=== PATIENT | male | born 1950 | race Caucasian/White ===

== ENCOUNTER 2019-06-05 06:00 | Outpatient (RCR) | payer OTHER, SELFPAY ==
[2019-06-02 10:48] LABS: Basophils % 0.3 %; Eosinophils # 0.1 10^3/uL (0.0-0.8); Hematocrit 37.4 % (42.0-52.0); Lymphocytes % 16.1 %; Mean Corpuscular HGB Conc 29.4 g/dL (30.0-36.0); Mean Corpuscular Hemoglobin 27.1 pg (28.0-34.0); Mean Corpuscular Volume 92.1 fL (80-94); Mean Platelet Volume 12.2 fL (7.4-10.4); Monocytes # 0.8 10^3/uL (0.2-0.9); Monocytes % 12.8 %; Neutrophils # 4.4 10^3/uL (1.8-7.7); Neutrophils % 68.2 %; Nucleated Red Blood Cells % 0 %; Platelet Count 207 10^3/cmm (130-400); Red Blood Count 4.06 10^6/uL (4.1-5.3); Red Cell Distribution Width 19.9 % (12.1-15.1); White Blood Count 6.4 10^3/uL (4.0-10.0)
[2019-06-02 11:00] LABS: Alanine Aminotransferase 26 U/L (0-41); Albumin Level 4.9 g/dL (3.5-5.2); Alkaline Phosphatase 73 IU/L (40-130); Anion Gap 15.2 (5-19); Aspartate Amino Transferase 30 U/L (0-40); Blood Urea Nitrogen 10 mg/dL (8-23); Calcium 9.4 mg/Dl (8.8-10.2); Carbon Dioxide 26 mmol/L (22-29); Chloride 97 mmol/L (98-107); Ferritin 39 ng/mL (30-400); Globulin 1.6 g/dL (1.3-4.6); Glomerular Filtration Rate 54.9 mL/min (90-130); Glucose 128 mg/dL (74-106); Iron 24 ug/dL (59-158); Percent Saturation 7.3 % (20-50); Potassium 4.2 mmol/L (3.5-5.1); Sodium 134 mmol/L (136-145); Total Bilirubin 0.4 mg/dL (0.15-1.2); Total Iron Binding Capacity 328 mg/dL; Total Protein 6.5 g/dL (6.6-8.7); Unsaturated Iron Binding 304 ug/dL (112-347)
--- NOTE | 2019-06-06 08:26 | ONC FU_ITS ---
Dr. Larkin Patient Follow-Up Note Patient: Bebo Goetz Unit #: [id number]: 1950 Dicatated By: Grabiel Larkin M.D.Date of Visit:Jun 05, 2019 Onc Med Follow-up/Prog Note Chief Complaint: Anemia. History of Present Illness: This is 69 year-old man with iron deficiency anemia. He was found to have a microcytic anemia on 09/29/2011, but no additional clinical data were available. He had normal hemoglobin with normal MCV on 10/15/2014 laboratory analysis. In December 2014 he was admitted with an acute febrile illness. He had a worsening renal insufficiency and hepatic enzyme elevation. During that hospitalization his hemoglobin measured 7.7 g/dL, MCV 67.8. Iron saturation was 4%, consistent with iron deficiency. The patient received 2 units of packed red blood cell transfusion and began oral iron replacement. He underwent endoscopy and colonoscopy on 02/19/2015. Pathology showed gastric hyperplastic polyp and gastritis thought to be from the iron supplement. Several colonic and rectal hyperplastic polyps were discovered without dysplasia. Review of prior laboratory analysis showed negative acute hepatitis B and C serology in April 2014. PSA was 3.54 in August 2014. He was first seen by Dr. Torres on 04/29/2015. Hemoglobin had recovered to 11.4 g with MCV 79. He continued to have iron deficiency with ferritin 8.9 ng/mL. Hemoccult stool negative x 1. Total testosterone was low at 119. By July 2015 the hemoglobin was stable at 11.2 g, but transferrin saturation was low at 7.2%. He was given parenteral iron replacement with Injectafer in July 2015. Despite the IV iron replacement, his iron studies in August were consistent with recurrent iron deficiency, suggestive of ongoing blood loss. His CT of the chest, abdomen, and pelvis on 09/20/15 showed mild borderline hepatomegaly but also mucosal thickening of the colon. He received additional IV Injectafer in August and again in October 2015. His other medical illnesses include oxygen dependent COPD, coronary artery disease, type II diabetes, and chronic renal insufficiency. He underwent aortic aneurysm repair and aortic valve repair in 2011. He has a history of smoking 2 packs of cigarettes daily for 45 years. He quit smoking in 2011. INTERIM HISTORY: His described his having an episode in May 2016 in which he passed out in the bathroom. She said that when she turned him over, he had shaking in his upper extremities and his eyes rolled back in his head. When he regained consciousness, he was confused. Shortly after regaining consciousness, he had another apparent seizure. He was evaluated the emergency room, and he is now being followed by Dr Elliott. On a follow-up visit here in July 2016 he was again significantly anemic with his hemoglobin down to 7.4 g. The red cell indices were hypochromic/microcytic. The transferrin saturation was 3.3%, and the ferritin level was low at 5.9 ng/mL. He did receive additional infusions of Injectafer in July, July, and September 2016. MRI of the brain performed on 08/27/2016 showed no evidence of restricted diffusion to suggest acute ischemia. 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 There were multiple chronic lacunar infarcts in the right superior cerebellum. There were mild small vessel changes with moderate parenchymal volume loss. There was no evidence of enhancing intracranial metastatic disease. On his follow-up visit on 02/02/2017 he was again significantly anemic with his hemoglobin back down to 8.1 g. His serum iron studies show transferrin saturation 4% and his ferritin was low at 5.2 ng/mL, consistent with iron deficiency. He was given infusions of Injectafer on 02/02/2017 and on 02/09/2017 and again on 03/17/2017 and on 03/24/2017. On his followup visit in July 2017 he was just mildly anemic, but his transferrin saturation was back down to 4.8% and his ferritin was relatively low at 42 ng/mL. He was given further parenteral iron replacement with infusions of Injectafer on 07/05 and 07/12/2017. He was seen for followup on 08/11/2017. His hemoglobin had increased to 12 g, but his serum iron and ferritin were still consistent with iron deficiency. He was given additional infusions of Injectafer on 08/11/2017 and on 08/18/2017. His repeat CBC on 09/08/2017 showed increase in the hemoglobin to 14.8 g. On 10/21/2017 he was admitted to the hospital with pneumonia. He was discharged home on oral Levaquin and prednisone. His hemoglobin at that point had declined to 10.0 g. As of his follow-up on 11/10/2017 his hemoglobin was still low at 10.2 g. His transferrin saturation was 4.3% with ferritin level 13.7 ng/mL, consistent with iron deficiency. He was given further parenteral iron replacement with 2 infusions of Injectafer. His repeat CT scan on 12/21/2017 showed hemoglobin up to 12.4 g. At his follow-up visit on 03/29/2018 his hemoglobin had dropped to 8.4 g with transferrin saturation 4.1% and ferritin level 8.3 ng/mL. He was given 2 more infusions of Injectafer. During subsequent follow-up he received single infusions of Injectafer again in April 2018 and in May 2018, and his serum iron and ferritin levels remained in iron deficiency range, though he was just borderline anemic on both occasions. His repeat CBC on 12/05/2018 showed a decrease in his hemoglobin to 9.2 g. The transferrin saturation was low at 5.4% with ferritin 17 ng/mL, consistent with iron deficiency. He was given 2 additional infusions of Injectafer. During subsequent follow-up he continued to have evidence of iron deficiency, though with just borderline low hemoglobin/hematocrit levels. He was given further infusions of Injectafer in February, March, and April 2019. During that time he had stool Hemoccult testing done through the [place], which he says was negative. He is seen for a follow-up visit. He has not been feeling good generally. He has been feeling extra tired, and his activity has been very limited. He has been having to force himself to get up and walk around. His ECOG score is 3. His appetite is been okay. He has been having chills, and he has had slight fever up to 99.4 degrees. He has had episodes of sweating both during the daytime and at night. He is short of breath and he is on continuous oxygen. He has cough productive of white or yellow sputum. He has not recently been having chest pain. He has had one recent episode of nausea. He is on Protonix for acid reflux. His bowels lately have been better, and he has not been aware of any blood in the stool. He is having some difficulty voiding, and on his recent urology follow-up it was noted that his bladder was not emptying completely. He is back on medication for that now. He has pain in his hands and in his legs. He has headaches at least a couple times a week. He also reports having dizziness/lightheadedness, and he has numbness/tingling in his feet. Medications: Aggrenox 1 (25-200 mg) Capsule SR 12 HR Oral b.i.d., Albuterol Sulfate 1 puff(s) (of 108 (90 base) mcg/act) Aerosol Powder, Breath Activated Inhalation four times a day, Calcitriol 1 (0.25 mcg) Capsule Oral daily, Cephalexin 1 Capsule (of 500 mg) Oral q 8 hours, Colace 1 Capsule (of 100 mg) Oral daily, Depakote ER 2 Tablet (of 500 mg) Tablet SR 24 HR Oral daily, Gabapentin 1 (100 mg) Tablet Oral t.i.d., Lasix 1 Tablet (of 40 mg) Oral daily, Levothroid 1 Tablet (of 25 mcg) Oral daily, Meclizine HCl 1 Tablet Oral t.i.d., Memantine HCl 1 Tablet (of 10 mg) Oral b.i.d., Metoprolol Tartrate 1 (25 mg) Tablet Oral b.i.d., Nitroglycerin Solution Translingual PRN, Protonix 1 Tablet (of 40 mg) Tablet, enteric coated Oral b.i.d., Spiriva Respimat 1 puff(s) (of 2.5 mcg/act) Aerosol, solution Inhalation daily, Symbicort 2 (160-4.5 mcg/act) Aerosol Inhalation b.i.d., Vitamin D3 1 spray(s) (of 5000 Units) Tablet daily Allergies: Clopidogrel Bisulfate, Ezetimibe, fish oil, Gemfibrozil, Hydroxychloroquine Sulfate, mushrooms , Niacin, Simvastatin, Sulfamethoxazole-TMP DS, and Zetia. Review of Systems: Constitutional - He has had very limited activity, and is having to force himself to get up and walk around. Appetite is still okay. He recently has had chills and he has had slight fever up to 99.4 degrees. He has been having episodes of sweating both during the daytime and at night. ECOG score is 3, ENMT - He has sinus congestion/drainage. No mouth sores. No sore throat or difficulty swallowing, Hematologic/Lymphatic - He has some bruising, but no other obvious bleeding, Respiratory - He has shortness of breath and he wears continuous oxygen. He has a cough that produces white or yellow phlegm. No pleuritic pain or hemoptysis, Cardiovascular - No angina pain. No palpitations, Gastrointestinal - No nausea or vomiting. He has heartburn. No diarrhea or constipation. No blood in the stool or black stools, Genitourinary (M) - No dysuria or hematuria. No urinary frequency. No urgency or incontinence, Musculoskeletal - He has pain in his hands and legs, Integumentary - No skin complications, Neurologic - He has frequent headaches. He has occasional dizziness. He has numbness and tingling in his feet, Psychiatric - No anxiety or depression. He does not sleep well at night. Vital Signs: Performed on Jun 05, 2019 12:37 Height - 70.00 in Weight - 264.0 lbs (HIGH) BSA - 2.35 sq.m BMI - 37.88 (HIGH) Temperature - 97.2 F (LOW) Pulse - 69 /min Respiration - 24 /min BP - 141/73 mm(hg) (HIGH) O2 Sat - 96 % Pain - 0 Physical Examination: Constitutional - He appears generally weak and chronically ill, Eyes - Sclerae nonicteric. Conjunctivae clear, ENMT - No lesions noted in the oral cavity, Hematologic/Lymphatic - No cervical, clavicular, or axillary adenopathy, Respiratory - Lungs are clear with diminished air movement bilaterally, Cardiovascular - Heart rhythm is regular. There is a II/ systolic murmur. There is no gallop or rub noted, Abdomen - Mildly distended. Liver and spleen are not enlarged. There is no abdominal mass or ascites noted and there is no inguinal adenopathy, Extremities - Slight lower extremity edema, worse on the right, Neurologic - No focal neurologic deficits noted. Lab/Imaging: His CBC shows hemoglobin 11.0 g, white blood cell count 6400, and platelet count 207,000. Comprehensive metabolic profile is unremarkable except for borderline renal function with BUN 10 and creatinine 1.3 mg/dL. The serum iron studies show low transferrin saturation at 7.3% with ferritin 39 ng/mL, consistent with iron deficiency. Impression: 1. Patient with recurrent microcytic anemia consistent with iron deficiency. Recurrent GI blood loss has been suspected, but a source of GI blood loss has not been determined. 2. He received parenteral iron replacement with Injectafer in July 2015, August 2015, and in October 2015. His other medical illnesses include: 3. Oxygen dependent COPD. 4. Coronary artery disease and valvular heart disease. 5. Type II diabetes. 6. Dyslipidemia. 7. Chronic kidney disease. 8. He has a suspected seizure disorder. His brain MRI showed multiple prior infarcts. He has recurrent iron deficiency anemia despite multiple courses of parenteral iron replacement. As such, GI blood loss has been suspected, but not documented. His laboratory studies had improved following his Injectafer infusions in July, but he remained mildly anemic despite having been given 2 additional infusions of Injectafer in July. He was then given 2 additional infusions of Injectafer in September 2016. As of his visit on 02/02/2017 his hemoglobin was back down to 8 g and his chemistry studies were clearly consistent with iron deficiency. He was given infusions of Injectafer on 02/02/2017 and on 02/09/2017. His follow-up laboratory studies and October did show some improvement, but he was still moderately anemic with evidence of iron deficiency. He was given further infusions of Injectafer on 03/17/2017 and on 03/24/2017. On his followup visit in July 2017 he was just borderline anemic, but his laboratory studies were definitely still consistent with iron deficiency. He received additional infusions of Infectafer on 07/05 and on 07/12/2017, and he was givenInjectifer again in July as his transferrin saturation was still low at 7.5% with ferritin also low at 36 ng/mL. He did have a very good response. However, as before, response was very temporary. On his follow-up visit in October 2017 his hemoglobin was back down to 10 g and he was again iron deficient. He was given further parenteral iron replacement with 2 more infusions of Injectafer, which he tolerated well. He had a good objective response with his hemoglobin increasing to 12.4 g. At his follow-up visit in February 2018 he was significantly anemic again, hemoglobin 8.4 g, with low transferrin saturation and ferritin. He was given 2 more infusions of Injectafer. He did have a good response, but during subsequent follow-up he was given further parenteral iron replacement with single infusions of Injectafer in April 2018 and in May 2018. On both occasions his serum iron studies and ferritin were in iron deficiency range, but with just borderline anemia. He was then given 2 additional infusions of Injectafer in September 2018 and in November 2018. During subsequent follow-up, he continued to have evidence of iron deficiency, though with just borderline low hemoglobin/hematocrit levels. He received additional infusions of Injectafer in February, March, and April 2019. At this point his laboratory studies are again consistent with iron deficiency, though he is just slightly anemic. There has been some further decline in his performance status, but some of that may be related to his underlying lung disease and respiratory symptoms. The frequency with which he has required parenteral iron replacement is consistent with ongoing GI blood loss, though his stool Hemoccult test was reportedly negative. Plan: He will be given Injectafer 750 mg by IV infusion. He will have repeat laboratory studies in 6 weeks and a follow-up visit in 3 months. Signed By: Grabiel Larkin M.D. <<Signature on File>>
== END 2019-06-30 23:59 | disposition home or self-care (01) ==
LOC: ONCMED 06:00
PROVIDERS: Nurse Practitioner; Family Provider Internal Medicine; PCP Internal Medicine; Visit Provider Internal Medicine Medical Oncology
DX: D50.9 Iron deficiency anemia, unspecified (principal); J44.9 Chronic obstructive pulmonary disease, unspecified; I25.10 Atherosclerotic heart disease of native coronary artery without angina pectoris; E11.9 Type 2 diabetes mellitus without complications; N18.9 Chronic kidney disease, unspecified; E78.5 Hyperlipidemia, unspecified; Z99.81 Dependence on supplemental oxygen; Z87.891 Personal history of nicotine dependence; Z87.01 Personal history of pneumonia (recurrent); Z86.73 Personal history of transient ischemic attack (TIA), and cerebral infarction without residual deficits; Z79.899 Other long term (current) drug therapy
CPT/HCPCS: 36415; 80053; 82728; 83540; 83550; 85025; 96365; 99214; J1439

== ENCOUNTER 2019-07-26 05:44 | Outpatient (RCR) | payer OTHER, SELFPAY ==
[2019-07-14 11:12] LABS: Basophils % 0.3 %; Eosinophils # 0.2 10^3/uL (0.0-0.8); Eosinophils % 2.6 %; Hemoglobin 8.9 g/dL (11.7-16.6); Lymphocytes # 1.3 10^3/uL (0.8-4.8); Lymphocytes % 17.9 %; Mean Corpuscular HGB Conc 27.8 g/dL (30.0-36.0); Mean Corpuscular Hemoglobin 24.3 pg (28.0-34.0); Mean Corpuscular Volume 87.2 fL (80-94); Mean Platelet Volume 11.7 fL (7.4-10.4); Monocytes # 0.8 10^3/uL (0.2-0.9); Monocytes % 10.7 %; Neutrophils # 4.8 10^3/uL (1.8-7.7); Neutrophils % 67.1 %; Nucleated Red Blood Cells % 0 %; Platelet Count 255 10^3/cmm (130-400); Red Blood Count 3.67 10^6/uL (4.1-5.3); Red Cell Distribution Width 21.6 % (12.1-15.1); White Blood Count 7.2 10^3/uL (4.0-10.0)
[2019-07-14 11:50] LABS: Ferritin 18 ng/mL (30-400); Iron 19 ug/dL (59-158); Percent Saturation 5.4 % (20-50); Total Iron Binding Capacity 346 mcg/dl; Unsaturated Iron Binding 327 ug/dL (112-347)
== END 2019-07-29 23:59 | disposition home or self-care (01) ==
LOC: ONCMED 05:44
PROVIDERS: Internal Medicine Medical Oncology; Family Provider Internal Medicine; PCP Internal Medicine; Visit Provider Nurse Practitioner
DX: D50.9 Iron deficiency anemia, unspecified (principal)
CPT/HCPCS: 36415; 82728; 83540; 83550; 85025; 96365; J1439

== ENCOUNTER 2019-09-18 06:46 | Outpatient (RCR) | payer OTHER, SELFPAY ==
[2019-09-08 09:40] LABS: Basophils % 0.4 %; Eosinophils # 0.2 10^3/uL (0.0-0.8); Eosinophils % 2.6 %; Hematocrit 31.3 % (42.0-52.0); Hemoglobin 8.6 g/dL (11.7-16.6); Lymphocytes # 1.2 10^3/uL (0.8-4.8); Lymphocytes % 15.6 %; Mean Corpuscular HGB Conc 27.5 g/dL (30.0-36.0); Mean Corpuscular Hemoglobin 23.8 pg (28.0-34.0); Mean Corpuscular Volume 86.7 fL (80-94); Mean Platelet Volume 11.7 fL (7.4-10.4); Monocytes # 0.7 10^3/uL (0.2-0.9); Monocytes % 9.4 %; Neutrophils # 5.5 10^3/uL (1.8-7.7); Nucleated Red Blood Cells % 0 %; Platelet Count 235 10^3/cmm (130-400); Red Blood Count 3.61 10^6/uL (4.1-5.3); Red Cell Distribution Width 21.1 % (12.1-15.1); White Blood Count 7.8 10^3/uL (4.0-10.0)
[2019-09-08 09:52] LABS: Alanine Aminotransferase 11 U/L (0-41); Albumin Level 4.1 g/dL (3.5-5.2); Alkaline Phosphatase 74 IU/L (40-130); Anion Gap 15.4 (5-19); Aspartate Amino Transferase 17 U/L (0-40); Blood Urea Nitrogen 14 mg/dL (8-23); Calcium 9.4 mg/dL (8.5-10.5); Carbon Dioxide 26 mmol/L (22-29); Chloride 95 mmol/L (98-107); Ferritin 17 ng/mL (30-400); Globulin 2.9 g/dL (1.3-4.6); Glomerular Filtration Rate 54.9 mL/min (90-130); Glucose 150 mg/dL (65-115); Iron 19 ug/dL (59-158); Osmolality Calculated 273 mOsm/kg (285-295); Percent Saturation 4.9 % (20-50); Potassium 4.4 mmol/L (3.5-5.1); Sodium 132 mmol/L (136-145); Total Bilirubin 0.4 mg/dL (0.15-1.2); Total Iron Binding Capacity 387 mcg/dl; Unsaturated Iron Binding 368 ug/dL (112-347)
[2019-09-11] MEDS: sodium chloride 0.9% 100 ML 50 ML (09:35)
== END 2019-09-28 23:59 | disposition home or self-care (01) ==
LOC: ONCMED 06:46
PROVIDERS: Family Provider Internal Medicine; PCP Internal Medicine; Visit Provider Internal Medicine Medical Oncology
DX: D50.9 Iron deficiency anemia, unspecified (principal)
CPT/HCPCS: 36415; 80053; 82728; 83540; 83550; 85025; 96365; J1439

== ENCOUNTER 2019-10-26 06:47 | Outpatient (RCR) | payer OTHER, SELFPAY ==
[2019-10-18 09:40] LABS: Basophils % 0.5 %; Eosinophils # 0.1 10^3/uL (0.0-0.8); Eosinophils % 2.1 %; Hematocrit 34.1 % (42.0-52.0); Hemoglobin 9.5 g/dL (11.7-16.6); Lymphocytes % 16.1 %; Mean Corpuscular HGB Conc 27.9 g/dL (30.0-36.0); Mean Corpuscular Volume 89.7 fL (80-94); Mean Platelet Volume 11.6 fL (7.4-10.4); Monocytes # 0.6 10^3/uL (0.2-0.9); Monocytes % 10.1 %; Neutrophils # 4.5 10^3/uL (1.8-7.7); Neutrophils % 70.4 %; Nucleated Red Blood Cells % 0 %; Platelet Count 186 10^3/cmm (130-400); Red Cell Distribution Width 21.4 % (12.1-15.1); White Blood Count 6.3 10^3/uL (4.0-10.0)
[2019-10-18 09:45] LABS: Ferritin 29 ng/mL (30-400); Iron 29 ug/dL (59-158); Percent Saturation 8.1 % (20-50); Total Iron Binding Capacity 355 mcg/dl; Unsaturated Iron Binding 326 ug/dL (112-347)
--- NOTE | 2019-10-24 00:11 | ONC FU_ITS ---
[facility] Patient Note Patient: Bebo Goetz Unit #: [id number]: 1950 Dictated By: Mustapha RodriguezDate of Visit: October 19, 2019 Onc MED Follow-Up/Prog Note Chief Complaint: Anemia. History of Present Illness: Mr Goetz is a 69 year-old man with iron deficiency anemia. He was found to have a microcytic anemia on 09/29/2011, but no additional clinical data were available. He had normal hemoglobin with normal MCV on 10/15/2014 laboratory analysis. In December 2014 he was admitted with an acute febrile illness. He had a worsening renal insufficiency and hepatic enzyme elevation. During that hospitalization his hemoglobin measured 7.7 g/dL, MCV 67.8. Iron saturation was 4%, consistent with iron deficiency. The patient received 2 units of packed red blood cell transfusion and began oral iron replacement. He underwent endoscopy and colonoscopy on 02/19/2015. Pathology showed gastric hyperplastic polyp and gastritis thought to be from the iron supplement. Several colonic and rectal hyperplastic polyps were discovered without dysplasia. Review of prior laboratory analysis showed negative acute hepatitis B and C serology in April 2014. PSA was 3.54 in August 2014. He was first seen by Dr. Torres on 04/29/2015. Hemoglobin had recovered to 11.4 g with MCV 79. He continued to have iron deficiency with ferritin 8.9 ng/mL. Hemoccult stool negative x 1. Total testosterone was low at 119. By July 2015 the hemoglobin was stable at 11.2 g, but transferrin saturation was low at 7.2%. He was given parenteral iron replacement with Injectafer in July 2015. Despite the IV iron replacement, his iron studies in August were consistent with recurrent iron deficiency, suggestive of ongoing blood loss. His CT of the chest, abdomen, and pelvis on 09/20/15 showed mild borderline hepatomegaly but also mucosal thickening of the colon. He received additional IV Injectafer in August and again in October 2015. His other medical illnesses include oxygen dependent COPD, coronary artery disease, type II diabetes, and chronic renal insufficiency. He underwent aortic aneurysm repair and aortic valve repair in 2011. He has a history of smoking 2 packs of cigarettes daily for 45 years. He quit smoking in 2011. INTERIM HISTORY: His described his having an episode in May 2016 in which he passed out in the bathroom. She said that when she turned him over, he had shaking in his upper extremities and his eyes rolled back in his head. When he regained consciousness, he was confused. Shortly after regaining consciousness, he had another apparent seizure. He was evaluated the emergency room, and he is now being followed by Dr Elliott. On a follow-up visit here in July 2016 he was again significantly anemic with his hemoglobin down to 7.4 g. The red cell indices were hypochromic/microcytic. The transferrin saturation was 3.3%, and the ferritin level was low at 5.9 ng/mL. He did receive additional infusions of Injectafer in July, July, and September 2016. MRI of the brain performed on 08/27/2016 showed no evidence of restricted diffusion to suggest acute ischemia. 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 There were multiple chronic lacunar infarcts in the right superior cerebellum. There were mild small vessel changes with moderate parenchymal volume loss. There was no evidence of enhancing intracranial metastatic disease. On his follow-up visit on 02/02/2017 he was again significantly anemic with his hemoglobin back down to 8.1 g. His serum iron studies show transferrin saturation 4% and his ferritin was low at 5.2 ng/mL, consistent with iron deficiency. He was given infusions of Injectafer on 02/02/2017 and on 02/09/2017 and again on 03/17/2017 and on 03/24/2017. On his followup visit in July 2017 he was just mildly anemic, but his transferrin saturation was back down to 4.8% and his ferritin was relatively low at 42 ng/mL. He was given further parenteral iron replacement with infusions of Injectafer on 07/05 and 07/12/2017. He was seen for followup on 08/11/2017. His hemoglobin had increased to 12 g, but his serum iron and ferritin were still consistent with iron deficiency. He was given additional infusions of Injectafer on 08/11/2017 and on 08/18/2017. His repeat CBC on 09/08/2017 showed increase in the hemoglobin to 14.8 g. On 10/21/2017 he was admitted to the hospital with pneumonia. He was discharged home on oral Levaquin and prednisone. His hemoglobin at that point had declined to 10.0 g. As of his follow-up on 11/10/2017 his hemoglobin was still low at 10.2 g. His transferrin saturation was 4.3% with ferritin level 13.7 ng/mL, consistent with iron deficiency. He was given further parenteral iron replacement with 2 infusions of Injectafer. His repeat CT scan on 12/21/2017 showed hemoglobin up to 12.4 g. At his follow-up visit on 03/29/2018 his hemoglobin had dropped to 8.4 g with transferrin saturation 4.1% and ferritin level 8.3 ng/mL. He was given 2 more infusions of Injectafer. During subsequent follow-up he received single infusions of Injectafer again in April 2018 and in May 2018, and his serum iron and ferritin levels remained in iron deficiency range, though he was just borderline anemic on both occasions. His repeat CBC on 12/05/2018 showed a decrease in his hemoglobin to 9.2 g. The transferrin saturation was low at 5.4% with ferritin 17 ng/mL, consistent with iron deficiency. He was given 2 additional infusions of Injectafer. During subsequent follow-up he continued to have evidence of iron deficiency, though with just borderline low hemoglobin/hematocrit levels. He was given further infusions of Injectafer in February, March, and April 2019. During that time he had stool Hemoccult testing done through the [facility], which he says was negative. Mr. Goetz is here today for follow-up. It is 1 month post his last Injectafer treatments. His Injectafer was given on September 11, 2019 and again on September 18, 2019. He is here today for reassessment and lab draws. He states overall he does feel better. He is still tired and has shortness of breath which is chronic. He denies any fever or chills. He has had no cough or hemoptysis. He denies any trouble swallowing. He has had no palpitations or chest pain. He denies any diarrhea or constipation. He denies any hematochezia. He states overall he is just really tired but does feel better after getting the iron in August. His ECOG remains at 3. Past Medical History: Anemia Chronic obstructive pulmonary disease (home oxygen use) Chronic renal insufficiency Colon polyps Coronary artery disease Diabetes type II Hyperlipidemia Past Surgical History: Aortic aneurysm repair in 2011 Arotic valve repair in 2011 Left rotator cuff repair in 2006 Allergies: Clopidogrel Bisulfate, Ezetimibe, fish oil, Gemfibrozil, Hydroxychloroquine Sulfate, mushrooms , Niacin, Simvastatin, Sulfamethoxazole-TMP DS, and Zetia. Medications: Aggrenox 1 (25-200 mg) Capsule SR 12 HR Oral b.i.d. Albuterol Sulfate 1 puff(s) (of 108 (90 base) mcg/act) Aerosol Powder, Breath Activated Inhalation four times a day Calcitriol 1 (0.25 mcg) Capsule Oral daily Cephalexin 1 Capsule (of 500 mg) Oral q 8 hours Colace 1 Capsule (of 100 mg) Oral daily Depakote ER 2 Tablet (of 500 mg) Tablet SR 24 HR Oral daily Gabapentin 1 (100 mg) Tablet Oral t.i.d. Lasix 1 Tablet (of 40 mg) Oral daily Levothroid 1 Tablet (of 25 mcg) Oral daily Meclizine HCl 1 Tablet Oral t.i.d. Memantine HCl 1 Tablet (of 10 mg) Oral b.i.d. Metoprolol Tartrate 1 (25 mg) Tablet Oral b.i.d. Nitroglycerin Solution Translingual PRN Protonix 1 Tablet (of 40 mg) Tablet, enteric coated Oral b.i.d. Spiriva Respimat 1 puff(s) (of 2.5 mcg/act) Aerosol, solution Inhalation daily Symbicort 2 (160-4.5 mcg/act) Aerosol Inhalation b.i.d. Vitamin D3 1 spray(s) (of 5000 Units) Tablet daily Family History: Mr. Goetz's mother at age 65: [place]. Mr. Goetz's father at age 72: heart attack, and lung and brain cancer. Social History: Mr. Goetz is and he is a disabled. Mr. Goetz quit smoking 3 years ago but had smoked 2.0 packs/day for 45 years. Mr. Goetz reports the following support systems: lives with spouse, significant other, family, or friends, lives in own house, supportive family/friends willing to assist with needs, and adequate transportation available for expected visits. His diet consists of regular meals. He indicates his activity level as: daily activities. Review Of Symptoms: Constitutional Denies fevers, chills. Chronic Hot flashes-stable. Mild to moderate fatigue. Eyes Denies significant visual changes. ENMT Denies sore throat, mouth sores, difficulty or changes in swallowing ability, and/or sinus drainage. Endocrine Denies hot flashes or night sweats. Hematologic/Lymphatic Easy bruising and but no bleeding. The patient denies any tender or palpable lymph nodes. Respiratory Denies chest pain. Dyspnea upon exertion-stable. Wearing oxygen supplementation continuously. Cardiovascular Denies anginal chest pain. Gastrointestinal Denies nausea, vomiting, diarrhea,heartburn, or constipation. Genitourinary (M) Denies hematuria, dysuria, increased frequency, urgency, incontinence. Musculoskeletal Bilateral leg pain-chronic and controlled with meds. No change. Integumentary Denies chronic rashes. Neurologic Denies headache, blurred vision, and no areas of focal weakness or numbness. Normal slow gait. No sensory problems. Psychiatric Denies depression and anxiety. Vital Signs: Performed on October 19, 2019 13:58 Height - 70.00 in Temperature - 98.1 F (LOW) Pulse - 64 /min Respiration - 18 /min BP - 121/65 mm(hg) O2 Sat - 96 % Pain - 0 Fatigue - 6 Performed on October 19, 2019 13:14 Height - 70.00 in Weight - 263.6 lbs (LOW) BSA - 2.35 sq.m BMI - 37.82 (HIGH) Temperature - 98.1 F (LOW) Pulse - 59 /min (LOW) Respiration - 24 /min BP - 133/71 mm(hg) O2 Sat - 97 % Pain - 0,3 - Capable of only limited self-care, confined to bed or chair more than 50% of waking hours. (ECOG) Physical Examination: Constitutional Alert, oriented, no acute distress. Skin pale/pink, warm and dry. Head Normocephalic; atraumatic. Eyes Conjunctivae and sclerae are clear and without icterus. Pupils are reactive and equal. ENMT Sinuses are nontender. No oral exudates, ulcers, masses, thrush or mucositis. Oropharynx clear. Tongue normal. Neck Supple without masses or thyromegaly. No jugular venous distension. Hematologic/Lymphatic No petechiae or purpura. No tender or palpable lymph nodes in the cervical or supraclavicular areas. Respiratory Lungs are diminished to auscultation without rhonchi or wheezing. Cardiovascular Regular rate and rhythm of heart without murmurs,clicks, gallops or rubs. Abdomen Non-tender, non-distended, no masses, ascites. Good bowel sounds noted in all quads. No guarding or rebound tenderness. No pulsatile masses. Back/Spine Non-tender to palpation. Extremities No visible deformities, no cyanosis, clubbing or edema. Musculoskeletal No tenderness or swelling, normal range of motion without obvious weakness. Integumentary No rashes or lesions. Neurologic No sensory or motor deficits, normal cerebellar function, slow gait. Psychiatric Alert and oriented times three. Coherent speech. Verbalizes understanding of our discussions today. Laboratory:see flow sheet or note below Impression: 1. Patient with recurrent microcytic anemia consistent with iron deficiency. Recurrent GI blood loss has been suspected, but a source of GI blood loss has not been determined. 2. He received parenteral iron replacement with Injectafer in July 2015, August 2015, and in October 2015. His other medical illnesses include: 3. Oxygen dependent COPD. 4. Coronary artery disease and valvular heart disease. 5. Type II diabetes. 6. Dyslipidemia. 7. Chronic kidney disease. 8. He has a suspected seizure disorder. His brain MRI showed multiple prior infarcts. He has recurrent iron deficiency anemia despite multiple courses of parenteral iron replacement. As such, GI blood loss has been suspected, but not documented. His laboratory studies had improved following his Injectafer infusions in July, but he remained mildly anemic despite having been given 2 additional infusions of Injectafer in July. He was then given 2 additional infusions of Injectafer in September 2016. As of his visit on 02/02/2017 his hemoglobin was back down to 8 g and his chemistry studies were clearly consistent with iron deficiency. He was given infusions of Injectafer on 02/02/2017 and on 02/09/2017. His follow-up laboratory studies and February did show some improvement, but he was still moderately anemic with evidence of iron deficiency. He was given further infusions of Injectafer on 03/17/2017 and on 03/24/2017. On his followup visit in July 2017 he was just borderline anemic, but his laboratory studies were definitely still consistent with iron deficiency. He received additional infusions of Infectafer on 07/05 and on 07/12/2017, and he was givenInjectifer again in July as his transferrin saturation was still low at 7.5% with ferritin also low at 36 ng/mL. He did have a very good response. However, as before, response was very temporary. On his follow-up visit in October 2017 his hemoglobin was back down to 10 g and he was again iron deficient. He was given further parenteral iron replacement with 2 more infusions of Injectafer, which he tolerated well. He had a good objective response with his hemoglobin increasing to 12.4 g. At his follow-up visit in February 2018 he was significantly anemic again, hemoglobin 8.4 g, with low transferrin saturation and ferritin. He was given 2 more infusions of Injectafer. He did have a good response, but during subsequent follow-up he was given further parenteral iron replacement with single infusions of Injectafer in April 2018 and in May 2018. On both occasions his serum iron studies and ferritin were in iron deficiency range, but with just borderline anemia. He was then given 2 additional infusions of Injectafer in September 2018 and in November 2018. During subsequent follow-up, he continued to have evidence of iron deficiency, though with just borderline low hemoglobin/hematocrit levels. He received additional infusions of Injectafer in February, March, and April 2019. At this point his laboratory studies are again consistent with iron deficiency, though he is just slightly anemic. There has been some further decline in his performance status, but some of that may be related to his underlying lung disease and respiratory symptoms. The frequency with which he has required parenteral iron replacement is consistent with ongoing GI blood loss, though his stool Hemoccult test was reportedly negative. Plan: 1. Labs from October 18, 2019 were reviewed with . Mrs. Goetz and a copy was given to them. WBC 6.3, hemoglobin 9.5 (8.6 on September 08, 2019) platelet count 86,000 ANC is 4500 iron saturation is 8.1 ferritin 29 TIBC 355. 2. Mr. Goetz has been advised that he continues to be iron deficient anemic. His hemoglobin has only gradually improved since his Injectafer in August. His iron sats have gone from 4.9 in August to 8.1 today however they remain in adequate with 20-50 be in the normal range. 3. We will proceed with Injectafer 750 mg x 2 doses???1 week apart. He will have his first dose today. 4. We will plan to see him back in 5 weeks with CBC, CMP and iron studies. 5. Mr. Goetz was advised to contact us in the interim should questions or problems arise. 6. We did discuss potential side effects of Injectafer but he states he is had a so much he knows what they are although he has not had any problems. Signed By: Mustapha Rodriguez-, CNP Grabiel Larkin MD <<Signature on File>>
== END 2019-10-29 23:59 | disposition home or self-care (01) ==
LOC: ONCMED 06:47
PROVIDERS: Internal Medicine Medical Oncology; PCP Internal Medicine; Visit Provider Nurse Practitioner
DX: D50.9 Iron deficiency anemia, unspecified (principal); J44.9 Chronic obstructive pulmonary disease, unspecified; I25.10 Atherosclerotic heart disease of native coronary artery without angina pectoris; I38 Endocarditis, valve unspecified; Z99.81 Dependence on supplemental oxygen; E11.22 Type 2 diabetes mellitus with diabetic chronic kidney disease; N18.9 Chronic kidney disease, unspecified; Z86.73 Personal history of transient ischemic attack (TIA), and cerebral infarction without residual deficits
CPT/HCPCS: 82728; 83540; 83550; 85025; 96365; 99214; J1439; J7050

== ENCOUNTER 2019-10-30 10:05 | Emergency (ER) | payer OTHER, MEDICARE, SELFPAY ==
[2019-10-30 10:17] VITALS: BP 123/77; PULSE 65; RESP 18; TEMP 37.1; O2SAT 98; BMI 36.2
--- NOTE | 2019-10-30 10:39 | USCV_ITS ---
Bishnu Bebo Age: 69 Gender: M : 1950 Exam Date: 10/30/2019 10:54 Ordering Phys: Robert Feliz Technologist: Ashley Walker [place]am [place] [facility] [place] Indication: SWELLING HISTORY: Lower extremity swelling. PROCEDURES: Venous duplex imaging was performed in only the right lower extremity. The following venous structures were evaluated: common femoral vein, profunda vein, proximal portion of the greater saphenous vein, superficial femoral vein, and the popliteal vein. In addition, the posterior tibial and peroneal trunk were evaluated. Serial compression, augmentation maneuvers, and spectral Doppler flow evaluation were performed. FINDINGS: Normal 2-D Doppler and augmentation and compressibility throughout the lower extremity venous structures. Additional imaging through the proximal calf veins also reveals no thrombus. Limited evaluation of the greater saphenous vein is patent with no thrombus.. Hypoechoic heterogeneous area in the anterior aspect of the knee measuring 2.78 x 1.02 cm CONCLUSIONS No evidence of DVT in the above-mentioned identifiable veins. Heterogeneous hypoechoic area on the anterior aspect of the knee, may suggest resolving hematoma Dr Erika Horne MD FAC (Electronically Signed) Final Date: 30 October 2019 18:33 S
--- NOTE | 2019-10-30 10:39 | W.ED.EXTPRO ---
HPI - Extremity Problem General: Chief complaint: Extremity Problem,Nontraumatic Stated complaint: POSS CLOT IN RIGHT LEG Time Seen by Provider: 10/30/19 10:33 History of Present Illness: HPI Narrative: Patient is a 69-year-old male who comes to the ED with right leg pain and swelling. Patient says that 2 days ago he noticed some localized swelling on the right knee. Patient says the right knee swelling was not painful until yesterday. Today patient noticed the swollen nodule below right knee is a little red and warm. He says it is painful whenever he bends his knee or walks on right leg. He denies any injury or accident to cause acute right knee pain. Associated symptoms: Deny chest pain, fever(s) or rash Review of Systems Const: Denies: fever(s), chills or fatigue Eyes: Denies: change in vision or eye discomfort ENMT: Denies: throat pain, odynophagia, nasal discharge or nasal congestion Card: Denies: chest pain, palpitations, edema, swelling of feet/ankles, dyspnea on exertion or orthopnea Resp: Denies: dyspnea, productive cough or non-productive cough GI: Denies: abdominal pain, nausea, vomiting, diarrhea, constipation or hematochezia : Denies: flank pain, difficulty urinating, dysuria or hematuria Musc: Reports: extremity pain (right knee), extremity swelling (right knee) and joint pain (right knee); Denies: neck pain or back pain Skin/Breast: Denies: rash or new lesions Neuro: Denies: headache(s), numbness in extremities or weakness in extremities PFS ED PFSH: Social History Smoking and tobacco status: former smoker Physical Exam Const: COMMON NORMALS: patient oriented x3 HENMT: COMMON NORMALS: normocephalic HEAD & SCALP: normocephalic MOUTH: Normal oral and palatal mucosa present THROAT: posterior oropharynx normal and uvula midline Neck/C-Spine: COMMON NORMALS: supple GENERAL: Yes normal visual inspection Resp: COMMON NORMALS: normal respiratory effort, No retractions, No use of accessory muscles and clear to auscultation bilaterally AUSCULTATION: clear to auscultation bilaterally Cardio: COMMON NORMALS: regular rate, regular rhythm, S1 normal heart sound present, S2 normal heart sound present, No gallops present (Cardio), No clicks present (Cardio), No murmurs present (Cardio) and Peripheral pulses 2+ throughout RATE: regular rate RHYTHM: regular rhythm HEART SOUNDS: S1 normal heart sound present and S2 normal heart sound present PERIPHERAL PULSES: Peripheral pulses 2+ throughout GI: COMMON NORMALS: Normal to inspection, nondistended, normoactive bowel sounds present, Soft to palpation, non-tender and no masses PALPATION: Yes Soft to palpation : COMMON NORMALS: Yes no CVA tenderness BLADDER/KIDNEY EXAM: Yes no CVA tenderness Back/Pelvis: COMMON NORMALS: no CVA tenderness Extremity: RIGHT LOWER EXTREMITY: Yes knee joint Right knee: Yes inspection (Patient is a red, warm nodule on the knee.), Yes palpation (Tender to the touch.), Yes ROM (full but hurts when he moves leg) and Yes neurovascular exam (Intact) Neuro: COMMON NORMALS: patient oriented x3 and moves all extremities Skin: COMMON NORMALS: no rashes or lesions noted GENERAL SKIN EXAM: no rashes or lesions noted and dry skin Course Vital Signs: Vital signs: Vital Signs Temperature 98.7 F 10/30/19 10:17 Pulse Rate 64 10/30/19 12:39 Respiratory Rate 18 10/30/19 12:39 Blood Pressure 121/76 10/30/19 12:39 Pulse Oximetry 98 10/30/19 12:39 MDM - Extremity (Nontraumatic) Imaging Data^: Xray Ortho: Attestation: I personally reviewed and interpreted this imaging study as follows: Radiologist's impression: [address] [address] XRay Report Signed Patient: Bebo Goetz Unit #: [id number] : 1950 Age/Sex: 69 / M ADM Date: 10/30/19 Loc: ER Room/Bed: Attending Dr: Ordering Provider/Ordering MD: Robert Feliz Date of Service: 10/30/19 Procedure(s): XR knee RT 3V* 19592 Accession Number(s): [id number] Report Number: [id number] WS: [id number] XR knee RT 3V* [id number] REASON FOR EXAM: pain and swelling FINDINGS: Degenerate changes along the lateral meniscal space are seen. The medial meniscal spaces were normal. The patella femoral articulations were normal. In the patella tibial space is a large calcified density consistent with remote [place] slaughters disease. XR/XR knee RT 3V* [id number] IMPRESSION: Calcified density in the patella tibial space consistent with remote [place] slaughters disease. Degenerate changes involving the lateral meniscal space. Dictated By: Broderick Hammond DO Signed By: Broderick Hammond DO Signed Date/Time: 10/30/19 1129 DD/ 1128 US Vascular: Attestation: I personally reviewed and interpreted this imaging study as follows: Radiologist's impression: Ultrasound venous duplex of the right lower extremity?prelim report no blood clots or DVTs seen. Discharge Plan Discharge Patient Disposition: Home, Self-Care Clinical Impression: Jackie-Schlatter's disease of right lower extremity, Enthesitis Condition: Stable Discharge Orders: Discharge Order (Routine); Ordered 10/30/19 Ordered By: Robert Feliz Referrals: Bertin Machado [Primary Care Provider] - Discharge Diet: Regular Discharge Activity: Increase activity as tolerated Patient Instructions: Jackie-Schlatter Disease (ED) Activity Restrictions/Additional Instructions: Schedule an appointment with your PCP in the next 5 to 7 days to get reevaluated. You can rest, ice, elevate right leg and take Tylenol for pain. 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
--- NOTE | 2019-10-30 11:07 | XR_ITS ---
WS: [id number] XR knee RT 3V* [id number] REASON FOR EXAM: pain and swelling FINDINGS: Degenerate changes along the lateral meniscal space are seen. The medial meniscal spaces were normal. The patella femoral articulations were normal. In the patella tibial space is a large calcified density consistent with remote Jackie slaughters dis ease. XR/XR knee RT 3V* [id number] IMPRESSION: Calcified density in the patella tibial space consistent with remote [place] sla ughters disease. Degenerate changes involving the lateral meniscal space.
[2019-10-30] MEDS: acetaminophen 500 mg Tablet PO (11:23)
[2019-10-30 12:39] VITALS: BP 121/76; PULSE 64; RESP 18; O2SAT 98
== END 2019-10-30 12:43 | disposition home or self-care (01) ==
PROVIDERS: Emergency Provider Physician Assistant; PCP Internal Medicine
DX: M92.51 Juvenile osteochondrosis of proximal tibia (principal); M77.9 Enthesopathy, unspecified; Z87.891 Personal history of nicotine dependence
CPT/HCPCS: 12345; 73562; 93971; 99281; 99283

== ENCOUNTER 2019-11-27 06:49 | Outpatient (RCR) | payer OTHER, SELFPAY ==
[2019-11-24 10:18] LABS: Basophils % 0.3 %; Eosinophils # 0.2 10^3/uL (0.0-0.8); Hematocrit 34.2 % (42.0-52.0); Hemoglobin 9.7 g/dL (11.7-16.6); Lymphocytes # 1.1 10^3/uL (0.8-4.8); Lymphocytes % 14.4 %; Mean Corpuscular HGB Conc 28.4 g/dL (30.0-36.0); Mean Corpuscular Hemoglobin 25.9 pg (28.0-34.0); Mean Corpuscular Volume 91.4 fL (80-94); Mean Platelet Volume 10.9 fL (7.4-10.4); Monocytes # 0.8 10^3/uL (0.2-0.9); Monocytes % 11.1 %; Neutrophils # 5.3 10^3/uL (1.8-7.7); Neutrophils % 71.5 %; Nucleated Red Blood Cells % 0 %; Platelet Count 226 10^3/cmm (130-400); Red Blood Count 3.74 10^6/uL (4.1-5.3); Red Cell Distribution Width 21.2 % (12.1-15.1); White Blood Count 7.4 10^3/uL (4.0-10.0)
[2019-11-24 10:27] LABS: Estmated Average Glucose 91; Hemoglobin A1C 4.8 % (4.0-6.0)
[2019-11-24 10:38] LABS: Alanine Aminotransferase 15 U/L (0-41); Albumin Level 4.2 g/dL (3.5-5.2); Alkaline Phosphatase 69 IU/L (40-130); Aspartate Amino Transferase 20 U/L (0-40); Blood Urea Nitrogen 14 mg/dL (8-23); Calcium 9.1 mg/dL (8.5-10.5); Carbon Dioxide 28 mmol/L (22-29); Chloride 95 mmol/L (98-107); Ferritin 25 ng/mL (30-400); Globulin 2.6 g/dL (1.3-4.6); Glomerular Filtration Rate 54.9 mL/min (90-130); Glucose 150 mg/dL (65-115); Iron 29 ug/dL (59-158); Osmolality Calculated 277 mOsm/kg (285-295); Percent Saturation 7.9 % (20-50); Sodium 134 mmol/L (136-145); Total Bilirubin 0.4 mg/dL (0.15-1.2); Total Iron Binding Capacity 363 mcg/dl; Total Protein 6.8 g/dL (6.6-8.7); Unsaturated Iron Binding 334 ug/dL (112-347)
[2019-11-27] MEDS: ferric carboxy (IVPB) 750 MG in sodium chloride 0.9% (100 ml) 100 ML 345 MG IV (14:30)
--- NOTE | 2019-11-30 09:55 | ONC FU_ITS ---
[facility] Patient Note Patient: Bebo Goetz Unit #: [id number]: 1950 Dictated By: Mustapha RodriguezDate of Visit: Nov 27, 2019 Onc MED Follow-Up/Prog Note Chief Complaint: Anemia. History of Present Illness: Mr Goetz is a 69 year-old man with iron deficiency anemia. He was found to have a microcytic anemia on 09/29/2011, but no additional clinical data were available. He had normal hemoglobin with normal MCV on 10/15/2014 laboratory analysis. In December 2014 he was admitted with an acute febrile illness. He had a worsening renal insufficiency and hepatic enzyme elevation. During that hospitalization his hemoglobin measured 7.7 g/dL, MCV 67.8. Iron saturation was 4%, consistent with iron deficiency. The patient received 2 units of packed red blood cell transfusion and began oral iron replacement. He underwent endoscopy and colonoscopy on 02/19/2015. Pathology showed gastric hyperplastic polyp and gastritis thought to be from the iron supplement. Several colonic and rectal hyperplastic polyps were discovered without dysplasia. Review of prior laboratory analysis showed negative acute hepatitis B and C serology in April 2014. PSA was 3.54 in August 2014. He was first seen by Dr. Torres on 04/29/2015. Hemoglobin had recovered to 11.4 g with MCV 79. He continued to have iron deficiency with ferritin 8.9 ng/mL. Hemoccult stool negative x 1. Total testosterone was low at 119. By July 2015 the hemoglobin was stable at 11.2 g, but transferrin saturation was low at 7.2%. He was given parenteral iron replacement with Injectafer in July 2015. Despite the IV iron replacement, his iron studies in August were consistent with recurrent iron deficiency, suggestive of ongoing blood loss. His CT of the chest, abdomen, and pelvis on 09/20/15 showed mild borderline hepatomegaly but also mucosal thickening of the colon. He received additional IV Injectafer in August and again in October 2015. His other medical illnesses include oxygen dependent COPD, coronary artery disease, type II diabetes, and chronic renal insufficiency. He underwent aortic aneurysm repair and aortic valve repair in 2011. He has a history of smoking 2 packs of cigarettes daily for 45 years. He quit smoking in 2011. INTERIM HISTORY: His described his having an episode in May 2016 in which he passed out in the bathroom. She said that when she turned him over, he had shaking in his upper extremities and his eyes rolled back in his head. When he regained consciousness, he was confused. Shortly after regaining consciousness, he had another apparent seizure. He was evaluated the emergency room, and he is now being followed by Dr Elliott. On a follow-up visit here in July 2016 he was again significantly anemic with his hemoglobin down to 7.4 g. The red cell indices were hypochromic/microcytic. The transferrin saturation was 3.3%, and the ferritin level was low at 5.9 ng/mL. He did receive additional infusions of Injectafer in July, July, and September 2016. MRI of the brain performed on 08/27/2016 showed no evidence of restricted diffusion to suggest acute ischemia. 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 There were multiple chronic lacunar infarcts in the right superior cerebellum. There were mild small vessel changes with moderate parenchymal volume loss. There was no evidence of enhancing intracranial metastatic disease. On his follow-up visit on 02/02/2017 he was again significantly anemic with his hemoglobin back down to 8.1 g. His serum iron studies show transferrin saturation 4% and his ferritin was low at 5.2 ng/mL, consistent with iron deficiency. He was given infusions of Injectafer on 02/02/2017 and on 02/09/2017 and again on 03/17/2017 and on 03/24/2017. On his followup visit in July 2017 he was just mildly anemic, but his transferrin saturation was back down to 4.8% and his ferritin was relatively low at 42 ng/mL. He was given further parenteral iron replacement with infusions of Injectafer on 07/05 and 07/12/2017. He was seen for followup on 08/11/2017. His hemoglobin had increased to 12 g, but his serum iron and ferritin were still consistent with iron deficiency. He was given additional infusions of Injectafer on 08/11/2017 and on 08/18/2017. His repeat CBC on 09/08/2017 showed increase in the hemoglobin to 14.8 g. On 10/21/2017 he was admitted to the hospital with pneumonia. He was discharged home on oral Levaquin and prednisone. His hemoglobin at that point had declined to 10.0 g. As of his follow-up on 11/10/2017 his hemoglobin was still low at 10.2 g. His transferrin saturation was 4.3% with ferritin level 13.7 ng/mL, consistent with iron deficiency. He was given further parenteral iron replacement with 2 infusions of Injectafer. His repeat CT scan on 12/21/2017 showed hemoglobin up to 12.4 g. At his follow-up visit on 03/29/2018 his hemoglobin had dropped to 8.4 g with transferrin saturation 4.1% and ferritin level 8.3 ng/mL. He was given 2 more infusions of Injectafer. During subsequent follow-up he received single infusions of Injectafer again in April 2018 and in May 2018, and his serum iron and ferritin levels remained in iron deficiency range, though he was just borderline anemic on both occasions. His repeat CBC on 12/05/2018 showed a decrease in his hemoglobin to 9.2 g. The transferrin saturation was low at 5.4% with ferritin 17 ng/mL, consistent with iron deficiency. He was given 2 additional infusions of Injectafer. During subsequent follow-up he continued to have evidence of iron deficiency, though with just borderline low hemoglobin/hematocrit levels. He was given further infusions of Injectafer in February, March, and April 2019. During that time he had stool Hemoccult testing done through the [facility], which he says was negative. Mr. Goetz is here today for follow-up. It is 1 month post his last Injectafer treatments. His Injectafer was last given on October 19, 2019 and October 26, 2019. He is here today for reassessment and lab draws. He states overall he does not feel much better. He is still tired and has shortness of breath which is chronic. He denies any fever or chills. He has had no cough or hemoptysis. He denies any trouble swallowing. He has had no palpitations or chest pain. He denies any diarrhea or constipation. His reports 1 episode hematochezia. She states his stool was just black- it didn't look like coffee grounds but it was black black . She report his last colonoscopy was around 5 years ago. His ECOG remains at 3. Past Medical History: Anemia Chronic obstructive pulmonary disease (home oxygen use) Chronic renal insufficiency Colon polyps Coronary artery disease Diabetes type II Hyperlipidemia Past Surgical History: Aortic aneurysm repair in 2011 Arotic valve repair in 2011 Left rotator cuff repair in 2006 Allergies: Clopidogrel Bisulfate, Ezetimibe, fish oil, Gemfibrozil, Hydroxychloroquine Sulfate, mushrooms , Niacin, Simvastatin, Sulfamethoxazole-TMP DS, and Zetia. Medications: Aggrenox 1 (25-200 mg) Capsule SR 12 HR Oral b.i.d. Albuterol Sulfate 1 puff(s) (of 108 (90 base) mcg/act) Aerosol Powder, Breath Activated Inhalation four times a day Calcitriol 1 (0.25 mcg) Capsule Oral daily Cephalexin 1 Capsule (of 500 mg) Oral q 8 hours Colace 1 Capsule (of 100 mg) Oral daily Depakote ER 2 Tablet (of 500 mg) Tablet SR 24 HR Oral daily Gabapentin 1 (100 mg) Tablet Oral t.i.d. Lasix 1 Tablet (of 40 mg) Oral daily Levothroid 1 Tablet (of 75 mcg) Oral daily Meclizine HCl 1 Tablet Oral t.i.d. Memantine HCl 1 Tablet (of 10 mg) Oral b.i.d. Metoprolol Tartrate 1 (25 mg) Tablet Oral b.i.d. Nitroglycerin Solution Translingual PRN Protonix 1 Tablet (of 40 mg) Tablet, enteric coated Oral b.i.d. Spiriva Respimat 1 puff(s) (of 2.5 mcg/act) Aerosol, solution Inhalation daily Symbicort 2 (160-4.5 mcg/act) Aerosol Inhalation b.i.d. Vitamin D3 1 spray(s) (of 5000 Units) Tablet daily Family History: Mr. Goetz's mother at age 65: PA. Mr. Goetz's father at age 72: heart attack, and lung and brain cancer. Social History: Mr. Goetz is and he is a disabled. Mr. Goetz quit smoking 3 years ago but had smoked 2.0 packs/day for 45 years. Mr. Goetz reports the following support systems: lives with spouse, significant other, family, or friends, lives in own house, supportive family/friends willing to assist with needs, and adequate transportation available for expected visits. His diet consists of regular meals. He indicates his activity level as: daily activities. Review Of Symptoms: Constitutional Denies fevers, chills. Chronic Hot flashes-stable. Mild to moderate fatigue. Eyes Denies significant visual changes. ENMT Denies sore throat, mouth sores, difficulty or changes in swallowing ability, and/or sinus drainage. Endocrine Denies hot flashes or night sweats. Hematologic/Lymphatic Easy bruising and but no bleeding. The patient denies any tender or palpable lymph nodes. Respiratory Denies chest pain. Dyspnea upon exertion-stable. Wearing oxygen supplementation continuously. Cardiovascular Denies anginal chest pain. Gastrointestinal Denies nausea, vomiting, diarrhea,heartburn, or constipation. Genitourinary (M) Denies hematuria, dysuria, increased frequency, urgency, incontinence. Musculoskeletal Bilateral leg pain-chronic and controlled with meds. No change. Integumentary Denies chronic rashes. Neurologic Denies headache, blurred vision, and no areas of focal weakness or numbness. Normal slow gait. No sensory problems. Psychiatric Denies depression and anxiety. Vital Signs: Performed on Nov 27, 2019 13:41 Height - 70.00 in Weight - 261.8 lbs (LOW) BSA - 2.34 sq.m BMI - 37.56 (HIGH) Temperature - 97.4 F (LOW) Pulse - 66 /min Respiration - 20 /min BP - 118/62 mm(hg) O2 Sat - 97 % Pain - 0,3 - Capable of only limited self-care, confined to bed or chair more than 50% of waking hours. (ECOG) Physical Examination: Constitutional Alert, oriented, no acute distress. Skin pale/pink, warm and dry. Head Normocephalic; atraumatic. Eyes Conjunctivae and sclerae are clear and without icterus. Pupils are reactive and equal. Neck Supple without masses or thyromegaly. No jugular venous distension. Hematologic/Lymphatic No petechiae or purpura. No tender or palpable lymph nodes in the cervical or supraclavicular areas. Respiratory Lungs are diminished to auscultation without rhonchi or wheezing. Cardiovascular Regular rate and rhythm of heart without murmurs,clicks, gallops or rubs. Abdomen Non-tender, non-distended, no masses, ascites. Good bowel sounds noted in all quads. No guarding or rebound tenderness. No pulsatile masses. Back/Spine Non-tender to palpation. Extremities No visible deformities, no cyanosis, clubbing or edema. Musculoskeletal No tenderness or swelling, normal range of motion without obvious weakness. Integumentary No rashes or lesions. Neurologic No sensory or motor deficits, normal cerebellar function, slow gait. Psychiatric Alert and oriented times three. Coherent speech. Verbalizes understanding of our discussions today. Laboratory:Test performed on Nov 24, 2019 10:05 Ferritin 25 ng/mL Iron 29 mcg/dL Sodium 134 mmol/L Iron Binding Capacity (TIBC) 363 mcg/dl Potassium 5.0 mmol/L % Iron Saturation 7.9 % Chloride 95 mmol/L CO2 28 mmol/L UIBC 334 mcg/dL Anion Gap 16.0 BUN 14 mg/dL Creatinine 1.3 mg/dL Cr Clearance (Est) 91.9800 mL/min eGFR 54.9 mL/min Glucose 150 mg/dL Calcium 9.1 mg/dL Protein, Total 6.8 g/dL Albumin 4.2 g/dL Globulin 2.6 g/dL Bilirubin, Total 0.4 mg/dL ALT (SGPT) 15 U/L AST (SGOT) 20 U/L Alkaline Phosphatase 69 IU/L Hemoglobin A1C % 4.8 % WBC 7.4 10 3/uL RBC 3.74 10 6/uL HGB 9.7 g/dL HCT 34.2 % MCV 91.4 fL MCH 25.9 pg MCHC 28.4 g/dL RDW 21.2 % Platelet Count 226 10 3/cmm MPV 10.9 fL Neutrophils 5.3 10 3/uL Lymphocytes 1.1 10 3/uL Monocytes 0.8 10 3/uL Eosinophils 0.2 10 3/uL Basophils 0.0 10 3/uL Neutrophil % 71.5 % Lymphocyte % 14.4 % Monocyte % 11.1 % Eosinophil % 2.0 % Basophils % 0.3 % NRBC % 0 % Test performed on Jun 28, 2019 10:59 Ua Color yellow Ua Appearance slightly cloudy Ua Specific [place] 1.015 Ua pH 6.0 Ua Protein negative Ua Glucose negative Ua Ketones negative Ua Blood negative Ua Leuk Esterase negative Ua Nitrites negative Ua Bilirubin negative Ua Urobilinogen normal Test performed on Jun 28, 2019 10:55 TSH 3.252 uU/mL Cholesterol, Total 156 mg/dL Vitamin D (25-Hydroxy) 61.1 ng/mL HDL Cholesterol 26.9 mg/dL LDL Cholesterol 116 mg/dL Triglycerides 165 mg/dL Impression: 1. Patient with recurrent microcytic anemia consistent with iron deficiency. Recurrent GI blood loss has been suspected, but a source of GI blood loss has not been determined. 2. He received parenteral iron replacement with Injectafer in July 2015, August 2015, and in October 2015. His other medical illnesses include: 3. Oxygen dependent COPD. 4. Coronary artery disease and valvular heart disease. 5. Type II diabetes. 6. Dyslipidemia. 7. Chronic kidney disease. 8. He has a suspected seizure disorder. His brain MRI showed multiple prior infarcts. He has recurrent iron deficiency anemia despite multiple courses of parenteral iron replacement. As such, GI blood loss has been suspected, but not documented. His laboratory studies had improved following his Injectafer infusions in July, but he remained mildly anemic despite having been given 2 additional infusions of Injectafer in July. He was then given 2 additional infusions of Injectafer in September 2016. As of his visit on 02/02/2017 his hemoglobin was back down to 8 g and his chemistry studies were clearly consistent with iron deficiency. He was given infusions of Injectafer on 02/02/2017 and on 02/09/2017. His follow-up laboratory studies and February did show some improvement, but he was still moderately anemic with evidence of iron deficiency. He was given further infusions of Injectafer on 03/17/2017 and on 03/24/2017. On his followup visit in July 2017 he was just borderline anemic, but his laboratory studies were definitely still consistent with iron deficiency. He received additional infusions of Infectafer on 07/05 and on 07/12/2017, and he was givenInjectifer again in July as his transferrin saturation was still low at 7.5% with ferritin also low at 36 ng/mL. He did have a very good response. However, as before, response was very temporary. On his follow-up visit in October 2017 his hemoglobin was back down to 10 g and he was again iron deficient. He was given further parenteral iron replacement with 2 more infusions of Injectafer, which he tolerated well. He had a good objective response with his hemoglobin increasing to 12.4 g. At his follow-up visit in February 2018 he was significantly anemic again, hemoglobin 8.4 g, with low transferrin saturation and ferritin. He was given 2 more infusions of Injectafer. He did have a good response, but during subsequent follow-up he was given further parenteral iron replacement with single infusions of Injectafer in April 2018 and in May 2018. On both occasions his serum iron studies and ferritin were in iron deficiency range, but with just borderline anemia. He was then given 2 additional infusions of Injectafer in September 2018 and in November 2018. During subsequent follow-up, he continued to have evidence of iron deficiency, though with just borderline low hemoglobin/hematocrit levels. He received additional infusions of Injectafer in February, March, and April 2019. At this point his laboratory studies are again consistent with iron deficiency, though he is just slightly anemic. There has been some further decline in his performance status, but some of that may be related to his underlying lung disease and respiratory symptoms. The frequency with which he has required parenteral iron replacement is consistent with ongoing GI blood loss, though his stool Hemoccult test was reportedly negative in the past. Mr Goetz continues to require frequent parental iron replacement. He will need work up again for blood loss. Plan: 1. Labs from November 24, 2019 were reviewed with . Mrs. Goetz and a copy was given to them. WBC 7.4, hemoglobin 9.7 (8.6 on September 08, 2019) platelet count 226,000 ANC is 5300 iron saturation is 7.9 ferritin 25 TIBC 363. 2. Mr. Goetz has been advised that he continues to be iron deficient anemic. 3. We will proceed with Injectafer 750 mg x 2 doses???1 week apart. He will have his first dose today. 4. We will plan to see him back in 5 weeks with CBC, CMP and iron studies. I have asked for iFOB in the interim. He will need referral back to the physician that did his last colonoscopy. 5. Mr. Goetz was advised to contact us in the interim should questions or problems arise. 6. We did discuss potential side effects of Injectafer but he states he has had so much of it, he knows what they are although he is not had any problems. 7. He reports he has recent CTs at [facility] but does not know any results, we have requested those records. Signed By: Mustapha Rodriguez-, [facility] Grabiel Larkin MD <<Signature on File>>
== END 2019-11-28 23:59 | disposition home or self-care (01) ==
LOC: ONCMED 06:49
PROVIDERS: PCP Internal Medicine; Visit Provider Nurse Practitioner
DX: D50.9 Iron deficiency anemia, unspecified (principal); J44.9 Chronic obstructive pulmonary disease, unspecified; I25.10 Atherosclerotic heart disease of native coronary artery without angina pectoris; I38 Endocarditis, valve unspecified; E11.22 Type 2 diabetes mellitus with diabetic chronic kidney disease; I12.9 Hypertensive chronic kidney disease with stage 1 through stage 4 chronic kidney disease, or unspecified chronic kidney disease; N18.9 Chronic kidney disease, unspecified
CPT/HCPCS: 36415; 80053; 82728; 83036; 83540; 83550; 85025; 96116; 96365; 99213; 99214; J1439

== ENCOUNTER 2019-12-04 09:27 | Outpatient (RCR) | payer OTHER, SELFPAY ==
[2019-12-04] MEDS: ferric carboxy (IVPB) 750 MG in sodium chloride 0.9% (100 ml) 100 ML 460 MG IV (13:45)
== END 2019-12-29 23:59 | disposition home or self-care (01) ==
LOC: ONCMED 09:27
PROVIDERS: PCP Internal Medicine; Visit Provider Nurse Practitioner
DX: D50.9 Iron deficiency anemia, unspecified (principal)
CPT/HCPCS: 96365; J1439

== ENCOUNTER 2020-01-08 13:38 | Outpatient (RCR) | payer OTHER, SELFPAY ==
[2020-01-02 13:37] LABS: Basophils % 0.4 %; Eosinophils # 0.2 10^3/uL (0.0-0.8); Eosinophils % 2.4 %; Hematocrit 35.5 % (42.0-52.0); Lymphocytes # 1.2 10^3/uL (0.8-4.8); Lymphocytes % 16.7 %; Mean Corpuscular HGB Conc 28.2 g/dL (30.0-36.0); Mean Corpuscular Hemoglobin 26.1 pg (28.0-34.0); Mean Corpuscular Volume 92.7 fL (80-94); Mean Platelet Volume 11.2 fL (7.4-10.4); Monocytes # 0.6 10^3/uL (0.2-0.9); Monocytes % 8.8 %; Neutrophils # 4.99 10^3/uL (1.8-7.7); Neutrophils % 70.7 %; Nucleated Red Blood Cells % 0 %; Platelet Count 221 10^3/cmm (130-400); Red Blood Count 3.83 10^6/uL (4.1-5.3); Red Cell Distribution Width 21.4 % (12.1-15.1); White Blood Count 7.1 10^3/uL (4.0-10.0)
[2020-01-02 14:00] LABS: Alanine Aminotransferase 14 U/L (0-41); Albumin Level 4.4 g/dL (3.5-5.2); Alkaline Phosphatase 71 IU/L (40-130); Anion Gap 10.2 (5-19); Aspartate Amino Transferase 17 U/L (0-40); Blood Urea Nitrogen 12 mg/dL (8-23); Calcium 9.1 mg/dL (8.5-10.5); Carbon Dioxide 30 mmol/L (22-29); Chloride 96 mmol/L (98-107); Ferritin 39 ng/mL (30-400); Globulin 2.6 g/dL (1.3-4.6); Glomerular Filtration Rate 54.9 mL/min (90-130); Glucose 149 mg/dL (65-115); Iron 30 ug/dL (59-158); Osmolality Calculated 273 mOsm/kg (285-295); Percent Saturation 7.8 % (20-50); Potassium 4.2 mmol/L (3.5-5.1); Sodium 132 mmol/L (136-145); Total Bilirubin 0.4 mg/dL (0.15-1.2); Total Iron Binding Capacity 380 mcg/dl; Unsaturated Iron Binding 350 ug/dL (112-347)
[2020-01-04] MEDS: ferric carboxy (IVPB) 750 MG in sodium chloride 0.9% (100 ml) 100 ML 460 MG IV (13:10)
--- NOTE | 2020-01-04 17:13 | ONC FU_ITS ---
Dr. Larkin Patient Follow-Up Note Patient: Bebo Goetz Unit #: [id number]: 1950 Dicatated By: Grabiel Larkin M.D.Date of Visit:Jan 04, 2020 Onc Med Follow-up/Prog Note Chief Complaint: Anemia. History of Present Illness: This is 69 year-old man with iron deficiency anemia. He was found to have a microcytic anemia on 09/29/2011, but no additional clinical data were available. He had normal hemoglobin with normal MCV on 10/15/2014 laboratory analysis. In December 2014 he was admitted with an acute febrile illness. He had a worsening renal insufficiency and hepatic enzyme elevation. During that hospitalization his hemoglobin measured 7.7 g/dL, MCV 67.8. Iron saturation was 4%, consistent with iron deficiency. The patient received 2 units of packed red blood cell transfusion and began oral iron replacement. He underwent endoscopy and colonoscopy on 02/19/2015. Pathology showed gastric hyperplastic polyp and gastritis thought to be from the iron supplement. Several colonic and rectal hyperplastic polyps were discovered without dysplasia. Review of prior laboratory analysis showed negative acute hepatitis B and C serology in April 2014. PSA was 3.54 in August 2014. He was first seen by Dr. Torres on 04/29/2015. Hemoglobin had recovered to 11.4 g with MCV 79. He continued to have iron deficiency with ferritin 8.9 ng/mL. Hemoccult stool negative x 1. Total testosterone was low at 119. By July 2015 the hemoglobin was stable at 11.2 g, but transferrin saturation was low at 7.2%. He was given parenteral iron replacement with Injectafer in July 2015. Despite the IV iron replacement, his iron studies in August were consistent with recurrent iron deficiency, suggestive of ongoing blood loss. His CT of the chest, abdomen, and pelvis on 09/20/15 showed mild borderline hepatomegaly but also mucosal thickening of the colon. He received additional IV Injectafer in August and again in October 2015. His other medical illnesses include oxygen dependent COPD, coronary artery disease, type II diabetes, and chronic renal insufficiency. He underwent aortic aneurysm repair and aortic valve repair in 2011. He has a history of smoking 2 packs of cigarettes daily for 45 years. He quit smoking in 2011. INTERIM HISTORY: His described his having an episode in May 2016 in which he passed out in the bathroom. She said that when she turned him over, he had shaking in his upper extremities and his eyes rolled back in his head. When he regained consciousness, he was confused. Shortly after regaining consciousness, he had another apparent seizure. He was evaluated the emergency room, and he is now being followed by Dr Elliott. On a follow-up visit here in July 2016 he was again significantly anemic with his hemoglobin down to 7.4 g. The red cell indices were hypochromic/microcytic. The transferrin saturation was 3.3%, and the ferritin level was low at 5.9 ng/mL. He did receive additional infusions of Injectafer in July, July, and September 2016. MRI of the brain performed on 08/27/2016 showed no evidence of restricted diffusion to suggest acute ischemia. 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 There were multiple chronic lacunar infarcts in the right superior cerebellum. There were mild small vessel changes with moderate parenchymal volume loss. There was no evidence of enhancing intracranial metastatic disease. On his follow-up visit on 02/02/2017 he was again significantly anemic with his hemoglobin back down to 8.1 g. His serum iron studies show transferrin saturation 4% and his ferritin was low at 5.2 ng/mL, consistent with iron deficiency. He was given infusions of Injectafer on 02/02/2017 and on 02/09/2017 and again on 03/17/2017 and on 03/24/2017. On his followup visit in July 2017 he was just mildly anemic, but his transferrin saturation was back down to 4.8% and his ferritin was relatively low at 42 ng/mL. He was given further parenteral iron replacement with infusions of Injectafer on 07/05 and 07/12/2017. He was seen for followup on 08/11/2017. His hemoglobin had increased to 12 g, but his serum iron and ferritin were still consistent with iron deficiency. He was given additional infusions of Injectafer on 08/11/2017 and on 08/18/2017. His repeat CBC on 09/08/2017 showed increase in the hemoglobin to 14.8 g. On 10/21/2017 he was admitted to the hospital with pneumonia. He was discharged home on oral Levaquin and prednisone. His hemoglobin at that point had declined to 10.0 g. As of his follow-up on 11/10/2017 his hemoglobin was still low at 10.2 g. His transferrin saturation was 4.3% with ferritin level 13.7 ng/mL, consistent with iron deficiency. He was given further parenteral iron replacement with 2 infusions of Injectafer. His repeat CT scan on 12/21/2017 showed hemoglobin up to 12.4 g. At his follow-up visit on 03/29/2018 his hemoglobin had dropped to 8.4 g with transferrin saturation 4.1% and ferritin level 8.3 ng/mL. He was given 2 more infusions of Injectafer. During subsequent follow-up he received single infusions of Injectafer again in April 2018 and in May 2018, and his serum iron and ferritin levels remained in iron deficiency range, though he was just borderline anemic on both occasions. His repeat CBC on 12/05/2018 showed a decrease in his hemoglobin to 9.2 g. The transferrin saturation was low at 5.4% with ferritin 17 ng/mL, consistent with iron deficiency. He was given 2 additional infusions of Injectafer. During subsequent follow-up he continued to have evidence of iron deficiency, though with just borderline low hemoglobin/hematocrit levels. He was given further parenteral iron replacement with single infusions of Injectafer in February, March, and April 2019. During that time he had stool Hemoccult testing done through the [place], which he says was negative. As of May 2019 he was still mildly anemic with hemoglobin 10.4 g, and has 07/14/2019 his hemoglobin had further declined to 8.9 g. He was then given 2 infusions of Injectafer. Despite that, he had remained moderately anemic requiring Injectafer infusions again in August, September, and October. He is seen for a follow-up visit. He has not been feeling good generally. His energy is variable, but overall he is weaker. He has had episodes of blacking out and falling, at least 5 times in the past 3 months. He has good appetite. His weight is down a few pounds. He has not had fever. He has been having night sweating, but that seems to have resolved. He has shortness of breath and he has a cough. He is on continuous oxygen. He has not been having chest pain. He does not complain of nausea. He has had some acid reflux. He says his bowels have been pretty good. His reports that he sometimes has black stools. He has urinary frequency with urgency. He has some stiffness in his joints, particularly his hands. He also has pain in his knees and legs. He has occasional headaches. Reports having numbness/tingling in his feet. Medications: Aggrenox 1 (25-200 mg) Capsule SR 12 HR Oral b.i.d., Albuterol Sulfate 1 puff(s) (of 108 (90 base) mcg/act) Aerosol Powder, Breath Activated Inhalation four times a day, Alogliptin Benzoate 1 Tablet (of 12.5 mg) Oral daily, Calcitriol 1 (0.25 mcg) Capsule Oral daily, Colace 1 Capsule (of 100 mg) Oral daily, Depakote ER 2 Tablet (of 500 mg) Tablet SR 24 HR Oral daily, Gabapentin 1 (100 mg) Tablet Oral t.i.d., Lasix 1 Tablet (of 40 mg) Oral daily, Levothroid 1 Tablet (of 75 mcg) Oral daily, Meclizine HCl 1 Tablet Oral t.i.d., Memantine HCl 1 Tablet (of 10 mg) Oral b.i.d., Metoprolol Tartrate 1 (25 mg) Tablet Oral b.i.d., Nitroglycerin Solution Translingual PRN, Protonix 1 Tablet (of 40 mg) Tablet, enteric coated Oral b.i.d., Spiriva Respimat 1 puff(s) (of 2.5 mcg/act) Aerosol, solution Inhalation daily, Symbicort 2 (160-4.5 mcg/act) Aerosol Inhalation b.i.d., Vitamin D3 1 spray(s) (of 5000 Units) Tablet daily Allergies: Clopidogrel Bisulfate, Ezetimibe, fish oil, Gemfibrozil, Hydroxychloroquine Sulfate, mushrooms , Niacin, Simvastatin, Sulfamethoxazole-TMP DS, and Zetia. Review of Systems: Constitutional - He feels weaker. His activity is very limited. His appetite is good and his weight is down a few pounds from last visit. No fever, night sweats, or hot flashes. ECOG score is 3, ENMT - He has sinus congestion/drainage. No mouth sores. No sore throat or difficulty swallowing, Hematologic/Lymphatic - He bruises easily, Respiratory - He gets short of breath very easily. He wears continous oxygen. He has a chronic cough. No pleuritic pain or hemoptysis, Cardiovascular - No angina pain. No palpitations. He has had episodes of passing out and falling down, at least 5 times in the past 3 months, Gastrointestinal - No nausea or vomiting. His heartburn is adequately managed with pantoprazole. No diarrhea or constipation. His reports he has been having some black stools, Genitourinary (M) - No dysuria or hematuria. He has urinary frequency with urgency. He has incontinence, Musculoskeletal - He is having joint stiffiness, mostly in his hands and knees, Integumentary - No skin complications, Neurologic - He has occasional headaches. No dizziness. He has numbness/tingling in his feet, Psychiatric - No anxiety or depression. No insomnia. Vital Signs: Performed on Jan 04, 2020 12:32 Height - 70.00 in Weight - 258.6 lbs (LOW) BSA - 2.33 sq.m BMI - 37.11 (HIGH) Temperature - 97.8 F (LOW) Pulse - 62 /min Respiration - 20 /min BP - 118/72 mm(hg) O2 Sat - 99 % Pain - 0 Physical Examination: Constitutional - He appears generally weak, Eyes - Sclerae nonicteric. Conjunctivae clear, ENMT - No lesions noted in the oral cavity, Hematologic/Lymphatic - No cervical, clavicular, or axillary adenopathy, Respiratory - Lungs are clear with diminished air movement bilaterally, Cardiovascular - Heart rhythm is regular. There is a II/ systolic murmur. There is no gallop or rub noted, Abdomen - Moderately distended. Liver and spleen are not enlarged. There is no abdominal mass or ascites noted and there is no inguinal adenopathy, Extremities - No edema. Posterior tibial pulses are palpable bilaterally, Neurologic - No focal neurologic deficits noted. Lab/Imaging: CBC shows hemoglobin 10.0 g, white blood cell count 7100, and platelet count 221,000. Comprehensive metabolic profile shows stable renal function with BUN 12 and creatinine 1.3 mg/dL. Liver enzymes are normal. The serum iron studies show low transferrin saturation at 7.8% and the ferritin is relatively low at 39 ng/mL. Impression: 1. Patient with recurrent microcytic anemia consistent with iron deficiency. Recurrent GI blood loss has been suspected, but a source of GI blood loss has not been determined. 2. He received parenteral iron replacement with Injectafer in July 2015, August 2015, and in October 2015. His other medical illnesses include: 3. Oxygen dependent COPD. 4. Coronary artery disease and valvular heart disease. 5. Type II diabetes. 6. Dyslipidemia. 7. Chronic kidney disease. 8. He has a suspected seizure disorder. His brain MRI showed multiple prior infarcts. He has recurrent iron deficiency anemia despite multiple courses of parenteral iron replacement. As such, GI blood loss has been suspected, but not documented. His laboratory studies had improved following his Injectafer infusions in July, but he remained mildly anemic despite having been given 2 additional infusions of Injectafer in July. He was then given 2 additional infusions of Injectafer in September 2016. As of his visit on 02/02/2017 his hemoglobin was back down to 8 g and his chemistry studies were clearly consistent with iron deficiency. He was given infusions of Injectafer on 02/02/2017 and on 02/09/2017. His follow-up laboratory studies and October did show some improvement, but he was still moderately anemic with evidence of iron deficiency. He was given further infusions of Injectafer on 03/17/2017 and on 03/24/2017. On his followup visit in July 2017 he was just borderline anemic, but his laboratory studies were definitely still consistent with iron deficiency. He received additional infusions of Infectafer on 07/05 and on 07/12/2017, and he was givenInjectifer again in July as his transferrin saturation was still low at 7.5% with ferritin also low at 36 ng/mL. He did have a very good response. However, as before, response was very temporary. On his follow-up visit in October 2017 his hemoglobin was back down to 10 g and he was again iron deficient. He was given further parenteral iron replacement with 2 more infusions of Injectafer, which he tolerated well. He had a good objective response with his hemoglobin increasing to 12.4 g. At his follow-up visit in February 2018 he was significantly anemic again, hemoglobin 8.4 g, with low transferrin saturation and ferritin. He was given 2 more infusions of Injectafer. He did have a good response, but during subsequent follow-up he was given further parenteral iron replacement with single infusions of Injectafer in April 2018 and in May 2018. On both occasions his serum iron studies and ferritin were in iron deficiency range, but with just borderline anemia. He was then given 2 additional infusions of Injectafer in September 2018 and in November 2018. During subsequent follow-up, he continued to have evidence of iron deficiency, though with just borderline low hemoglobin/hematocrit levels. He received additional infusions of Injectafer in February, March, and April 2019. During subsequent follow-up he has continued to have mild to moderately severe anemia despite having infusions of Injectafer on multiple occasions. Over the past 3 months there has been a gradual increase in his hemoglobin, but he is still mildly anemic, and his laboratory studies are consistent with iron deficiency with transferrin saturation 7.8% and ferritin 39 ng/mL. Plan: He will be given Injectafer 750 mg by IV infusion today and again in one week. He will be scheduled for a 1-month interval follow-up visit. In the meantime, will recheck his stool FIT. In addition, I will look into the possibility of getting him set up for a 30-day child monitor. Signed By: Grabiel Larkin M.D. <<Signature on File>>
== END 2020-01-29 23:59 | disposition home or self-care (01) ==
LOC: ONCMED 13:38
PROVIDERS: Nurse Practitioner; PCP Internal Medicine; Visit Provider Internal Medicine Medical Oncology
DX: D50.0 Iron deficiency anemia secondary to blood loss (chronic) (principal); J44.9 Chronic obstructive pulmonary disease, unspecified; Z99.81 Dependence on supplemental oxygen; I25.10 Atherosclerotic heart disease of native coronary artery without angina pectoris; E11.9 Type 2 diabetes mellitus without complications; E78.5 Hyperlipidemia, unspecified; N18.9 Chronic kidney disease, unspecified; G40.909 Epilepsy, unspecified, not intractable, without status epilepticus; I25.2 Old myocardial infarction
CPT/HCPCS: 36415; 80053; 82274; 82728; 83540; 83550; 85025; 96365; 99214; J1439

== ENCOUNTER 2020-02-21 06:20 | Outpatient (RCR) | payer OTHER, SELFPAY ==
[2020-02-09 13:49] LABS: Basophils % 0.3 %; Eosinophils # 0.2 10^3/uL (0.0-0.8); Hematocrit 31.7 % (42.0-52.0); Hemoglobin 8.6 g/dL (11.7-16.6); Lymphocytes % 13.5 %; Mean Corpuscular HGB Conc 27.1 g/dL (30.0-36.0); Mean Corpuscular Hemoglobin 23.9 pg (28.0-34.0); Mean Corpuscular Volume 88.1 fL (80-94); Mean Platelet Volume 10.9 fL (7.4-10.4); Monocytes # 0.7 10^3/uL (0.2-0.9); Monocytes % 9.9 %; Neutrophils # 5.47 10^3/uL (1.8-7.7); Neutrophils % 73.1 %; Nucleated Red Blood Cells % 0.3 %; Platelet Count 243 10^3/cmm (130-400); Red Cell Distribution Width 22.5 % (12.1-15.1); White Blood Count 7.5 10^3/uL (4.0-10.0)
[2020-02-09 14:04] LABS: Ferritin 19 ng/mL (30-400); Iron 21 ug/dL (59-158); Percent Saturation 5.6 % (20-50); Total Iron Binding Capacity 369 mcg/dl; Unsaturated Iron Binding 348 ug/dL (112-347)
[2020-02-14] MEDS: ferric carboxy (IVPB) 750 MG in sodium chloride 0.9% (100 ml) 100 ML 460 MG IV (14:50)
[2020-02-14 15:12] LABS: Basophils % 0.3 %; Eosinophils # 0.1 10^3/uL (0.0-0.8); Eosinophils % 2.4 %; Hemoglobin 7.8 g/dL (11.7-16.6); Lymphocytes # 1.1 10^3/uL (0.8-4.8); Mean Corpuscular HGB Conc 26.9 g/dL (30.0-36.0); Mean Corpuscular Hemoglobin 23.1 pg (28.0-34.0); Mean Corpuscular Volume 85.8 fL (80-94); Mean Platelet Volume 11.9 fL (7.4-10.4); Monocytes # 0.6 10^3/uL (0.2-0.9); Monocytes % 9.9 %; Neutrophils # 4.02 10^3/uL (1.8-7.7); Neutrophils % 67.7 %; Nucleated Red Blood Cells % 0.5 %; Platelet Count 256 10^3/cmm (130-400); Red Blood Count 3.38 10^6/uL (4.1-5.3); Red Cell Distribution Width 23.1 % (12.1-15.1); White Blood Count 5.9 10^3/uL (4.0-10.0)
[2020-02-15] VITALS (7 sets, daily range): BP systolic 99–118; BP diastolic 60–75; PULSE 54–59; RESP 18; TEMP 36.4–36.6; O2SAT 94–96
[2020-02-15] MEDS: sodium chloride 0.9% 250 ML 999 ML IV (08:30)
[2020-02-15] MEDS: diphenhydrAMINE 25 mg Capsule PO (08:30)
[2020-02-15] MEDS: acetaminophen 325 mg Tablet 650 MG PO (08:30)
[2020-02-15] MEDS: FUROsemide 10 mg/mL SDV 2mL 20 MG IV (10:55)
--- NOTE | 2020-02-16 10:33 | MR_ITS ---
WS: [id number] MRI BRAIN WITH AND WITHOUT CONTRAST HISTORY: Headache and dizziness. COMPARISON: 08/27/2016 TECHNIQUE: Multiplanar imaging performed through the brain with Prohance 17 ml's IV. No acute infarcts are seen. Jerez-white matter differentiation is well preserved. No significant chron ic microvascular ischemic disease in the supratentorial white matter. Prior RIGHT cerebellar infarct is stable. Moderate cerebral and cerebellar atrophy with mild progression since 2017. No susceptibility artifacts or prior lacunar infarcts. Extra-axial spaces are prominent on the basis of atrophy. Clivus and pituitary gland are normal. No signal abnormality within the brainstem. Postcontrast images are negative for masses or vascular malformations. RIGHT vertebral artery is joaquim nant. No occlusions. No aneurysm. Dural venous sinuses are normal. Paranasal sinuses: Mild mucoperiosteal thickening in the frontal and ethmoid sinuses. No air-fluid le vels. Mastoid air cells: Normal. Calvarium and scalp: Normal. MR/MR head wo/w con [id number] IMPRESSION: 1. No acute infarct or metastatic disease. 2. Moderate cerebral and cerebellar atrophy with progression since 2017.
--- NOTE | 2020-02-19 10:01 | ONC FU_ITS ---
[facility] Patient Note Patient: Bebo Goetz Unit #: [id number]: [id number] Dictated By: Mustapha RodriguezDate of Visit: Feb 14, 2020 Onc MED Follow-Up/Prog Note Chief Complaint: Anemia. History of Present Illness: Mr Goetz is 69 year-old man with iron deficiency anemia. He was found to have a microcytic anemia on 09/29/2011, but no additional clinical data were available. He had normal hemoglobin with normal MCV on 10/15/2014 laboratory analysis. In December 2014 he was admitted with an acute febrile illness. He had a worsening renal insufficiency and hepatic enzyme elevation. During that hospitalization his hemoglobin measured 7.7 g/dL, MCV 67.8. Iron saturation was 4%, consistent with iron deficiency. The patient received 2 units of packed red blood cell transfusion and began oral iron replacement. He underwent endoscopy and colonoscopy on 02/19/2015. Pathology showed gastric hyperplastic polyp and gastritis thought to be from the iron supplement. Several colonic and rectal hyperplastic polyps were discovered without dysplasia. Review of prior laboratory analysis showed negative acute hepatitis B and C serology in April 2014. PSA was 3.54 in August 2014. He was first seen by Dr. Torres on 04/29/2015. Hemoglobin had recovered to 11.4 g with MCV 79. He continued to have iron deficiency with ferritin 8.9 ng/mL. Hemoccult stool negative x 1. Total testosterone was low at 119. By July 2015 the hemoglobin was stable at 11.2 g, but transferrin saturation was low at 7.2%. He was given parenteral iron replacement with Injectafer in July 2015. Despite the IV iron replacement, his iron studies in August were consistent with recurrent iron deficiency, suggestive of ongoing blood loss. His CT of the chest, abdomen, and pelvis on 09/20/15 showed mild borderline hepatomegaly but also mucosal thickening of the colon. He received additional IV Injectafer in August and again in October 2015. His other medical illnesses include oxygen dependent COPD, coronary artery disease, type II diabetes, and chronic renal insufficiency. He underwent aortic aneurysm repair and aortic valve repair in 2011. He has a history of smoking 2 packs of cigarettes daily for 45 years. He quit smoking in 2011. INTERIM HISTORY: His described his having an episode in May 2016 in which he passed out in the bathroom. She said that when she turned him over, he had shaking in his upper extremities and his eyes rolled back in his head. When he regained consciousness, he was confused. Shortly after regaining consciousness, he had another apparent seizure. He was evaluated the emergency room, and he is now being followed by Dr Elliott. On a follow-up visit here in July 2016 he was again significantly anemic with his hemoglobin down to 7.4 g. The red cell indices were hypochromic/microcytic. The transferrin saturation was 3.3%, and the ferritin level was low at 5.9 ng/mL. He did receive additional infusions of Injectafer in July, July, and September 2016. MRI of the brain performed on 08/27/2016 showed no evidence of restricted diffusion to suggest acute ischemia. 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 There were multiple chronic lacunar infarcts in the right superior cerebellum. There were mild small vessel changes with moderate parenchymal volume loss. There was no evidence of enhancing intracranial metastatic disease. On his follow-up visit on 02/02/2017 he was again significantly anemic with his hemoglobin back down to 8.1 g. His serum iron studies show transferrin saturation 4% and his ferritin was low at 5.2 ng/mL, consistent with iron deficiency. He was given infusions of Injectafer on 02/02/2017 and on 02/09/2017 and again on 03/17/2017 and on 03/24/2017. On his followup visit in July 2017 he was just mildly anemic, but his transferrin saturation was back down to 4.8% and his ferritin was relatively low at 42 ng/mL. He was given further parenteral iron replacement with infusions of Injectafer on 07/05 and 07/12/2017. He was seen for followup on 08/11/2017. His hemoglobin had increased to 12 g, but his serum iron and ferritin were still consistent with iron deficiency. He was given additional infusions of Injectafer on 08/11/2017 and on 08/18/2017. His repeat CBC on 09/08/2017 showed increase in the hemoglobin to 14.8 g. On 10/21/2017 he was admitted to the hospital with pneumonia. He was discharged home on oral Levaquin and prednisone. His hemoglobin at that point had declined to 10.0 g. As of his follow-up on 11/10/2017 his hemoglobin was still low at 10.2 g. His transferrin saturation was 4.3% with ferritin level 13.7 ng/mL, consistent with iron deficiency. He was given further parenteral iron replacement with 2 infusions of Injectafer. His repeat CT scan on 12/21/2017 showed hemoglobin up to 12.4 g. At his follow-up visit on 03/29/2018 his hemoglobin had dropped to 8.4 g with transferrin saturation 4.1% and ferritin level 8.3 ng/mL. He was given 2 more infusions of Injectafer. During subsequent follow-up he received single infusions of Injectafer again in April 2018 and in May 2018, and his serum iron and ferritin levels remained in iron deficiency range, though he was just borderline anemic on both occasions. His repeat CBC on 12/05/2018 showed a decrease in his hemoglobin to 9.2 g. The transferrin saturation was low at 5.4% with ferritin 17 ng/mL, consistent with iron deficiency. He was given 2 additional infusions of Injectafer. During subsequent follow-up he continued to have evidence of iron deficiency, though with just borderline low hemoglobin/hematocrit levels. He was given further parenteral iron replacement with single infusions of Injectafer in February, March, and April 2019. During that time he had stool Hemoccult testing done through the [facility], which he says was negative. As of May 2019 he was still mildly anemic with hemoglobin 10.4 g, and has 07/14/2019 his hemoglobin had further declined to 8.9 g. He was then given 2 infusions of Injectafer. Despite that, he had remained moderately anemic requiring Injectafer infusions again in August, September, and October. He has received Injectafer in November and December 2019. Mr. Goetz is here today for follow-up 1 month post his last Injectafer treatment which was January 04, 2020. He presents today feeling very weak and washed out. His states that he has been confused. He has not had any strokelike symptoms but states he is just confused and sees things that are not there sometimes. She denies any fever or chills for him. He has had no known infections. He has not had any exposure to COVID that they are aware of. He has had no COVID testing. She states she does notice that is progressively gotten weaker, more short of breath and somewhat more confused over the last week or so. She states he is eating good. He does require ambulation assistance due to the weakness. He denies any abdominal pain. She states that she is not sure he has had any blood in his stools as she does not see them regularly. He is unsure if he has had any blood in his stools either. Looking back he did have a positive fecal occult blood test in December. She states he is being scheduled for a carotid ultrasound by the [facility] and that should be coming up soon. She also states that she thinks that they are scheduling him for an MRI of the head. He has not had a colonoscopy in at least 5 years. He denies any chest pain or palpitations. She states he has not complained anything to her in those regards. He denies any new pain. His ECOG is 2. Past Medical History: Anemia Chronic obstructive pulmonary disease (home oxygen use) Chronic renal insufficiency Colon polyps Coronary artery disease Diabetes type II Hyperlipidemia Past Surgical History: Aortic aneurysm repair in 2011 Arotic valve repair in 2011 Left rotator cuff repair in 2006 Allergies: Clopidogrel Bisulfate, Ezetimibe, fish oil, Gemfibrozil, Hydroxychloroquine Sulfate, mushrooms , Niacin, Simvastatin, Sulfamethoxazole-TMP DS, and Zetia. Medications: Aggrenox 1 (25-200 mg) Capsule SR 12 HR Oral b.i.d. Albuterol Sulfate 1 puff(s) (of 108 (90 base) mcg/act) Aerosol Powder, Breath Activated Inhalation four times a day Alogliptin Benzoate 1 Tablet (of 12.5 mg) Oral daily Calcitriol 1 (0.25 mcg) Capsule Oral daily Colace 1 Capsule (of 100 mg) Oral daily Depakote ER 2 Tablet (of 500 mg) Tablet SR 24 HR Oral daily Gabapentin 1 (100 mg) Tablet Oral t.i.d. Lasix 1 Tablet (of 40 mg) Oral daily Levothroid 1 Tablet (of 75 mcg) Oral daily Meclizine HCl 1 Tablet Oral t.i.d. Memantine HCl 1 Tablet (of 10 mg) Oral b.i.d. Metoprolol Tartrate 1 (25 mg) Tablet Oral b.i.d. Nitroglycerin Solution Translingual PRN Protonix 1 Tablet (of 40 mg) Tablet, enteric coated Oral b.i.d. Spiriva Respimat 1 puff(s) (of 2.5 mcg/act) Aerosol, solution Inhalation daily Symbicort 2 (160-4.5 mcg/act) Aerosol Inhalation b.i.d. Vitamin D3 1 spray(s) (of 5000 Units) Tablet daily Family History: Mr. Goetz's mother at age 65: IA. Mr. Goetz's father at age 72: heart attack, and lung and brain cancer. Social History: Mr. Goetz is and he is a disabled. Mr. Goetz quit smoking 4 years ago but had smoked 2.0 packs/day for 45 years. He has no history of drinking. Mr. Goetz reports the following support systems: lives with spouse, significant other, family, or friends, lives in own house, supportive family/friends willing to assist with needs, and adequate transportation available for expected visits. His diet consists of regular meals. He indicates his activity level as: daily activities. Review Of Symptoms: Constitutional Denies fevers, chills. moderate fatigue. Generalized confusion at times-worse today. Eyes Denies significant visual changes. ENMT Denies sore throat, mouth sores, difficulty or changes in swallowing ability, and/or sinus drainage. Endocrine Denies hot flashes or night sweats. Hematologic/Lymphatic Easy bruising and but no bleeding. The patient denies any tender or palpable lymph nodes. Respiratory Denies chest pain. Dyspnea upon exertion-stable. Wearing oxygen supplementation continuously. Cardiovascular Denies anginal chest pain. Gastrointestinal Denies nausea, vomiting, diarrhea,heartburn, or constipation. Genitourinary (M) Denies hematuria, dysuria, increased frequency, urgency, incontinence. Musculoskeletal Bilateral leg pain-chronic and controlled with meds. No change. Integumentary Denies chronic rashes. Neurologic Denies headache, blurred vision, and no areas of focal weakness or numbness. Normal slow gait. No sensory problems. Psychiatric Denies depression and anxiety. Vital Signs: Performed on Feb 14, 2020 13:49 Height - 70.00 in Weight - 262.6 lbs (HIGH) BSA - 2.34 sq.m BMI - 37.68 (HIGH) Temperature - 97.8 F (LOW) Pulse - 67 /min Respiration - 22 /min BP - 113/61 mm(hg) O2 Sat - 90 % (LOW) Pain - 0,2 - Ambulatory/capable of all self-care, unable to perform any work activities. Up and about more than 50% of waking hours. (ECOG) Physical Examination: Constitutional Alert, oriented, no acute distress. Skin pale/pink, warm and dry. Pleasantly confused at times but also answers appropriately at times-accompanied by today. Head Normocephalic; atraumatic. Eyes Conjunctivae and sclerae are clear and without icterus. Pupils are reactive and equal. Neck Supple without masses or thyromegaly. No jugular venous distension. Hematologic/Lymphatic No petechiae or purpura. No tender or palpable lymph nodes in the cervical or supraclavicular areas. Respiratory Lungs are diminished to auscultation without rhonchi or wheezing. Cardiovascular Regular rate and rhythm of heart without murmurs,clicks, gallops or rubs. Chest Chest is symmetric without chest wall deformities. Abdomen Non-tender, non-distended, no masses, ascites. Good bowel sounds noted in all quads. No guarding or rebound tenderness. No pulsatile masses. Back/Spine Non-tender to palpation. Extremities No visible deformities, no cyanosis, clubbing or edema. Musculoskeletal No tenderness or swelling, normal range of motion without obvious weakness. Integumentary No rashes or lesions. Neurologic No sensory or motor deficits, slow gait. Psychiatric Alert and oriented times three. Coherent speech. Verbalizes understanding of our discussions today. Laboratory:Test performed on Feb 14, 2020 14:45 WBC 5.9 10 3/uL RBC 3.38 10 6/uL HGB 7.8 g/dL HCT 29.0 % MCV 85.8 fL MCH 23.1 pg MCHC 26.9 g/dL RDW 23.1 % Platelet Count 256 10 3/cmm MPV 11.9 fL Neutrophils 4.02 10 3/uL Lymphocytes 1.1 10 3/uL Monocytes 0.6 10 3/uL Eosinophils 0.1 10 3/uL Basophils 0.0 10 3/uL Neutrophil % 67.7 % Lymphocyte % 18.0 % Monocyte % 9.9 % Eosinophil % 2.4 % Basophils % 0.3 % NRBC % 0.5 % Test performed on Feb 14, 2020 14:35 Anti-D Positive Blood Type OP Antibody Screen (Gel) NEGATIVE Test performed on Feb 09, 2020 13:32 Ferritin 19 ng/mL Iron 21 mcg/dL Iron Binding Capacity (TIBC) 369 mcg/dl % Iron Saturation 5.6 % UIBC 348 mcg/dL Test performed on Jan 04, 2020 12:00 Occult Blood -Fecal, IA IFOB P Impression: 1. Patient with recurrent microcytic anemia consistent with iron deficiency. Recurrent GI blood loss has been suspected, but a source of GI blood loss has not been determined. 2. He received parenteral iron replacement with Injectafer in July 2015, August 2015, and in October 2015. His other medical illnesses include: 3. Oxygen dependent COPD. 4. Coronary artery disease and valvular heart disease. 5. Type II diabetes. 6. Dyslipidemia. 7. Chronic kidney disease. 8. He has a suspected seizure disorder. His brain MRI showed multiple prior infarcts. He has recurrent iron deficiency anemia despite multiple courses of parenteral iron replacement. As such, GI blood loss has been suspected, but not documented. His laboratory studies had improved following his Injectafer infusions in July, but he remained mildly anemic despite having been given 2 additional infusions of Injectafer in July. He was then given 2 additional infusions of Injectafer in September 2016. As of his visit on 02/02/2017 his hemoglobin was back down to 8 g and his chemistry studies were clearly consistent with iron deficiency. He was given infusions of Injectafer on 02/02/2017 and on 02/09/2017. His follow-up laboratory studies and February did show some improvement, but he was still moderately anemic with evidence of iron deficiency. He was given further infusions of Injectafer on 03/17/2017 and on 03/24/2017. On his followup visit in July 2017 he was just borderline anemic, but his laboratory studies were definitely still consistent with iron deficiency. He received additional infusions of Infectafer on 07/05 and on 07/12/2017, and he was givenInjectifer again in July as his transferrin saturation was still low at 7.5% with ferritin also low at 36 ng/mL. He did have a very good response. However, as before, response was very temporary. On his follow-up visit in October 2017 his hemoglobin was back down to 10 g and he was again iron deficient. He was given further parenteral iron replacement with 2 more infusions of Injectafer, which he tolerated well. He had a good objective response with his hemoglobin increasing to 12.4 g. At his follow-up visit in February 2018 he was significantly anemic again, hemoglobin 8.4 g, with low transferrin saturation and ferritin. He was given 2 more infusions of Injectafer. He did have a good response, but during subsequent follow-up he was given further parenteral iron replacement with single infusions of Injectafer in April 2018 and in May 2018. On both occasions his serum iron studies and ferritin were in iron deficiency range, but with just borderline anemia. He was then given 2 additional infusions of Injectafer in September 2018 and in November 2018. During subsequent follow-up, he continued to have evidence of iron deficiency, though with just borderline low hemoglobin/hematocrit levels. He received additional infusions of Injectafer in February, March, and April 2019. During subsequent follow-up he has continued to have mild to moderately severe anemia despite having infusions of Injectafer on multiple occasions. Over the past 3 months there has been a gradual increase in his hemoglobin, but he is still mildly anemic, and his laboratory studies are consistent with iron deficiency with transferrin saturation 7.8% and ferritin 39 ng/mL. Mr. Goetz presents again with iron deficiency anemia. He requires transfusion services and IV iron replacement DEDE. He is also been referred for colonoscopy services as he has had positive FIT testing has not had a colonoscopy in greater than 5 years according to his . [facility] but we have requested this to be urgent. Plan: 1. We will plan to start 1 of 2 doses of Injectafer today. He is once again iron deficient. His hemoglobin on February 09, 2020 was 8.6. His iron saturation at that time was 5.6 his ferritin was 19 and his iron level was 21. 2. We will repeat his CBC type and ask today. He may need blood transfusion. His hemoglobin repeated was found to be 7.8 and he was set up for 2 units of packed red blood cells to be administered tomorrow. 3. Labs from February 09, 2020 and today were reviewed with and Mrs. Goetz and a copy was given to them. 4. He has been referred to surgical services for colonoscopy given that he has persistent iron deficiency anemia and now has positive stool- fit testing from December 2019. 5. I have asked for follow-up MRI of the head given his worsening confusion. This may be related to the anemia but he has had multiple prior infarcts and a suspected to see seizure disorder although he is had no evidence of seizures recently. 6. We will plan to see him back in 1 week. She is been advised to present to the ER with him with his confusion or symptoms worsen. Signed By: Mustapha Rodriguez-, AOCNP Grabiel Larkin MD <<Signature on File>>
[2020-02-21 12:30] LABS: Basophils % 0.2 %; Eosinophils # 0.1 10^3/uL (0.0-0.8); Eosinophils % 1.2 %; Hematocrit 36.3 % (42.0-52.0); Hemoglobin 10.3 g/dL (11.7-16.6); Lymphocytes # 1.4 10^3/uL (0.8-4.8); Lymphocytes % 14.3 %; Mean Corpuscular HGB Conc 28.4 g/dL (30.0-36.0); Mean Corpuscular Hemoglobin 25.9 pg (28.0-34.0); Mean Corpuscular Volume 91.4 fL (80-94); Mean Platelet Volume 11.3 fL (7.4-10.4); Monocytes # 1.1 10^3/uL (0.2-0.9); Monocytes % 11.4 %; Neutrophils # 6.76 10^3/uL (1.8-7.7); Neutrophils % 71.5 %; Nucleated Red Blood Cells % 0 %; Platelet Count 195 10^3/cmm (130-400); Red Blood Count 3.97 10^6/uL (4.1-5.3); Red Cell Distribution Width 26.9 % (12.1-15.1); White Blood Count 9.5 10^3/uL (4.0-10.0)
[2020-02-21 12:47] LABS: Alanine Aminotransferase 10 U/L (0-41); Alkaline Phosphatase 54 IU/L (40-130); Anion Gap 12.3 (5-19); Aspartate Amino Transferase 16 U/L (0-40); Blood Urea Nitrogen 12 mg/dL (8-23); Calcium 9.5 mg/dL (8.5-10.5); Carbon Dioxide 27 mmol/L (22-29); Chloride 96 mmol/L (98-107); Globulin 2.6 g/dL (1.3-4.6); Glomerular Filtration Rate 50.4 mL/min (90-130); Glucose 102 mg/dL (65-115); Osmolality Calculated 272 mOsm/kg (285-295); Potassium 4.3 mmol/L (3.5-5.1); Sodium 131 mmol/L (136-145); Total Bilirubin 0.7 mg/dL (0.15-1.2); Total Protein 6.6 g/dL (6.6-8.7)
== END 2020-02-28 23:59 | disposition home or self-care (01) ==
LOC: ONCMED 06:20
PROVIDERS: Internal Medicine Medical Oncology; PCP Internal Medicine; Visit Provider Nurse Practitioner
DX: D50.9 Iron deficiency anemia, unspecified (principal); R51 Headache; J44.9 Chronic obstructive pulmonary disease, unspecified; Z99.81 Dependence on supplemental oxygen; I25.10 Atherosclerotic heart disease of native coronary artery without angina pectoris; E11.9 Type 2 diabetes mellitus without complications; E78.5 Hyperlipidemia, unspecified; N18.9 Chronic kidney disease, unspecified; G40.909 Epilepsy, unspecified, not intractable, without status epilepticus
CPT/HCPCS: 70553; 80053; 82728; 83540; 83550; 85025; 86850; 86900; 86920; 96365; 99214; A9579; J1439; J1940; J7050; P9016

== ENCOUNTER 2020-03-27 05:30 | Outpatient (RCR) | payer OTHER, SELFPAY ==
[2020-03-26 11:14] LABS: Basophils % 0.5 %; Eosinophils # 0.2 10^3/uL (0.0-0.8); Hematocrit 40.8 % (42.0-52.0); Hemoglobin 11.5 g/dL (11.7-16.6); Lymphocytes # 1.1 10^3/uL (0.8-4.8); Lymphocytes % 12.2 %; Mean Corpuscular HGB Conc 28.2 g/dL (30.0-36.0); Mean Corpuscular Hemoglobin 25.8 pg (28.0-34.0); Mean Corpuscular Volume 91.5 fL (80-94); Mean Platelet Volume 11.5 fL (7.4-10.4); Monocytes # 0.8 10^3/uL (0.2-0.9); Monocytes % 9.2 %; Neutrophils # 6.63 10^3/uL (1.8-7.7); Neutrophils % 75.3 %; Nucleated Red Blood Cells % 0 %; Platelet Count 254 10^3/cmm (130-400); Red Blood Count 4.46 10^6/uL (4.1-5.3); Red Cell Distribution Width 19.1 % (12.1-15.1); White Blood Count 8.8 10^3/uL (4.0-10.0)
[2020-03-26 12:51] LABS: Alanine Aminotransferase 11 U/L (0-41); Albumin Level 4.4 g/dL (3.5-5.2); Alkaline Phosphatase 71 IU/L (40-130); Anion Gap 12.4 (5-19); Aspartate Amino Transferase 15 U/L (0-40); Blood Urea Nitrogen 13 mg/dL (8-23); Calcium 9.5 mg/dL (8.5-10.5); Carbon Dioxide 31 mmol/L (22-29); Chloride 95 mmol/L (98-107); Ferritin 40 ng/mL (30-400); Globulin 2.6 g/dL (1.3-4.6); Glomerular Filtration Rate 50.4 mL/min (90-130); Glucose 123 mg/dL (65-115); Iron 32 ug/dL (59-158); Osmolality Calculated 279 mOsm/kg (285-295); Percent Saturation 9.2 % (20-50); Potassium 4.4 mmol/L (3.5-5.1); Sodium 134 mmol/L (136-145); Total Bilirubin 0.5 mg/dL (0.15-1.2); Total Iron Binding Capacity 347 mcg/dl; Unsaturated Iron Binding 315 ug/dL (112-347)
[2020-03-26 13:12] LABS: Folate Level 5.5 ng/mL (4.5-32.2)
[2020-03-27] MEDS: ferric carboxy (IVPB) 750 MG in sodium chloride 0.9% (100 ml) 100 ML 345 MG IV (10:50)
--- NOTE | 2020-03-30 14:26 | ONC FU_ITS ---
Dr. Larkin Patient Follow-Up Note Patient: Bebo Goetz Unit #: [id number]: [id number] Dicatated By: Grabiel Larkin M.D.Date of Visit:Mar 27, 2020 Onc Med Follow-up/Prog Note Chief Complaint: Anemia. History of Present Illness: This is 69 year-old man with iron deficiency anemia. He was found to have a microcytic anemia on 09/29/2011, but no additional clinical data were available. He had normal hemoglobin with normal MCV on 10/15/2014 laboratory analysis. In December 2014 he was admitted with an acute febrile illness. He had a worsening renal insufficiency and hepatic enzyme elevation. During that hospitalization his hemoglobin measured 7.7 g/dL, MCV 67.8. Iron saturation was 4%, consistent with iron deficiency. The patient received 2 units of packed red blood cell transfusion and began oral iron replacement. He underwent endoscopy and colonoscopy on 02/19/2015. Pathology showed gastric hyperplastic polyp and gastritis thought to be from the iron supplement. Several colonic and rectal hyperplastic polyps were discovered without dysplasia. Review of prior laboratory analysis showed negative acute hepatitis B and C serology in April 2014. PSA was 3.54 in August 2014. He was first seen by Dr. Torres on 04/29/2015. Hemoglobin had recovered to 11.4 g with MCV 79. He continued to have iron deficiency with ferritin 8.9 ng/mL. Hemoccult stool negative x 1. Total testosterone was low at 119. By July 2015 the hemoglobin was stable at 11.2 g, but transferrin saturation was low at 7.2%. He was given parenteral iron replacement with Injectafer in July 2015. Despite the IV iron replacement, his iron studies in August were consistent with recurrent iron deficiency, suggestive of ongoing blood loss. His CT of the chest, abdomen, and pelvis on 09/20/15 showed mild borderline hepatomegaly but also mucosal thickening of the colon. He received additional IV Injectafer in August and again in October 2015. His other medical illnesses include oxygen dependent COPD, coronary artery disease, type II diabetes, and chronic renal insufficiency. He underwent aortic aneurysm repair and aortic valve repair in 2011. He has a history of smoking 2 packs of cigarettes daily for 45 years. He quit smoking in 2011. INTERIM HISTORY: His described his having an episode in May 2016 in which he passed out in the bathroom. She said that when she turned him over, he had shaking in his upper extremities and his eyes rolled back in his head. When he regained consciousness, he was confused. Shortly after regaining consciousness, he had another apparent seizure. He was evaluated the emergency room, and he is now being followed by Dr Elliott. On a follow-up visit here in July 2016 he was again significantly anemic with his hemoglobin down to 7.4 g. The red cell indices were hypochromic/microcytic. The transferrin saturation was 3.3%, and the ferritin level was low at 5.9 ng/mL. He did receive additional infusions of Injectafer in July, July, and September 2016. MRI of the brain performed on 08/27/2016 showed no evidence of restricted diffusion to suggest acute ischemia. 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 There were multiple chronic lacunar infarcts in the right superior cerebellum. There were mild small vessel changes with moderate parenchymal volume loss. There was no evidence of enhancing intracranial metastatic disease. On his follow-up visit on 02/02/2017 he was again significantly anemic with his hemoglobin back down to 8.1 g. His serum iron studies show transferrin saturation 4% and his ferritin was low at 5.2 ng/mL, consistent with iron deficiency. He was given infusions of Injectafer on 02/02/2017 and on 02/09/2017 and again on 03/17/2017 and on 03/24/2017. On his followup visit in July 2017 he was just mildly anemic, but his transferrin saturation was back down to 4.8% and his ferritin was relatively low at 42 ng/mL. He was given further parenteral iron replacement with infusions of Injectafer on 07/05 and 07/12/2017. He was seen for followup on 08/11/2017. His hemoglobin had increased to 12 g, but his serum iron and ferritin were still consistent with iron deficiency. He was given additional infusions of Injectafer on 08/11/2017 and on 08/18/2017. His repeat CBC on 09/08/2017 showed increase in the hemoglobin to 14.8 g. On 10/21/2017 he was admitted to the hospital with pneumonia. He was discharged home on oral Levaquin and prednisone. His hemoglobin at that point had declined to 10.0 g. As of his follow-up on 11/10/2017 his hemoglobin was still low at 10.2 g. His transferrin saturation was 4.3% with ferritin level 13.7 ng/mL, consistent with iron deficiency. He was given further parenteral iron replacement with 2 infusions of Injectafer. His repeat CT scan on 12/21/2017 showed hemoglobin up to 12.4 g. At his follow-up visit on 03/29/2018 his hemoglobin had dropped to 8.4 g with transferrin saturation 4.1% and ferritin level 8.3 ng/mL. He was given 2 more infusions of Injectafer. During subsequent follow-up he received single infusions of Injectafer again in April 2018 and in May 2018, and his serum iron and ferritin levels remained in iron deficiency range, though he was just borderline anemic on both occasions. His repeat CBC on 12/05/2018 showed a decrease in his hemoglobin to 9.2 g. The transferrin saturation was low at 5.4% with ferritin 17 ng/mL, consistent with iron deficiency. He was given 2 additional infusions of Injectafer. During subsequent follow-up he continued to have evidence of iron deficiency, though with just borderline low hemoglobin/hematocrit levels. He was given further parenteral iron replacement with single infusions of Injectafer in February, March, and April 2019. During that time he had stool Hemoccult testing done through the [place], which he says was negative. As of May 2019 he was still mildly anemic with hemoglobin 10.4 g, and has 07/14/2019 his hemoglobin had further declined to 8.9 g. He was then given 2 infusions of Injectafer. Despite that, he had remained moderately anemic requiring Injectafer infusions again in August, September, in October/November, and again in December. As of 02/09/2020 his hemoglobin was back down to 8.6 g. His serum iron studies showed transferrin saturation low at 5.6% with ferritin also low at 19 ng/mL, consistent with iron deficiency. He was given 2 additional infusions of Injectafer. He is seen for a follow-up visit. He says he has been feeling okay the last couple of days, but before that he was having lower back pain, enough that it was about to kill him. His activity has been very limited. ECOG score is 3. His appetite is okay, but he has lost weight. He is not having fever or night sweats. He does complain that he has been dizzy and wobbly. His breathing seems to be getting worse. He is on continuous oxygen. He has cough productive of white or yellow sputum. He has had some chest pain. He has nausea at times, and he has loose stools. He was confirmed to have heme positive stool, and he is scheduled to have another colonoscopy. Bladder function has been okay. He has had some headaches. He has numbness/tingling in his feet. Medications: Aggrenox 1 (25-200 mg) Capsule SR 12 HR Oral b.i.d., Albuterol Sulfate 1 puff(s) (of 108 (90 base) mcg/act) Aerosol Powder, Breath Activated Inhalation four times a day, Alogliptin Benzoate 1 Tablet (of 12.5 mg) Oral daily, Calcitriol 1 (0.25 mcg) Capsule Oral daily, Citalopram Hydrobromide 1 Tablet (of 20 mg) Oral daily, Colace 1 Capsule (of 100 mg) Oral daily, Depakote ER 2 Tablet (of 500 mg) Tablet SR 24 HR Oral daily, Furosemide 1 Tablet (of 40 mg) Oral daily, Gabapentin 1 (100 mg) Tablet Oral t.i.d., Lasix 1 Tablet (of 40 mg) Oral daily, Levothroid 1 Tablet (of 75 mcg) Oral daily, Meclizine HCl (25 mg) Tablet Oral Take as Directed, Memantine HCl 1 Tablet (of 10 mg) Oral b.i.d., Metoprolol Tartrate 1 (25 mg) Tablet Oral b.i.d., Nitroglycerin Solution Translingual PRN, Protonix 1 Tablet (of 40 mg) Tablet, enteric coated Oral b.i.d., Spiriva Respimat 1 puff(s) (of 2.5 mcg/act) Aerosol, solution Inhalation daily, Symbicort 2 (160-4.5 mcg/act) Aerosol Inhalation b.i.d., Tamsulosin HCl 1 Tablet (of 0.4 mg) Capsule Oral daily, Vitamin D3 (50 mcg) Tablet Take as Directed Allergies: Clopidogrel Bisulfate, Ezetimibe, fish oil, Gemfibrozil, Hydroxychloroquine Sulfate, mushrooms , Niacin, Simvastatin, Sulfamethoxazole-TMP DS, and Zetia. Review of Systems: Constitutional - He feels okay today but before that he was not feeling well mostly related to back pain. He is not doing much at home. He does some light walking, but he is otherwise sedentary. His appetite is good but his weight is down 7 pounds from last visit. No fever, night sweats, or hot flashes. ECOG score is 3, ENMT - No sinus congestion/drainage. No mouth sores. No sore throat or difficulty swallowing, Hematologic/Lymphatic - He has easy bruising, Respiratory - His feels like his shortness of breath has worsened. He is requiring more oxygen. He has a cough that produces white-yellowish phlegm. No pleuritic pain or hemoptysis, Cardiovascular - He had a episode of chest pain recently that was relieved with Nitroglycerin. No palpitations, Gastrointestinal - No nausea or vomiting. No heartburn or acid reflux. He has been having loose stools. No constipation. He had blood in the stool. He is going for a colonoscopy, Genitourinary (M) - No dysuria or hematuria. No urinary frequency. No urgency or incontinence, Musculoskeletal - He is having persistent lower back pain, Integumentary - No skin complications, Neurologic - He has occasional headaches. He has frequent dizziness and off balance sensation. He has numbness and tingling in his feet, Psychiatric - No anxiety or depression, but he sometimes gets upset very easily. He has difficulty sleeping. Vital Signs: Performed on Mar 27, 2020 09:36 Height - 70.00 in Weight - 255.2 lbs (LOW) BSA - 2.32 sq.m BMI - 36.62 (HIGH) Pulse - 65 /min Respiration - 23 /min BP - 117/66 mm(hg) O2 Sat - 95 % (LOW) Pain - 0 Physical Examination: Constitutional - He appears chronically ill, Eyes - Sclerae nonicteric. Conjunctivae clear, ENMT - No lesions noted in the oral cavity, Hematologic/Lymphatic - No cervical, clavicular, or axillary adenopathy, Respiratory - Lungs are clear with diminished air movement bilaterally, Cardiovascular - Heart rhythm is regular. There is a II/ systolic murmur. There is no gallop or rub noted, Abdomen - Moderately distended. Liver and spleen are not enlarged. There is no abdominal mass or ascites noted and there is no inguinal adenopathy, Extremities - No edema, Neurologic - No focal neurologic deficits noted. Lab/Imaging: CBC shows hemoglobin 11.5 g, white blood cell count 8800, and platelet count 254,000. Comprehensive metabolic profile shows stable renal function with BUN 13 and creatinine 1.4 mg/dL. Liver enzymes are normal. The serum iron studies show low transferrin saturation at 9.2% and the ferritin is still relatively low at 40 ng/mL. Impression: 1. Patient with recurrent microcytic anemia consistent with iron deficiency. Recurrent GI blood loss has been suspected, but a source of GI blood loss has not been determined. 2. He received parenteral iron replacement with Injectafer in July 2015, August 2015, and in October 2015. His other medical illnesses include: 3. Oxygen dependent COPD. 4. Coronary artery disease and valvular heart disease. 5. Type II diabetes. 6. Dyslipidemia. 7. Chronic kidney disease. 8. He has a suspected seizure disorder. His brain MRI showed multiple prior infarcts. He has recurrent iron deficiency anemia despite multiple courses of parenteral iron replacement. As such, GI blood loss has been suspected, but not documented. His laboratory studies had improved following his Injectafer infusions in July, but he remained mildly anemic despite having been given 2 additional infusions of Injectafer in July. He was then given 2 additional infusions of Injectafer in September 2016. As of his visit on 02/02/2017 his hemoglobin was back down to 8 g and his chemistry studies were clearly consistent with iron deficiency. He was given infusions of Injectafer on 02/02/2017 and on 02/09/2017. His follow-up laboratory studies and October did show some improvement, but he was still moderately anemic with evidence of iron deficiency. He was given further infusions of Injectafer on 03/17/2017 and on 03/24/2017. On his followup visit in July 2017 he was just borderline anemic, but his laboratory studies were definitely still consistent with iron deficiency. He received additional infusions of Infectafer on 07/05 and on 07/12/2017, and he was givenInjectifer again in July as his transferrin saturation was still low at 7.5% with ferritin also low at 36 ng/mL. He did have a very good response. However, as before, response was very temporary. On his follow-up visit in October 2017 his hemoglobin was back down to 10 g and he was again iron deficient. He was given further parenteral iron replacement with 2 more infusions of Injectafer, which he tolerated well. He had a good objective response with his hemoglobin increasing to 12.4 g. At his follow-up visit in February 2018 he was significantly anemic again, hemoglobin 8.4 g, with low transferrin saturation and ferritin. He was given 2 more infusions of Injectafer. He did have a good response, but during subsequent follow-up he was given further parenteral iron replacement with single infusions of Injectafer in April 2018 and in May 2018. On both occasions his serum iron studies and ferritin were in iron deficiency range, but with just borderline anemia. He was then given 2 additional infusions of Injectafer in September 2018 and in November 2018. During subsequent follow-up, he continued to have evidence of iron deficiency, though with just borderline low hemoglobin/hematocrit levels. He received additional infusions of Injectafer in February, March, and April 2019. During subsequent follow-up he has continued to have mild to moderately severe anemia despite having infusions of Injectafer on multiple occasions. As of 02/09/2020 his hemoglobin was back down to 8.6 g and his transferrin saturation and serum ferritin were clearly indicative of iron deficiency. He was given further parenteral iron replacement with 2 additional infusions of Injectafer. He apparently was confirmed to have heme positive stool, and he is scheduled to have a repeat colonoscopy. His current CBC does show improvement in the hemoglobin to 11.5 g, but based on his serum iron studies, it appears that he is still iron deficient. Plan: He will be given 2 additional infusions of Injectafer. He will be scheduled for 1-month interval follow-up. In the meantime, I [facility] I also will put in a request for physical therapy. Signed By: Grabiel Larkin M.D. <<Signature on File>>
== END 2020-03-30 23:59 | disposition home or self-care (01) ==
LOC: ONCMED 05:30
PROVIDERS: Nurse Practitioner; PCP Internal Medicine; Visit Provider Internal Medicine Medical Oncology
DX: D50.9 Iron deficiency anemia, unspecified (principal); J44.9 Chronic obstructive pulmonary disease, unspecified; I25.10 Atherosclerotic heart disease of native coronary artery without angina pectoris; I38 Endocarditis, valve unspecified; E11.22 Type 2 diabetes mellitus with diabetic chronic kidney disease; N18.9 Chronic kidney disease, unspecified; K92.1 Melena; Z87.891 Personal history of nicotine dependence; Z86.73 Personal history of transient ischemic attack (TIA), and cerebral infarction without residual deficits; Z99.81 Dependence on supplemental oxygen
CPT/HCPCS: 36415; 80053; 82728; 82746; 83540; 83550; 85025; 96365; 99214; J1439

== ENCOUNTER 2020-04-03 06:28 | Outpatient (RCR) | payer OTHER, SELFPAY ==
[2020-04-03] MEDS: ferric carboxy (IVPB) 750 MG in sodium chloride 0.9% (100 ml) 100 ML 460 MG IV (09:45)
== END 2020-04-29 23:59 | disposition home or self-care (01) ==
LOC: ONCMED 06:28
PROVIDERS: PCP Internal Medicine; Visit Provider Internal Medicine Medical Oncology
DX: D50.9 Iron deficiency anemia, unspecified (principal)
CPT/HCPCS: 96365; J1439

== ENCOUNTER 2020-05-02 05:15 | Outpatient (RCR) | payer OTHER, SELFPAY ==
[2020-05-01 09:27] LABS: Basophils % 0.3 %; Eosinophils # 0.1 10^3/uL (0.0-0.8); Eosinophils % 2.1 %; Hematocrit 40.9 % (42.0-52.0); Hemoglobin 12.4 g/dL (11.7-16.6); Lymphocytes % 14.7 %; Mean Corpuscular HGB Conc 30.3 g/dL (30.0-36.0); Mean Corpuscular Hemoglobin 29.1 pg (28.0-34.0); Mean Platelet Volume 12.7 fL (7.4-10.4); Monocytes # 0.6 10^3/uL (0.2-0.9); Monocytes % 9.7 %; Neutrophils # 4.78 10^3/uL (1.8-7.7); Neutrophils % 72.6 %; Nucleated Red Blood Cells % 0 %; Platelet Count 204 10^3/cmm (130-400); Red Blood Count 4.26 10^6/uL (4.1-5.3); Red Cell Distribution Width 20.3 % (12.1-15.1); White Blood Count 6.6 10^3/uL (4.0-10.0)
[2020-05-01 09:41] LABS: Alanine Aminotransferase 14 U/L (0-41); Albumin Level 4.4 g/dL (3.5-5.2); Alkaline Phosphatase 76 IU/L (40-130); Anion Gap 13.1 (5-19); Aspartate Amino Transferase 16 U/L (0-40); Blood Urea Nitrogen 13 mg/dL (8-23); Calcium 9.7 mg/dL (8.5-10.5); Carbon Dioxide 31 mmol/L (22-29); Chloride 95 mmol/L (98-107); Globulin 2.5 g/dL (1.3-4.6); Glomerular Filtration Rate 50.2 mL/min (90-130); Glucose 157 mg/dL (65-115); Iron 32 ug/dL (59-158); Osmolality Calculated 283 mOsm/kg (285-295); Percent Saturation 8.8 % (20-50); Potassium 4.1 mmol/L (3.5-5.1); Sodium 135 mmol/L (136-145); Total Bilirubin 0.4 mg/dL (0.15-1.2); Total Iron Binding Capacity 363 mcg/dl; Total Protein 6.9 g/dL (6.6-8.7); Unsaturated Iron Binding 331 ug/dL (112-347)
[2020-05-01 11:44] LABS: Valproic Acid Level 29.9 ug/mL (50-100)
[2020-05-02] MEDS: ferric carboxy (IVPB) 750 MG in sodium chloride 0.9% (100 ml) 100 ML 345 MG IV (15:00)
--- NOTE | 2020-05-09 09:59 | ONC FU_ITS ---
[facility] Patient Note Patient: Bebo Goetz Unit #: [id number]: 1950 Dictated By: Mustapha RodriguezDate of Visit: May 01, 2020 Onc MED Follow-Up/Prog Note Chief Complaint: Anemia. History of Present Illness: Mr Goetz is 69 year-old man with iron deficiency anemia. He was found to have a microcytic anemia on 09/29/2011, but no additional clinical data were available. He had normal hemoglobin with normal MCV on 10/15/2014 laboratory analysis. In December 2014 he was admitted with an acute febrile illness. He had a worsening renal insufficiency and hepatic enzyme elevation. During that hospitalization his hemoglobin measured 7.7 g/dL, MCV 67.8. Iron saturation was 4%, consistent with iron deficiency. The patient received 2 units of packed red blood cell transfusion and began oral iron replacement. He underwent endoscopy and colonoscopy on 02/19/2015. Pathology showed gastric hyperplastic polyp and gastritis thought to be from the iron supplement. Several colonic and rectal hyperplastic polyps were discovered without dysplasia. Review of prior laboratory analysis showed negative acute hepatitis B and C serology in April 2014. PSA was 3.54 in August 2014. He was first seen by Dr. Torres on 04/29/2015. Hemoglobin had recovered to 11.4 g with MCV 79. He continued to have iron deficiency with ferritin 8.9 ng/mL. Hemoccult stool negative x 1. Total testosterone was low at 119. By July 2015 the hemoglobin was stable at 11.2 g, but transferrin saturation was low at 7.2%. He was given parenteral iron replacement with Injectafer in July 2015. Despite the IV iron replacement, his iron studies in August were consistent with recurrent iron deficiency, suggestive of ongoing blood loss. His CT of the chest, abdomen, and pelvis on 09/20/15 showed mild borderline hepatomegaly but also mucosal thickening of the colon. He received additional IV Injectafer in August and again in October 2015. His other medical illnesses include oxygen dependent COPD, coronary artery disease, type II diabetes, and chronic renal insufficiency. He underwent aortic aneurysm repair and aortic valve repair in 2011. He has a history of smoking 2 packs of cigarettes daily for 45 years. He quit smoking in 2011. INTERIM HISTORY: His described his having an episode in May 2016 in which he passed out in the bathroom. She said that when she turned him over, he had shaking in his upper extremities and his eyes rolled back in his head. When he regained consciousness, he was confused. Shortly after regaining consciousness, he had another apparent seizure. He was evaluated the emergency room, and he is now being followed by Dr Elliott. On a follow-up visit here in July 2016 he was again significantly anemic with his hemoglobin down to 7.4 g. The red cell indices were hypochromic/microcytic. The transferrin saturation was 3.3%, and the ferritin level was low at 5.9 ng/mL. He did receive additional infusions of Injectafer in July, July, and September 2016. MRI of the brain performed on 08/27/2016 showed no evidence of restricted diffusion to suggest acute ischemia. 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 There were multiple chronic lacunar infarcts in the right superior cerebellum. There were mild small vessel changes with moderate parenchymal volume loss. There was no evidence of enhancing intracranial metastatic disease. On his follow-up visit on 02/02/2017 he was again significantly anemic with his hemoglobin back down to 8.1 g. His serum iron studies show transferrin saturation 4% and his ferritin was low at 5.2 ng/mL, consistent with iron deficiency. He was given infusions of Injectafer on 02/02/2017 and on 02/09/2017 and again on 03/17/2017 and on 03/24/2017. On his followup visit in July 2017 he was just mildly anemic, but his transferrin saturation was back down to 4.8% and his ferritin was relatively low at 42 ng/mL. He was given further parenteral iron replacement with infusions of Injectafer on 07/05 and 07/12/2017. He was seen for followup on 08/11/2017. His hemoglobin had increased to 12 g, but his serum iron and ferritin were still consistent with iron deficiency. He was given additional infusions of Injectafer on 08/11/2017 and on 08/18/2017. His repeat CBC on 09/08/2017 showed increase in the hemoglobin to 14.8 g. On 10/21/2017 he was admitted to the hospital with pneumonia. He was discharged home on oral Levaquin and prednisone. His hemoglobin at that point had declined to 10.0 g. As of his follow-up on 11/10/2017 his hemoglobin was still low at 10.2 g. His transferrin saturation was 4.3% with ferritin level 13.7 ng/mL, consistent with iron deficiency. He was given further parenteral iron replacement with 2 infusions of Injectafer. His repeat CT scan on 12/21/2017 showed hemoglobin up to 12.4 g. At his follow-up visit on 03/29/2018 his hemoglobin had dropped to 8.4 g with transferrin saturation 4.1% and ferritin level 8.3 ng/mL. He was given 2 more infusions of Injectafer. During subsequent follow-up he received single infusions of Injectafer again in April 2018 and in May 2018, and his serum iron and ferritin levels remained in iron deficiency range, though he was just borderline anemic on both occasions. His repeat CBC on 12/05/2018 showed a decrease in his hemoglobin to 9.2 g. The transferrin saturation was low at 5.4% with ferritin 17 ng/mL, consistent with iron deficiency. He was given 2 additional infusions of Injectafer. During subsequent follow-up he continued to have evidence of iron deficiency, though with just borderline low hemoglobin/hematocrit levels. He was given further parenteral iron replacement with single infusions of Injectafer in February, March, and April 2019. During that time he had stool Hemoccult testing done through the [facility], which he says was negative. As of May 2019 he was still mildly anemic with hemoglobin 10.4 g, and has 07/14/2019 his hemoglobin had further declined to 8.9 g. He was then given 2 infusions of Injectafer. Despite that, he had remained moderately anemic requiring Injectafer infusions again in August, September, in October/November, and again in December. As of 02/09/2020 his hemoglobin was back down to 8.6 g. His serum iron studies showed transferrin saturation low at 5.6% with ferritin also low at 19 ng/mL, consistent with iron deficiency. He was given 2 additional infusions of Injectafer. He was seen for a follow-up visit by Dr Larkin in February 2020. He was confirmed to have heme positive stool, and he was scheduled to have another colonoscopy. He was once again found to be iron deficient with an iron saturation of 9.2%. He was given 2 additional doses of Injectafer 1 week apart. Mr. Goetz is here today for follow-up after his last Injectafer treatments. Overall he states he is doing about the same. He denies any new shortness of breath orthopnea. He states he has had no fever or chills. He has had no known Covid exposure and denies any symptoms. He has no pending test. He denies any new pain. He has not yet had his colonoscopy as they are waiting for clearance from the financial services agent. He does have follow-up with a financial services agent in May. He states he has occasional cough but no mucus. He states it is, comes and goes. It is not keeping him awake at night. He states once in a great while he will have some sputum but it has not been discolored for frequent. He denies any changes in his bowel or bladder function. He has trace lower extremity edema but states this is normal for him. He has no new pain. His ECOG is 3. Past Medical History: Anemia Chronic obstructive pulmonary disease (home oxygen use) Chronic renal insufficiency Colon polyps Coronary artery disease Diabetes type II Hyperlipidemia Past Surgical History: Aortic aneurysm repair in 2011 Arotic valve repair in 2011 Left rotator cuff repair in 2006 Allergies: Clopidogrel Bisulfate, Ezetimibe, fish oil, Gemfibrozil, Hydroxychloroquine Sulfate, mushrooms , Niacin, Simvastatin, Sulfamethoxazole-TMP DS, and Zetia. Medications: Aggrenox 1 (25-200 mg) Capsule SR 12 HR Oral b.i.d. Albuterol Sulfate 1 puff(s) (of 108 (90 base) mcg/act) Aerosol Powder, Breath Activated Inhalation four times a day Alogliptin Benzoate 1 Tablet (of 12.5 mg) Oral daily Calcitriol 1 (0.25 mcg) Capsule Oral daily Citalopram Hydrobromide 1 Tablet (of 20 mg) Oral daily Colace 1 Capsule (of 100 mg) Oral daily Depakote ER 2 Tablet (of 500 mg) Tablet SR 24 HR Oral daily Furosemide 1 Tablet (of 40 mg) Oral daily Gabapentin 1 (100 mg) Tablet Oral t.i.d. Lasix 1 Tablet (of 40 mg) Oral daily Levothroid 1 Tablet (of 75 mcg) Oral daily Meclizine HCl (25 mg) Tablet Oral Take as Directed Memantine HCl 1 Tablet (of 10 mg) Oral b.i.d. Metoprolol Tartrate 1 (25 mg) Tablet Oral b.i.d. Nitroglycerin Solution Translingual PRN Protonix 1 Tablet (of 40 mg) Tablet, enteric coated Oral b.i.d. Spiriva Respimat 1 puff(s) (of 2.5 mcg/act) Aerosol, solution Inhalation daily Symbicort 2 (160-4.5 mcg/act) Aerosol Inhalation b.i.d. Tamsulosin HCl 1 Tablet (of 0.4 mg) Capsule Oral daily Vitamin D3 (50 mcg) Tablet Take as Directed Family History: Mr. Goetz's mother at age 65: CO. Mr. Goetz's father at age 72: heart attack, and lung and brain cancer. Social History: Mr. Goetz is and he is a disabled. Mr. Goetz quit smoking 4 years ago but had smoked 2.0 packs/day for 45 years. He has no history of drinking. Mr. Goetz reports the following support systems: lives with spouse, significant other, family, or friends, lives in own house, supportive family/friends willing to assist with needs, and adequate transportation available for expected visits. His diet consists of regular meals. He indicates his activity level as: daily activities. Review Of Symptoms: Constitutional Denies fevers, chills. moderate fatigue. Generalized confusion at times-Mrs Goetz thinks it is about the same as his normal-better than it has been in the last few months. Eyes Denies significant visual changes. ENMT Denies sore throat, mouth sores, difficulty or changes in swallowing ability, and/or sinus drainage. Endocrine Denies hot flashes or night sweats. Hematologic/Lymphatic Easy bruising and but no bleeding. The patient denies any tender or palpable lymph nodes. Respiratory Denies chest pain. Dyspnea upon exertion-stable. Wearing oxygen supplementation continuously. Cardiovascular Denies anginal chest pain. Gastrointestinal Denies nausea, vomiting, diarrhea,heartburn, or constipation. Genitourinary (M) Denies hematuria, dysuria, increased frequency, urgency, incontinence. Musculoskeletal Bilateral leg pain-chronic and controlled with meds. No change. Integumentary Denies chronic rashes. Psychiatric Denies depression and anxiety. Vital Signs: Performed on May 01, 2020 09:55 Height - 70.00 in Weight - 259.4 lbs (HIGH) BSA - 2.33 sq.m BMI - 37.22 (HIGH) Temperature - 98.2 F (LOW) Pulse - 61 /min Respiration - 26 /min BP - 138/72 mm(hg) O2 Sat - 92 % (LOW) Pain - 0,3 - Capable of only limited self-care, confined to bed or chair more than 50% of waking hours. (ECOG) Physical Examination: Constitutional Alert, oriented, no acute distress. Skin pale/pink, warm and dry. Pleasant, seems confused at times but also answers appropriately at times-accompanied by today. Head Normocephalic; atraumatic. Eyes Conjunctivae and sclerae are clear and without icterus. Pupils are reactive and equal. ENMT Sinuses are nontender. No oral exudates, ulcers, masses, thrush or mucositis. Oropharynx clear. Tongue normal. Neck Supple without masses or thyromegaly. No jugular venous distension. Hematologic/Lymphatic No petechiae or purpura. No tender or palpable lymph nodes in the cervical or supraclavicular areas. Respiratory Lungs are diminished to auscultation without rhonchi or wheezing. Cardiovascular Regular rate and rhythm of heart without murmurs,clicks, gallops or rubs. Abdomen Non-tender, non-distended, no masses, ascites. Good bowel sounds noted in all quads. No guarding or rebound tenderness. No pulsatile masses. Back/Spine Non-tender to palpation. Extremities No visible deformities, no cyanosis, clubbing or edema. Musculoskeletal No tenderness or swelling, normal range of motion without obvious weakness. Integumentary No rashes or lesions. Neurologic presents in wheelchair today. Laboratory:Test performed on May 01, 2020 08:37 Iron 32 mcg/dL Sodium 135 mmol/L Iron Binding Capacity (TIBC) 363 mcg/dl Potassium 4.1 mmol/L % Iron Saturation 8.8 % Chloride 95 mmol/L CO2 31 mmol/L UIBC 331 mcg/dL Anion Gap 13.1 BUN 13 mg/dL Creatinine 1.4 mg/dL Cr Clearance (Est) 82.88 mL/min eGFR 50.2 mL/min Glucose 157 mg/dL Osmolality - Calculated 283 mOsm/kg Calcium 9.7 mg/dL Protein, Total 6.9 g/dL Albumin 4.4 g/dL Globulin 2.5 g/dL Bilirubin, Total 0.4 mg/dL ALT (SGPT) 14 U/L AST (SGOT) 16 U/L Alkaline Phosphatase 76 IU/L WBC 6.6 10 3/uL RBC 4.26 10 6/uL HGB 12.4 g/dL HCT 40.9 % MCV 96.0 fL MCH 29.1 pg MCHC 30.3 g/dL RDW 20.3 % Platelet Count 204 10 3/cmm MPV 12.7 fL Neutrophils 4.78 10 3/uL Lymphocytes 1.0 10 3/uL Monocytes 0.6 10 3/uL Eosinophils 0.1 10 3/uL Basophils 0.0 10 3/uL Neutrophil % 72.6 % Lymphocyte % 14.7 % Monocyte % 9.7 % Eosinophil % 2.1 % Basophils % 0.3 % NRBC % 0 % Test performed on Feb 14, 2020 14:35 Anti-D Positive Blood Type OP Antibody Screen (Gel) NEGATIVE Test performed on Feb 09, 2020 13:32 Ferritin 19 ng/mL Test performed on Jan 04, 2020 12:00 Occult Blood -Fecal, IA IFOB P Test performed on Nov 24, 2019 10:05 Hemoglobin A1C % 4.8 % Impression: 1. Patient with recurrent microcytic anemia consistent with iron deficiency. Recurrent GI blood loss has been suspected, but a source of GI blood loss has not been determined. 2. He received parenteral iron replacement with Injectafer in July 2015, August 2015, and in October 2015. His other medical illnesses include: 3. Oxygen dependent COPD. 4. Coronary artery disease and valvular heart disease. 5. Type II diabetes. 6. Dyslipidemia. 7. Chronic kidney disease. 8. He has a suspected seizure disorder. His brain MRI showed multiple prior infarcts. He has recurrent iron deficiency anemia despite multiple courses of parenteral iron replacement. As such, GI blood loss has been suspected, but not documented. His laboratory studies had improved following his Injectafer infusions in July, but he remained mildly anemic despite having been given 2 additional infusions of Injectafer in July. He was then given 2 additional infusions of Injectafer in September 2016. As of his visit on 02/02/2017 his hemoglobin was back down to 8 g and his chemistry studies were clearly consistent with iron deficiency. He was given infusions of Injectafer on 02/02/2017 and on 02/09/2017. His follow-up laboratory studies and February did show some improvement, but he was still moderately anemic with evidence of iron deficiency. He was given further infusions of Injectafer on 03/17/2017 and on 03/24/2017. On his followup visit in July 2017 he was just borderline anemic, but his laboratory studies were definitely still consistent with iron deficiency. He received additional infusions of Infectafer on 07/05 and on 07/12/2017, and he was givenInjectifer again in July as his transferrin saturation was still low at 7.5% with ferritin also low at 36 ng/mL. He did have a very good response. However, as before, response was very temporary. On his follow-up visit in October 2017 his hemoglobin was back down to 10 g and he was again iron deficient. He was given further parenteral iron replacement with 2 more infusions of Injectafer, which he tolerated well. He had a good objective response with his hemoglobin increasing to 12.4 g. At his follow-up visit in February 2018 he was significantly anemic again, hemoglobin 8.4 g, with low transferrin saturation and ferritin. He was given 2 more infusions of Injectafer. He did have a good response, but during subsequent follow-up he was given further parenteral iron replacement with single infusions of Injectafer in April 2018 and in May 2018. On both occasions his serum iron studies and ferritin were in iron deficiency range, but with just borderline anemia. He was then given 2 additional infusions of Injectafer in September 2018 and in November 2018. During subsequent follow-up, he continued to have evidence of iron deficiency, though with just borderline low hemoglobin/hematocrit levels. He received additional infusions of Injectafer in February, March, and April 2019. During subsequent follow-up he has continued to have mild to moderately severe anemia despite having infusions of Injectafer on multiple occasions. As of 02/09/2020 his hemoglobin was back down to 8.6 g and his transferrin saturation and serum ferritin were clearly indicative of iron deficiency. He was given further parenteral iron replacement with 2 additional infusions of Injectafer. He apparently was confirmed to have heme positive stool, and he is scheduled to have a repeat colonoscopy. His anemia has stablized but he remains iron deficient. Plan: 1. Iron deficiency anemia: A. Mr. Goetz is once again/continuing to be iron deficient. His iron saturation today is 8.8, his iron level is 32 and TIBC is 363. We will proceed with 1 dose of Injectafer today. B. Mr. Goetz is scheduled to see the financial services agent in May to obtain clearance for colonoscopy after that visit. Hopefully he will have his colonoscopy in May. C. Today's labs reviewed in detail discussed with and Mrs. Goetz and a copy was given to them. WBC 6.6, hemoglobin 12.4, platelets 204,000 ANC is 4780. Potassium 4.1 random glucose 157 creatinine 1.4 which is stable and LFTs are normal. His iron studies are as above. 2. Suspected seizure disorder: A. He remains on Depakote 1000 mg daily. He has been sleeping a lot at home. I do not see any evidence of any Depakote levels in his chart. I requested a valproic level today. He also needs a refill on his Keppra if he is to remain on it. He is also calling Dr. Elliott's office for this refill as well. 3. Follow-up plan: We will plan to see him back 4 weeks after his Injectafer with CBC, CMP TIBC and ferritin. Mr. Goetz was encouraged to contact us in interim should questions or problems arise. Signed By: Mustapha Rodriguez-, AOCNP Grabiel Larkin MD <<Signature on File>>
== END 2020-05-30 23:59 | disposition home or self-care (01) ==
LOC: ONCMED 05:15
PROVIDERS: PCP Emergency Medicine Emergency Medical Services; Visit Provider Nurse Practitioner
DX: D50.9 Iron deficiency anemia, unspecified (principal); J44.9 Chronic obstructive pulmonary disease, unspecified; Z99.81 Dependence on supplemental oxygen; E11.59 Type 2 diabetes mellitus with other circulatory complications; I25.10 Atherosclerotic heart disease of native coronary artery without angina pectoris; I51.9 Heart disease, unspecified; E78.5 Hyperlipidemia, unspecified; E11.22 Type 2 diabetes mellitus with diabetic chronic kidney disease; N18.9 Chronic kidney disease, unspecified; G40.909 Epilepsy, unspecified, not intractable, without status epilepticus; Z79.899 Other long term (current) drug therapy
CPT/HCPCS: 36415; 80053; 80164; 83540; 83550; 85025; 96365; 99214; J1439

== ENCOUNTER → 2020-06-03 13:46 | Outpatient (BNVA) | payer OTHER, SELFPAY | PROVIDERS: PCP Emergency Medicine Emergency Medical Services; Visit Provider Specialist | DX: G40.309 Generalized idiopathic epilepsy and epileptic syndromes, not intractable, without status epilepticus (principal); F02.80 Dementia in other diseases classified elsewhere, unspecified severity, without behavioral disturbance, psychotic disturbance, mood disturbance, and anxiety; J44.9 Chronic obstructive pulmonary disease, unspecified; Z87.891 Personal history of nicotine dependence | CPT/HCPCS: 96116; 99214 ==

== ENCOUNTER 2020-06-04 15:38 | Emergency (ER) | payer OTHER, SELFPAY ==
[2020-06-04 16:07] VITALS: BP 124/73; PULSE 67; RESP 24; TEMP 36.7; O2SAT 95; BMI 37.0
--- NOTE | 2020-06-04 17:19 | ECG_ITS ---
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1950 Requested By: Monse Grider Order Number: [id number] Kay MD: MIKAELA LEVIN Measurements Intervals [place] Rate: 65 P: 62 NH: 233 QRS: -38 QRSD: 162 T: 76 QT: 455 QTc: 475 Interpretive Statements SINUS RHYTHM WITH FIRST DEGREE AV BLOCK MARKED LEFT AXIS DEVIATION [QRS AXIS < -30] RIGHT BUNDLE BRANCH BLOCK [120+ ms QRS DURATION, UPRIGHT V1, 40+ ms S IN I/aVL/V4/V5/V6] Compared to ECG 10/21/2017 16:29:02 No significant changes Electronically Signed On 06-04-2020 19:56:57 MANAGER ADOBE by MIKAELA LEVIN [id number]
== END 2020-06-04 16:30 | disposition left against medical advice (07) ==
PROVIDERS: Emergency Provider Emergency Medicine; PCP Emergency Medicine Emergency Medical Services
DX: Z53.21 Procedure and treatment not carried out due to patient leaving prior to being seen by health care provider (principal)
CPT/HCPCS: 93005; 99281

== ENCOUNTER 2020-06-13 12:49 | Outpatient (RCR) | payer OTHER, SELFPAY ==
[2020-06-06 09:58] LABS: Basophils % 0.4 %; Eosinophils # 0.2 10^3/uL (0.0-0.8); Eosinophils % 2.5 %; Hemoglobin 10.5 g/dL (11.7-16.6); Lymphocytes % 13.4 %; Mean Corpuscular HGB Conc 29.2 g/dL (30.0-36.0); Mean Corpuscular Hemoglobin 26.9 pg (28.0-34.0); Mean Corpuscular Volume 92.3 fL (80-94); Mean Platelet Volume 11.8 fL (7.4-10.4); Monocytes # 0.8 10^3/uL (0.2-0.9); Monocytes % 10.4 %; Neutrophils # 5.46 10^3/uL (1.8-7.7); Nucleated Red Blood Cells % 0.3 %; Platelet Count 224 10^3/cmm (130-400); White Blood Count 7.6 10^3/uL (4.0-10.0)
[2020-06-06 11:13] LABS: Alanine Aminotransferase 13 U/L (0-41); Albumin Level 4.4 g/dL (3.5-5.2); Alkaline Phosphatase 80 IU/L (40-130); Anion Gap 13.2 (5-19); Aspartate Amino Transferase 13 U/L (0-40); Blood Urea Nitrogen 14 mg/dL (8-23); Calcium 9.2 mg/dL (8.5-10.5); Carbon Dioxide 29 mmol/L (22-29); Chloride 94 mmol/L (98-107); Ferritin 28 ng/mL (30-400); Globulin 2.4 g/dL (1.3-4.6); Glomerular Filtration Rate 54.7 mL/min (90-130); Glucose 194 mg/dL (65-115); Iron 22 ug/dL (59-158); Osmolality Calculated 280 mOsm/kg (285-295); Percent Saturation 5.8 % (20-50); Potassium 4.2 mmol/L (3.5-5.1); Sodium 132 mmol/L (136-145); Total Bilirubin 0.3 mg/dL (0.15-1.2); Total Iron Binding Capacity 376 mcg/dl; Total Protein 6.8 g/dL (6.6-8.7); Unsaturated Iron Binding 354 ug/dL (112-347)
[2020-06-06] MEDS: ferric carboxy (IVPB) 750 MG in sodium chloride 0.9% (100 ml) 100 ML 460 MG IV (12:30)
--- NOTE | 2020-06-10 21:12 | ONC FU_ITS ---
[facility] Patient Note Patient: Bebo Goetz Unit #: [id number]: 1950 Dictated By: Mustapha RodriguezDate of Visit: Jun 06, 2020 Onc MED Follow-Up/Prog Note Chief Complaint: Anemia. History of Present Illness: Mr Goetz is 70 year-old man with iron deficiency anemia. He was found to have a microcytic anemia on 09/29/2011, but no additional clinical data were available. He had normal hemoglobin with normal MCV on 10/15/2014 laboratory analysis. In December 2014 he was admitted with an acute febrile illness. He had a worsening renal insufficiency and hepatic enzyme elevation. During that hospitalization his hemoglobin measured 7.7 g/dL, MCV 67.8. Iron saturation was 4%, consistent with iron deficiency. The patient received 2 units of packed red blood cell transfusion and began oral iron replacement. He underwent endoscopy and colonoscopy on 02/19/2015. Pathology showed gastric hyperplastic polyp and gastritis thought to be from the iron supplement. Several colonic and rectal hyperplastic polyps were discovered without dysplasia. Review of prior laboratory analysis showed negative acute hepatitis B and C serology in April 2014. PSA was 3.54 in August 2014. He was first seen by Dr. Torres on 04/29/2015. Hemoglobin had recovered to 11.4 g with MCV 79. He continued to have iron deficiency with ferritin 8.9 ng/mL. Hemoccult stool negative x 1. Total testosterone was low at 119. By July 2015 the hemoglobin was stable at 11.2 g, but transferrin saturation was low at 7.2%. He was given parenteral iron replacement with Injectafer in July 2015. Despite the IV iron replacement, his iron studies in August were consistent with recurrent iron deficiency, suggestive of ongoing blood loss. His CT of the chest, abdomen, and pelvis on 09/20/15 showed mild borderline hepatomegaly but also mucosal thickening of the colon. He received additional IV Injectafer in August and again in October 2015. His other medical illnesses include oxygen dependent COPD, coronary artery disease, type II diabetes, and chronic renal insufficiency. He underwent aortic aneurysm repair and aortic valve repair in 2011. He has a history of smoking 2 packs of cigarettes daily for 45 years. He quit smoking in 2011. INTERIM HISTORY: His described his having an episode in May 2016 in which he passed out in the bathroom. She said that when she turned him over, he had shaking in his upper extremities and his eyes rolled back in his head. When he regained consciousness, he was confused. Shortly after regaining consciousness, he had another apparent seizure. He was evaluated the emergency room, and he is now being followed by Dr Elliott. On a follow-up visit here in July 2016 he was again significantly anemic with his hemoglobin down to 7.4 g. The red cell indices were hypochromic/microcytic. The transferrin saturation was 3.3%, and the ferritin level was low at 5.9 ng/mL. He did receive additional infusions of Injectafer in July, July, and September 2016. MRI of the brain performed on 08/27/2016 showed no evidence of restricted diffusion to suggest acute ischemia. 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 There were multiple chronic lacunar infarcts in the right superior cerebellum. There were mild small vessel changes with moderate parenchymal volume loss. There was no evidence of enhancing intracranial metastatic disease. On his follow-up visit on 02/02/2017 he was again significantly anemic with his hemoglobin back down to 8.1 g. His serum iron studies show transferrin saturation 4% and his ferritin was low at 5.2 ng/mL, consistent with iron deficiency. He was given infusions of Injectafer on 02/02/2017 and on 02/09/2017 and again on 03/17/2017 and on 03/24/2017. On his followup visit in July 2017 he was just mildly anemic, but his transferrin saturation was back down to 4.8% and his ferritin was relatively low at 42 ng/mL. He was given further parenteral iron replacement with infusions of Injectafer on 07/05 and 07/12/2017. He was seen for followup on 08/11/2017. His hemoglobin had increased to 12 g, but his serum iron and ferritin were still consistent with iron deficiency. He was given additional infusions of Injectafer on 08/11/2017 and on 08/18/2017. His repeat CBC on 09/08/2017 showed increase in the hemoglobin to 14.8 g. On 10/21/2017 he was admitted to the hospital with pneumonia. He was discharged home on oral Levaquin and prednisone. His hemoglobin at that point had declined to 10.0 g. As of his follow-up on 11/10/2017 his hemoglobin was still low at 10.2 g. His transferrin saturation was 4.3% with ferritin level 13.7 ng/mL, consistent with iron deficiency. He was given further parenteral iron replacement with 2 infusions of Injectafer. His repeat CT scan on 12/21/2017 showed hemoglobin up to 12.4 g. At his follow-up visit on 03/29/2018 his hemoglobin had dropped to 8.4 g with transferrin saturation 4.1% and ferritin level 8.3 ng/mL. He was given 2 more infusions of Injectafer. During subsequent follow-up he received single infusions of Injectafer again in April 2018 and in May 2018, and his serum iron and ferritin levels remained in iron deficiency range, though he was just borderline anemic on both occasions. His repeat CBC on 12/05/2018 showed a decrease in his hemoglobin to 9.2 g. The transferrin saturation was low at 5.4% with ferritin 17 ng/mL, consistent with iron deficiency. He was given 2 additional infusions of Injectafer. During subsequent follow-up he continued to have evidence of iron deficiency, though with just borderline low hemoglobin/hematocrit levels. He was given further parenteral iron replacement with single infusions of Injectafer in February, March, and April 2019. During that time he had stool Hemoccult testing done through the [facility], which he says was negative. As of May 2019 he was still mildly anemic with hemoglobin 10.4 g, and has 07/14/2019 his hemoglobin had further declined to 8.9 g. He was then given 2 infusions of Injectafer. Despite that, he had remained moderately anemic requiring Injectafer infusions again in August, September, in October/November, and again in December. As of 02/09/2020 his hemoglobin was back down to 8.6 g. His serum iron studies showed transferrin saturation low at 5.6% with ferritin also low at 19 ng/mL, consistent with iron deficiency. He was given 2 additional infusions of Injectafer. He was seen for a follow-up visit by Dr Larkin in February 2020. He was confirmed to have heme positive stool, and he was scheduled to have another colonoscopy. He was once again found to be iron deficient with an iron saturation of 9.2%. He was given 2 additional doses of Injectafer 1 week apart. He also received Injectafer 1 dose on 05/02/2020 at which time his iron saturation was 8.8%. Mr. Goetz is here today for follow-up after his last Injectafer treatment. Overall he and his states he is doing about the same. He denies any new shortness of breath orthopnea. He states he has had no fever or chills. He has had no known Covid exposure and denies any symptoms. He has no pending test. He denies any new pain. He has not yet had his colonoscopy as they are waiting for clearance from the crisis manager. He does have follow-up with a crisis manager in May. Mrs. Goetz states that he is now scheduled for a biopsy of his prostate on August 07 and for a Covid screening on July 31, 2020 due to a rising PSA. She states that his last check it was 9. She denies that he has had any urinary complaints. He continues to have difficulty with his memory but she states it is no worse than what it has been. His ECOG is 3. Past Medical History: Anemia Chronic obstructive pulmonary disease (home oxygen use) Chronic renal insufficiency Colon polyps Coronary artery disease Diabetes type II Hyperlipidemia Past Surgical History: Aortic aneurysm repair in 2011 Arotic valve repair in 2011 Left rotator cuff repair in 2006 Allergies: Clopidogrel Bisulfate, Ezetimibe, fish oil, Gemfibrozil, Hydroxychloroquine Sulfate, mushrooms , Niacin, Simvastatin, Sulfamethoxazole-TMP DS, and Zetia. Medications: Aggrenox 1 (25-200 mg) Capsule SR 12 HR Oral b.i.d. Albuterol Sulfate 1 puff(s) (of 108 (90 base) mcg/act) Aerosol Powder, Breath Activated Inhalation four times a day Alogliptin Benzoate 1 Tablet (of 12.5 mg) Oral daily Calcitriol 1 (0.25 mcg) Capsule Oral daily Citalopram Hydrobromide 1 Tablet (of 20 mg) Oral daily Colace 1 Capsule (of 100 mg) Oral daily Depakote ER 2 Tablet (of 500 mg) Tablet SR 24 HR Oral daily Furosemide 1 Tablet (of 40 mg) Oral daily Gabapentin 1 (100 mg) Tablet Oral t.i.d. Lasix 1 Tablet (of 40 mg) Oral daily Levothroid 1 Tablet (of 75 mcg) Oral daily Meclizine HCl (25 mg) Tablet Oral Take as Directed Memantine HCl 1 Tablet (of 10 mg) Oral b.i.d. Metoprolol Tartrate 1 (25 mg) Tablet Oral b.i.d. Nitroglycerin Solution Translingual PRN Protonix 1 Tablet (of 40 mg) Tablet, enteric coated Oral b.i.d. Spiriva Respimat 1 puff(s) (of 2.5 mcg/act) Aerosol, solution Inhalation daily Symbicort 2 (160-4.5 mcg/act) Aerosol Inhalation b.i.d. Tamsulosin HCl 1 Tablet (of 0.4 mg) Capsule Oral daily Vitamin D3 (50 mcg) Tablet Take as Directed Family History: Mr. Goetz's mother at age 65: [place]. Mr. Goetz's father at age 72: heart attack, and lung and brain cancer. Social History: Mr. Goetz is and he is a disabled. Mr. Goetz quit smoking 4 years ago but had smoked 2.0 packs/day for 45 years. He has no history of drinking. Mr. Goetz reports the following support systems: lives with spouse, significant other, family, or friends, lives in own house, supportive family/friends willing to assist with needs, and adequate transportation available for expected visits. His diet consists of regular meals. He indicates his activity level as: daily activities. Review Of Symptoms: Constitutional Denies fevers, chills. moderate fatigue. Generalized confusion at times-Mrs Goetz thinks it is about the same as his normal-better than it has been in the last few months. Eyes Denies significant visual changes. ENMT Denies sore throat, mouth sores, difficulty or changes in swallowing ability, and/or sinus drainage. Endocrine Denies hot flashes or night sweats. Hematologic/Lymphatic Easy bruising and but no bleeding. The patient denies any tender or palpable lymph nodes. Respiratory Denies chest pain. Dyspnea upon exertion-stable. Wearing oxygen supplementation continuously. Cardiovascular Denies anginal chest pain. Gastrointestinal Denies nausea, vomiting, diarrhea,heartburn, or constipation. Genitourinary (M) Denies hematuria, dysuria, increased frequency, urgency, incontinence. Musculoskeletal Bilateral leg pain-chronic and controlled with meds. No change. Integumentary Denies chronic rashes. Neurologic Denies headache, blurred vision, and no areas of focal weakness or numbness. Normal slow gait. No sensory problems. Psychiatric Denies depression and anxiety. Vital Signs: Performed on Jun 06, 2020 10:44 Height - 70.00 in Weight - 245 lbs (LOW) BSA - 2.28 sq.m BMI - 35.15 (HIGH) Temperature - 97.6 F (LOW) Pulse - 61 /min Respiration - 24 /min BP - 147/76 mm(hg) (HIGH) O2 Sat - 93 % (LOW) Pain - 0 Fatigue - 9,3 - Capable of only limited self-care, confined to bed or chair more than 50% of waking hours. (ECOG) Physical Examination: Constitutional Alert, oriented, no acute distress. Skin pale/pink, warm and dry. Pleasant, seems confused at times but also answers appropriately at times-accompanied by today. Head Normocephalic; atraumatic. Eyes Conjunctivae and sclerae are clear and without icterus. Pupils are reactive and equal. Hematologic/Lymphatic No petechiae or purpura. No tender or palpable lymph nodes in the cervical or supraclavicular areas. Respiratory Lungs are diminished to auscultation without rhonchi or wheezing. Cardiovascular Regular rate and rhythm of heart without murmurs,clicks, gallops or rubs. Abdomen Non-tender, non-distended, no masses, ascites. Good bowel sounds noted in all quads. No guarding or rebound tenderness. No pulsatile masses. Back/Spine Non-tender to palpation. Extremities No visible deformities, no cyanosis, clubbing or edema. Musculoskeletal No tenderness or swelling, normal range of motion without obvious weakness. Integumentary No rashes or lesions. Neurologic ambulating with wheeled walker today. Psychiatric Alert and oriented times three. Coherent speech. Verbalizes understanding of our discussions today. Laboratory:Test performed on Jun 06, 2020 08:55 Ferritin 28 ng/mL Iron 22 mcg/dL Sodium 132 mmol/L Iron Binding Capacity (TIBC) 376 mcg/dl Potassium 4.2 mmol/L % Iron Saturation 5.8 % Chloride 94 mmol/L CO2 29 mmol/L UIBC 354 mcg/dL Anion Gap 13.2 BUN 14 mg/dL Creatinine 1.3 mg/dL Cr Clearance (Est) 84.3000 mL/min eGFR 54.7 mL/min Glucose 194 mg/dL Osmolality - Calculated 280 mOsm/kg Calcium 9.2 mg/dL Protein, Total 6.8 g/dL Albumin 4.4 g/dL Globulin 2.4 g/dL Bilirubin, Total 0.3 mg/dL ALT (SGPT) 13 U/L AST (SGOT) 13 U/L Alkaline Phosphatase 80 IU/L WBC 7.6 10 3/uL RBC 3.90 10 6/uL HGB 10.5 g/dL HCT 36.0 % MCV 92.3 fL MCH 26.9 pg MCHC 29.2 g/dL RDW 20.0 % Platelet Count 224 10 3/cmm MPV 11.8 fL Neutrophils 5.46 10 3/uL Lymphocytes 1.0 10 3/uL Monocytes 0.8 10 3/uL Eosinophils 0.2 10 3/uL Basophils 0.0 10 3/uL Neutrophil % 72.0 % Lymphocyte % 13.4 % Monocyte % 10.4 % Eosinophil % 2.5 % Basophils % 0.4 % NRBC % 0.3 % Test performed on Feb 14, 2020 14:35 Anti-D Positive Blood Type OP Antibody Screen (Gel) NEGATIVE Test performed on Jan 04, 2020 12:00 Occult Blood -Fecal, IA IFOB P Impression: 1. Patient with recurrent microcytic anemia consistent with iron deficiency. Recurrent GI blood loss has been suspected, but a source of GI blood loss has not been determined. 2. He received parenteral iron replacement with Injectafer in July 2015, August 2015, and in October 2015. His other medical illnesses include: 3. Oxygen dependent COPD. 4. Coronary artery disease and valvular heart disease. 5. Type II diabetes. 6. Dyslipidemia. 7. Chronic kidney disease. 8. He has a suspected seizure disorder. His brain MRI showed multiple prior infarcts. He has recurrent iron deficiency anemia despite multiple courses of parenteral iron replacement. As such, GI blood loss has been suspected, but not documented. His laboratory studies had improved following his Injectafer infusions in July, but he remained mildly anemic despite having been given 2 additional infusions of Injectafer in July. He was then given 2 additional infusions of Injectafer in September 2016. As of his visit on 02/02/2017 his hemoglobin was back down to 8 g and his chemistry studies were clearly consistent with iron deficiency. He was given infusions of Injectafer on 02/02/2017 and on 02/09/2017. His follow-up laboratory studies and February did show some improvement, but he was still moderately anemic with evidence of iron deficiency. He was given further infusions of Injectafer on 03/17/2017 and on 03/24/2017. On his followup visit in July 2017 he was just borderline anemic, but his laboratory studies were definitely still consistent with iron deficiency. He received additional infusions of Infectafer on 07/05 and on 07/12/2017, and he was givenInjectifer again in July as his transferrin saturation was still low at 7.5% with ferritin also low at 36 ng/mL. He did have a very good response. However, as before, response was very temporary. On his follow-up visit in October 2017 his hemoglobin was back down to 10 g and he was again iron deficient. He was given further parenteral iron replacement with 2 more infusions of Injectafer, which he tolerated well. He had a good objective response with his hemoglobin increasing to 12.4 g. At his follow-up visit in February 2018 he was significantly anemic again, hemoglobin 8.4 g, with low transferrin saturation and ferritin. He was given 2 more infusions of Injectafer. He did have a good response, but during subsequent follow-up he was given further parenteral iron replacement with single infusions of Injectafer in April 2018 and in May 2018. On both occasions his serum iron studies and ferritin were in iron deficiency range, but with just borderline anemia. He was then given 2 additional infusions of Injectafer in September 2018 and in November 2018. During subsequent follow-up, he continued to have evidence of iron deficiency, though with just borderline low hemoglobin/hematocrit levels. He received additional infusions of Injectafer in February, March, and April 2019. During subsequent follow-up he has continued to have mild to moderately severe anemia despite having infusions of Injectafer on multiple occasions. As of 02/09/2020 his hemoglobin was back down to 8.6 g and his transferrin saturation and serum ferritin were clearly indicative of iron deficiency. He was given further parenteral iron replacement with 2 additional infusions of Injectafer. He apparently was confirmed to have heme positive stool, and he is scheduled to have a repeat colonoscopy after he obtaines cardiac clearance. His anemia had stablized but has dropped compared to April 2020 and he remains iron deficient. Plan: PROBLEMS ADDRESSED TODAY: 1. Iron deficiency anemia: A. Mr. Goetz is once again/continuing to be iron deficient. His iron saturation today is 5.8, Ferritin is 28 and iron is 22. His hemoglobin is 10.5 compared to 12.4 last month. We will proceed with 1 dose of Injectafer today and again next week. B. Mr. Goetz is scheduled to see the crisis manager in May to obtain clearance for colonoscopy after that visit. Hopefully he will have his colonoscopy in May. C. Today's labs reviewed in detail discussed with and Mrs. Goetz and a copy was given to them. WBC 7.8, hemoglobin 10.5, platelets 224,000 ANC is 5460 potassium 4.2 creatinine 1.3, LFTs are normal. Iron studies are as above. His iron studies are as above. 2. Follow-up plan: We will plan to see him back 4 weeks after his second Injectafer with CBC, CMP TIBC and ferritin. 3. Elevated PSA: followup with urologist as scheduled in July 2020. 4. Mr. Goetz was encouraged to contact us in interim should questions or problems arise. Signed By: Mustapha Rodriguez-, AOCNP Grabiel Larkin MD <<Signature on File>>
[2020-06-13] MEDS: ferric carboxy (IVPB) 750 MG in sodium chloride 0.9% (100 ml) 100 ML 460 MG IV (13:18)
== END 2020-06-30 23:59 | disposition home or self-care (01) ==
LOC: ONCMED 12:49
PROVIDERS: PCP Emergency Medicine Emergency Medical Services; Visit Provider Nurse Practitioner
DX: D50.9 Iron deficiency anemia, unspecified (principal); J44.9 Chronic obstructive pulmonary disease, unspecified; Z99.81 Dependence on supplemental oxygen; I25.10 Atherosclerotic heart disease of native coronary artery without angina pectoris; I51.9 Heart disease, unspecified; E11.22 Type 2 diabetes mellitus with diabetic chronic kidney disease; N18.9 Chronic kidney disease, unspecified; E78.5 Hyperlipidemia, unspecified; G40.909 Epilepsy, unspecified, not intractable, without status epilepticus; Z79.899 Other long term (current) drug therapy
CPT/HCPCS: 36415; 80053; 82728; 83540; 83550; 85025; 96365; 99215; J1439

== ENCOUNTER 2020-07-25 05:32 | Outpatient (RCR) | payer OTHER, MEDICARE, SELFPAY ==
[2020-07-09 12:22] LABS: Basophils % 0.4 %; Eosinophils # 0.2 10^3/uL (0.0-0.8); Eosinophils % 2.7 %; Hematocrit 35.3 % (42.0-52.0); Hemoglobin 10.4 g/dL (11.7-16.6); Lymphocytes # 1.1 10^3/uL (0.8-4.8); Lymphocytes % 15.5 %; Mean Corpuscular HGB Conc 29.5 g/dL (30.0-36.0); Mean Corpuscular Volume 95.1 fL (80-94); Mean Platelet Volume 11.4 fL (7.4-10.4); Monocytes # 0.7 10^3/uL (0.2-0.9); Monocytes % 10.2 %; Neutrophils # 4.76 10^3/uL (1.8-7.7); Nucleated Red Blood Cells % 0 %; Platelet Count 192 10^3/cmm (130-400); Red Blood Count 3.71 10^6/uL (4.1-5.3); Red Cell Distribution Width 20.6 % (12.1-15.1); White Blood Count 6.8 10^3/uL (4.0-10.0)
[2020-07-09 12:46] LABS: Alanine Aminotransferase 14 U/L (0-41); Albumin Level 4.1 g/dL (3.5-5.2); Alkaline Phosphatase 74 IU/L (40-130); Anion Gap 10.9 (5-19); Aspartate Amino Transferase 13 U/L (0-40); Blood Urea Nitrogen 10 mg/dL (8-23); Calcium 9.1 mg/dL (8.5-10.5); Carbon Dioxide 29 mmol/L (22-29); Chloride 97 mmol/L (98-107); Ferritin 45 ng/mL (30-400); Globulin 2.5 g/dL (1.3-4.6); Glucose 127 mg/dL (65-115); Iron 19 ug/dL (59-158); Osmolality Calculated 277 mOsm/kg (285-295); Percent Saturation 5.4 % (20-50); Potassium 3.9 mmol/L (3.5-5.1); Sodium 133 mmol/L (136-145); Total Bilirubin 0.3 mg/dL (0.15-1.2); Total Iron Binding Capacity 349 mcg/dl; Total Protein 6.6 g/dL (6.6-8.7); Unsaturated Iron Binding 330 ug/dL (112-347)
[2020-07-09] MEDS: ferric carboxy (IVPB) 750 MG in sodium chloride 0.9% (100 ml) 100 ML 345 MG IV (14:35)
--- NOTE | 2020-07-10 13:13 | ONC FU_ITS ---
Dr. Larkin Patient Follow-Up Note Patient: Bebo Goetz Unit #: [id number]: 1950 Dicatated By: Grabiel Larkin M.D.Date of Visit:Jul 09, 2020 Onc Med Follow-up/Prog Note Chief Complaint: Anemia. History of Present Illness: This is 69 year-old man with iron deficiency anemia. He was found to have a microcytic anemia on 09/29/2011, but no additional clinical data were available. He had normal hemoglobin with normal MCV on 10/15/2014 laboratory analysis. In December 2014 he was admitted with an acute febrile illness. He had a worsening renal insufficiency and hepatic enzyme elevation. During that hospitalization his hemoglobin measured 7.7 g/dL, MCV 67.8. Iron saturation was 4%, consistent with iron deficiency. The patient received 2 units of packed red blood cell transfusion and began oral iron replacement. He underwent endoscopy and colonoscopy on 02/19/2015. Pathology showed gastric hyperplastic polyp and gastritis thought to be from the iron supplement. Several colonic and rectal hyperplastic polyps were discovered without dysplasia. Review of prior laboratory analysis showed negative acute hepatitis B and C serology in April 2014. PSA was 3.54 in August 2014. He was first seen by Dr. Torres on 04/29/2015. Hemoglobin had recovered to 11.4 g with MCV 79. He continued to have iron deficiency with ferritin 8.9 ng/mL. Hemoccult stool negative x 1. Total testosterone was low at 119. By July 2015 the hemoglobin was stable at 11.2 g, but transferrin saturation was low at 7.2%. He was given parenteral iron replacement with Injectafer in July 2015. Despite the IV iron replacement, his iron studies in August were consistent with recurrent iron deficiency, suggestive of ongoing blood loss. His CT of the chest, abdomen, and pelvis on 09/20/15 showed mild borderline hepatomegaly but also mucosal thickening of the colon. He received additional IV Injectafer in August and again in October 2015. His other medical illnesses include oxygen dependent COPD, coronary artery disease, type II diabetes, and chronic renal insufficiency. He underwent aortic aneurysm repair and aortic valve repair in 2011. He has a history of smoking 2 packs of cigarettes daily for 45 years. He quit smoking in 2011. INTERIM HISTORY: His described his having an episode in May 2016 in which he passed out in the bathroom. She said that when she turned him over, he had shaking in his upper extremities and his eyes rolled back in his head. When he regained consciousness, he was confused. Shortly after regaining consciousness, he had another apparent seizure. He was evaluated the emergency room, and he is now being followed by Dr Elliott. On a follow-up visit here in July 2016 he was again significantly anemic with his hemoglobin down to 7.4 g. The red cell indices were hypochromic/microcytic. The transferrin saturation was 3.3%, and the ferritin level was low at 5.9 ng/mL. He did receive additional infusions of Injectafer in July, July, and September 2016. MRI of the brain performed on 08/27/2016 showed no evidence of restricted diffusion to suggest acute ischemia. 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 There were multiple chronic lacunar infarcts in the right superior cerebellum. There were mild small vessel changes with moderate parenchymal volume loss. There was no evidence of enhancing intracranial metastatic disease. On his follow-up visit on 02/02/2017 he was again significantly anemic with his hemoglobin back down to 8.1 g. His serum iron studies show transferrin saturation 4% and his ferritin was low at 5.2 ng/mL, consistent with iron deficiency. He was given infusions of Injectafer on 02/02/2017 and on 02/09/2017 and again on 03/17/2017 and on 03/24/2017. On his followup visit in July 2017 he was just mildly anemic, but his transferrin saturation was back down to 4.8% and his ferritin was relatively low at 42 ng/mL. He was given further parenteral iron replacement with infusions of Injectafer on 07/05 and 07/12/2017. He was seen for followup on 08/11/2017. His hemoglobin had increased to 12 g, but his serum iron and ferritin were still consistent with iron deficiency. He was given additional infusions of Injectafer on 08/11/2017 and on 08/18/2017. His repeat CBC on 09/08/2017 showed increase in the hemoglobin to 14.8 g. On 10/21/2017 he was admitted to the hospital with pneumonia. He was discharged home on oral Levaquin and prednisone. His hemoglobin at that point had declined to 10.0 g. As of his follow-up on 11/10/2017 his hemoglobin was still low at 10.2 g. His transferrin saturation was 4.3% with ferritin level 13.7 ng/mL, consistent with iron deficiency. He was given further parenteral iron replacement with 2 infusions of Injectafer. His repeat CT scan on 12/21/2017 showed hemoglobin up to 12.4 g. At his follow-up visit on 03/29/2018 his hemoglobin had dropped to 8.4 g with transferrin saturation 4.1% and ferritin level 8.3 ng/mL. He was given 2 more infusions of Injectafer. During subsequent follow-up he received single infusions of Injectafer again in April 2018 and in May 2018, and his serum iron and ferritin levels remained in iron deficiency range, though he was just borderline anemic on both occasions. His repeat CBC on 12/05/2018 showed a decrease in his hemoglobin to 9.2 g. The transferrin saturation was low at 5.4% with ferritin 17 ng/mL, consistent with iron deficiency. He was given 2 additional infusions of Injectafer. During subsequent follow-up he continued to have evidence of iron deficiency, though with just borderline low hemoglobin/hematocrit levels. He was given further parenteral iron replacement with single infusions of Injectafer in February, March, and April 2019. During that time he had stool Hemoccult testing done through the [place], which he says was negative. As of May 2019 he was still mildly anemic with hemoglobin 10.4 g, and has 07/14/2019 his hemoglobin had further declined to 8.9 g. He was then given 2 infusions of Injectafer. Despite that, he had remained moderately anemic requiring Injectafer infusions again in August, September, in October/November, and again in December. As of 02/09/2020 his hemoglobin was back down to 8.6 g. His serum iron studies showed transferrin saturation low at 5.6% with ferritin also low at 19 ng/mL, consistent with iron deficiency. He was given 2 additional infusions of Injectafer. He was seen for follow-up visit again on 03/27/2020. His hemoglobin had come up to 11.5 g, but his serum iron studies were still consistent with iron deficiency. He given Injectafer again, and he received further infusions of Injectafer on 04/03/2020, 05/02/2020, 06/06/2020, and 06/13/2020. He is seen for a follow-up visit. He is feeling pretty weak, as always, and he has very limited activity. ECOG score is 3. Appetite is still good. He has not had fever or night sweats. He has shortness of breath with any activity. He recently was treated for pneumonia and he now has just occasional cough. His most recent episode of chest pain was about 2 weeks ago. He has nausea occasionally. Lately he has been having more heartburn. His bowels vary between constipation and loose stools, and he has had blood in the stool. 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 He has having some urinary frequency with urgency/incontinence. He does see a urologist through the [place] in [place], and he is scheduled to have a biopsy there next week. He has chronic back pain and he also has pains in his hands and knees. Recently he has been having quite a bit of headache. He has numbness/tingling in his hands and feet. Medications: Aggrenox 1 (25-200 mg) Capsule SR 12 HR Oral b.i.d., Albuterol Sulfate 1 puff(s) (of 108 (90 base) mcg/act) Aerosol Powder, Breath Activated Inhalation four times a day, Alogliptin Benzoate 1 Tablet (of 12.5 mg) Oral daily, Calcitriol 1 (0.25 mcg) Capsule Oral daily, Citalopram Hydrobromide 1 Tablet (of 20 mg) Oral daily, Colace 1 Capsule (of 100 mg) Oral daily, Depakote ER 2 Tablet (of 500 mg) Tablet SR 24 HR Oral daily, Furosemide 1 Tablet (of 40 mg) Oral daily, Gabapentin 1 (100 mg) Tablet Oral t.i.d., Lasix 1 Tablet (of 40 mg) Oral daily, Levothroid 1 Tablet (of 75 mcg) Oral daily, Meclizine HCl (25 mg) Tablet Oral Take as Directed, Memantine HCl 1 Tablet (of 10 mg) Oral b.i.d., Metoprolol Tartrate 1 (25 mg) Tablet Oral b.i.d., Nitroglycerin Solution Translingual PRN, Protonix 1 Tablet (of 40 mg) Tablet, enteric coated Oral b.i.d., Spiriva Respimat 1 puff(s) (of 2.5 mcg/act) Aerosol, solution Inhalation daily, Symbicort 2 (160-4.5 mcg/act) Aerosol Inhalation b.i.d., Tamsulosin HCl 1 Tablet (of 0.4 mg) Capsule Oral daily, Vitamin D3 (50 mcg) Tablet Take as Directed Allergies: Clopidogrel Bisulfate, Ezetimibe, fish oil, Gemfibrozil, Hydroxychloroquine Sulfate, mushrooms , Niacin, Simvastatin, Sulfamethoxazole-TMP DS, and Zetia. Vital Signs: Performed on Jul 09, 2020 13:25 Height - 70.00 in Weight - 264 lbs (HIGH) BSA - 2.35 sq.m BMI - 37.88 (HIGH) Temperature - 98.4 F Pulse - 59 /min (LOW) Respiration - 19 /min BP - 128/67 mm(hg) O2 Sat - 94 % (LOW) Pain - 0 Physical Examination: Constitutional - He appears generally weak, Eyes - Sclerae nonicteric. Conjunctivae clear, ENMT - No lesions noted in the oral cavity, Hematologic/Lymphatic - No cervical, clavicular, or axillary adenopathy, Respiratory - Lungs are clear with diminished air movement bilaterally, Cardiovascular - Heart rhythm is regular. There is a II/ systolic murmur. There is no gallop or rub noted, Abdomen - Mildy distended. Liver and spleen are not enlarged. There is no abdominal mass or ascites noted and there is no inguinal adenopathy, Extremities - Mild edema, Neurologic - No focal neurologic deficits noted. Lab/Imaging: Test performed on Jul 09, 2020 12:00 Ferritin 45 ng/mL Iron 19 mcg/dL Sodium 133 mmol/L Iron Binding Capacity (TIBC) 349 mcg/dl Potassium 3.9 mmol/L % Iron Saturation 5.4 % Chloride 97 mmol/L CO2 29 mmol/L UIBC 330 mcg/dL Anion Gap 10.9 BUN 10 mg/dL Creatinine 1.2 mg/dL Cr Clearance (Est) 98.41 mL/min eGFR 60.0 mL/min Glucose 127 mg/dL Osmolality - Calculated 277 mOsm/kg Calcium 9.1 mg/dL Protein, Total 6.6 g/dL Albumin 4.1 g/dL Globulin 2.5 g/dL Bilirubin, Total 0.3 mg/dL ALT (SGPT) 14 U/L AST (SGOT) 13 U/L Alkaline Phosphatase 74 IU/L WBC 6.8 10 3/uL RBC 3.71 10 6/uL HGB 10.4 g/dL HCT 35.3 % MCV 95.1 fL MCH 28.0 pg MCHC 29.5 g/dL RDW 20.6 % Platelet Count 192 10 3/cmm MPV 11.4 fL Neutrophils 4.76 10 3/uL Lymphocytes 1.1 10 3/uL Monocytes 0.7 10 3/uL Eosinophils 0.2 10 3/uL Basophils 0.0 10 3/uL Neutrophil % 70.0 % Lymphocyte % 15.5 % Monocyte % 10.2 % Eosinophil % 2.7 % Basophils % 0.4 % NRBC % 0 % Problem List: 1. Patient with recurrent episodes of iron deficiency anemia. GI blood loss has been suspected, but a source of GI blood loss has not been determined. 2. He has received parenteral iron replacement with Injectafer on multiple occasions. 3. Oxygen dependent COPD. 4. Coronary artery disease and valvular heart disease. 5. Type II diabetes. 6. Dyslipidemia. 7. Chronic kidney disease. 8. He has a suspected seizure disorder. His brain MRI showed multiple prior infarcts. Problems Addressed with this Encounter and Plan: 1. Patient with recurrent episodes of iron deficiency anemia. GI blood loss has been suspected, but a source of GI blood loss has not been determined. He has received parenteral iron replacement with Injectafer on multiple occasions. At this point he remains mildly anemic despite having been given 2 infusions of Injectafer last month. His serum iron studies, though, are clearly consistent with iron deficiency with his transferrin saturation low at 5.4% and ferritin relatively low at 45 ng/mL. As such, he will be given Injectafer 750 mg by IV infusion today and he will return next week for the same. He will be scheduled for 1-month interval follow-up. 2. The clinical picture is strongly suggestive of GI blood loss. 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 Signed By: Grabiel Larkin M.D. <<Signature on File>>
[2020-07-25] MEDS: ferric carboxy (IVPB) 750 MG in sodium chloride 0.9% (100 ml) 100 ML 345 MG IV (11:45)
== END 2020-07-28 23:59 | disposition home or self-care (01) ==
LOC: ONCMED 05:32
PROVIDERS: Internal Medicine Medical Oncology; PCP Family Medicine; Visit Provider Nurse Practitioner
DX: D50.9 Iron deficiency anemia, unspecified (principal); J44.9 Chronic obstructive pulmonary disease, unspecified; Z99.81 Dependence on supplemental oxygen; I25.10 Atherosclerotic heart disease of native coronary artery without angina pectoris; E11.9 Type 2 diabetes mellitus without complications; E78.5 Hyperlipidemia, unspecified; N18.9 Chronic kidney disease, unspecified; G40.909 Epilepsy, unspecified, not intractable, without status epilepticus; Z86.73 Personal history of transient ischemic attack (TIA), and cerebral infarction without residual deficits; Z79.899 Other long term (current) drug therapy
CPT/HCPCS: 80053; 82728; 83540; 83550; 85025; 96365; 99214; J1439

== ENCOUNTER 2020-08-20 05:46 | Outpatient (RCR) | payer OTHER, MEDICARE, SELFPAY ==
[2020-08-20 09:30] LABS: Basophils % 0.5 %; Eosinophils # 0.2 10^3/uL (0.0-0.8); Eosinophils % 2.6 %; Hematocrit 34.2 % (42.0-52.0); Hemoglobin 9.9 g/dL (11.7-16.6); Lymphocytes # 0.9 10^3/uL (0.8-4.8); Lymphocytes % 14.1 %; Mean Corpuscular HGB Conc 28.9 g/dL (30.0-36.0); Mean Corpuscular Volume 93.2 fL (80-94); Mean Platelet Volume 12.2 fL (7.4-10.4); Monocytes # 0.8 10^3/uL (0.2-0.9); Monocytes % 12.7 %; Neutrophils # 4.52 10^3/uL (1.8-7.7); Nucleated Red Blood Cells % 0 %; Platelet Count 195 10^3/cmm (130-400); Red Blood Count 3.67 10^6/uL (4.1-5.3); Red Cell Distribution Width 21.2 % (12.1-15.1); White Blood Count 6.5 10^3/uL (4.0-10.0)
[2020-08-20 09:49] LABS: Alanine Aminotransferase 15 U/L (0-41); Alkaline Phosphatase 70 IU/L (40-130); Blood Urea Nitrogen 14 mg/dL (8-23); Calcium 8.8 mg/dL (8.5-10.5); Carbon Dioxide 25 mmol/L (22-29); Chloride 96 mmol/L (98-107); Globulin 2.3 g/dL (1.3-4.6); Glomerular Filtration Rate 66.4 mL/min (90-130); Glucose 171 mg/dL (65-115); Iron 23 ug/dL (59-158); Osmolality Calculated 275 mOsm/kg (285-295); Sodium 130 mmol/L (136-145); Total Bilirubin 0.3 mg/dL (0.15-1.2); Total Protein 6.3 g/dL (6.6-8.7)
[2020-08-20 09:54] LABS: Anion Gap 13.5 (5-19); Aspartate Amino Transferase 22 U/L (0-40); Percent Saturation 6.1 % (20-50); Potassium 4.5 mmol/L (3.5-5.1); Total Iron Binding Capacity 371 mcg/dl; Unsaturated Iron Binding 348 ug/dL (112-347)
--- NOTE | 2020-08-28 20:09 | ONC FU_ITS ---
[facility] Patient Note Patient: Bebo Goetz Unit #: [id number]: 1950 Dictated By: Mustapha RodriguezDate of Visit: Aug 20, 2020 Onc MED Follow-Up/Prog Note Chief Complaint: Anemia. History of Present Illness: Mr Goetz is 70 year-old man with iron deficiency anemia. He was found to have a microcytic anemia on 09/29/2011, but no additional clinical data were available. He had normal hemoglobin with normal MCV on 10/15/2014 laboratory analysis. In December 2014 he was admitted with an acute febrile illness. He had a worsening renal insufficiency and hepatic enzyme elevation. During that hospitalization his hemoglobin measured 7.7 g/dL, MCV 67.8. Iron saturation was 4%, consistent with iron deficiency. The patient received 2 units of packed red blood cell transfusion and began oral iron replacement. He underwent endoscopy and colonoscopy on 02/19/2015. Pathology showed gastric hyperplastic polyp and gastritis thought to be from the iron supplement. Several colonic and rectal hyperplastic polyps were discovered without dysplasia. Review of prior laboratory analysis showed negative acute hepatitis B and C serology in April 2014. PSA was 3.54 in August 2014. He was first seen by Dr. Torres on 04/29/2015. Hemoglobin had recovered to 11.4 g with MCV 79. He continued to have iron deficiency with ferritin 8.9 ng/mL. Hemoccult stool negative x 1. Total testosterone was low at 119. By July 2015 the hemoglobin was stable at 11.2 g, but transferrin saturation was low at 7.2%. He was given parenteral iron replacement with Injectafer in July 2015. Despite the IV iron replacement, his iron studies in August were consistent with recurrent iron deficiency, suggestive of ongoing blood loss. His CT of the chest, abdomen, and pelvis on 09/20/15 showed mild borderline hepatomegaly but also mucosal thickening of the colon. He received additional IV Injectafer in August and again in October 2015. His other medical illnesses include oxygen dependent COPD, coronary artery disease, type II diabetes, and chronic renal insufficiency. He underwent aortic aneurysm repair and aortic valve repair in 2011. He has a history of smoking 2 packs of cigarettes daily for 45 years. He quit smoking in 2011. INTERIM HISTORY: His described his having an episode in May 2016 in which he passed out in the bathroom. She said that when she turned him over, he had shaking in his upper extremities and his eyes rolled back in his head. When he regained consciousness, he was confused. Shortly after regaining consciousness, he had another apparent seizure. He was evaluated the emergency room, and he is now being followed by Dr Elliott. On a follow-up visit here in July 2016 he was again significantly anemic with his hemoglobin down to 7.4 g. The red cell indices were hypochromic/microcytic. The transferrin saturation was 3.3%, and the ferritin level was low at 5.9 ng/mL. He did receive additional infusions of Injectafer in July, July, and September 2016. MRI of the brain performed on 08/27/2016 showed no evidence of restricted diffusion to suggest acute ischemia. 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 There were multiple chronic lacunar infarcts in the right superior cerebellum. There were mild small vessel changes with moderate parenchymal volume loss. There was no evidence of enhancing intracranial metastatic disease. On his follow-up visit on 02/02/2017 he was again significantly anemic with his hemoglobin back down to 8.1 g. His serum iron studies show transferrin saturation 4% and his ferritin was low at 5.2 ng/mL, consistent with iron deficiency. He was given infusions of Injectafer on 02/02/2017 and on 02/09/2017 and again on 03/17/2017 and on 03/24/2017. On his followup visit in July 2017 he was just mildly anemic, but his transferrin saturation was back down to 4.8% and his ferritin was relatively low at 42 ng/mL. He was given further parenteral iron replacement with infusions of Injectafer on 07/05 and 07/12/2017. He was seen for followup on 08/11/2017. His hemoglobin had increased to 12 g, but his serum iron and ferritin were still consistent with iron deficiency. He was given additional infusions of Injectafer on 08/11/2017 and on 08/18/2017. His repeat CBC on 09/08/2017 showed increase in the hemoglobin to 14.8 g. On 10/21/2017 he was admitted to the hospital with pneumonia. He was discharged home on oral Levaquin and prednisone. His hemoglobin at that point had declined to 10.0 g. As of his follow-up on 11/10/2017 his hemoglobin was still low at 10.2 g. His transferrin saturation was 4.3% with ferritin level 13.7 ng/mL, consistent with iron deficiency. He was given further parenteral iron replacement with 2 infusions of Injectafer. His repeat CT scan on 12/21/2017 showed hemoglobin up to 12.4 g. At his follow-up visit on 03/29/2018 his hemoglobin had dropped to 8.4 g with transferrin saturation 4.1% and ferritin level 8.3 ng/mL. He was given 2 more infusions of Injectafer. During subsequent follow-up he received single infusions of Injectafer again in April 2018 and in May 2018, and his serum iron and ferritin levels remained in iron deficiency range, though he was just borderline anemic on both occasions. His repeat CBC on 12/05/2018 showed a decrease in his hemoglobin to 9.2 g. The transferrin saturation was low at 5.4% with ferritin 17 ng/mL, consistent with iron deficiency. He was given 2 additional infusions of Injectafer. During subsequent follow-up he continued to have evidence of iron deficiency, though with just borderline low hemoglobin/hematocrit levels. He was given further parenteral iron replacement with single infusions of Injectafer in February, March, and April 2019. During that time he had stool Hemoccult testing done through the [facility], which he says was negative. As of May 2019 he was still mildly anemic with hemoglobin 10.4 g, and has 07/14/2019 his hemoglobin had further declined to 8.9 g. He was then given 2 infusions of Injectafer. Despite that, he had remained moderately anemic requiring Injectafer infusions again in August, September, in October/November, and again in December. As of 02/09/2020 his hemoglobin was back down to 8.6 g. His serum iron studies showed transferrin saturation low at 5.6% with ferritin also low at 19 ng/mL, consistent with iron deficiency. He was given 2 additional infusions of Injectafer. He was seen for a follow-up visit by Dr Larkin in February 2020. He was confirmed to have heme positive stool, and he was scheduled to have another colonoscopy. He was once again found to be iron deficient with an iron saturation of 9.2%. He was given 2 additional doses of Injectafer 1 week apart. He also received Injectafer 1 dose on 05/02/2020 at which time his iron saturation was 8.8%. He had repeat Injectafer in May 2020 x 2 doses and again in July 2020/ Mr. Goetz is here today for follow-up. He continues to have generalized weakness and limited activity. His ECOG score is 3. He is still having no problems eating as his appetite is good. He denies any fever or chills. He denies any night sweats. He has shortness of breath with activity and was treated for pneumonia in July but that has now resolved. He does have a cough occasionally but it is not productive. He has not had any chest pain recently. 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 That has been delayed for some time pending his clearance from his salt machine operator. He is due to see [facility] surgery clinic within the next few days to establish care there and have his colonoscopy set up. He did have a prostate biopsy on August 07, 2020 as he had a persistently elevated PSA. They have not had any results back from that. He has chronic neuropathy but states it is stable. He has chronic back pain as well as the neuropathy. He does follow with the [facility] at [place] but that trip has gotten more cumbersome for him due to his limited activity. Once again he was noted to have iron deficiency at his July 2020 appointment. He was scheduled for 2 doses of Injectafer at that time as his iron saturation was 5.4% and ferritin was low at 45. She denies that he has had any urinary complaints. He continues to have difficulty with his memory but she states it is no worse than what it has been. Past Medical History: Anemia Chronic obstructive pulmonary disease (home oxygen use) Chronic renal insufficiency Colon polyps Coronary artery disease Diabetes type II Hyperlipidemia Past Surgical History: Aortic aneurysm repair in 2012 Arotic valve repair in 2012 Left rotator cuff repair in 2006 Allergies: Clopidogrel Bisulfate, Ezetimibe, fish oil, Gemfibrozil, Hydroxychloroquine Sulfate, mushrooms , Niacin, Simvastatin, Sulfamethoxazole-TMP DS, and Zetia. Medications: Aggrenox 1 (25-200 mg) Capsule SR 12 HR Oral b.i.d. Albuterol Sulfate 1 puff(s) (of 108 (90 base) mcg/act) Aerosol Powder, Breath Activated Inhalation four times a day Alogliptin Benzoate 1 Tablet (of 12.5 mg) Oral daily Calcitriol 1 (0.25 mcg) Capsule Oral daily Citalopram Hydrobromide 1 Tablet (of 20 mg) Oral daily Colace 1 Capsule (of 100 mg) Oral daily Depakote ER 2 Tablet (of 500 mg) Tablet SR 24 HR Oral daily Furosemide 1 Tablet (of 40 mg) Oral daily Gabapentin 1 (100 mg) Tablet Oral t.i.d. Levothroid 1 Tablet (of 75 mcg) Oral daily Meclizine HCl (25 mg) Tablet Oral Take as Directed Memantine HCl 1 Tablet (of 10 mg) Oral b.i.d. Metoprolol Tartrate 1 (25 mg) Tablet Oral b.i.d. Nitroglycerin Solution Translingual PRN Protonix 1 Tablet (of 40 mg) Tablet, enteric coated Oral b.i.d. Spiriva Respimat 1 puff(s) (of 2.5 mcg/act) Aerosol, solution Inhalation daily Symbicort 2 (160-4.5 mcg/act) Aerosol Inhalation b.i.d. Tamsulosin HCl 1 Tablet (of 0.4 mg) Capsule Oral daily Vitamin D3 (50 mcg) Tablet Take as Directed Family History: Mr. Goetz's mother at age 65: [place]. Mr. Goetz's father at age 72: heart attack, and lung and brain cancer. Social History: Mr. Goetz is and he is a disabled. Mr. Goetz quit smoking 4 years ago but had smoked 2.0 packs/day for 45 years. He has no history of drinking. Mr. Goetz reports the following support systems: lives with spouse, significant other, family, or friends, lives in own house, supportive family/friends willing to assist with needs, and adequate transportation available for expected visits. His diet consists of regular meals. He indicates his activity level as: daily activities. Review Of Symptoms: Constitutional Denies fevers, chills. moderate fatigue. Generalized confusion at times-Mrs Goetz thinks it is about the same as his normal. Eyes Denies significant visual changes. ENMT Denies sore throat, mouth sores, difficulty or changes in swallowing ability, and/or sinus drainage. Endocrine Denies hot flashes or night sweats. Respiratory Denies chest pain. Dyspnea upon exertion-stable. Wearing oxygen supplementation continuously. Cardiovascular Denies anginal chest pain. Gastrointestinal Denies nausea, vomiting, diarrhea,heartburn, or constipation. Genitourinary (M) Denies hematuria, dysuria, increased frequency, urgency, incontinence. Musculoskeletal Bilateral leg pain-chronic and controlled with meds. No change. Integumentary Denies chronic rashes. Neurologic Denies headache, blurred vision, and no areas of focal weakness or numbness. Normal slow gait. No sensory problems. Psychiatric Denies depression and anxiety. Vital Signs: Performed on Aug 20, 2020 10:39 Height - 70.00 in Weight - 265.2 lbs (HIGH) BSA - 2.35 sq.m BMI - 38.05 (HIGH) Temperature - 97.8 F (LOW) Pulse - 64 /min Respiration - 18 /min BP - 128/68 mm(hg) O2 Sat - 94 % (LOW) Pain - 0,3 - Capable of only limited self-care, confined to bed or chair more than 50% of waking hours. (ECOG) Physical Examination: Constitutional Alert, oriented, no acute distress. Skin pale/pink, warm and dry. Pleasant, seems confused at times but also answers appropriately at times-accompanied by today. Head Normocephalic; atraumatic. Eyes Conjunctivae and sclerae are clear and without icterus. Pupils are reactive and equal. Hematologic/Lymphatic No petechiae or purpura. No tender or palpable lymph nodes in the cervical or supraclavicular areas. Respiratory Lungs are diminished to auscultation without rhonchi or wheezing. Cardiovascular Regular rate and rhythm of heart without murmurs,clicks, gallops or rubs. Abdomen Non-tender, non-distended, no masses, ascites. Good bowel sounds noted in all quads. No guarding or rebound tenderness. No pulsatile masses. Back/Spine Non-tender to palpation. Extremities No visible deformities, no cyanosis, clubbing or edema. Musculoskeletal No tenderness or swelling, normal range of motion without obvious weakness. Integumentary No rashes or lesions. Neurologic ambulating with wheeled walker today. Psychiatric Alert and oriented times three. Coherent speech. Verbalizes understanding of our discussions today. Laboratory:Test performed on Aug 20, 2020 09:15 Iron 23 mcg/dL Sodium 130 mmol/L Iron Binding Capacity (TIBC) 371 mcg/dl Potassium 4.5 mmol/L % Iron Saturation 6.1 % Chloride 96 mmol/L CO2 25 mmol/L UIBC 348 mcg/dL Anion Gap 13.5 BUN 14 mg/dL Creatinine 1.1 mg/dL Cr Clearance (Est) 107.84 mL/min eGFR 66.4 mL/min Glucose 171 mg/dL Osmolality - Calculated 275 mOsm/kg Calcium 8.8 mg/dL Protein, Total 6.3 g/dL Albumin 4.0 g/dL Globulin 2.3 g/dL Bilirubin, Total 0.3 mg/dL ALT (SGPT) 15 U/L AST (SGOT) 22 U/L Alkaline Phosphatase 70 IU/L WBC 6.5 10 3/uL RBC 3.67 10 6/uL HGB 9.9 g/dL HCT 34.2 % MCV 93.2 fL MCH 27.0 pg MCHC 28.9 g/dL RDW 21.2 % Platelet Count 195 10 3/cmm MPV 12.2 fL Neutrophils 4.52 10 3/uL Lymphocytes 0.9 10 3/uL Monocytes 0.8 10 3/uL Eosinophils 0.2 10 3/uL Basophils 0.0 10 3/uL Neutrophil % 69.0 % Lymphocyte % 14.1 % Monocyte % 12.7 % Eosinophil % 2.6 % Basophils % 0.5 % NRBC % 0 % Test performed on Jul 09, 2020 12:00 Ferritin 45 ng/mL Impression: 1. Patient with recurrent microcytic anemia consistent with iron deficiency. Recurrent GI blood loss has been suspected, but a source of GI blood loss has not been determined. 2. He received parenteral iron replacement with Injectafer in July 2015, August 2015, and in October 2015. His other medical illnesses include: 3. Oxygen dependent COPD. 4. Coronary artery disease and valvular heart disease. 5. Type II diabetes. 6. Dyslipidemia. 7. Chronic kidney disease. 8. He has a suspected seizure disorder. His brain MRI showed multiple prior infarcts. He has recurrent iron deficiency anemia despite multiple courses of parenteral iron replacement. As such, GI blood loss has been suspected, but not documented. His laboratory studies had improved following his Injectafer infusions in July, but he remained mildly anemic despite having been given 2 additional infusions of Injectafer in July. He was then given 2 additional infusions of Injectafer in September 2016. As of his visit on 02/02/2017 his hemoglobin was back down to 8 g and his chemistry studies were clearly consistent with iron deficiency. He was given infusions of Injectafer on 02/02/2017 and on 02/09/2017. His follow-up laboratory studies and February did show some improvement, but he was still moderately anemic with evidence of iron deficiency. He was given further infusions of Injectafer on 03/17/2017 and on 03/24/2017. On his followup visit in July 2017 he was just borderline anemic, but his laboratory studies were definitely still consistent with iron deficiency. He received additional infusions of Infectafer on 07/05 and on 07/12/2017, and he was givenInjectifer again in July as his transferrin saturation was still low at 7.5% with ferritin also low at 36 ng/mL. He did have a very good response. However, as before, response was very temporary. On his follow-up visit in October 2017 his hemoglobin was back down to 10 g and he was again iron deficient. He was given further parenteral iron replacement with 2 more infusions of Injectafer, which he tolerated well. He had a good objective response with his hemoglobin increasing to 12.4 g. At his follow-up visit in February 2018 he was significantly anemic again, hemoglobin 8.4 g, with low transferrin saturation and ferritin. He was given 2 more infusions of Injectafer. He did have a good response, but during subsequent follow-up he was given further parenteral iron replacement with single infusions of Injectafer in April 2018 and in May 2018. On both occasions his serum iron studies and ferritin were in iron deficiency range, but with just borderline anemia. He was then given 2 additional infusions of Injectafer in September 2018 and in November 2018. During subsequent follow-up, he continued to have evidence of iron deficiency, though with just borderline low hemoglobin/hematocrit levels. He received additional infusions of Injectafer in February, March, and April 2019. During subsequent follow-up he has continued to have mild to moderately severe anemia despite having infusions of Injectafer on multiple occasions. As of 02/09/2020 his hemoglobin was back down to 8.6 g and his transferrin saturation and serum ferritin were clearly indicative of iron deficiency. He was given further parenteral iron replacement with 2 additional infusions of Injectafer. He apparently was confirmed to have heme positive stool, and he is scheduled to have a repeat colonoscopy after he obtaines cardiac clearance. His anemia had stablized but has dropped compared to April 2020 and he remains iron deficient. Plan: PROBLEMS ADDRESSED TODAY: 1. Iron deficiency anemia: A. Mr. Goetz is once again/continuing to be iron deficient. His iron saturation today is 6.1%, iron is 23 TIBC 371 his hemoglobin is 9.9 which is down from July 09, 2020 at which time was 10.4. It was noted to be 12.4 in April 2020. B. Proceed with Injectafer 750 mg today and repeat again in 1 week. C. Today's labs reviewed in detail discussed with and Mrs. Goetz and a copy was given to them. WBC 6.5, hemoglobin 9.9, platelets 195,000 ANC is 4520. Potassium 4.5 random glucose 171 creatinine 1.1 LFTs are normal and iron studies are as above. D. Mrs. Goetz reports that they will be seen Dr. Edwards tomorrow for consult to get the colonoscopy set up. E. She states they see cardiology back later this month as well. 2. Follow-up plan: A. We will plan to see him back 4 weeks after his second Injectafer with CBC, CMP TIBC and ferritin. B. 4. Mr. Goetz was encouraged to contact us in interim should questions or problems arise. 3. Elevated PSA: A. Mr Goetz had followup with urologist as scheduled in July 2020 and reports he did have a biopsy at that time but those results are pending. Signed By: Mustapha Rodriguez-, AOCNP Grabiel Larkin MD <<Signature on File>>
== END 2020-08-28 23:59 | disposition home or self-care (01) ==
LOC: ONCMED 05:46
PROVIDERS: PCP Family Medicine; Visit Provider Nurse Practitioner
DX: D50.0 Iron deficiency anemia secondary to blood loss (chronic) (principal); J44.9 Chronic obstructive pulmonary disease, unspecified; Z99.81 Dependence on supplemental oxygen; E11.59 Type 2 diabetes mellitus with other circulatory complications; I25.10 Atherosclerotic heart disease of native coronary artery without angina pectoris; E11.22 Type 2 diabetes mellitus with diabetic chronic kidney disease; N18.9 Chronic kidney disease, unspecified; E78.5 Hyperlipidemia, unspecified; G40.909 Epilepsy, unspecified, not intractable, without status epilepticus; Z79.899 Other long term (current) drug therapy
CPT/HCPCS: 80053; 83540; 83550; 85025; 96365; 99214; J1439

== ENCOUNTER 2020-08-26 13:07 | Outpatient (CLI) | payer OTHER, MEDICARE, SELFPAY ==
--- NOTE | 2020-08-26 13:30 | USCV_ITS ---
Bebo Goetz Age: 70 Gender: M : 1950 Exam Date: 08/26/2020 13:21 Ordering Phys: Talha Singer M.D ([email or web address]) Technologist: Vladislav Jett [place]am [place] [facility] [place]ication: ONCOLOGY PATIENT BP: 130 / 70 HR: 57 Rhythm: Sinus Technical Quality: Adequate MEASUREMENTS (Male / Female) Normal Values 2D ECHO LV Diastolic Diameter PLAX 5.4 cm 4.2 - 5.9 / 3.9 - 5.3 cm LV Systolic Diameter PLAX 3.5 cm IVS Diastolic Thickness 1.2 cm 0.6 - 1.0 / 0.6 - 0.9 cm IVS Systolic Thickness 1.6 cm LVPW Diastolic Thickness 1.3 cm 0.6 - 1.0 / 0.6 - 0.9 cm LVPW Systolic Thickness 1.1 cm LVOT Diameter 2.1 cm LV Ejection Fraction 2D Teich 64.1 % LA Diameter 4.5 cm LA Width 5.4 cm LA Height 5.0 cm RA Width 4.3 cm RA Height 5.4 cm M-MODE LV Diastolic Diameter MM 5.8 cm 4.2 - 5.9 / 3.9 - 5.3 cm LV Systolic Diameter MM 4.1 cm LV Ejection Fraction MM Teich 56.1 % IVS Diastolic Thickness MM 1.2 cm 0.6 - 1.0 / 0.6 - 0.9 cm IVS Systolic Thickness MM 1.4 cm LVPW Diastolic Thickness MM 1.2 cm 0.6 - 1.0 / 0.6 - 0.9 cm LVPW Systolic Thickness MM 1.8 cm RV Diastolic Diameter MM 2.6 cm Aortic Annulus Diameter 3.9 cm LA Ao Ratio MM 1.3 MV E Point Septal Separation 1.1 cm DOPPLER AV Peak Velocity 108.0 cm/s LVOT Peak Velocity 88.0 cm/s AV Area Cont Eq vti 2.9 cm squared AV Area Cont Eq pk 2.7 cm squared MV Area PHT 3.9 cm squared Mitral E to A Ratio 0.8 MV E' Velocity 36.5 cm/s Mitral E to MV E' Ratio 7.3 Mitral E to LV E' Lateral Ratio 7.8 Mitral E to LV E' Septal Ratio 7.0 TR Peak Velocity 148.3 cm/s TR Peak Gradient 8.8 mmHg TV Peak E Velocity 93.0 cm/s Right Atrial Pressure 3.0 mmHg Pulmonary Artery Systolic Pressu 11.8 mmHg PV Peak Velocity 131.0 cm/s FINDINGS Left Ventricle Normal left ventricular size. Grossly LV systolic function is borderline normal with EF of 50%. Regional wall motion abnormalities can not be assessed because of limited quality echocardiogram. Grade 1 diastolic dysfunction Right Ventricle The right ventricle is normal in size and function. Right Atrium The right atrium is normal in size. Left Atrium Mildly dilated Mitral Valve Grossly normal without significant stenosis or prolapse. There is no mitral regurgitation. Aortic Valve Not well visualized. No significant sclerosis or stenosis. There is no aortic regurgitation. Tricuspid Valve Structurally normal tricuspid valve without significant stenosis or regurgitation. Insufficient TR jet to calculate RVSP Pulmonic Valve Structurally normal pulmonic valve without significant stenosis. There is no pulmonic regurgitation. Pericardium Normal pericardium without effusion. Aorta Aortic root is dilated CONCLUSIONS Technically limited study Grossly LV systolic function is borderline normal with EF of 50%. Regional wall motion abnormalities can not be assessed because of limited visualization Grade 1 diastolic dysfunction Mildly dilated Left atrium Ascending aorta is dilated Compared to prior echocardiogram from 09/2017, LV systolic function appears to have slightly decreased. Talha Singer MD (Electronically Signed) Final Date: 30 August 2020 16:46 S
== END 2020-08-26 13:08 | disposition home or self-care (01) ==
LOC: RAD 13:12
PROVIDERS: PCP Family Medicine; Visit Provider Internal Medicine
DX: I25.10 Atherosclerotic heart disease of native coronary artery without angina pectoris (principal); I51.81 Takotsubo syndrome
CPT/HCPCS: 93306

== ENCOUNTER 2020-09-02 06:13 | Outpatient (RCR) | payer OTHER, MEDICARE, SELFPAY ==
[2020-09-02] MEDS: ferric carboxy (IVPB) 750 MG in sodium chloride 0.9% (100 ml) 100 ML 460 MG IV (14:05)
== END 2020-09-27 23:59 | disposition home or self-care (01) ==
LOC: ONCMED 06:13
PROVIDERS: PCP Family Medicine; Visit Provider Nurse Practitioner
DX: D50.9 Iron deficiency anemia, unspecified (principal)
CPT/HCPCS: 96365; J1439

== ENCOUNTER → 2020-09-06 08:14 | Outpatient (BNVA) | payer MEDICARE, SELFPAY | PROVIDERS: PCP Family Medicine; Visit Provider Surgery | DX: Z20.822 Contact with and (suspected) exposure to COVID-19 (principal) | CPT/HCPCS: 87635 ==

== ENCOUNTER 2020-09-11 07:12 | Day surgery (SDC) | payer OTHER, MEDICARE, SELFPAY ==
[2020-09-09 11:04] VITALS: BMI 36.2
--- NOTE | 2020-09-11 07:28 | ANES.PREANE2 ---
Pre-Anesthetic Assessment Pre-Anesthetic Assessment: Height/Weight: Height 1.8 m Weight 117.934 kg Preop Diagnosis: Blood in stool Proposed Procedure: Operation Date: 09/11/20 08:45 Proposed Procedures p EGD/colon 56048 76645 D64.9 K92.1(Not Applicable) - MD moe Stone Colonoscopy(Not Applicable) - Km Edwards MD Was Beta Jazlyn taken within 24 hours: Yes Was Clonidine taken within 24 hours: N/A Social: Social History: No alcohol and No tobacco (long h/o smoking) Exam: Pre-Anes Outpt Exam: alert and regular rate & rhythm Additional Exam Findings (including area of procedure): decreased breath sounds but clear Airway: Submandibular: WNL Cervical ROM: WNL MP: 2 Dentition: False Pulmonary: Pulmonary: COPD Comments: Home O2 2L CV/HEM: CV/HEM: CAD, CHF, HTN and PVD Comments: h/o ascending/descending Ao aneurysms (3-3.5cm) Metabolic: Metabolic: Morbid obesity Neuropsych: Neuropsych: Dementia Anesthetic Plan: ASA status: 4 Anesthesia: MAC Risk of > 500 ml blood loss (7ml/kg in children): No PFSH Anesthesia PFSH: Medical History Alzheimer disease Ascending aortic aneurysm Blood in stool Carotid stenosis, bilateral COPD (chronic obstructive pulmonary disease) Descending aortic aneurysm Dyslipidemia Family history of colon cancer Ischemic heart disease CANDY (obstructive sleep apnea) Pulmonary nodules Surgical History S/P CABG (coronary artery bypass graft) Family History Father , AGE 72 CAD (coronary artery disease) Diabetes Mother , AGE 65 CAD (coronary artery disease) Diabetes Other Cancer Hypertension Social History Smoking and tobacco status: former smoker History of recent travel: No Data Anesthesia Cardiac Studies: No Data to Display
[2020-09-11 08:10] VITALS: BP 121/80; PULSE 53; RESP 18; TEMP 36.6; O2SAT 98
--- NOTE | 2020-09-11 08:22 | W.PM.OPSUD ---
Surgery/Procedure H&P Update DATE OF PROCEDURE: September 11, 2020 DATE H&P PERFORMED: 08/21/20 H&P UPDATE INFORMATION: I have reviewed H&P completed within last 30 days, I have examined patient prior to procedure and No changes to prior documentation PREOP DIAGNOSIS: Blood in stool PRIMARY INDICATION FOR PROCEDURE: The same PLANNED PROCEDURE: Operation Date: 09/11/20 08:45 Proposed Procedures p EGD/colon 22287 13433 D64.9 K92.1(Not Applicable) - Km Edwards MD s Colonoscopy(Not Applicable) - Km Edwards MD
[2020-09-11] MEDS: sodium chloride 0.9% 1,000 ML 30 ML IV (08:29)
[2020-09-11 08:37] LABS: Glucose Point of Care 132 mg/dL (70-110)
[2020-09-11 09:32] VITALS: BP 112/71; PULSE 53; RESP 16; TEMP 36.3; O2SAT 96
[2020-09-11 09:47] VITALS: BP 127/87; PULSE 52; RESP 16; TEMP 36.5; O2SAT 95
--- NOTE | 2020-09-11 11:58 | ANE.PACU2 ---
Inpatient post-anesthesia follow up: Airway intact: Yes Vital signs: Temperature 97.7 F Pulse Rate 52 Respiratory Rate 16 Blood Pressure 127/87 Pulse Oximetry 95 Oxygen Delivery Me thod Nasal Cannula Oxygen Flow Rate 2 Fraction of Inspir ed Oxygen Hydration adequate: Yes Nausea and vomiting: No Pain level: 1 Mental status: Baseline
== END 2020-09-11 10:08 | disposition home or self-care (01) ==
PROVIDERS: PCP Family Medicine; Visit Provider Surgery
PROC: 0DJ08ZZ Inspection of Upper Intestinal Tract, Via Natural or Artificial Opening Endoscopic (ICD-10-PCS; CPT 43235; principal; 2020-09-11 08:45)
PROC: 0DJD8ZZ Inspection of Lower Intestinal Tract, Via Natural or Artificial Opening Endoscopic (ICD-10-PCS; CPT 45378; 2020-09-11 08:45)
DX: K92.1 Melena (principal); Q27.33 Arteriovenous malformation of digestive system vessel; K57.30 Diverticulosis of large intestine without perforation or abscess without bleeding; K29.70 Gastritis, unspecified, without bleeding; K31.7 Polyp of stomach and duodenum; J44.9 Chronic obstructive pulmonary disease, unspecified; Z99.81 Dependence on supplemental oxygen; I25.10 Atherosclerotic heart disease of native coronary artery without angina pectoris; I11.0 Hypertensive heart disease with heart failure; I50.9 Heart failure, unspecified; E66.01 Morbid (severe) obesity due to excess calories; Z68.36 Body mass index [BMI] 36.0-36.9, adult; F03.90 Unspecified dementia, unspecified severity, without behavioral disturbance, psychotic disturbance, mood disturbance, and anxiety; G47.33 Obstructive sleep apnea (adult) (pediatric); Z95.1 Presence of aortocoronary bypass graft; Z87.891 Personal history of nicotine dependence
CPT/HCPCS: 36416; 43239; 45378; 82962; 88305; 96360; J2704; J7030

== ENCOUNTER 2020-10-17 05:47 | Outpatient (RCR) | payer OTHER, MEDICARE, SELFPAY ==
[2020-09-30 10:25] LABS: Basophils % 0.3 %; Eosinophils # 0.2 10^3/uL (0.0-0.8); Eosinophils % 3.8 %; Hematocrit 39.2 % (42.0-52.0); Hemoglobin 11.5 g/dL (11.7-16.6); Lymphocytes # 1.1 10^3/uL (0.8-4.8); Lymphocytes % 17.3 %; Mean Corpuscular HGB Conc 29.3 g/dL (30.0-36.0); Mean Corpuscular Hemoglobin 27.4 pg (28.0-34.0); Mean Corpuscular Volume 93.6 fL (80-94); Mean Platelet Volume 12.2 fL (7.4-10.4); Monocytes # 0.6 10^3/uL (0.2-0.9); Monocytes % 9.8 %; Neutrophils # 4.15 10^3/uL (1.8-7.7); Nucleated Red Blood Cells % 0 %; Platelet Count 181 10^3/cmm (130-400); Red Blood Count 4.19 10^6/uL (4.1-5.3); Red Cell Distribution Width 19.4 % (12.1-15.1); White Blood Count 6.1 10^3/uL (4.0-10.0)
[2020-09-30 10:52] LABS: Alanine Aminotransferase 21 U/L (0-41); Alkaline Phosphatase 82 IU/L (40-130); Anion Gap 11.2 (5-19); Aspartate Amino Transferase 17 U/L (0-40); Blood Urea Nitrogen 11 mg/dL (8-23); Calcium 8.5 mg/dL (8.5-10.5); Carbon Dioxide 27 mmol/L (22-29); Chloride 100 mmol/L (98-107); Ferritin 44 ng/mL (30-400); Globulin 2.2 g/dL (1.3-4.6); Glucose 172 mg/dL (65-115); Iron 26 ug/dL (59-158); Osmolality Calculated 281 mOsm/kg (285-295); Percent Saturation 7.8 % (20-50); Potassium 4.2 mmol/L (3.5-5.1); Sodium 134 mmol/L (136-145); Total Bilirubin 0.4 mg/dL (0.15-1.2); Total Iron Binding Capacity 330 mcg/dl; Total Protein 6.2 g/dL (6.6-8.7); Unsaturated Iron Binding 304 ug/dL (112-347)
--- NOTE | 2020-10-03 08:16 | ONC FU_ITS ---
Dr. Larkin Patient Follow-Up Note Patient: Bebo Goetz Unit #: [id number]: 1950 Dicatated By: Grabiel Larkin M.D.Date of Visit:September 30, 2020 Onc Med Follow-up/Prog Note Chief Complaint: Anemia. History of Present Illness: This is 70 year-old man with iron deficiency anemia. He was found to have a microcytic anemia on 09/29/2011, but no additional clinical data were available. He had normal hemoglobin with normal MCV on 10/15/2014 laboratory analysis. In December 2014 he was admitted with an acute febrile illness. He had a worsening renal insufficiency and hepatic enzyme elevation. During that hospitalization his hemoglobin measured 7.7 g/dL, MCV 67.8. Iron saturation was 4%, consistent with iron deficiency. The patient received 2 units of packed red blood cell transfusion and began oral iron replacement. He underwent endoscopy and colonoscopy on 02/19/2015. Pathology showed gastric hyperplastic polyp and gastritis thought to be from the iron supplement. Several colonic and rectal hyperplastic polyps were discovered without dysplasia. Review of prior laboratory analysis showed negative acute hepatitis B and C serology in April 2014. PSA was 3.54 in August 2014. He was first seen by Dr. Torres on 04/29/2015. Hemoglobin had recovered to 11.4 g with MCV 79. He continued to have iron deficiency with ferritin 8.9 ng/mL. Hemoccult stool negative x 1. Total testosterone was low at 119. By July 2015 the hemoglobin was stable at 11.2 g, but transferrin saturation was low at 7.2%. He was given parenteral iron replacement with Injectafer in July 2015. Despite the IV iron replacement, his iron studies in August were consistent with recurrent iron deficiency, suggestive of ongoing blood loss. His CT of the chest, abdomen, and pelvis on 09/20/15 showed mild borderline hepatomegaly but also mucosal thickening of the colon. He received additional IV Injectafer in August and again in October 2015. His other medical illnesses include oxygen dependent COPD, coronary artery disease, type II diabetes, and chronic renal insufficiency. He underwent aortic aneurysm repair and aortic valve repair in 2011. He has a history of smoking 2 packs of cigarettes daily for 45 years. He quit smoking in 2011. INTERIM HISTORY: His described his having an episode in May 2016 in which he passed out in the bathroom. She said that when she turned him over, he had shaking in his upper extremities and his eyes rolled back in his head. When he regained consciousness, he was confused. Shortly after regaining consciousness, he had another apparent seizure. He was evaluated the emergency room, and he is now being followed by Dr Elliott. On a follow-up visit here in July 2016 he was again significantly anemic with his hemoglobin down to 7.4 g. The red cell indices were hypochromic/microcytic. The transferrin saturation was 3.3%, and the ferritin level was low at 5.9 ng/mL. He did receive additional infusions of Injectafer in July, July, and September 2016. MRI of the brain performed on 08/27/2016 showed no evidence of restricted diffusion to suggest acute ischemia. 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 There were multiple chronic lacunar infarcts in the right superior cerebellum. There were mild small vessel changes with moderate parenchymal volume loss. There was no evidence of enhancing intracranial metastatic disease. On his follow-up visit on 02/02/2017 he was again significantly anemic with his hemoglobin back down to 8.1 g. His serum iron studies show transferrin saturation 4% and his ferritin was low at 5.2 ng/mL, consistent with iron deficiency. He was given infusions of Injectafer on 02/02/2017 and on 02/09/2017 and again on 03/17/2017 and on 03/24/2017. On his followup visit in July 2017 he was just mildly anemic, but his transferrin saturation was back down to 4.8% and his ferritin was relatively low at 42 ng/mL. He was given further parenteral iron replacement with infusions of Injectafer on 07/05 and 07/12/2017. He was seen for followup on 08/11/2017. His hemoglobin had increased to 12 g, but his serum iron and ferritin were still consistent with iron deficiency. He was given additional infusions of Injectafer on 08/11/2017 and on 08/18/2017. His repeat CBC on 09/08/2017 showed increase in the hemoglobin to 14.8 g. On 10/21/2017 he was admitted to the hospital with pneumonia. He was discharged home on oral Levaquin and prednisone. His hemoglobin at that point had declined to 10.0 g. As of his follow-up on 11/10/2017 his hemoglobin was still low at 10.2 g. His transferrin saturation was 4.3% with ferritin level 13.7 ng/mL, consistent with iron deficiency. He was given further parenteral iron replacement with 2 infusions of Injectafer. His repeat CT scan on 12/21/2017 showed hemoglobin up to 12.4 g. At his follow-up visit on 03/29/2018 his hemoglobin had dropped to 8.4 g with transferrin saturation 4.1% and ferritin level 8.3 ng/mL. He was given 2 more infusions of Injectafer. During subsequent follow-up he received single infusions of Injectafer again in April 2018 and in May 2018, and his serum iron and ferritin levels remained in iron deficiency range, though he was just borderline anemic on both occasions. His repeat CBC on 12/05/2018 showed a decrease in his hemoglobin to 9.2 g. The transferrin saturation was low at 5.4% with ferritin 17 ng/mL, consistent with iron deficiency. He was given 2 additional infusions of Injectafer. During subsequent follow-up he continued to have evidence of iron deficiency, though with just borderline low hemoglobin/hematocrit levels. He was given further parenteral iron replacement with single infusions of Injectafer in February, March, and April 2019. During that time he had stool Hemoccult testing done through the [facility], which he says was negative. As of May 2019 he was still mildly anemic with hemoglobin 10.4 g, and has 07/14/2019 his hemoglobin had further declined to 8.9 g. He was then given 2 infusions of Injectafer. Despite that, he had remained moderately anemic and during subsequent follow-up he continued to require infusions of Injectafer on a fairly regular basis, in the range of once or twice per month. He received his most recent infusion on 09/02/2020. On 09/11/2020 he underwent repeat EGD and colonoscopy, as he had previously documented positive stool FIT, and he had reported having melena. The EGD showed moderate diffuse gastritis and a 2 mm hyperplastic polyp. The colonoscopy showed a few localized medium AVMs in the cecum, average size 2 mm in size. They were not actively bleeding. In the meantime, he reportedly has also been found to have prostate cancer. He is seen for a scheduled visit. He still feels generally weak, and he has very limited activity. He does a little walking, but he is mostly sedentary. He complains that his legs give out. ECOG score is 3. He has good appetite. He has not had fever. He does have episodes of sweating both during the daytime and at night. He has been real short of breath despite being on continuous oxygen. He has a little bit of cough. He recently has been having a little bit of chest pain. He has a little bit of acid reflux. He says his bowel function is not real good. He is not aware of any obvious blood in the stool. He has having urgency with urination. He has soreness in his joints and he has muscle cramps. He has headaches and dizziness. He has numbness/tingling in his hands and feet. Medications: Aggrenox 1 (25-200 mg) Capsule SR 12 HR Oral b.i.d., Albuterol Sulfate 1 puff(s) (of 108 (90 base) mcg/act) Aerosol Powder, Breath Activated Inhalation four times a day, Alogliptin Benzoate 1 Tablet (of 12.5 mg) Oral daily, Calcitriol 1 (0.25 mcg) Capsule Oral daily, Citalopram Hydrobromide 1 Tablet (of 20 mg) Oral daily, Colace 1 Capsule (of 100 mg) Oral daily, Depakote ER 2 Tablet (of 500 mg) Tablet SR 24 HR Oral daily, Furosemide 1 Tablet (of 40 mg) Oral daily, Gabapentin 1 (100 mg) Tablet Oral t.i.d., Levothroid 1 Tablet (of 75 mcg) Oral daily, Meclizine HCl (25 mg) Tablet Oral Take as Directed, Memantine HCl 1 Tablet (of 10 mg) Oral b.i.d., Metoprolol Tartrate 1 (25 mg) Tablet Oral b.i.d., Nitroglycerin Solution Translingual PRN, Protonix 1 Tablet (of 40 mg) Tablet, enteric coated Oral b.i.d., Spiriva Respimat 1 puff(s) (of 2.5 mcg/act) Aerosol, solution Inhalation daily, Symbicort 2 (160-4.5 mcg/act) Aerosol Inhalation b.i.d., Tamsulosin HCl 1 Tablet (of 0.4 mg) Capsule Oral daily, Vitamin D3 (50 mcg) Tablet Take as Directed Allergies: Clopidogrel Bisulfate, Ezetimibe, fish oil, Gemfibrozil, Hydroxychloroquine Sulfate, mushrooms , Niacin, Simvastatin, Sulfamethoxazole-TMP DS, and Zetia. Vital Signs: Performed on September 30, 2020 12:20 Height - 70.00 in Temperature - 98.3 F (LOW) Pulse - 60 /min Respiration - 18 /min BP - 133/76 mm(hg) O2 Sat - 96 % Performed on September 30, 2020 11:20 Height - 70.00 in Weight - 262.6 lbs (LOW) BSA - 2.34 sq.m BMI - 37.68 (HIGH) Temperature - 97.9 F (LOW) Pulse - 60 /min Respiration - 20 /min BP - 145/60 mm(hg) (HIGH) O2 Sat - 97 % Pain - 0 Fatigue - 8 Physical Examination: Constitutional - He appears generally weak, Eyes - Sclerae nonicteric. Conjunctivae clear, ENMT - No lesions noted in the oral cavity, Hematologic/Lymphatic - No cervical, clavicular, or axillary adenopathy, Respiratory - Lungs are clear with diminished air movement bilaterally, Cardiovascular - Heart rhythm is regular. There is a II/ systolic murmur. There is no gallop or rub noted, Abdomen - Mildy distended. Liver and spleen are not enlarged. There is no abdominal mass or ascites noted and there is no inguinal adenopathy, Extremities - Slight edema, Neurologic - No focal neurologic deficits noted. Lab/Imaging: Test performed on September 30, 2020 10:12 Ferritin 44 ng/mL Iron 26 mcg/dL Sodium 134 mmol/L Iron Binding Capacity (TIBC) 330 mcg/dl Potassium 4.2 mmol/L % Iron Saturation 7.8 % Chloride 100 mmol/L CO2 27 mmol/L UIBC 304 mcg/dL Anion Gap 11.2 BUN 11 mg/dL Creatinine 1.2 mg/dL Cr Clearance (Est) 97.88 mL/min eGFR 60.0 mL/min Glucose 172 mg/dL Osmolality - Calculated 281 mOsm/kg Calcium 8.5 mg/dL Protein, Total 6.2 g/dL Albumin 4.0 g/dL Globulin 2.2 g/dL Bilirubin, Total 0.4 mg/dL ALT (SGPT) 21 U/L AST (SGOT) 17 U/L Alkaline Phosphatase 82 IU/L WBC 6.1 10 3/uL RBC 4.19 10 6/uL HGB 11.5 g/dL HCT 39.2 % MCV 93.6 fL MCH 27.4 pg MCHC 29.3 g/dL RDW 19.4 % Platelet Count 181 10 3/cmm MPV 12.2 fL Neutrophils 4.15 10 3/uL Lymphocytes 1.1 10 3/uL Monocytes 0.6 10 3/uL Eosinophils 0.2 10 3/uL Basophils 0.0 10 3/uL Neutrophil % 68.0 % Lymphocyte % 17.3 % Monocyte % 9.8 % Eosinophil % 3.8 % Basophils % 0.3 % NRBC % 0 % Problem List: 1. Patient with recurrent episodes of iron deficiency anemia. GI blood loss has been suspected, but a source of GI blood loss has not been determined. 2. He has received parenteral iron replacement with Injectafer on multiple occasions. 3. Oxygen dependent COPD. 4. Coronary artery disease and valvular heart disease. 5. Type II diabetes. 6. Dyslipidemia. 7. Chronic kidney disease. 8. He has a suspected seizure disorder. His brain MRI showed multiple prior infarcts. Problems Addressed with this Encounter and Plan: Patient with recurrent episodes of iron deficiency anemia. He has had documented GI blood loss, possibly due to AVMs. He has required IV Injectafer on multiple occasions. At this point he remains mildly anemic with serum iron studies again consistent with iron deficiency, transferrin saturation 7.8%. As such, he will be given Injectafer 750 mg by IV infusion today and he will return next week for the same. He will be scheduled for 1-month interval follow-up. Signed By: Grabiel Larkin M.D. <<Signature on File>>
[2020-10-07] MEDS: ferric carboxy (IVPB) 750 MG in sodium chloride 0.9% (100 ml) 100 ML 460 MG IV (10:10)
[2020-10-17 13:47] LABS: Testosterone Total 101.2 ng/dL (193-740)
--- NOTE | 2020-10-17 14:35 | N.ONRAD NP_ITS ---
Radiation Oncology Consultation Patient Name: Bebo Goetz Date of : 1950 Date of Service: 10/17/2020 Attending Physician: Adams Jones M.D. Bebo Goetz was seen in consultation this afternoon at the request of the [facility] for consideration of prostate radiotherapy for the management of a recently diagnosed prostate cancer. He initially was identified to have an elevated PSA level (7.7 ng/mL) in February 2020 with a free PSA of 19%. A transrectal ultrasound-guided biopsy of the prostate gland performed on August 28, 2020 (medical records were requested from the [facility] and personally reviewed) identified a prostatic volume of 75 g with bilateral hypoechoic regions potentially representing malignancy. Pathology diagnosed a prostatic acinar adenocarcinoma with a [place] score of 3+4 (group grade 2) involving 20% and 25% of two cores submitted from the right midgland. The patient presents for evaluation regarding definitive radiotherapy. I discussed the AJCC clinical stage IIB (T1CN0 Versus T2bN0) favorable intermediate risk prostate cancer specific to the patient's diagnosis and the National Comprehensive Cancer Network Guidelines recommendation for active surveillance, external beam radiotherapy, brachytherapy, or surgery I endorsed observation on account of his Charlson Comorbidity Score of 8 (indicating a 0% 10-year life expectancy), but the patient would like to pursue radiation treatment. Due to his International Prostate Symptom Score of 27, I will request urological consultation for a TURP. I have also ordered a PSA and testosterone levels. If the procedure is performed, I would anticipate a 4 week course of hypofractionated prostate radiotherapy. Prior to commencement of radiotherapy, a planning CT scan will be acquired to delineate the clinical target volumes. I also discussed potential adverse events related to radiotherapy. The patient has verbalized understanding would like to proceed as advised. Signed by: Dr. Adams Jones 11/28/2020 11:33:11 AM
== END 2020-10-28 23:59 | disposition home or self-care (01) ==
LOC: ONCMED 05:47
PROVIDERS: Internal Medicine Medical Oncology; PCP Family Medicine; Visit Provider Radiology Radiation Oncology
DX: D50.0 Iron deficiency anemia secondary to blood loss (chronic) (principal); J44.9 Chronic obstructive pulmonary disease, unspecified; Z99.81 Dependence on supplemental oxygen; E11.59 Type 2 diabetes mellitus with other circulatory complications; I25.10 Atherosclerotic heart disease of native coronary artery without angina pectoris; E78.5 Hyperlipidemia, unspecified; E11.22 Type 2 diabetes mellitus with diabetic chronic kidney disease; N18.9 Chronic kidney disease, unspecified; G40.909 Epilepsy, unspecified, not intractable, without status epilepticus; I25.2 Old myocardial infarction; R97.20 Elevated prostate specific antigen [PSA]; Z79.899 Other long term (current) drug therapy
CPT/HCPCS: 36415; 80053; 82728; 83540; 83550; 84153; 84403; 85025; 96365; 99205; 99214; J1439

== ENCOUNTER 2020-10-30 06:00 | Outpatient (RCR) | payer OTHER, MEDICARE, SELFPAY | END 2020-11-27 23:59 | disposition home or self-care (01) | LOC: APT 06:00 | PROVIDERS: PCP Family Medicine; Referring Provider Family Medicine; Visit Provider Family Medicine | DX: C61 Malignant neoplasm of prostate (principal) | CPT/HCPCS: 97110; 97116; 97163; 97530 ==

== ENCOUNTER → 2020-11-08 08:12 | Outpatient (BNVA) | payer OTHER, MEDICARE, SELFPAY | PROVIDERS: PCP Family Medicine; Visit Provider Urology | DX: C61 Malignant neoplasm of prostate (principal); N40.1 Benign prostatic hyperplasia with lower urinary tract symptoms | CPT/HCPCS: 81003 ==

== ENCOUNTER 2020-11-11 05:42 | Outpatient (RCR) | payer OTHER, MEDICARE, SELFPAY ==
[2020-11-04 14:36] LABS: Basophils % 0.5 %; Eosinophils # 0.2 10^3/uL (0.0-0.8); Eosinophils % 3.3 %; Hematocrit 40.1 % (42.0-52.0); Hemoglobin 12.2 g/dL (11.7-16.6); Lymphocytes # 1.1 10^3/uL (0.8-4.8); Lymphocytes % 16.3 %; Mean Corpuscular HGB Conc 30.4 g/dL (30.0-36.0); Mean Corpuscular Hemoglobin 29.8 pg (28.0-34.0); Mean Corpuscular Volume 97.8 fL (80-94); Mean Platelet Volume 12.7 fL (7.4-10.4); Monocytes # 0.8 10^3/uL (0.2-0.9); Monocytes % 11.3 %; Neutrophils # 4.51 10^3/uL (1.8-7.7); Neutrophils % 68.1 %; Nucleated Red Blood Cells % 0 %; Platelet Count 165 10^3/cmm (130-400); Red Cell Distribution Width 19.2 % (12.1-15.1); White Blood Count 6.6 10^3/uL (4.0-10.0)
[2020-11-04 14:52] LABS: Alanine Aminotransferase 27 U/L (0-41); Albumin Level 4.2 g/dL (3.5-5.2); Alkaline Phosphatase 89 IU/L (40-130); Aspartate Amino Transferase 31 U/L (0-40); Blood Urea Nitrogen 12 mg/dL (8-23); Calcium 8.5 mg/dL (8.5-10.5); Carbon Dioxide 26 mmol/L (22-29); Chloride 98 mmol/L (98-107); Globulin 2.8 g/dL (1.3-4.6); Glomerular Filtration Rate 66.4 mL/min (90-130); Glucose 146 mg/dL (65-115); Iron 27 ug/dL (59-158); Osmolality Calculated 284 mOsm/kg (285-295); Percent Saturation 7.5 % (20-50); Sodium 136 mmol/L (136-145); Total Bilirubin 0.3 mg/dL (0.15-1.2); Total Iron Binding Capacity 359 mcg/dl; Unsaturated Iron Binding 332 ug/dL (112-347)
[2020-11-04 14:53] LABS: Anion Gap 16.2 (5-19); Potassium 4.2 mmol/L (3.5-5.1)
[2020-11-04] MEDS: ferric carboxy (IVPB) 750 MG in sodium chloride 0.9% (100 ml) 100 ML 460 MG IV (15:45)
--- NOTE | 2020-11-05 09:33 | ONC FU_ITS ---
Dr. Larkin Patient Follow-Up Note Patient: Bebo Goetz Unit #: [id number]: 1950 Dicatated By: Grabiel Larkin M.D.Date of Visit:Nov 04, 2020 Onc Med Follow-up/Prog Note Chief Complaint: Anemia. History of Present Illness: This is 70 year-old man with iron deficiency anemia. He was found to have a microcytic anemia on 09/29/2011, but no additional clinical data were available. He had normal hemoglobin with normal MCV on 10/15/2014 laboratory analysis. In December 2014 he was admitted with an acute febrile illness. He had a worsening renal insufficiency and hepatic enzyme elevation. During that hospitalization his hemoglobin measured 7.7 g/dL, MCV 67.8. Iron saturation was 4%, consistent with iron deficiency. The patient received 2 units of packed red blood cell transfusion and began oral iron replacement. He underwent endoscopy and colonoscopy on 02/19/2015. Pathology showed gastric hyperplastic polyp and gastritis thought to be from the iron supplement. Several colonic and rectal hyperplastic polyps were discovered without dysplasia. Review of prior laboratory analysis showed negative acute hepatitis B and C serology in April 2014. PSA was 3.54 in August 2014. He was first seen by Dr. Torres on 04/29/2015. Hemoglobin had recovered to 11.4 g with MCV 79. He continued to have iron deficiency with ferritin 8.9 ng/mL. Hemoccult stool negative x 1. Total testosterone was low at 119. By July 2015 the hemoglobin was stable at 11.2 g, but transferrin saturation was low at 7.2%. He was given parenteral iron replacement with Injectafer in July 2015. Despite the IV iron replacement, his iron studies in August were consistent with recurrent iron deficiency, suggestive of ongoing blood loss. His CT of the chest, abdomen, and pelvis on 09/20/15 showed mild borderline hepatomegaly but also mucosal thickening of the colon. He received additional IV Injectafer in August and again in October 2015. His other medical illnesses include oxygen dependent COPD, coronary artery disease, type II diabetes, and chronic renal insufficiency. He underwent aortic aneurysm repair and aortic valve repair in 2011. He has a history of smoking 2 packs of cigarettes daily for 45 years. He quit smoking in 2011. INTERIM HISTORY: His described his having an episode in May 2016 in which he passed out in the bathroom. She said that when she turned him over, he had shaking in his upper extremities and his eyes rolled back in his head. When he regained consciousness, he was confused. Shortly after regaining consciousness, he had another apparent seizure. He was evaluated the emergency room, and he is now being followed by Dr Elliott. On a follow-up visit here in July 2016 he was again significantly anemic with his hemoglobin down to 7.4 g. The red cell indices were hypochromic/microcytic. The transferrin saturation was 3.3%, and the ferritin level was low at 5.9 ng/mL. He did receive additional infusions of Injectafer in July, July, and September 2016. MRI of the brain performed on 08/27/2016 showed no evidence of restricted diffusion to suggest acute ischemia. 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 There were multiple chronic lacunar infarcts in the right superior cerebellum. There were mild small vessel changes with moderate parenchymal volume loss. There was no evidence of enhancing intracranial metastatic disease. On his follow-up visit on 02/02/2017 he was again significantly anemic with his hemoglobin back down to 8.1 g. His serum iron studies show transferrin saturation 4% and his ferritin was low at 5.2 ng/mL, consistent with iron deficiency. He was given infusions of Injectafer on 02/02/2017 and on 02/09/2017 and again on 03/17/2017 and on 03/24/2017. On his followup visit in July 2017 he was just mildly anemic, but his transferrin saturation was back down to 4.8% and his ferritin was relatively low at 42 ng/mL. He was given further parenteral iron replacement with infusions of Injectafer on 07/05 and 07/12/2017. He was seen for followup on 08/11/2017. His hemoglobin had increased to 12 g, but his serum iron and ferritin were still consistent with iron deficiency. He was given additional infusions of Injectafer on 08/11/2017 and on 08/18/2017. His repeat CBC on 09/08/2017 showed increase in the hemoglobin to 14.8 g. On 10/21/2017 he was admitted to the hospital with pneumonia. He was discharged home on oral Levaquin and prednisone. His hemoglobin at that point had declined to 10.0 g. As of his follow-up on 11/10/2017 his hemoglobin was still low at 10.2 g. His transferrin saturation was 4.3% with ferritin level 13.7 ng/mL, consistent with iron deficiency. He was given further parenteral iron replacement with 2 infusions of Injectafer. His repeat CT scan on 12/21/2017 showed hemoglobin up to 12.4 g. At his follow-up visit on 03/29/2018 his hemoglobin had dropped to 8.4 g with transferrin saturation 4.1% and ferritin level 8.3 ng/mL. He was given 2 more infusions of Injectafer. During subsequent follow-up he received single infusions of Injectafer again in April 2018 and in May 2018, and his serum iron and ferritin levels remained in iron deficiency range, though he was just borderline anemic on both occasions. His repeat CBC on 12/05/2018 showed a decrease in his hemoglobin to 9.2 g. The transferrin saturation was low at 5.4% with ferritin 17 ng/mL, consistent with iron deficiency. He was given 2 additional infusions of Injectafer. During subsequent follow-up he continued to have evidence of iron deficiency, though with just borderline low hemoglobin/hematocrit levels. He was given further parenteral iron replacement with single infusions of Injectafer in February, March, and April 2019. During that time he had stool Hemoccult testing done through the [place], which he says was negative. As of May 2019 he was still mildly anemic with hemoglobin 10.4 g, and has 07/14/2019 his hemoglobin had further declined to 8.9 g. He was then given 2 infusions of Injectafer. Despite that, he had remained moderately anemic and during subsequent follow-up he continued to require infusions of Injectafer on a fairly regular basis, in the range of once or twice per month. He underwent repeat EGD and colonoscopy on 09/11/2020, as he had previously documented positive stool FIT, and he had reported having melena. The EGD showed moderate diffuse gastritis and a 2 mm hyperplastic polyp. The colonoscopy showed a few localized medium AVMs in the cecum, average size 2 mm in size. They were not actively bleeding. He received his most recent infusion on 10/07/2020. In the meantime, in February 2020 his PSA was found to be mildly at 7.7 ng/mL. Ultrasound guided biopsy of the prostate on 08/28/2020 showed prostatic adenocarcinoma with Seneca score 7 (3+4) involving 2 cores submitted from the right mid gland. He had radiation oncology consultation with on 10/17/2020, and he is planning to proceed with definitive radiation. However, he has been recommended to undergo TURP prior to the radiation, and he is seeing Dr. Varner for that. He is seen for a followup visit. He has been feeling pretty good, though he still has very limited activity. He does a little bit of walking, but he is mostly sedentary. ECOG score is 3. He has good appetite. He has not had fever. He does have night sweating. He has a little bit of sinus drainage. He has cough, especially when he is lying down at night. He has shortness of breath, and he is on continuous oxygen. He has not recently had any chest pain. He is taking pantoprazole twice a day for acid reflux. Bowel function lately has been a little better. He has not been aware of any blood in the stool. He has frequent urination. He has pain in his back and lower extremities. He also reports having a lot of muscle cramps in his fingers. He has been having headaches in the frontal area. He was scheduled to have MRI, that had been put off and not rescheduled. He has ongoing problems with balance. He has numbness/tingling in his feet. Medications: Aggrenox 1 (25-200 mg) Capsule SR 12 HR Oral b.i.d., Albuterol Sulfate 1 puff(s) (of 108 (90 base) mcg/act) Aerosol Powder, Breath Activated Inhalation four times a day, Alogliptin Benzoate 1 Tablet (of 12.5 mg) Oral daily, Calcitriol 1 (0.25 mcg) Capsule Oral daily, Citalopram Hydrobromide 1 Tablet (of 20 mg) Oral daily, Colace 1 Capsule (of 100 mg) Oral daily, Depakote ER 2 Tablet (of 500 mg) Tablet SR 24 HR Oral daily, Furosemide 1 Tablet (of 40 mg) Oral daily, Gabapentin 1 (100 mg) Tablet Oral t.i.d., Levothroid 1 Tablet (of 75 mcg) Oral daily, Meclizine HCl (25 mg) Tablet Oral Take as Directed, Memantine HCl 1 Tablet (of 10 mg) Oral b.i.d., Metoprolol Tartrate 1 (25 mg) Tablet Oral b.i.d., Nitroglycerin Solution Translingual PRN, Protonix 1 Tablet (of 40 mg) Tablet, enteric coated Oral b.i.d., Spiriva Respimat 1 puff(s) (of 2.5 mcg/act) Aerosol, solution Inhalation daily, Symbicort 2 (160-4.5 mcg/act) Aerosol Inhalation b.i.d., Tamsulosin HCl 1 Tablet (of 0.4 mg) Capsule Oral daily, Vitamin D3 (50 mcg) Tablet Take as Directed Allergies: Clopidogrel Bisulfate, Ezetimibe, fish oil, Gemfibrozil, Hydroxychloroquine Sulfate, mushrooms , Niacin, Simvastatin, Sulfamethoxazole-TMP DS, and Zetia. Vital Signs: Performed on Nov 04, 2020 15:29 Height - 70.00 in Weight - 263.4 lbs (HIGH) BSA - 2.35 sq.m BMI - 37.79 (HIGH) Temperature - 96.7 F (LOW) Pulse - 68 /min Respiration - 18 /min BP - 147/70 mm(hg) (HIGH) O2 Sat - 96 % Pain - 0 Fatigue - 9 Physical Examination: Constitutional - He appears generally weak, Eyes - Sclerae nonicteric. Conjunctivae clear, ENMT - No lesions noted in the oral cavity, Hematologic/Lymphatic - No cervical, clavicular, or axillary adenopathy, Respiratory - Lungs are clear with diminished air movement bilaterally, Cardiovascular - Heart rhythm is regular. There is a II/ systolic murmur. There is no gallop or rub noted, Abdomen - Mildy distended and tympanic. Liver and spleen are not enlarged. There is no abdominal mass or ascites noted and there is no inguinal adenopathy, Extremities - Mild edema, Neurologic - No focal neurologic deficits noted. Lab/Imaging: Test performed on Nov 04, 2020 14:16 Iron 27 mcg/dL Sodium 136 mmol/L Iron Binding Capacity (TIBC) 359 mcg/dl Potassium 4.2 mmol/L % Iron Saturation 7.5 % Chloride 98 mmol/L CO2 26 mmol/L UIBC 332 mcg/dL Anion Gap 16.2 BUN 12 mg/dL Creatinine 1.1 mg/dL Cr Clearance (Est) 107.11 mL/min eGFR 66.4 mL/min Glucose 146 mg/dL Osmolality - Calculated 284 mOsm/kg Calcium 8.5 mg/dL Protein, Total 7.0 g/dL Albumin 4.2 g/dL Globulin 2.8 g/dL Bilirubin, Total 0.3 mg/dL ALT (SGPT) 27 U/L AST (SGOT) 31 U/L Alkaline Phosphatase 89 IU/L WBC 6.6 10 3/uL RBC 4.10 10 6/uL HGB 12.2 g/dL HCT 40.1 % MCV 97.8 fL MCH 29.8 pg MCHC 30.4 g/dL RDW 19.2 % Platelet Count 165 10 3/cmm MPV 12.7 fL Neutrophils 4.51 10 3/uL Lymphocytes 1.1 10 3/uL Monocytes 0.8 10 3/uL Eosinophils 0.2 10 3/uL Basophils 0.0 10 3/uL Neutrophil % 68.1 % Lymphocyte % 16.3 % Monocyte % 11.3 % Eosinophil % 3.3 % Basophils % 0.5 % NRBC % 0 % Problem List: 1. Patient with recurrent episodes of iron deficiency anemia. 2. He has adenocarcinoma of the prostate, Latonya score 7 (4+3), by clinical evaluation stage IIB. 3. Oxygen dependent COPD. 4. Coronary artery disease and valvular heart disease. 5. Type II diabetes. 6. Dyslipidemia. 7. Chronic kidney disease. 8. He has a suspected seizure disorder. His brain MRI showed multiple prior infarcts. Problems Addressed with this Encounter and Plan: 1. Patient with recurrent episodes of iron deficiency anemia. He has had documented GI blood loss, possibly due to AVMs. He has required IV Injectafer on multiple occasions. At this point his hemoglobin is adequate but his serum iron studies are still consistent with iron deficiency, transferrin saturation 7.5%. As such, he will be given Injectafer 750 mg by IV infusion today. He will be scheduled for 1-month interval follow-up lab studies and for a followup visit in 3 months. 2. He has adenocarcinoma of the prostate, Latonya score 7 (4+3), by clinical evaluation stage IIB. He is planning to proceed with definitive radiation. Signed By: Grabiel Larkin M.D. <<Signature on File>>
[2020-11-11] MEDS: sodium chloride 0.9% (100 ml) 100 ML 75 ML (09:05)
[2020-11-11] MEDS: ferric carboxy (IVPB) 750 MG in sodium chloride 0.9% (100 ml) 100 ML 460 MG IV (09:10)
== END 2020-11-27 23:59 | disposition home or self-care (01) ==
LOC: ONCMED 05:42
PROVIDERS: Internal Medicine Medical Oncology; PCP Family Medicine; Visit Provider Nurse Practitioner
DX: D50.9 Iron deficiency anemia, unspecified (principal); C61 Malignant neoplasm of prostate; Z99.81 Dependence on supplemental oxygen; J44.9 Chronic obstructive pulmonary disease, unspecified; E11.22 Type 2 diabetes mellitus with diabetic chronic kidney disease; N18.9 Chronic kidney disease, unspecified; E11.59 Type 2 diabetes mellitus with other circulatory complications; I25.10 Atherosclerotic heart disease of native coronary artery without angina pectoris; E78.5 Hyperlipidemia, unspecified; G40.909 Epilepsy, unspecified, not intractable, without status epilepticus; I25.2 Old myocardial infarction; Z79.899 Other long term (current) drug therapy
CPT/HCPCS: 36415; 80053; 83540; 83550; 85025; 96365; 99214; J1439

== ENCOUNTER → 2020-11-26 14:51 | Outpatient (BNVA) | payer OTHER, MEDICARE, SELFPAY | PROVIDERS: PCP Family Medicine; Visit Provider Urology | DX: N40.1 Benign prostatic hyperplasia with lower urinary tract symptoms (principal) | CPT/HCPCS: 81003 ==

== ENCOUNTER 2020-11-28 06:00 | Outpatient (RCR) | payer OTHER, MEDICARE, SELFPAY | END 2020-12-28 23:59 | disposition home or self-care (01) | LOC: APT 06:00 | PROVIDERS: PCP Family Medicine; Referring Provider Family Medicine; Visit Provider Family Medicine | DX: C61 Malignant neoplasm of prostate (principal) | CPT/HCPCS: 97110 ==

== ENCOUNTER 2020-12-26 05:48 | Outpatient (RCR) | payer OTHER, MEDICARE, SELFPAY ==
[2020-12-04 14:03] LABS: Basophils % 0.6 %; Eosinophils # 0.1 10^3/uL (0.0-0.8); Eosinophils % 2.6 %; Hematocrit 40.3 % (42.0-52.0); Hemoglobin 12.5 g/dL (11.7-16.6); Lymphocytes # 1.1 10^3/uL (0.8-4.8); Lymphocytes % 20.9 %; Mean Corpuscular Hemoglobin 31.7 pg (28.0-34.0); Mean Corpuscular Volume 102.3 fL (80-94); Mean Platelet Volume 12.9 fL (7.4-10.4); Monocytes # 0.7 10^3/uL (0.2-0.9); Neutrophils # 3.43 10^3/uL (1.8-7.7); Neutrophils % 63.3 %; Nucleated Red Blood Cells % 0 %; Platelet Count 134 10^3/cmm (130-400); Red Blood Count 3.94 10^6/uL (4.1-5.3); Red Cell Distribution Width 19.2 % (12.1-15.1); White Blood Count 5.4 10^3/uL (4.0-10.0)
[2020-12-04 14:23] LABS: Iron 29 ug/dL (59-158); Percent Saturation 9.2 % (20-50); Total Iron Binding Capacity 313 mcg/dl; Unsaturated Iron Binding 284 ug/dL (112-347)
--- NOTE | 2020-12-05 | CT_ITS ---
Radiation Therapy Planning CT images; total exam DLP: 1152.33 mGy-cm MTDD
[2020-12-05] MEDS: sodium chloride 0.9% (100 ml) 100 ML 75 ML (13:57)
[2020-12-05] MEDS: sodium chloride 0.9% (100 ml) 100 ML 400 ML (13:58)
[2020-12-05] MEDS: ferric carboxy (PYXIS) 750 mg/15 mL INJ IV (13:58)
--- NOTE | 2020-12-17 15:38 | ONCRAD TMN_ITS ---
Radiation Oncology Weekly Treatment Management Patient: Bishnu Coreas MR#: [id number] : 1950> Attending Physician: Dr. Elvin Pryor Date of Service: 12/17/2020 Referring Physician(s) : Dr. Lawson Diagnosis: C61 - Malignant neoplasm of prostate, Diagnosed 08/28/2020 (Active) Stage IIB, T1c, N0, M0, P<10, G2 D50.8 - Other iron deficiency anemias, Diagnosed 07/13/2016 (Active) Radiotherapy to date: Course: Prostate 2020, Treatment Site: Prostate Ca, Ref. ID: [id number], Energy: 15X, Dose/Fx (cGy): 300, #Fx: , Dose Correction (cGy): 0, Total Dose (cGy): 1,500, Start Date: 12/11/2020, Elapsed Days: 6 Reason for visit: The patient is being seen today as part of their regularly scheduled weekly on treatment visits to assess for acute toxicities from radiotherapy. Review of Systems: seems to be tolerating hypofractionation for prostate cancer quite well. He has nocturia x3 or 4. Prior to initiating treatment he had nocturia x1-4. No dysuria, pyuria, or hematuria. There is been no change in his bowel pattern. Performance status is stable. Vital Signs: Performed on 12/17/2020 3:22 PM BMI - 37.593 kg/m2 (high), Height - 70.00 in, Weight - 262.0 lbs, Temperature - 98.0 f, Pulse - 62, Respiration - 20, O2 Sat - 95 % (low), Pain - 0 and BP - 131/ 69 mm(hg). Physical Exam: Alert oriented and in no distress. His skin was checked while he was on the treatment unit. No irritation detected. Imaging: Radiation therapy imaging related to accurate target localization (i.e. KV, MV and CBCT) was reviewed. Appropriate changes, if any, were made to ensure treatment accuracy. Plan: Continue treatment as planned. No questions. Encouraged to speak up for problems. Signed by: Dr. Elvin Pryor 12/17/2020 3:36:03 PM
--- NOTE | 2020-12-24 15:15 | ONCRAD TMN_ITS ---
Radiation Oncology Weekly Treatment Management Patient: Bishnu Coreas MR#: [id number] : 1950> Attending Physician: Dr. Elvin Pryor Date of Service: 12/24/2020 Referring Physician(s) : Grabiel Larkin Diagnosis: C61 - Malignant neoplasm of prostate, Diagnosed 08/28/2020 (Active) Stage IIB, T1c, N0, M0, P<10, G2 D50.8 - Other iron deficiency anemias, Diagnosed 07/13/2016 (Active) Radiotherapy to date: Course: Prostate 2020, Treatment Site: Prostate Ca, Ref. ID: [id number], Energy: 15X, Dose/Fx (cGy): 300, #Fx: , Dose Correction (cGy): 0, Total Dose (cGy): 3,000, Start Date: 12/11/2020, Elapsed Days: 13 Reason for visit: The patient is being seen today as part of their regularly scheduled weekly on treatment visits to assess for acute toxicities from radiotherapy. Review of Systems: He has developed dysuria. He has burning from start to finish of urination. He has no hematuria or pyuria. He had 2 or 3 episodes of diarrhea last night. He has not taken any Imodium AD for fear of constipation. Vital Signs: Performed on 12/24/2020 2:55 PM BMI - 37.938 kg/m2 (high), Height - 70.00 in, Weight - 264.4 lbs, Temperature - 97.5 f, Pulse - 64, Respiration - 20, O2 Sat - 96 %, Pain - 0 and BP - 132/ 68 mm(hg). Physical Exam: Alert, oriented, no distress. He has no skin reaction of the anterior pelvic wall, inguinal areas, or the genitalia. The intergluteal fold is free of skin reaction. Imaging: Radiation therapy imaging related to accurate target localization (i.e. KV, MV and CBCT) was reviewed. Appropriate changes, if any, were made to ensure treatment accuracy. Plan: Continue treatment according to plan. We will get a urinalysis today to see if he needs to be on an antibiotic. He will get Azo on the way home. He was warned that it will stain close. I discussed using low-dose Imodium A-D. Also discussed appropriate dietary changes if he elects not to use medication. Signed by: Dr. Elvin Pryor 12/24/2020 3:13:53 PM
[2020-12-24 16:25] LABS: Add Urine Microscopic? NO; Charge for UA Resulting for Rev
[2020-12-24 16:45] LABS: Bilirubin Urine Neg (Negative); Blood Urine Neg (Negative); Glucose Urine UA 2+ (Normal); Ketones Urine Negative (Negative); Leukocyte Esterase Urine Negative (Negative); Nitrate Urine Negative (Negative); Protein Urine Neg (Negative); Urine Appearance Clear (CLEAR); Urine Color Yellow (Yellow); Urobilinogen Urine Norm (Negative); pH Urine 6 (5-7)
== END 2020-12-28 23:59 | disposition home or self-care (01) ==
LOC: ONCMED 05:48
PROVIDERS: Internal Medicine Medical Oncology; PCP Family Medicine; Visit Provider Specialist
DX: Z51.0 Encounter for antineoplastic radiation therapy (principal); C61 Malignant neoplasm of prostate; D50.9 Iron deficiency anemia, unspecified; R51.9 Headache, unspecified; Z79.899 Other long term (current) drug therapy
CPT/HCPCS: 36415; 77300; 77301; 77334; 77336; 77338; 77385; 81003; 83540; 83550; 85025; 96365; J1439

== ENCOUNTER 2021-01-08 05:52 | Outpatient (RCR) | payer OTHER, MEDICARE, SELFPAY ==
--- NOTE | 2020-12-31 15:04 | ONCRAD TMN_ITS ---
Radiation Oncology Treatment Management Note Patient Name: Bebo Goetz Date of : 1950 Date of Service: 12/31/2020 Attending Physician: Adams Jones M.D. Bebo Goetz is a 70 year old white male diagnosed with a clinical stage IIB (T1CN0 Versus T2bN0) favorable intermediate risk prostate cancer. He initially was identified to have an elevated PSA level (7.7 ng/mL) in February 2020 with a free PSA of 19%. A transrectal ultrasound-guided biopsy of the prostate gland performed on August 28, 2020 identified a prostatic volume of 75 g with bilateral hypoechoic regions potentially representing malignancy. Pathology diagnosed a prostatic acinar adenocarcinoma with a Wenham score of 3+4 (grade group 2) involving 20% and 25% of two cores submitted from the right midgland. The patient has received 42 Gy of a prescribed 60 Jerez to the prostate and seminal vesicles with an intensity modulated radiotherapy plan utilizing a step and shoot treatment technique. Upon review of systems, he denied any gastrointestinal or genitourinary complaints related to radiotherapy. On physical examination, the patient weighed 258 lbs. His temperature was 97.6 ???F with a blood pressure of 123/74 mmHg. The pulse was 60 bpm and his respiratory rate was 22. There was no erythema within the treatment solo. Continue pelvic radiotherapy as prescribed. Signed by: Dr. Adams Jones 12/31/2020 3:03:25 PM
[2021-01-03 09:48] LABS: Basophils % 0.3 %; Eosinophils # 0.2 10^3/uL (0.0-0.8); Eosinophils % 3.7 %; Hematocrit 42.2 % (42.0-52.0); Hemoglobin 12.8 g/dL (11.7-16.6); Lymphocytes # 0.6 10^3/uL (0.8-4.8); Lymphocytes % 8.8 %; Mean Corpuscular HGB Conc 30.3 g/dL (30.0-36.0); Mean Corpuscular Volume 98.8 fL (80-94); Mean Platelet Volume 11.4 fL (7.4-10.4); Monocytes # 0.7 10^3/uL (0.2-0.9); Monocytes % 11.8 %; Neutrophils # 4.66 10^3/uL (1.8-7.7); Neutrophils % 74.6 %; Nucleated Red Blood Cells % 0 %; Platelet Count 145 10^3/cmm (130-400); Red Blood Count 4.27 10^6/uL (4.1-5.3); Red Cell Distribution Width 17.7 % (12.1-15.1); White Blood Count 6.3 10^3/uL (4.0-10.0)
[2021-01-03 10:36] LABS: Iron 31 ug/dL (59-158); Percent Saturation 9.4 % (20-50); Total Iron Binding Capacity 328 mcg/dl; Unsaturated Iron Binding 297 ug/dL (112-347)
--- NOTE | 2021-01-07 15:33 | ONCRAD TMN_ITS ---
Radiation Oncology Treatment Management Note Patient Name: Bebo Goetz Date of : 1950 Date of Service: 01/07/2021 Attending Physician: Adams Jones M.D. Bebo Goetz is a 70 year old white male diagnosed with a clinical stage IIB (T1CN0 Versus T2bN0) favorable intermediate risk prostate cancer. He initially was identified to have an elevated PSA level (7.7 ng/mL) in February 2020 with a free PSA of 19%. A transrectal ultrasound-guided biopsy of the prostate gland performed on August 28, 2020 identified a prostatic volume of 75 g with bilateral hypoechoic regions potentially representing malignancy. Pathology diagnosed a prostatic acinar adenocarcinoma with a Latonya score of 3+4 (grade group 2) involving 20% and 25% of two cores submitted from the right midgland. The patient has received 57 Gy of a prescribed 60 Jerez to the prostate and seminal vesicles with an intensity modulated radiotherapy plan utilizing a step and shoot treatment technique. Upon review of systems, he denied any gastrointestinal or genitourinary complaints related to radiotherapy. On physical examination, the patient weighed 260 lbs. His temperature was 97.2 ???F with a blood pressure of 129/74 mmHg. The pulse was 59 bpm and his respiratory rate was 20. There was no erythema within the treatment solo. Continue pelvic radiotherapy as planned. Signed by: Dr. Adams Jones 01/07/2021 3:31:37 PM
--- NOTE | 2021-01-08 14:32 | N.ONRD TS_ITS ---
Radiation OncologyTreatment Summary Patient Name: Bebo Goetz Date of : 1950 Date of Service: 01/08/2021 Attending Physician: Adams Jones M.D. Bebo Goetz is a 70 year old white male diagnosed with a clinical stage IIB (T1CN0 Versus T2bN0) favorable intermediate risk prostate cancer. Daily radiotherapy was administered between the dates of December 11, 2020 through January 08, 2021. A prescribed dose of 60 Gy was delivered in 30 fractions encompassing 29 elapsed days. The prostate gland and proximal seminal vesicles were treated utilizing an IMRT plan using a step and shoot treatment technique. The plan arranged seven gantry angles (0???, 40???, 75???, 135???, 225???, 295???, and 330???) replicating an arc. The collimator rotation was 0???. The field sizes measured between 10 cm x 10.8 cm to 10.6 cm x 11 cm. The SSDs measured a minimum of 80.4 cm to a maximum of 84.1 cm. The ports delivered 202 MU, 208 MU, 162 MU, 174 MU, 181 MU, 179 MU, and 221 MU corresponding to the gantry angles described. All treatments were performed on the Xenon Arc linear accelerator with an isocentric technique. The dose was calculated by Anisotropic Analytic Algorithm. A Photon energy of 15 MV were prescribed. The plan was normalized to deliver 100% of the prescription dose to 95% of the planning target volume. Signed by: Dr. Adams Jones 01/08/2021 2:31:37 PM
== END 2021-01-28 23:59 | disposition home or self-care (01) ==
LOC: ONCMED 05:52
PROVIDERS: Internal Medicine Medical Oncology; Absent Provider Radiology Radiation Oncology; PCP Family Medicine; Visit Provider Radiology Radiation Oncology
DX: Z51.0 Encounter for antineoplastic radiation therapy (principal); C61 Malignant neoplasm of prostate; D50.9 Iron deficiency anemia, unspecified; Z79.899 Other long term (current) drug therapy
CPT/HCPCS: 77336; 77385; 83540; 83550; 85025

== ENCOUNTER → 2021-02-06 10:06 | Outpatient (BNVA) | payer MEDICARE, SELFPAY | PROVIDERS: PCP Family Medicine; Visit Provider Radiology Radiation Oncology | DX: C61 Malignant neoplasm of prostate (principal) | CPT/HCPCS: 84153 ==

== ENCOUNTER 2021-02-17 05:37 | Outpatient (RCR) | payer OTHER, MEDICARE, SELFPAY ==
--- NOTE | 2021-02-07 10:12 | ONCRAD EPV_ITS ---
Radiation Oncology Follow-Up Note Patient Name: Bebo Goetz Date of : 1950 Date of Service: 02/07/2021 Attending Physician: Adams Jones M.D. Bebo Goetz returned to my office this morning for a routinely scheduled follow-up appointment. He completed prostate radiotherapy in December 2020 for the management of a clinical stage IIB (T1CN0 Versus T2bN0) favorable intermediate risk prostate cancer. Daily radiotherapy was administered between the dates of December 11, 2020 through January 08, 2021. A prescribed dose of 60 Gy was delivered in 30 fractions encompassing 29 elapsed days. On review of systems, he did not describe any lower urinary tract symptoms (dysuria) On physical examination, the patient weighed 260 pounds. The temperature is 97.7 ???F. His blood pressure was 116/66 mmHg. The pulse was 67 bpm and his respiratory rate was 20 breaths per minute. In summary, Mr. Goetz returned for a routine follow-up appointment. A PSA obtained in prior to this appointment was 1.6 ng/mL. He will continue surveillance with his urologist as scheduled. Signed by: Dr. Adams Jones 02/07/2021 10:10:44 AM
[2021-02-07 11:40] LABS: Basophils % 0.4 %; Eosinophils # 0.1 10^3/uL (0.0-0.8); Eosinophils % 2.2 %; Hematocrit 36.7 % (42.0-52.0); Hemoglobin 10.6 g/dL (11.7-16.6); Lymphocytes # 0.6 10^3/uL (0.8-4.8); Lymphocytes % 11.7 %; Mean Corpuscular HGB Conc 28.9 g/dL (30.0-36.0); Mean Corpuscular Hemoglobin 26.4 pg (28.0-34.0); Mean Corpuscular Volume 91.5 fl (80-94); Mean Platelet Volume 12.4 fL (7.4-10.4); Monocytes # 0.7 10^3/uL (0.2-0.9); Neutrophils # 3.86 10^3/uL (1.8-7.7); Neutrophils % 70.9 %; Nucleated Red Blood Cells % 0 %; Platelet Count 178 10^3/cmm (130-400); Red Blood Count 4.01 10^6/uL (4.1-5.3); Red Cell Distribution Width 17.5 % (12.1-15.1); White Blood Count 5.5 10^3/uL (4.0-10.0)
[2021-02-07 12:06] LABS: Alanine Aminotransferase 18 U/L (0-41); Alkaline Phosphatase 78 IU/L (40-130); Anion Gap 13.3 (5-19); Aspartate Amino Transferase 22 U/L (0-40); Blood Urea Nitrogen 10 mg/dL (8-23); Calcium 8.4 mg/dL (8.5-10.5); Carbon Dioxide 27 mmol/L (22-29); Chloride 97 mmol/L (98-107); Globulin 2.4 g/dL (1.3-4.6); Glomerular Filtration Rate 66.4 mL/min (90-130); Glucose 119 mg/dL (65-115); Iron 30 ug/dL (59-158); Osmolality Calculated 276 mOsm/kg (285-295); Percent Saturation 8.2 % (20-50); Potassium 4.3 mmol/L (3.5-5.1); Sodium 133 mmol/L (136-145); Total Bilirubin 0.3 mg/dL (0.15-1.2); Total Iron Binding Capacity 363 mcg/dl; Total Protein 6.4 g/dL (6.6-8.7); Unsaturated Iron Binding 333 ug/dL (112-347)
[2021-02-10] MEDS: ferric carboxy (IVPB) 750 MG in sodium chloride 0.9% (100 ml) 100 ML 460 MG IV (15:10)
--- NOTE | 2021-02-11 06:58 | ONC FU_ITS ---
Dr. Larkin Patient Follow-Up Note Patient: Bebo Goetz Unit #: [id number]: 1950 Dicatated By: Grabiel Larkin M.D.Date of Visit:Feb 10, 2021 Onc Med Follow-up/Prog Note Chief Complaint: Anemia. History of Present Illness: This is 70 year-old man with iron deficiency anemia. He was found to have a microcytic anemia on 09/29/2011, but no additional clinical data were available. He had normal hemoglobin with normal MCV on 10/15/2014 laboratory analysis. In December 2014 he was admitted with an acute febrile illness. He had a worsening renal insufficiency and hepatic enzyme elevation. During that hospitalization his hemoglobin measured 7.7 g/dL, MCV 67.8. Iron saturation was 4%, consistent with iron deficiency. The patient received 2 units of packed red blood cell transfusion and began oral iron replacement. He underwent endoscopy and colonoscopy on 02/19/2015. Pathology showed gastric hyperplastic polyp and gastritis thought to be from the iron supplement. Several colonic and rectal hyperplastic polyps were discovered without dysplasia. Review of prior laboratory analysis showed negative acute hepatitis B and C serology in April 2014. PSA was 3.54 in August 2014. He was first seen by Dr. Torres on 04/29/2015. Hemoglobin had recovered to 11.4 g with MCV 79. He continued to have iron deficiency with ferritin 8.9 ng/mL. Hemoccult stool negative x 1. Total testosterone was low at 119. By July 2015 the hemoglobin was stable at 11.2 g, but transferrin saturation was low at 7.2%. He was given parenteral iron replacement with Injectafer in July 2015. Despite the IV iron replacement, his iron studies in August were consistent with recurrent iron deficiency, suggestive of ongoing blood loss. His CT of the chest, abdomen, and pelvis on 09/20/15 showed mild borderline hepatomegaly but also mucosal thickening of the colon. He received additional IV Injectafer in August and again in October 2015. During follow-up he had required additional infusions of Injectafer on multiple occasions. He underwent GI evaluation with EGD and colonoscopy in August 2020 after he had been confirmed to have a positive stool FIT. The EGD showed evidence of moderate diffuse gastritis and a 2 mm hyperplastic polyp. Colonoscopy showed a few localized medium sized AVMs in the cecum. The average 2 mm in size. There was no active bleeding identified. In the meantime, in February 2020 his PSA had come back mildly at 7.7 ng/mL. Ultrasound guided biopsy of the prostate on 08/28/2020 showed prostatic adenocarcinoma with Latonya score 7 (3+4) involving 2 cores submitted from the right mid gland. He had radiation oncology consultation with on 10/17/2020, and he opted to proceed with definitive radiation. His treatment was initially delayed for treatment of symptoms of bladder outlet obstruction, which did improve with double dose tamsulosin. His other medical illnesses include oxygen dependent COPD, coronary artery disease, type II diabetes, and chronic kidney disease. He has had evidence of cerebrovascular disease by MRI. He underwent aortic aneurysm repair and aortic valve repair in 2011. He has a history of smoking 2 packs of cigarettes daily for 45 years. He quit smoking in 2011. INTERIM HISTORY: He began radiation to the prostate on 12/11/2020. He completed treatment on 01/08/2021 to a total dose of 6000 cGy administered in 20 fractions. He tolerated the treatment well. During this time he had continued to require infusions of Injectafer on a fairly regular basis, almost on a monthly schedule. The most recent was on 11/04/2020. He is seen for a followup visit. He says he has not been feeling too bad, though he still has very limited activity. His ECOG score is 2. He has good appetite. He is not having fever or night sweats. He is chronically short of breath and he is on continuous oxygen. He also has chronic cough for which he has been taking Mucinex. He does not complain of chest pain. He does not have nausea, he does have some heartburn off and on. He has had some diarrhea following the radiation, but he has not been aware of any obvious blood in the stool. Bladder function has improved. He has joint pain, mainly in his hands he also complains of pain in both legs. He has been having ongoing problems with frontal headache. He is supposed to be having a [facility]. He also reports having dizziness, and he has numbness in his fingers. Medications: Aggrenox 1 (25-200 mg) Capsule SR 12 HR Oral b.i.d., Albuterol Sulfate 1 puff(s) (of 108 (90 base) mcg/act) Aerosol Powder, Breath Activated Inhalation four times a day, Alogliptin Benzoate 1 Tablet (of 12.5 mg) Oral daily, Calcitriol 1 (0.25 mcg) Capsule Oral daily, Citalopram Hydrobromide 1 Tablet (of 20 mg) Oral daily, Colace 1 Capsule (of 100 mg) Oral daily, Depakote ER 2 Tablet (of 500 mg) Tablet SR 24 HR Oral daily, Furosemide 1 Tablet (of 40 mg) Oral daily, Gabapentin 1 (100 mg) Tablet Oral t.i.d., Levothroid 1 Tablet (of 75 mcg) Oral daily, Meclizine HCl (25 mg) Tablet Oral Take as Directed, Memantine HCl 1 Tablet (of 10 mg) Oral b.i.d., Metoprolol Tartrate 1 (25 mg) Tablet Oral b.i.d., Nitroglycerin Solution Translingual PRN, Protonix 1 Tablet (of 40 mg) Tablet, enteric coated Oral b.i.d., Spiriva Respimat 1 puff(s) (of 2.5 mcg/act) Aerosol, solution Inhalation daily, Symbicort 2 (160-4.5 mcg/act) Aerosol Inhalation b.i.d., Tamsulosin HCl 1 Tablet (of 0.4 mg) Capsule Oral daily, Vitamin D3 (50 mcg) Tablet Take as Directed Allergies: Clopidogrel Bisulfate, Ezetimibe, fish oil, Gemfibrozil, Hydroxychloroquine Sulfate, mushrooms , Niacin, Simvastatin, Sulfamethoxazole-TMP DS, and Zetia. Vital Signs: Performed on Feb 10, 2021 14:53 Height - 70.00 in Weight - 258.8 lbs (LOW) BSA - 2.33 sq.m BMI - 37.13 (HIGH) Temperature - 98.5 F Pulse - 74 /min Respiration - 18 /min BP - 129/69 mm(hg) O2 Sat - 92 % (LOW) Pain - 0 Fatigue - 5 Physical Examination: Constitutional - He appears somewhat weak generally, Eyes - Sclerae nonicteric. Conjunctivae clear, ENMT - No lesions noted in the oral cavity, Hematologic/Lymphatic - No cervical, clavicular, or axillary adenopathy, Respiratory - Lungs sound clear with diminished air movement bilaterally, Cardiovascular - Heart rhythm is regular. There is a II/ systolic murmur. There is no gallop or rub noted, Abdomen - Mildy distended. Liver and spleen are not enlarged. There is no abdominal mass or ascites noted and there is no inguinal adenopathy, Extremities - No edema, Neurologic - No focal neurologic deficits noted. Lab/Imaging: Test performed on Feb 07, 2021 10:45 Iron 30 mcg/dL Sodium 133 mmol/L Iron Binding Capacity (TIBC) 363 mcg/dl Potassium 4.3 mmol/L % Iron Saturation 8.2 % Chloride 97 mmol/L CO2 27 mmol/L UIBC 333 mcg/dL Anion Gap 13.3 BUN 10 mg/dL Creatinine 1.1 mg/dL Cr Clearance (Est) 107.1100 mL/min eGFR 66.4 mL/min Glucose 119 mg/dL Osmolality - Calculated 276 mOsm/kg Calcium 8.4 mg/dL Protein, Total 6.4 g/dL Albumin 4.0 g/dL Globulin 2.4 g/dL Bilirubin, Total 0.3 mg/dL ALT (SGPT) 18 U/L AST (SGOT) 22 U/L Alkaline Phosphatase 78 IU/L WBC 5.5 10 3/uL RBC 4.01 10 6/uL HGB 10.6 g/dL HCT 36.7 % MCV 91.5 fl MCH 26.4 pg MCHC 28.9 g/dL RDW 17.5 % Platelet Count 178 10 3/cmm MPV 12.4 fL Neutrophils 3.86 10 3/uL Lymphocytes 0.6 10 3/uL Monocytes 0.7 10 3/uL Eosinophils 0.1 10 3/uL Basophils 0.0 10 3/uL Neutrophil % 70.9 % Lymphocyte % 11.7 % Monocyte % 13.0 % Eosinophil % 2.2 % Basophils % 0.4 % NRBC % 0 % Problem List: 1. Patient with recurrent episodes of iron deficiency anemia. 2. Adenocarcinoma of the prostate, [place]onya score 7 (4+3), by clinical evaluation stage IIB. 3. Oxygen dependent COPD. 4. Coronary artery disease and valvular heart disease. 5. Type II diabetes. 6. Dyslipidemia. 7. Chronic kidney disease. 8. He has MRI evidence of cerebrovascular disease. Problems Addressed with this Encounter and Plan: 1. Patient with recurrent episodes of iron deficiency anemia. He has had documented GI blood loss, possibly due to AVMs. He has required IV Injectafer on multiple occasions. His CBC again shows mild anemia with hemoglobin 10.6 g. His transferrin saturation is low at 8.2%, consistent with iron deficiency. As such, he will be given additional parenteral iron replacement with 2 infusions of Injectafer. He will be scheduled for a 1-month interval follow-up visit. 2. In August 2020 he was confirmed to have adenocarcinoma of the prostate, [place]onya score 7 (4+3), by clinical evaluation stage IIB. He underwent definitive radiation, completed on 01/08/2021 to a total dose of 6000 cGy administered in 20 fractions. Signed By: Grabiel Larkin M.D. <<Signature on File>>
[2021-02-17] MEDS: sodium chloride 0.9% (100 ml) 100 ML 400 ML (14:24)
[2021-02-17] MEDS: ferric carboxy (IVPB) 750 MG in sodium chloride 0.9% (100 ml) 100 ML 460 MG IV (14:24)
== END 2021-02-27 23:59 | disposition home or self-care (01) ==
LOC: ONCMED 05:37
PROVIDERS: Absent Provider Radiology Radiation Oncology; PCP Family Medicine; Visit Provider Internal Medicine Medical Oncology
DX: D50.0 Iron deficiency anemia secondary to blood loss (chronic) (principal); C61 Malignant neoplasm of prostate; J44.9 Chronic obstructive pulmonary disease, unspecified; Z99.81 Dependence on supplemental oxygen; E11.59 Type 2 diabetes mellitus with other circulatory complications; I25.10 Atherosclerotic heart disease of native coronary artery without angina pectoris; E78.5 Hyperlipidemia, unspecified; E11.22 Type 2 diabetes mellitus with diabetic chronic kidney disease; N18.9 Chronic kidney disease, unspecified; I67.9 Cerebrovascular disease, unspecified; Z79.899 Other long term (current) drug therapy; Z92.3 Personal history of irradiation
CPT/HCPCS: 36415; 80053; 83540; 83550; 85025; 96365; 99024; 99214; J1439

== ENCOUNTER 2021-03-17 06:34 | Outpatient (RCR) | payer OTHER, SELFPAY ==
[2021-03-17 14:50] LABS: Basophils % 0.3 %; Eosinophils # 0.2 10^3/uL (0.0-0.8); Eosinophils % 2.9 %; Hematocrit 37.6 % (42.0-52.0); Hemoglobin 11.3 g/dL (11.7-16.6); Lymphocytes # 0.8 10^3/uL (0.8-4.8); Lymphocytes % 14.3 %; Mean Corpuscular HGB Conc 30.1 g/dL (30.0-36.0); Mean Corpuscular Hemoglobin 29.2 pg (28.0-34.0); Mean Corpuscular Volume 97.2 fl (80-94); Mean Platelet Volume 11.4 fL (7.4-10.4); Monocytes # 0.6 10^3/uL (0.2-0.9); Neutrophils % 70.5 %; Nucleated Red Blood Cells % 0 %; Platelet Count 153 10^3/cmm (130-400); Red Blood Count 3.87 10^6/uL (4.1-5.3); Red Cell Distribution Width 19.7 % (12.1-15.1); White Blood Count 5.8 10^3/uL (4.0-10.0)
[2021-03-17 15:28] LABS: Ferritin 63 ng/mL (30-400); Iron 32 ug/dL (59-158); Percent Saturation 9.6 % (20-50); Total Iron Binding Capacity 333 mcg/dl; Unsaturated Iron Binding 301 ug/dL (112-347)
[2021-03-17] MEDS: ferric carboxy (IVPB) 750 MG in sodium chloride 0.9% (100 ml) 100 ML 460 MG IV (16:16)
--- NOTE | 2021-03-18 07:40 | ONC FU_ITS ---
Dr. Larkin Patient Follow-Up Note Patient: Bebo Goetz Unit #: [id number]: 1950 Dicatated By: Grabiel Larkin M.D.Date of Visit:Mar 17, 2021 Onc Med Follow-up/Prog Note Chief Complaint: Anemia. History of Present Illness: This is 70 year-old man with iron deficiency anemia. He was found to have a microcytic anemia on 09/29/2011, but no additional clinical data were available. He had normal hemoglobin with normal MCV on 10/15/2014 laboratory analysis. In December 2014 he was admitted with an acute febrile illness. He had a worsening renal insufficiency and hepatic enzyme elevation. During that hospitalization his hemoglobin measured 7.7 g/dL, MCV 67.8. Iron saturation was 4%, consistent with iron deficiency. The patient received 2 units of packed red blood cell transfusion and began oral iron replacement. He underwent endoscopy and colonoscopy on 02/19/2015. Pathology showed gastric hyperplastic polyp and gastritis thought to be from the iron supplement. Several colonic and rectal hyperplastic polyps were discovered without dysplasia. Review of prior laboratory analysis showed negative acute hepatitis B and C serology in April 2014. PSA was 3.54 in August 2014. He was first seen by Dr. Torres on 04/29/2015. Hemoglobin had recovered to 11.4 g with MCV 79. He continued to have iron deficiency with ferritin 8.9 ng/mL. Hemoccult stool negative x 1. Total testosterone was low at 119. By July 2015 the hemoglobin was stable at 11.2 g, but transferrin saturation was low at 7.2%. He was given parenteral iron replacement with Injectafer in July 2015. Despite the IV iron replacement, his iron studies in August were consistent with recurrent iron deficiency, suggestive of ongoing blood loss. His CT of the chest, abdomen, and pelvis on 09/20/15 showed mild borderline hepatomegaly but also mucosal thickening of the colon. He received additional IV Injectafer in August and again in October 2015. During follow-up he had required additional infusions of Injectafer on multiple occasions. He underwent GI evaluation with EGD and colonoscopy in August 2020 after he had been confirmed to have a positive stool FIT. The EGD showed evidence of moderate diffuse gastritis and a 2 mm hyperplastic polyp. Colonoscopy showed a few localized medium sized AVMs in the cecum. The average 2 mm in size. There was no active bleeding identified. In the meantime, in February 2020 his PSA had come back mildly at 7.7 ng/mL. Ultrasound guided biopsy of the prostate on 08/28/2020 showed prostatic adenocarcinoma with Latonya score 7 (3+4) involving 2 cores submitted from the right mid gland. He had radiation oncology consultation with on 10/17/2020, and he opted to proceed with definitive radiation. His treatment was initially delayed for treatment of symptoms of bladder outlet obstruction, which did improve with double dose tamsulosin. His other medical illnesses include oxygen dependent COPD, coronary artery disease, type II diabetes, and chronic kidney disease. He has had evidence of cerebrovascular disease by MRI. He underwent aortic aneurysm repair and aortic valve repair in 2011. He has a history of smoking 2 packs of cigarettes daily for 45 years. He quit smoking in 2011. INTERIM HISTORY: He began radiation to the prostate on 12/11/2020. He completed treatment on 01/08/2021 to a total dose of 6000 cGy administered in 20 fractions. He tolerated the treatment well. During this time he had continued to require infusions of Injectafer on a fairly regular basis, almost on a monthly schedule. He was given 2 infusions of Injectafer again in January 2021 with his hemoglobin back down to 10.6 g and his transferrin saturation low at 8.2%. He is seen for a followup visit. He continues to complain that he is tired most of the time. He is also having pain from his hips down to the backs of his calves. The pain bothers him the most when he first gets up to start walking. He has very limited activity. ECOG score is 3. His appetite has been good. He has not had fever. He sometimes has sweating at night. He complains of having dry mouth and throat. He sometimes has cough. He is short of breath, and he is on continuous oxygen. He sometimes has chest pain. He occasionally has nausea. He does have acid reflux. Bowel function is variable. He has intermittent diarrhea. He has not been aware of any blood in the stool. Bladder function has improved with medication. He has daily headaches, and he is scheduled to have a repeat head MRI. He has neuropathy in the lower extremities. Medications: Aggrenox 1 (25-200 mg) Capsule SR 12 HR Oral b.i.d., Albuterol Sulfate 1 puff(s) (of 108 (90 base) mcg/act) Aerosol Powder, Breath Activated Inhalation four times a day, Alogliptin Benzoate 1 Tablet (of 12.5 mg) Oral daily, Calcitriol 1 (0.25 mcg) Capsule Oral daily, Citalopram Hydrobromide 1 Tablet (of 20 mg) Oral daily, Colace 1 Capsule (of 100 mg) Oral daily, Depakote ER 2 Tablet (of 500 mg) Tablet SR 24 HR Oral daily, Furosemide 1 Tablet (of 40 mg) Oral daily, Gabapentin 1 (100 mg) Tablet Oral t.i.d., Levothroid 1 Tablet (of 75 mcg) Oral daily, Meclizine HCl (25 mg) Tablet Oral Take as Directed, Memantine HCl 1 Tablet (of 10 mg) Oral b.i.d., Metoprolol Tartrate 1 (25 mg) Tablet Oral b.i.d., Nitroglycerin Solution Translingual PRN, Protonix 1 Tablet (of 40 mg) Tablet, enteric coated Oral b.i.d., Spiriva Respimat 1 puff(s) (of 2.5 mcg/act) Aerosol, solution Inhalation daily, Symbicort 2 (160-4.5 mcg/act) Aerosol Inhalation b.i.d., Tamsulosin HCl 1 Tablet (of 0.4 mg) Capsule Oral daily, Vitamin D3 (50 mcg) Tablet Take as Directed Allergies: Clopidogrel Bisulfate, Ezetimibe, fish oil, Gemfibrozil, Hydroxychloroquine Sulfate, mushrooms , Niacin, Simvastatin, Sulfamethoxazole-TMP DS, and Zetia. Vital Signs: Performed on Mar 17, 2021 15:33 Height - 70.00 in Weight - 260 lbs (HIGH) BSA - 2.33 sq.m BMI - 37.31 (HIGH) Temperature - 97.2 F (LOW) Pulse - 68 /min Respiration - 20 /min BP - 103/56 mm(hg) O2 Sat - 95 % (LOW) Pain - 0 Fatigue - 5 Physical Examination: Constitutional - He appears generally weak and he has limited mobility, Eyes - Sclerae nonicteric. Conjunctivae clear, ENMT - No lesions noted in the oral cavity, Hematologic/Lymphatic - No cervical, clavicular, or axillary adenopathy, Respiratory - Lungs sound clear with diminished air movement bilaterally, Cardiovascular - Heart rhythm is regular. There is a II/ systolic murmur. There is no gallop or rub noted, Abdomen - Mildy distended and tympanic. Liver and spleen are not enlarged. There is no abdominal mass or ascites noted and there is no inguinal adenopathy, Extremities - No edema, Neurologic - No focal neurologic deficits noted. Lab/Imaging: Test performed on Mar 17, 2021 14:35 Ferritin 63 ng/mL Iron 32 mcg/dL Iron Binding Capacity (TIBC) 333 mcg/dl % Iron Saturation 9.6 % UIBC 301 mcg/dL WBC 5.8 10 3/uL RBC 3.87 10 6/uL HGB 11.3 g/dL HCT 37.6 % MCV 97.2 fl MCH 29.2 pg MCHC 30.1 g/dL RDW 19.7 % Platelet Count 153 10 3/cmm MPV 11.4 fL Neutrophils 4.10 10 3/uL Lymphocytes 0.8 10 3/uL Monocytes 0.6 10 3/uL Eosinophils 0.2 10 3/uL Basophils 0.0 10 3/uL Neutrophil % 70.5 % Lymphocyte % 14.3 % Monocyte % 11.0 % Eosinophil % 2.9 % Basophils % 0.3 % NRBC % 0 % Problem List: 1. Patient with recurrent episodes of iron deficiency anemia. 2. Adenocarcinoma of the prostate, [place] score 7 (4+3), by clinical evaluation stage IIB. 3. Oxygen dependent COPD. 4. Coronary artery disease and valvular heart disease. 5. Type II diabetes. 6. Dyslipidemia. 7. Chronic kidney disease. 8. He has MRI evidence of cerebrovascular disease. Problems Addressed with this Encounter and Plan: 1. Patient with recurrent episodes of iron deficiency anemia. He has had documented GI blood loss, possibly due to AVMs. He has required IV Injectafer on multiple occasions. He was given 2 additional infusions of Injectafer in January with his hemoglobin back down to 10.6 g and transferrin saturation low at 8.2%. He does appear to have had some response, but he remains mildly anemic and his transferrin saturation is still low at 9.6%. As such, he will be given 1 additional infusion of Injectafer today. His blood count and serum iron studies will be monitored monthly. I will see him again in 3 months, or sooner as needed. 2. In August 2020 he was confirmed to have adenocarcinoma of the prostate, [place] score 7 (4+3), by clinical evaluation stage IIB. He underwent definitive radiation, completed on 01/08/2021 to a total dose of 6000 cGy administered in 20 fractions. Signed By: Grabiel Larkin M.D. <<Signature on File>>
== END 2021-03-30 23:59 | disposition home or self-care (01) ==
LOC: ONCMED 06:34
PROVIDERS: PCP Family Medicine; Visit Provider Internal Medicine Medical Oncology
DX: D50.9 Iron deficiency anemia, unspecified (principal); J44.9 Chronic obstructive pulmonary disease, unspecified; Z99.81 Dependence on supplemental oxygen; E11.59 Type 2 diabetes mellitus with other circulatory complications; I25.10 Atherosclerotic heart disease of native coronary artery without angina pectoris; I51.9 Heart disease, unspecified; E78.5 Hyperlipidemia, unspecified; E11.22 Type 2 diabetes mellitus with diabetic chronic kidney disease; N18.9 Chronic kidney disease, unspecified; I67.81 Acute cerebrovascular insufficiency; Z85.46 Personal history of malignant neoplasm of prostate; Z92.3 Personal history of irradiation
CPT/HCPCS: 82728; 83540; 83550; 85025; 96365; 99214; J1439

== ENCOUNTER 2021-04-18 06:37 | Outpatient (RCR) | payer OTHER, SELFPAY ==
[2021-04-18 12:00] LABS: Basophils % 0.3 %; Eosinophils # 0.1 10^3/uL (0.0-0.8); Eosinophils % 2.3 %; Hematocrit 40.3 % (42.0-52.0); Hemoglobin 12.5 g/dL (11.7-16.6); Lymphocytes # 0.8 10^3/uL (0.8-4.8); Lymphocytes % 13.2 %; Mean Corpuscular Hemoglobin 30.7 pg (28.0-34.0); Mean Platelet Volume 12.4 fL (7.4-10.4); Monocytes # 0.8 10^3/uL (0.2-0.9); Monocytes % 12.6 %; Neutrophils # 4.33 10^3/uL (1.8-7.7); Neutrophils % 70.6 %; Nucleated Red Blood Cells % 0 %; Platelet Count 164 10^3/cmm (130-400); Red Blood Count 4.07 10^6/uL (4.1-5.3); Red Cell Distribution Width 17.3 % (12.1-15.1); White Blood Count 6.1 10^3/uL (4.0-10.0)
[2021-04-18 12:27] LABS: Ferritin 63 ng/mL (30-400); Iron 270 ug/dL (59-158); Percent Saturation 87.3 % (20-50); Total Iron Binding Capacity 309 mcg/dl; Unsaturated Iron Binding 39 ug/dL (112-347)
== END 2021-04-29 23:59 | disposition home or self-care (01) ==
LOC: ONCMED 06:37
PROVIDERS: PCP Family Medicine; Visit Provider Internal Medicine Medical Oncology
DX: C61 Malignant neoplasm of prostate (principal); D50.9 Iron deficiency anemia, unspecified
CPT/HCPCS: 36415; 82728; 83540; 83550; 85025

== ENCOUNTER → 2021-05-08 12:21 | Outpatient (BNVA) | payer OTHER, SELFPAY | PROVIDERS: PCP Family Medicine; Referring Provider Family Medicine; Visit Provider Specialist | DX: G31.83 Neurocognitive disorder with Lewy bodies (principal); F02.80 Dementia in other diseases classified elsewhere, unspecified severity, without behavioral disturbance, psychotic disturbance, mood disturbance, and anxiety; G43.909 Migraine, unspecified, not intractable, without status migrainosus; G40.309 Generalized idiopathic epilepsy and epileptic syndromes, not intractable, without status epilepticus; R44.3 Hallucinations, unspecified; F41.9 Anxiety disorder, unspecified; F32.A Depression, unspecified | CPT/HCPCS: 96116; 99214; 99215 ==

== ENCOUNTER 2021-05-22 06:23 | Outpatient (RCR) | payer OTHER, SELFPAY ==
[2021-05-16 09:38] LABS: Basophils % 0.2 %; Eosinophils # 0.2 10^3/uL (0.0-0.8); Eosinophils % 3.3 %; Hematocrit 34.8 % (42.0-52.0); Hemoglobin 10.2 g/dL (11.7-16.6); Lymphocytes # 0.7 10^3/uL (0.8-4.8); Lymphocytes % 15.2 %; Mean Corpuscular HGB Conc 29.3 g/dL (30.0-36.0); Mean Corpuscular Hemoglobin 27.7 pg (28.0-34.0); Mean Corpuscular Volume 94.6 fl (80-94); Mean Platelet Volume 12.3 fL (7.4-10.4); Monocytes # 0.6 10^3/uL (0.2-0.9); Monocytes % 11.7 %; Neutrophils # 3.27 10^3/uL (1.8-7.7); Neutrophils % 67.1 %; Nucleated Red Blood Cells % 0 %; Platelet Count 170 10^3/cmm (130-400); Red Blood Count 3.68 10^6/uL (4.1-5.3); Red Cell Distribution Width 16.3 % (12.1-15.1); White Blood Count 4.9 10^3/uL (4.0-10.0)
[2021-05-16 10:13] LABS: Ferritin 24 ng/mL (30-400); Iron 27 ug/dL (59-158); Percent Saturation 7.2 % (20-50); Total Iron Binding Capacity 373 mcg/dl; Unsaturated Iron Binding 346 ug/dL (112-347)
[2021-05-16] MEDS: ferric carboxy (IVPB) 750 MG in sodium chloride 0.9% (100 ml) 100 ML 345 MG IV (11:47)
[2021-05-22] MEDS: ferric carboxy (IVPB) 750 MG in sodium chloride 0.9% (100 ml) 100 ML 345 MG IV (10:53)
== END 2021-05-30 23:59 | disposition home or self-care (01) ==
LOC: ONCMED 06:23
PROVIDERS: PCP Family Medicine; Visit Provider Internal Medicine Medical Oncology
DX: D50.9 Iron deficiency anemia, unspecified (principal)
CPT/HCPCS: 36415; 82728; 83540; 83550; 85025; 96365; J1439

== ENCOUNTER → 2021-05-28 14:39 | Outpatient (BNVA) | payer OTHER, SELFPAY | PROVIDERS: PCP Family Medicine; Visit Provider Urology | DX: N40.1 Benign prostatic hyperplasia with lower urinary tract symptoms (principal) | CPT/HCPCS: 81003 ==

== ENCOUNTER → 2021-06-04 12:40 | Outpatient (BNVA) | payer OTHER, SELFPAY | PROVIDERS: PCP Family Medicine; Referring Provider Specialist; Visit Provider Specialist | DX: G40.309 Generalized idiopathic epilepsy and epileptic syndromes, not intractable, without status epilepticus (principal); G31.83 Neurocognitive disorder with Lewy bodies; F02.80 Dementia in other diseases classified elsewhere, unspecified severity, without behavioral disturbance, psychotic disturbance, mood disturbance, and anxiety | CPT/HCPCS: 95816 ==

== ENCOUNTER 2021-06-16 06:23 | Outpatient (RCR) | payer OTHER, SELFPAY ==
[2021-06-13 09:59] LABS: Basophils % 0.4 %; Eosinophils # 0.1 10^3/uL (0.0-0.8); Eosinophils % 2.5 %; Hematocrit 34.7 % (42.0-52.0); Hemoglobin 10.2 g/dL (11.7-16.6); Lymphocytes # 0.7 10^3/uL (0.8-4.8); Lymphocytes % 16.1 %; Mean Corpuscular HGB Conc 29.4 g/dL (30.0-36.0); Mean Corpuscular Hemoglobin 30.1 pg (28.0-34.0); Mean Corpuscular Volume 102.4 fl (80-94); Mean Platelet Volume 11.9 fL (7.4-10.4); Monocytes # 0.6 10^3/uL (0.2-0.9); Monocytes % 14.1 %; Neutrophils # 2.92 10^3/uL (1.8-7.7); Neutrophils % 65.6 %; Nucleated Red Blood Cells % 0 %; Platelet Count 163 10^3/cmm (130-400); Red Blood Count 3.39 10^6/uL (4.1-5.3); Red Cell Distribution Width 20.6 % (12.1-15.1); White Blood Count 4.5 10^3/uL (4.0-10.0)
[2021-06-13 10:15] LABS: Ferritin 87 ng/mL (30-400); Iron 26 ug/dL (59-158); Percent Saturation 7.6 % (20-50); Total Iron Binding Capacity 342 mcg/dl; Unsaturated Iron Binding 316 ug/dL (112-347)
[2021-06-16] MEDS: ferric carboxy (IVPB) 750 MG in sodium chloride 0.9% (100 ml) 100 ML 460 MG IV (14:30)
--- NOTE | 2021-06-16 19:25 | ONC FU_ITS ---
Dr. Larkin Patient Follow-Up Note Patient: Bebo Goetz Unit #: [id number]: 1950 Dicatated By: Grabiel Larkin M.D.Date of Visit:Jun 16, 2021 Onc Med Follow-up/Prog Note Chief Complaint: Anemia. History of Present Illness: This is 71 year-old man with iron deficiency anemia. He was found to have a microcytic anemia on 09/29/2011, but no additional clinical data were available. He had normal hemoglobin with normal MCV on 10/15/2014 laboratory analysis. In December 2014 he was admitted with an acute febrile illness. He had a worsening renal insufficiency and hepatic enzyme elevation. During that hospitalization his hemoglobin measured 7.7 g/dL, MCV 67.8. Iron saturation was 4%, consistent with iron deficiency. The patient received 2 units of packed red blood cell transfusion and began oral iron replacement. He underwent endoscopy and colonoscopy on 02/19/2015. Pathology showed gastric hyperplastic polyp and gastritis thought to be from the iron supplement. Several colonic and rectal hyperplastic polyps were discovered without dysplasia. Review of prior laboratory analysis showed negative acute hepatitis B and C serology in April 2014. PSA was 3.54 in August 2014. He was first seen by Dr. Torres on 04/29/2015. Hemoglobin had recovered to 11.4 g with MCV 79. He continued to have iron deficiency with ferritin 8.9 ng/mL. Hemoccult stool negative x 1. Total testosterone was low at 119. By July 2015 the hemoglobin was stable at 11.2 g, but transferrin saturation was low at 7.2%. He was given parenteral iron replacement with Injectafer in July 2015. Despite the IV iron replacement, his iron studies in August were consistent with recurrent iron deficiency, suggestive of ongoing blood loss. His CT of the chest, abdomen, and pelvis on 09/20/15 showed mild borderline hepatomegaly but also mucosal thickening of the colon. He received additional IV Injectafer in August and again in October 2015. During follow-up he had required additional infusions of Injectafer on multiple occasions. He underwent GI evaluation with EGD and colonoscopy in August 2020 after he had been confirmed to have a positive stool FIT. The EGD showed evidence of moderate diffuse gastritis and a 2 mm hyperplastic polyp. Colonoscopy showed a few localized medium sized AVMs in the cecum. The average 2 mm in size. There was no active bleeding identified. In the meantime, in February 2020 his PSA had come back mildly at 7.7 ng/mL. Ultrasound guided biopsy of the prostate on 08/28/2020 showed prostatic adenocarcinoma with Latonya score 7 (3+4) involving 2 cores submitted from the right mid gland. He had radiation oncology consultation with on 10/17/2020, and he opted to proceed with definitive radiation. His treatment was initially delayed for treatment of symptoms of bladder outlet obstruction, which did improve with double dose tamsulosin. His other medical illnesses include oxygen dependent COPD, coronary artery disease, type II diabetes, and chronic kidney disease. He has had evidence of cerebrovascular disease by MRI. He underwent aortic aneurysm repair and aortic valve repair in 2011. He has a history of smoking 2 packs of cigarettes daily for 45 years. He quit smoking in 2011. INTERIM HISTORY: He began radiation to the prostate on 12/11/2020. He completed treatment on 01/08/2021 to a total dose of 6000 cGy administered in 20 fractions. He tolerated the treatment well. During this time he had continued to require infusions of Injectafer on a fairly regular basis, almost on a monthly schedule. He was given 2 infusions of Injectafer again in January 2021 with his hemoglobin back down to 10.6 g and his transferrin saturation low at 8.2%. He did show some response, but he was given one additional infusion of Injectafer in February. As of 05/16/2021 his hemoglobin had dropped back down to 10.2 g, and he was then given 2 more infusions of Injectafer. He is seen for a followup visit. He complains that he feels slow and weak. He has been having falling spells, mainly because his legs just give out on him. He has very limited activity. His ECOG score is 3. His appetite has been good. He has not had fever. He sometimes has sweating at night. He has sinus drainage and cough. He is short of breath, even on continuous oxygen. He says he was having chest pain last night. He has nausea and he has a little bit of acid reflux. Bowel and bladder function have been okay. He has back pain and generalized joint pain. He also complains that his fingers have been cramping. He has headaches and he has dizziness. He complains that he has numbness in his feet. Medications: Aggrenox 1 (25-200 mg) Capsule SR 12 HR Oral b.i.d., Albuterol Sulfate 1 puff(s) (of 108 (90 base) mcg/act) Aerosol Powder, Breath Activated Inhalation four times a day, Alogliptin Benzoate 1 Tablet (of 12.5 mg) Oral daily, Calcitriol 1 (0.25 mcg) Capsule Oral daily, Citalopram Hydrobromide 1 Tablet (of 20 mg) Oral daily, Colace 1 Capsule (of 100 mg) Oral daily, Depakote ER 2 Tablet (of 500 mg) Tablet SR 24 HR Oral daily, Furosemide 1 Tablet (of 40 mg) Oral daily, Gabapentin 1 (100 mg) Tablet Oral t.i.d., Levothroid 1 Tablet (of 75 mcg) Oral daily, Meclizine HCl (25 mg) Tablet Oral Take as Directed, Memantine HCl 1 Tablet (of 10 mg) Oral b.i.d., Metoprolol Tartrate 1 (25 mg) Tablet Oral b.i.d., Nitroglycerin Solution Translingual PRN, Protonix 1 Tablet (of 40 mg) Tablet, enteric coated Oral b.i.d., Spiriva Respimat 1 puff(s) (of 2.5 mcg/act) Aerosol, solution Inhalation daily, Symbicort 2 (160-4.5 mcg/act) Aerosol Inhalation b.i.d., Tamsulosin HCl 1 Tablet (of 0.4 mg) Capsule Oral daily, Venlafaxine HCl (75 mg) Tablet Oral Take as Directed, Vitamin D3 (50 mcg) Tablet Take as Directed Allergies: Clopidogrel Bisulfate, Ezetimibe, fish oil, Gemfibrozil, Hydroxychloroquine Sulfate, mushrooms , Niacin, Simvastatin, Sulfamethoxazole-TMP DS, and Zetia. Vital Signs: Performed on Jun 16, 2021 15:18 Height - 70.00 in Weight - 260.0 lbs BSA - 2.33 sq.m BMI - 37.31 (HIGH) Temperature - 96.4 F (LOW) Pulse - 62 /min Respiration - 18 /min BP - 121/65 mm(hg) O2 Sat - 98 % Pain - 10 Fatigue - 5 Physical Examination: Constitutional - He appears generally weak, Eyes - Sclerae nonicteric. Conjunctivae clear, ENMT - No lesions noted in the oral cavity, Hematologic/Lymphatic - No cervical, clavicular, or axillary adenopathy, Respiratory - Lungs sound clear with diminished air movement bilaterally, Cardiovascular - Heart rhythm is regular. There is a II/ systolic murmur. There is no gallop or rub noted, Abdomen - Mildy distended. Liver and spleen are not enlarged. There is no abdominal mass or ascites noted and there is no inguinal adenopathy, Extremities - Slight edema, Neurologic - No focal neurologic deficits noted. Lab/Imaging: CBC shows hemoglobin 10.2 g, white blood cell count 4500, and platelet count 163,000. The serum iron studies show transferrin saturation low at 7.6% with ferritin in the low normal range at 87 ng/mL. Problem List: 1. Patient with recurrent episodes of iron deficiency anemia. 2. Adenocarcinoma of the prostate, Latonya score 7 (4+3), by clinical evaluation stage IIB. 3. Oxygen dependent COPD. 4. Coronary artery disease and valvular heart disease. 5. Type II diabetes. 6. Dyslipidemia. 7. Chronic kidney disease. 8. He has MRI evidence of cerebrovascular disease. Problems Addressed with this Encounter and Plan: 1. Patient with recurrent episodes of iron deficiency anemia. He has had documented GI blood loss, possibly due to AVMs. He has required IV Injectafer on multiple occasions. He was given 2 additional infusions of Injectafer in January with his hemoglobin back down to 10.6 g and transferrin saturation low at 8.2%. He did show some response, but he was given one additional infusion of Injectafer in February, has he remained mildly anemic and his transferrin saturation was still low at 9.6%. He did show good response with his hemoglobin increasing to 12.5 g. However, as of 05/16/2021 his hemoglobin was back down to 10.2 g with transferrin saturation low at 7.2%. He was given 2 more infusions of Injectafer. Despite that, his laboratory parameters have remained stable with hemoglobin 10.2 g and transferrin saturation 7.6%. As such, he will again be given 2 infusions of Injectafer, administered 1 week apart. Blood counts and iron studies will be monitored monthly. I will see him again in 3 months, or sooner as needed. 2. In August 2020 he was confirmed to have adenocarcinoma of the prostate, Latonya score 7 (4+3), by clinical evaluation stage IIB. He underwent definitive radiation, completed on 01/08/2021 to a total dose of 6000 cGy administered in 20 fractions. Signed By: Grabiel Larkin M.D. <<Signature on File>>
== END 2021-06-17 23:59 | disposition home or self-care (01) ==
LOC: ONCMED 06:23
PROVIDERS: PCP Family Medicine; Visit Provider Internal Medicine Medical Oncology
DX: D50.0 Iron deficiency anemia secondary to blood loss (chronic) (principal); C61 Malignant neoplasm of prostate; J44.9 Chronic obstructive pulmonary disease, unspecified; I25.10 Atherosclerotic heart disease of native coronary artery without angina pectoris; E78.5 Hyperlipidemia, unspecified; E11.22 Type 2 diabetes mellitus with diabetic chronic kidney disease; N18.9 Chronic kidney disease, unspecified; I67.9 Cerebrovascular disease, unspecified; Z79.899 Other long term (current) drug therapy; Z92.3 Personal history of irradiation
CPT/HCPCS: 36415; 82728; 83540; 83550; 85025; 96365; 99215; J1439

== ENCOUNTER 2021-06-18 12:56 | Outpatient (CLI) | payer OTHER, SELFPAY ==
--- NOTE | 2021-06-18 13:00 | CT_ITS ---
WS: [id number] CT HEAD TECHNIQUE: Noncontrast CT of the head obtained from the skullbase to the vertex. CLINICAL INFORMATION: I71.9 - Aortic aneurysm of unspecified site, without rupture vertigo disturbanc e dementia COMPARISON: MRI February 16, 2020 CT 9 30,012 DLP: 1262.[address] scans at [facility] [place] use at least one of these dose optimization techniques: automated e xposure control; mA and/or kV adjustment per patient size (includes targeted exams where dose is matc hed to clinical indication); or iterative reconstruction. FINDINGS: No evidence of intracranial hemorrhage or mass effect. Ventricular system and basal cisterns are bailon nt. Moderate small vessel changes with moderate parenchymal volume loss. 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 No extra-axial fluid collections. No evidence of mass or mass effect. Normal morrell-white differentiation. Mild mucosal thickening ethmoid air cells. Partial opacification left mastoid tip. CT/CT head wo con* [id number] IMPRESSION: 1. No evidence of intracranial hemorrhage or mass effect. 2. Moderate small vessel changes with moderate parenchymal volume loss. Volume loss worse in the frontal lobes. 3. No acute intracranial findings and no significant changes since the MRI 202 0.
== END 2021-06-18 12:57 | disposition home or self-care (01) ==
PROVIDERS: PCP Family Medicine; Visit Provider Specialist
DX: I71.9 Aortic aneurysm of unspecified site, without rupture (principal); G31.83 Neurocognitive disorder with Lewy bodies; F02.80 Dementia in other diseases classified elsewhere, unspecified severity, without behavioral disturbance, psychotic disturbance, mood disturbance, and anxiety; I71.2 Thoracic aortic aneurysm, without rupture
CPT/HCPCS: 70450

== ENCOUNTER 2021-06-23 06:46 | Outpatient (RCR) | payer OTHER, SELFPAY ==
[2021-06-23] MEDS: sodium chloride 0.9% (100 ml) 100 ML 400 ML (10:30)
[2021-06-23] MEDS: ferric carboxy (IVPB) 750 MG in sodium chloride 0.9% (100 ml) 100 ML 460 MG IV (10:55)
== END 2021-06-30 23:59 | disposition home or self-care (01) ==
LOC: ONCMED 06:46
PROVIDERS: PCP Family Medicine; Visit Provider Internal Medicine Medical Oncology
DX: C61 Malignant neoplasm of prostate (principal); D50.9 Iron deficiency anemia, unspecified; Z79.899 Other long term (current) drug therapy
CPT/HCPCS: 96365; J1439

== ENCOUNTER 2021-07-28 13:16 | Outpatient (RCR) | payer OTHER, SELFPAY ==
[2021-07-28 14:13] LABS: Ferritin 24 ng/mL (30-400); Iron 23 ug/dL (59-158); Percent Saturation 6.5 % (20-50); Total Iron Binding Capacity 350 mcg/dl; Unsaturated Iron Binding 327 ug/dL (112-347)
== END 2021-07-28 23:59 | disposition home or self-care (01) ==
LOC: ONCMED 13:16
PROVIDERS: PCP Family Medicine; Visit Provider Nurse Practitioner Family
DX: C61 Malignant neoplasm of prostate (principal); D50.9 Iron deficiency anemia, unspecified; Z79.899 Other long term (current) drug therapy
CPT/HCPCS: 36415; 82728; 83540; 83550

== ENCOUNTER → 2021-08-05 12:25 | Outpatient (BNVA) | payer OTHER, SELFPAY | PROVIDERS: PCP Family Medicine; Visit Provider Internal Medicine | DX: I25.10 Atherosclerotic heart disease of native coronary artery without angina pectoris (principal); I65.23 Occlusion and stenosis of bilateral carotid arteries; I71.2 Thoracic aortic aneurysm, without rupture | CPT/HCPCS: 99214 ==

== ENCOUNTER → 2021-08-06 12:26 | Outpatient (BNVA) | payer OTHER, SELFPAY | PROVIDERS: PCP Family Medicine; Visit Provider Specialist | DX: G43.909 Migraine, unspecified, not intractable, without status migrainosus (principal); G31.83 Neurocognitive disorder with Lewy bodies; F02.81 Dementia in other diseases classified elsewhere, unspecified severity, with behavioral disturbance; G40.309 Generalized idiopathic epilepsy and epileptic syndromes, not intractable, without status epilepticus; K92.2 Gastrointestinal hemorrhage, unspecified; J44.9 Chronic obstructive pulmonary disease, unspecified; I65.29 Occlusion and stenosis of unspecified carotid artery; Z99.81 Dependence on supplemental oxygen; Z95.1 Presence of aortocoronary bypass graft; Z87.891 Personal history of nicotine dependence | CPT/HCPCS: 99214 ==

== ENCOUNTER 2021-08-22 06:51 | Outpatient (RCR) | payer OTHER, SELFPAY ==
[2021-08-04 13:52] LABS: Basophils % 0.2 %; Eosinophils # 0.1 10^3/uL (0.0-0.8); Eosinophils % 2.3 %; Hematocrit 30.9 % (42.0-52.0); Hemoglobin 8.7 g/dL (11.7-16.6); Lymphocytes # 0.8 10^3/uL (0.8-4.8); Mean Corpuscular HGB Conc 28.2 g/dL (30.0-36.0); Mean Corpuscular Hemoglobin 25.4 pg (28.0-34.0); Mean Corpuscular Volume 90.1 fl (80-94); Mean Platelet Volume 12.5 fL (7.4-10.4); Monocytes # 0.6 10^3/uL (0.2-0.9); Monocytes % 10.8 %; Neutrophils # 3.64 10^3/uL (1.8-7.7); Neutrophils % 69.2 %; Nucleated Red Blood Cells % 0 %; Platelet Count 177 10^3/cmm (130-400); Red Blood Count 3.43 10^6/uL (4.1-5.3); White Blood Count 5.3 10^3/uL (4.0-10.0)
[2021-08-12] MEDS: ferric carboxy (IVPB) 750 MG in sodium chloride 0.9% (100 ml) 100 ML 460 MG IV (10:35)
[2021-08-19] MEDS: ferric carboxy (IVPB) 750 MG in sodium chloride 0.9% (100 ml) 100 ML 460 MG IV (13:05)
[2021-08-19] MEDS: sodium chloride 0.9% (100 ml) 100 ML 75 ML (15:01)
[2021-08-22] MEDS: ferric carboxy (IVPB) 750 MG in sodium chloride 0.9% (100 ml) 100 ML 460 MG IV (11:40)
[2021-08-22] MEDS: sodium chloride 0.9% (100 ml) 100 ML 75 ML (11:44)
== END 2021-08-28 23:59 | disposition home or self-care (01) ==
LOC: ONCMED 06:51
PROVIDERS: PCP Family Medicine; Visit Provider Internal Medicine Medical Oncology
DX: C61 Malignant neoplasm of prostate (principal); D50.9 Iron deficiency anemia, unspecified; Z79.899 Other long term (current) drug therapy
CPT/HCPCS: 36415; 85025; 96365; J1439

== ENCOUNTER 2021-08-30 09:59 | Emergency (ER) | payer OTHER, MEDICARE, SELFPAY ==
[2021-08-30 10:11] VITALS: BP 144/78; PULSE 60; RESP 18; TEMP 36.6; O2SAT 98; BMI 36.2
[2021-08-30 10:26] VITALS: BP 144/78; O2SAT 100
--- NOTE | 2021-08-30 10:38 | ED_ITS ---
HPI - Recheck/Abnormal Lab/Rx General: Chief Complaint: Recheck/Abnormal Lab/Rx Stated Complaint: abnormal labs Time Seen by Provider: 08/30/21 10:24 Source: patient Mode of arrival: ambulatory Limitations: no limitations History of Present Illness: 71-year-old male referred to the emergency room for recheck of labs he was told he [facility] and that were done yesterday and he was sent here he says been feeling well he has chronic kidney problems but has normal urine output lately. No swelling no chest pain no abdominal pain no dysuria urgency frequency MD complaint: abnormal lab Initial visit (ago): day(s) (1) Symptoms since prior visit: no new symptoms Associated symptoms: none Review of Systems Const: Denies: fever(s), chills, body aches, change in appetite, fatigue or m alaise ENMT: Denies: throat pain, ear or mastoid pain, nasal discharge or nasal congestion Card: Denies: chest pain, edema, dyspnea on exertion or orthopnea Resp: Denies: dyspnea, productive cough or non-productive cough GI: Denies: abdominal pain, nausea, vomiting, hematemesis, coffee ground emesis, diarrhea, constipation, bloating, hematochezia or melena : Denies: flank pain, dysuria, urinary frequency or urinary urgency Skin/Breast: Denies: rash or pruritus PFSH ED PFSH: Medical History Alzheimer disease Ascending aortic aneurysm Blood in stool BPH loc w urin obs/LUTS Carotid stenosis, bilateral COPD (chronic obstructive pulmonary disease) Descending aortic aneurysm Diverticulosis Dyslipidemia Family history of colon cancer History of colon polyps Ischemic heart disease CANDY (obstructive sleep apnea) Prostate cancer Pulmonary nodules Surgical History History of colonoscopy S/P CABG (coronary artery bypass graft) S/P rotator cuff repair Family History Father , AGE 72 CAD (coronary artery disease) Diabetes Mother , AGE 65 CAD (coronary artery disease) Diabetes Other Cancer Hypertension Social History Smoking and tobacco status: former smoker Alcohol intake: never Marital status: Current occupational status: retired History of recent travel: No Physical Exam Const: COMMON NORMALS: no acute distress GENERAL APPEARANCE: cooperative and comfortable ORIENTATION/CONSCIOUSNESS: Yes awake, Yes oriented to person, Yes oriented to place and Yes oriented to time HENMT: COMMON NORMALS: normocephalic, atraumatic and hearing grossly normal bilaterally HEAD & SCALP: normocephalic and atraumatic Neck/C-Spine: COMMON NORMALS: no JVD Resp: COMMON NORMALS: normal respiratory effort, No retractions, No use of accessory muscles and clear to auscultation bilaterally AUSCULTATION: clear to auscultation bilaterally Cardio: COMMON NORMALS: no JVD, regular rate, regular rhythm and No murmurs present (Cardio) RATE: regular rate RHYTHM: regular rhythm GI: COMMON NORMALS: Soft to palpation and No hepatosplenomegaly present AUSCULTATION: Yes normoactive bowel sounds PALPATION: Yes Soft to palpation, No Tenderness to palpation present (GI), No Guarding due to palpation present (GI) and Yes No hepatosplenomegaly present Extremity: COMMON NORMALS: normal to inspection, capillary refill normal, no clubbing, cyanosis or edema, no calf tenderness and no pedal edema Neuro: SENSORIUM/ORIENTATION: Yes oriented to person, Yes oriented to place and Yes oriented to time Skin: COMMON NORMALS: no rashes or lesions noted GENERAL SKIN EXAM: no rashes or lesions noted Course Vital Signs: Vital signs: Vital Signs Temperature 97.9 F 08/30/21 10:11 Pulse Rate 85 08/30/21 12:47 Respiratory Rate 16 08/30/21 12:47 Blood Pressure 136/69 08/30/21 12:47 Pulse Oximetry 96 08/30/21 12:47 MDM - Recheck/Abnormal Lab/Rx Medical Decision Making We were able to get [facility]. His phosphorus is low but otherwise everything else was normal give him some phosphorus supplementation fo llow-up with his primary care doctor next week to recheck. He has some moderate anemia but not at the point that he would require hospitalization or transfusion. Medical Records I reviewed the patient's medical records. Lab Data I reviewed the patient's lab results. : 08/30/21 10:24 08/30/21 10:24 Laboratory Results WBC 4.7 10^3/uL (4.0-10.0) 08/30/21 10:24 RBC 3.54 10^6/uL (4.1-5.3) L 08/30/21 10:24 Hgb 10.8 g/dL (11.7-16.6) L 08/30/21 10:24 Hct 37.5 % (42.0-52.0) L 08/30/21 10:24 MCV 105.9 fl (80-94) H 08/30/21 10:24 MCH 30.5 pg (28.0-34.0) 08/30/21 10:24 MCHC 28.8 g/dL (30.0-36.0) L 08/30/21 10:24 RDW TNP 08/30/21 10:24 Plt Count 155 10^3/cmm (130-400) 08/30/21 10:24 MPV 11.6 fL (7.4-10.4) H 08/30/21 10:24 Lymph % (Auto) Not Reportable 08/30/21 10:24 [place] % (Auto) Not Reportable 08/30/21 10:24 Lymph # (Auto) Not Reportable 08/30/21 10:24 [place] # (Auto) Not Reportable 08/30/21 10:24 Total Counted 100 (0-100) 08/30/21 10:24 Atypical Lymphs % 0.0 % (0-5) 08/30/21 10:24 Absolute Neutrophils 3.6 10^3/cmm (1.4-6.5) 08/30/21 10:24 Segmented Neutrophils 71 % 08/30/21 10:24 Abs Segm Neuts (Man) 3.3 10/cmm (1.6-7.1) 08/30/21 10:24 Band Neutrophils 5.0 % 08/30/21 10:24 Abs Band Neuts (Man) 0.2 10^3/cmm (0.0-1.2) 08/30/21 10:24 Absolute Lymphocytes 0.5 10^3/cmm (1.2-3.4) L 08/30/21 10:24 Lymphocytes (Manual) 10 % 08/30/21 10:24 Monocytes (Manual) 11.0 % 08/30/21 10:24 Absolute Monocytes 0.5 10^3/cmm (0.1-0.6) 08/30/21 10:24 Eosinophils (Manual) 2 % 08/30/21 10:24 Absolute Eosinophils 0.0 10^3/cmm (0.0-0.7) 08/30/21 10:24 Basophils (Manual) 0.0 % 08/30/21 10:24 Absolute Basophils 0.0 10^3/cmm (0.0-0.2) 08/30/21 10:24 Metamyelocytes 1.0 % 08/30/21 10:24 Nucleated RBCs 1.0 /100WBC (0-1) 08/30/21 10:24 Platelet Estimate Normal (Normal) 08/30/21 10:24 Polychromasia 1+ H 08/30/21 10:24 Poikilocytosis 1+ H 08/30/21 10:24 Anisocytosis 2+ H 08/30/21 10:24 Microcytosis Trace 08/30/21 10:24 Macrocytosis 2+ H 08/30/21 10:24 Sodium 135 mmol/L (136-145) L 08/30/21 10:24 Potassium 4.8 mmol/L (3.5-5.1) 08/30/21 10:24 Chloride 99 mmol/L (98-107) 08/30/21 10:24 Carbon Dioxide 27 mmol/L (22-29) 08/30/21 10:24 Anion Gap 13.8 (5-19) 08/30/21 10:24 BUN 13 mg/dL (8-23) 08/30/21 10:24 Creatinine 1.1 mg/dL (0.7-1.2) 08/30/21 10:24 GFR Calculation 66.2 mL/min (90-130) L 08/30/21 10:24 Glucose 159 mg/dL (65-115) H 08/30/21 10:24 Calculated Osmolality 283 mOsm/kg (285-295) L 08/30/21 10:24 Calcium 9.2 mg/dL (8.5-10.5) 08/30/21 10:24 Total Bilirubin 0.4 mg/dL (0.15-1.2) 08/30/21 10:24 AST 33 U/L (0-40) 08/30/21 10:24 ALT 25 U/L (0-41) 08/30/21 10:24 Alkaline Phosphatase 78 IU/L (40-130) 08/30/21 10:24 Total Protein 6.6 g/dL (6.6-8.7) 08/30/21 10:24 Albumin 4.6 g/dL (3.5-5.2) 08/30/21 10:24 Globulin 2.0 g/dL (1.3-4.6) 08/30/21 10:24 Urine Color Dark yellow (Yellow) 08/30/21 11:50 Urine Appearance Clear (CLEAR) 08/30/21 11:50 Urine pH 6 (5-7) 08/30/21 11:50 Ur Specific [place] 1.010 (1.005-1.030) 08/30/21 11:50 Urine Protein Neg (Negative) 08/30/21 11:50 Urine Glucose (UA) Norm (Normal) 08/30/21 11:50 Urine Ketones Negative (Negative) 08/30/21 11:50 Urine Blood Neg (Negative) 08/30/21 11:50 Urine Nitrate Negative (Negative) 08/30/21 11:50 Urine Bilirubin Neg (Negative) 08/30/21 11:50 Urine Urobilinogen Norm mg/dL (Negative) 08/30/21 11:50 Ur Leukocyte Esterase Negative (Negative) 08/30/21 11:50 Discharge Plan Discharge Patient Disposition: Home Clinical Impression: CKD (chronic kidney disease) Condition: Stable Prescriptions: New Phosphorous 250 mg tablet 1 tab PO BID Qty: 20 0RF No Action alogliptin [Nesina] 12.5 mg tablet 12.5 mg PO DAILY 0RF metoprolol tartrate 25 mg tablet 25 mg PO BID 0RF divalproex 500 mg tablet extended release 24 hr See Rx Instructions .ROUTE .COMPLEX Qty: 180 3RF Dose Instruction: TAKE TWO TABLETS BY MOUTH ONCE A DAY Rx Instructions: TAKE TWO TABLETS BY MOUTH ONCE A DAY memantine [Namenda] 10 mg tablet 10 mg PO BID Qty: 60 3RF venlafaxine 150 mg tablet extended release 24hr 150 mg PO DAILY Qty: 30 3RF pantoprazole 40 mg tablet,delayed release (DR/EC) 40 mg PO DAILY 0RF Spiriva with HandiHaler 18 mcg capsule, w/inhalation device 1 cap INHALATION DAILY 0RF Rx Instructions: puncture 1 cap using device; one dose = 2 inhalations albuterol sulfate 90 mcg/actuation HFA aerosol inhaler 2 puff INHALATION Q6H PRN (Reason: Allergy Symptoms) 0RF calcitriol 0.25 mcg capsule 0.25 mcg PO .COMPLEX 0RF Rx Instructions: 0.25 mcg PO Wed; levothyroxine 75 mcg tablet 75 mcg PO DAILY 0RF budesonide-formoterol [Symbicort] 160-4.5 mcg/actuation HFA aerosol inhaler 2 puff INHALATION BID 0RF gabapentin 100 mg capsule 100 mg PO TID 0RF nitroglycerin [Nitrostat] 0.4 mg tablet, sublingual 0.4 mg SUBLINGUAL Q5M PRN (Reason: Chest Pain) 0RF Rx Instructions: do not exceed 3 doses per episode furosemide 40 mg tablet 40 mg PO DAILY 0RF meclizine 25 mg tablet 25 mg PO TID 0RF tamsulosin 0.4 mg capsule 0.4 mg PO BID Qty: 180 3RF Discharge Orders: Discharge ED (Routine); Ordered 08/30/21 Ordered By: Kan Willis Referrals: Karine Kilgore MD [Primary Care Provider] - Discharge Diet: Usual diet Discharge Activity: Increase activity as tolerated Patient Instructions: Opioid Safety Activity Restrictions/Additional Instructions: Follow-up with your primary care doctor next week. Coding Level of Care Code ED Helpdesk Technician for Chiquis Gale
[2021-08-30 10:57] LABS: Hematocrit 37.5 % (42.0-52.0); Hemoglobin 10.8 g/dL (11.7-16.6); Mean Corpuscular HGB Conc 28.8 g/dL (30.0-36.0); Mean Corpuscular Hemoglobin 30.5 pg (28.0-34.0); Mean Corpuscular Volume 105.9 fl (80-94); Mean Platelet Volume 11.6 fL (7.4-10.4); Platelet Count 155 10^3/cmm (130-400); Red Blood Count 3.54 10^6/uL (4.1-5.3); White Blood Count 4.7 10^3/uL (4.0-10.0)
[2021-08-30 11:23] LABS: Alanine Aminotransferase 25 U/L (0-41); Albumin Level 4.6 g/dL (3.5-5.2); Alkaline Phosphatase 78 IU/L (40-130); Anion Gap 13.8 (5-19); Aspartate Amino Transferase 33 U/L (0-40); Blood Urea Nitrogen 13 mg/dL (8-23); Calcium 9.2 mg/dL (8.5-10.5); Carbon Dioxide 27 mmol/L (22-29); Chloride 99 mmol/L (98-107); Glomerular Filtration Rate 66.2 mL/min (90-130); Glucose 159 mg/dL (65-115); Osmolality Calculated 283 mOsm/kg (285-295); Potassium 4.8 mmol/L (3.5-5.1); Sodium 135 mmol/L (136-145); Total Bilirubin 0.4 mg/dL (0.15-1.2); Total Protein 6.6 g/dL (6.6-8.7)
[2021-08-30 11:55] LABS: Add Urine Microscopic? NO; Charge for UA Resulting for Rev
[2021-08-30 11:57] LABS: Slide Review Slide Review Perform
[2021-08-30 12:04] LABS: Absolute Segmented Neutrophil 3.3 10/cmm (1.6-7.1); Band Neutrophils Absolute 0.2 10^3/cmm (0.0-1.2); Eosinophils 2 %; Lymphocytes 10 %; Lymphocytes Absolute 0.5 10^3/cmm (1.2-3.4); Monocytes Absolute 0.5 10^3/cmm (0.1-0.6); Segmented Neutrophils 71 %; Total Cells Counted 100 (0-100)
[2021-08-30 12:05] LABS: Polychromasia 1+
[2021-08-30 12:06] LABS: Anisocytosis 2+; Macrocytosis 2+; Microcytosis Trace
[2021-08-30 12:07] LABS: Poikilocytosis 1+
[2021-08-30 12:08] LABS: Absolute Neutrophil 3.6 10^3/cmm (1.4-6.5); Platelet Estimate Normal (Normal)
[2021-08-30 12:19] LABS: Bilirubin Urine Neg (Negative); Blood Urine Neg (Negative); Glucose Urine UA Norm (Normal); Ketones Urine Negative (Negative); Leukocyte Esterase Urine Negative (Negative); Nitrate Urine Negative (Negative); Protein Urine Neg (Negative); Urine Appearance Clear (CLEAR); Urine Color Dark Yellow (Yellow); Urobilinogen Urine Norm (Negative); pH Urine 6 (5-7)
[2021-08-30 12:47] VITALS: BP 136/69; PULSE 85; RESP 16; O2SAT 96
== END 2021-08-30 12:38 | disposition home or self-care (01) ==
PROVIDERS: Emergency Provider Family Medicine; PCP Family Medicine
DX: N18.9 Chronic kidney disease, unspecified (principal); D63.1 Anemia in chronic kidney disease; E83.39 Other disorders of phosphorus metabolism; Z79.84 Long term (current) use of oral hypoglycemic drugs
CPT/HCPCS: 80053; 81003; 85007; 85025; 99283

== ENCOUNTER 2021-09-22 10:59 | Outpatient (RCR) | payer OTHER, MEDICARE, SELFPAY ==
[2021-09-22 11:34] LABS: Basophils % 0.4 %; Eosinophils # 0.1 10^3/uL (0.0-0.8); Eosinophils % 2.2 %; Hematocrit 35.7 % (42.0-52.0); Hemoglobin 10.2 g/dL (11.7-16.6); Lymphocytes # 0.7 10^3/uL (0.8-4.8); Lymphocytes % 13.6 %; Mean Corpuscular HGB Conc 28.6 g/dL (30.0-36.0); Mean Corpuscular Hemoglobin 28.3 pg (28.0-34.0); Mean Corpuscular Volume 98.9 fl (80-94); Mean Platelet Volume 11.4 fL (7.4-10.4); Monocytes # 0.7 10^3/uL (0.2-0.9); Monocytes % 11.9 %; Neutrophils # 3.85 10^3/uL (1.8-7.7); Neutrophils % 70.8 %; Nucleated Red Blood Cells % 0 %; Platelet Count 170 10^3/cmm (130-400); Red Blood Count 3.61 10^6/uL (4.1-5.3); Red Cell Distribution Width 19.6 % (12.1-15.1); White Blood Count 5.4 10^3/uL (4.0-10.0)
[2021-09-22 11:58] LABS: Ferritin 65 ng/mL (30-400); Iron 41 ug/dL (59-158); Percent Saturation 11.7 % (20-50); Total Iron Binding Capacity 350 mcg/dl; Unsaturated Iron Binding 309 ug/dL (112-347)
--- NOTE | 2021-09-24 12:56 | ONC FU_ITS ---
Janae Bernal Progress Note Patient: Bebo Goetz Unit #: [id number]: 1950 Dicatated By: Janae Bernal N.P.Date of Visit:Sep 22, 2021 Onc MED Follow-up/Prog Note Chief Complaint: Anemia. History of Present Illness: This is 71 year-old man with iron deficiency anemia. He was found to have a microcytic anemia on 09/29/2011, but no additional clinical data were available. He had normal hemoglobin with normal MCV on 10/15/2014 laboratory analysis. In December 2014 he was admitted with an acute febrile illness. He had a worsening renal insufficiency and hepatic enzyme elevation. During that hospitalization his hemoglobin measured 7.7 g/dL, MCV 67.8. Iron saturation was 4%, consistent with iron deficiency. The patient received 2 units of packed red blood cell transfusion and began oral iron replacement. He underwent endoscopy and colonoscopy on 02/19/2015. Pathology showed gastric hyperplastic polyp and gastritis thought to be from the iron supplement. Several colonic and rectal hyperplastic polyps were discovered without dysplasia. Review of prior laboratory analysis showed negative acute hepatitis B and C serology in April 2014. PSA was 3.54 in August 2014. He was first seen by Dr. Torres on 04/29/2015. Hemoglobin had recovered to 11.4 g with MCV 79. He continued to have iron deficiency with ferritin 8.9 ng/mL. Hemoccult stool negative x 1. Total testosterone was low at 119. By July 2015 the hemoglobin was stable at 11.2 g, but transferrin saturation was low at 7.2%. He was given parenteral iron replacement with Injectafer in July 2015. Despite the IV iron replacement, his iron studies in August were consistent with recurrent iron deficiency, suggestive of ongoing blood loss. His CT of the chest, abdomen, and pelvis on 09/20/15 showed mild borderline hepatomegaly but also mucosal thickening of the colon. He received additional IV Injectafer in August and again in October 2015. During follow-up he had required additional infusions of Injectafer on multiple occasions. He underwent GI evaluation with EGD and colonoscopy in August 2020 after he had been confirmed to have a positive stool FIT. The EGD showed evidence of moderate diffuse gastritis and a 2 mm hyperplastic polyp. Colonoscopy showed a few localized medium sized AVMs in the cecum. The average 2 mm in size. There was no active bleeding identified. In the meantime, in February 2020 his PSA had come back mildly at 7.7 ng/mL. Ultrasound guided biopsy of the prostate on 08/28/2020 showed prostatic adenocarcinoma with Poteet score 7 (3+4) involving 2 cores submitted from the right mid gland. He had radiation oncology consultation with on 10/17/2020, and he opted to proceed with definitive radiation. His treatment was initially delayed for treatment of symptoms of bladder outlet obstruction, which did improve with double dose tamsulosin. His other medical illnesses include oxygen dependent COPD, coronary artery disease, type II diabetes, and chronic kidney disease. He has had evidence of cerebrovascular disease by MRI. He underwent aortic aneurysm repair and aortic valve repair in 2011. He has a history of smoking 2 packs of cigarettes daily for 45 years. He quit smoking in 2011. INTERIM HISTORY: He began radiation to the prostate on 12/11/2020. He completed treatment on 01/08/2021 to a total dose of 6000 cGy administered in 20 fractions. He tolerated the treatment well. During this time he had continued to require infusions of Injectafer on a fairly regular basis, almost on a monthly schedule. He was given 2 infusions of Injectafer again in January 2021 with his hemoglobin back down to 10.6 g and his transferrin saturation low at 8.2%. He did show some response, but he was given one additional infusion of Injectafer in February. As of 05/16/2021 his hemoglobin had dropped back down to 10.2 g, and he was then given 2 more infusions of Injectafer. Patient is seen today for follow-up. He states he has had increasing fatigue. He uses a walker for ambulation. His ECOG is 3. He denies fever, chills, night sweats. No sinus drainage or mouth sores. He has shortness of breath with any activity. No. No chest pain. No GI or problems. He has low back pain. He has been having headaches especially across his forehead. He has had blurred vision and also some confusion his states that his confusion has gotten much worse lately. She said there are times when he does not know her. He was taken to the ER on 08/30/2021 and was diagnosed with chronic kidney disease and started on phosphorus. On 09 02 he was taken to [facility] for hypophosphatemia and increased confusion. He has been followed by Dr. Elliott for his confusion. But there have been no scans done since May 2021. Review Of Symptoms: See above. Past Medical History: Anemia Chronic obstructive pulmonary disease (home oxygen use) Chronic renal insufficiency Colon polyps Coronary artery disease Diabetes type II Heart attack Hyperlipidemia Stroke Past Surgical History: Aortic aneurysm repair in 2011 Arotic valve repair in 2011 Left rotator cuff repair in 2006 Allergies: Clopidogrel Bisulfate, Ezetimibe, fish oil, Gemfibrozil, Hydroxychloroquine Sulfate, mushrooms , Niacin, Simvastatin, Sulfamethoxazole-TMP DS, and Zetia. Medications: Aggrenox 1 (25-200 mg) Capsule SR 12 HR Oral b.i.d. Albuterol Sulfate 1 puff(s) (of 108 (90 base) mcg/act) Aerosol Powder, Breath Activated Inhalation four times a day Alogliptin Benzoate 1 Tablet (of 12.5 mg) Oral daily Calcitriol 1 (0.25 mcg) Capsule Oral daily Citalopram Hydrobromide 1 Tablet (of 20 mg) Oral daily Colace 1 Capsule (of 100 mg) Oral daily Depakote ER 2 Tablet (of 500 mg) Tablet SR 24 HR Oral daily Furosemide 1 Tablet (of 40 mg) Oral daily Gabapentin 1 (100 mg) Tablet Oral t.i.d. Levothroid 1 Tablet (of 75 mcg) Oral daily Meclizine HCl (25 mg) Tablet Oral Take as Directed Memantine HCl 1 Tablet (of 10 mg) Oral b.i.d. Metoprolol Tartrate 1 (25 mg) Tablet Oral b.i.d. Nitroglycerin Solution Translingual PRN Potassium & Sodium Phosphates Pack Oral Take as Directed Protonix 1 Tablet (of 40 mg) Tablet, enteric coated Oral b.i.d. Spiriva Respimat 1 puff(s) (of 2.5 mcg/act) Aerosol, solution Inhalation daily Symbicort 2 (160-4.5 mcg/act) Aerosol Inhalation b.i.d. Tamsulosin HCl 1 Tablet (of 0.4 mg) Capsule Oral daily Venlafaxine HCl 1 Tablet (of 75 mg) Oral daily Vitamin D3 (50 mcg) Tablet Take as Directed Family History: Mr. Goetz's mother at age 65: GA. Mr. Goetz's father at age 72: Lung Cancer, and heart attack. Mr. Goetz has 1 paternal uncle who is : lung cancer. Social History: Mr. Goetz is and he is a disabled. Mr. Goetz quit smoking 9 years ago but had smoked 2.0 packs/day for 41 years. He has no history of drinking. Mr. Goetz reports the following support systems: lives with spouse, significant other, family, or friends, lives in own house, supportive family/friends willing to assist with needs, and adequate transportation available for expected visits. His diet consists of regular meals. He indicates his activity level as: daily activities. Physical Examination: Performed on Sep 22, 2021 12:47: Height - 70.00 in, Weight - 259.6 lbs (LOW), BSA - 2.33 sq.m, BMI - 37.25 (HIGH), Temperature - 97.5 F (LOW), Pulse - 89 /min, Respiration - 18 /min, BP - 104/64 mm(hg), O2 Sat - 96 %, Pain - 4, and Fatigue - 4. Performance Status: 3 - Capable of only limited self-care, confined to bed or chair more than 50% of waking hours. (ECOG) Constitutional Alert, cooperative, oriented. Mood and affect appropriate. Appears close to chronological age. Well nourished. Well developed. Head Normocephalic; no scars. Eyes Conjunctivae and sclerae are clear and without icterus. Pupils are reactive and equal. Respiratory Lungs are clear to auscultation without rhonchi or wheezing. Cardiovascular Regular rate and rhythm of heart without murmurs, gallops or rubs. Abdomen Non-tender, non-distended, no masses, ascites or hepatosplenomegaly. Good bowel sounds. No guarding or rebound tenderness. Musculoskeletal No tenderness or swelling, normal range of motion without obvious weakness. Psychiatric Disoriented at times. Coherent speech. Verbalizes understanding of our discussions today. Laboratory: Test performed on Sep 22, 2021 11:14 Ferritin 65 ng/mL Iron 41 mcg/dL Iron Binding Capacity (TIBC) 350 mcg/dl % Iron Saturation 11.7 % UIBC 309 mcg/dL WBC 5.4 10 3/uL RBC 3.61 10 6/uL HGB 10.2 g/dL HCT 35.7 % MCV 98.9 fl MCH 28.3 pg MCHC 28.6 g/dL RDW 19.6 % Platelet Count 170 10 3/cmm MPV 11.4 fL Neutrophils 3.85 10 3/uL Lymphocytes 0.7 10 3/uL Monocytes 0.7 10 3/uL Eosinophils 0.1 10 3/uL Basophils 0.0 10 3/uL Neutrophil % 70.8 % Lymphocyte % 13.6 % Monocyte % 11.9 % Eosinophil % 2.2 % Basophils % 0.4 % NRBC % 0 % Impression: 1. Patient with recurrent episodes of iron deficiency anemia. 2. Adenocarcinoma of the prostate, Latonya score 7 (4+3), by clinical evaluation stage IIB. 3. Oxygen dependent COPD. 4. Coronary artery disease and valvular heart disease. 5. Type II diabetes. 6. Dyslipidemia. 7. Chronic kidney disease. 8. He has MRI evidence of cerebrovascular disease. Plan: 1. Patient with recurrent episodes of iron deficiency anemia. He has had documented GI blood loss, possibly due to AVMs. He has required IV Injectafer on multiple occasions. He was given 2 additional infusions of Injectafer in January with his hemoglobin back down to 10.6 g and transferrin saturation low at 8.2%. He did show some response, but he was given one additional infusion of Injectafer in February, has he remained mildly anemic and his transferrin saturation was still low at 9.6%. He did show good response with his hemoglobin increasing to 12.5 g. However, as of 05/16/2021 his hemoglobin was back down to 10.2 g with transferrin saturation low at 7.2%. He was given 2 more infusions of Injectafer. Despite that, his laboratory parameters have remained stable with hemoglobin 10.2 g and transferrin saturation 7.6%. As such, he was given 2 infusions of Injectafer, administered 1 week apart. His most recent Injectafer was given August 12, 2021 and August 22, 2021. Today his hemoglobin is 10.2 and his iron is low at 41 and his iron saturation is low at 11.7%. Patient states he started taking iron supplements as [facility]. We will continue monitoring CBC and iron studies. He will return to clinic in 1 month. 2. In August 2020 he was confirmed to have adenocarcinoma of the prostate, Poteet score 7 (4+3), by clinical evaluation stage IIB. He underwent definitive radiation, completed on 01/08/2021 to a total dose of 6000 cGy administered in 20 fractions. 3. He has recently been diagnosed with chronic kidney disease and hypophosphatemia. He is being followed by nephrology. 4. Patient continues to have headaches, blurred vision, and confusion. We will obtain an MRI of head to further evaluate. Signed By: Janae Bernal N.P. <<Signature on File>>
== END 2021-09-27 23:59 | disposition home or self-care (01) ==
LOC: ONCMED 10:59
PROVIDERS: PCP Family Medicine; Visit Provider Nurse Practitioner Family
DX: D50.0 Iron deficiency anemia secondary to blood loss (chronic) (principal); C61 Malignant neoplasm of prostate; Z92.3 Personal history of irradiation; N18.9 Chronic kidney disease, unspecified; E83.39 Other disorders of phosphorus metabolism; R51.9 Headache, unspecified; H53.8 Other visual disturbances; R41.0 Disorientation, unspecified; Z79.899 Other long term (current) drug therapy
CPT/HCPCS: 36415; 82728; 83540; 83550; 85025; 99214

== ENCOUNTER 2021-10-08 10:13 | Oncology outpatient (recurring) (ONCR) | payer OTHER, SELFPAY ==
--- NOTE | 2021-10-08 10:20 | MR_ITS ---
WS: [id number] MRI HEAD WITH CONTRAST TECHNIQUE: Sagittal T1, T2 axial, T2 axial FLAIR, axial susceptibility weighted imaging, axial diffus ion weighted images, and coronal T2 images were obtained. Pre and post-T1 axial and post T1 coronal i mages. ADC and FSPGR images. CLINICAL INFORMATION: HEADACHE, BLURRED VISION AND CONFUSION COMPARISON: CT June 18, 2021, MRI February 16, 2020 FINDINGS: No evidence of restricted diffusion to suggest acute ischemia. Ventricular system and basal cisterns are patent. Minimal small vessel changes. Moderate parenchymal volume loss. Chronic wedge-shaped infa rct in the RIGHT cerebellum. Chronic lacunar infarcts in the RIGHT greater than LEFT cerebellum. LEFT mastoid effusion. Normal vascular flow voids at the skull base. No extra-axial fluid collections. No evidence of mass or mass effect. Paranasal sinuses are well aerated with minimal mucosal thickening. RIGHT mastoid air cells well aerated. Normal visualized orbits. Tiny punctate focus of hemosiderin in the RIGHT cerebellum. Additional tiny punctate focus of hemosiderin in the RIGHT parietal lobe. Normal optic chiasm and pituitary infundib ulum. Normal cavernous sinuses and Meckel's cave. Normal hippocampal formations. No abnormal intracranial enhancement. No evidence of enhancing intracranial metastatic disease. Madelyn l posterior nasopharynx. Normal dural venous sinuses. MR/MR head wo/w con [id number] IMPRESSION: 1. No evidence of restricted diffusion to suggest acute ischemia. 2. Minimal small vessel changes with moderate parenchymal volume loss. 3. Chronic wedge shaped infarct RIGHT cerebellum. Multiple chronic lacunar inf arcts in the RIGHT greater than LEFT cerebellum. 4. LEFT mastoid effusion. 5. No evidence of enhancing intracranial metastatic disease.
== END 2021-10-28 23:59 | disposition home or self-care (01) ==
PROVIDERS: PCP Family Medicine; Visit Provider Family Medicine
DX: G31.89 Other specified degenerative diseases of nervous system (principal)
CPT/HCPCS: 70553

== ENCOUNTER 2021-10-16 14:05 | Emergency (ER) | payer OTHER, SELFPAY ==
[2021-10-16 14:08] VITALS: BP 106/56; PULSE 78; RESP 19; TEMP 36.6; O2SAT 96; BMI 36.5
--- NOTE | 2021-10-16 14:42 | XR_ITS ---
WS: [id number] Portable AP upright chest, 10/16/2021 Clinical Data: chest pain Comparison: Portable chest, 10/21/2017. Findings: No nodules, masses or effusions are seen. The heart is normal. The pulmonary vascularity is not increased. No pneumonia or pneumothorax is seen. The aortic arch shows mild tortuosity. Midline sternotomy sutures are present. Monitor leads are on the chest wall. XR/XR chest 1V portable [id number] Impression: Atherosclerosis.
--- NOTE | 2021-10-16 14:42 | ECG_ITS ---
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 Measurements Intervals [place] Rate: 68 P: 55 IN: 259 QRS: -13 QRSD: 167 T: 68 QT: 449 QTc: 478 Interpretive Statements SINUS RHYTHM WITH FIRST DEGREE AV BLOCK RIGHT BUNDLE BRANCH BLOCK [120+ ms QRS DURATION, UPRIGHT V1, 40+ ms S IN I/aVL/V4/V5/V6] Compared to ECG 06/04/2020 16:17:01 Left-axis deviation no longer present Electronically Signed On 10-16-2021 17:14:48 CDT by Talha Singer M.D. [id number]
--- NOTE | 2021-10-16 14:50 | W.ED.CHESTPA ---
HPI - Chest Pain General: Chief Complaint: Chest Pain Stated Complaint: CHEST PAIN/ SYNCOPAL EPISODE Time Seen by Provider: 10/16/21 14:16 History of Present Illness: 71 year old male presents to the emergency department chief complaint of having episode of near passing out prior to arrival patient also reports he had episode of chest pain which he wanted nitroglycerin tablets EMS was contacted and brought the patient in for further assessment management. Patient does report having no history of cardiac disease does not report prior to the passing out episode he had any increase shortness of breath or palpitations. Patient reports he is currently chest pain-free reports his chest pain lasted about 25 seconds with spontaneous resolution with his nitro tab. Associated symptoms: Deny abdominal pain, dyspnea, fever(s), nausea, palpitations or vomiting Review of Systems General: Reports: 10 or more systems reviewed and unremarkable except in HPI and below Const: Denies: fever(s), chills, fatigue or malaise Eyes: Denies: change in vision or blurry vision Card: Reports: chest pain; Denies: palpitations Resp: Denies: dyspnea or productive cough GI: Denies: abdominal pain, nausea or vomiting : Denies: flank pain Musc: Denies: extremity pain or extremity swelling Skin/Breast: Denies: rash or pruritus Psych: Denies: anxiety or depression Hasmukh/Lymph: Denies: easy bleeding All/Imm: Denies: urticaria, throat swelling or facial swelling PFSH ED PFSH: Medical History Alzheimer disease Ascending aortic aneurysm Blood in stool BPH loc w urin obs/LUTS Carotid stenosis, bilateral COPD (chronic obstructive pulmonary disease) Descending aortic aneurysm Diverticulosis Dyslipidemia Family history of colon cancer History of colon polyps Ischemic heart disease CANDY (obstructive sleep apnea) Prostate cancer Pulmonary nodules Surgical History History of colonoscopy S/P CABG (coronary artery bypass graft) S/P rotator cuff repair Family History Father , AGE 72 CAD (coronary artery disease) Diabetes Mother , AGE 65 CAD (coronary artery disease) Diabetes Other Cancer Hypertension Social History Smoking and tobacco status: former smoker Alcohol intake: never Marital status: Current occupational status: retired History of recent travel: No Physical Exam Const: COMMON NORMALS: no acute distress, patient oriented x3 and healthy appearing HENMT: COMMON NORMALS: normocephalic and atraumatic HEAD & SCALP: normocephalic and atraumatic Eye: COMMON NORMALS: Equal, round and reactive pupils present and EOMs intact bilaterally PUPIL: Yes Equal, round and reactive pupils present Neck/C-Spine: COMMON NORMALS: full ROM, supple and no JVD Lymph: LYMPHATIC: no lymphadenopathy noted Chest: COMMONS NORMALS: normal inspection of the chest and normal palpation of entire chest wall Resp: COMMON NORMALS: normal respiratory effort, No retractions and clear to auscultation bilaterally EFFORT & INSPECTION: Yes able to speak in complete sentences and Yes symmetric chest movement AUSCULTATION: clear to auscultation bilaterally Cardio: COMMON NORMALS: no JVD, regular rate and regular rhythm RATE: regular rate RHYTHM: regular rhythm GI: COMMON NORMALS: Normal to inspection, nondistended, normoactive bowel sounds present, Soft to palpation and non-tender INSPECTION: Yes normal to inspection PALPATION: Yes Soft to palpation : COMMON NORMALS: Yes no CVA tenderness BLADDER/KIDNEY EXAM: Yes no CVA tenderness Back/Pelvis: COMMON NORMALS: no CVA tenderness Extremity: COMMON NORMALS: normal to inspection and full ROM Neuro: COMMON NORMALS: patient oriented x3, CN's II-XII intact bilaterally, moves all extremities and no focal motor deficits Psych: COMMON NORMALS: mental status grossly normal, Normal thought process present, cooperative and normal affect THOUGHT PROCESS: Normal thought process present Skin: COMMON NORMALS: no rashes or lesions noted GENERAL SKIN EXAM: no rashes or lesions noted Course Vital Signs: Vital signs: Vital Signs Temperature 97.8 F 10/16/21 14:08 Pulse Rate 78 10/16/21 14:08 Respiratory Rate 19 H 10/16/21 14:08 Blood Pressure 106/56 10/16/21 14:08 Pulse Oximetry 96 10/16/21 14:08 MDM - Chest Pain Medical Decision Making Due to the patient's symptoms and condition lab work imaging was obtained patient had 2 cardiac troponins came back unremarkable it appears that the patient may have had a syncopal episode due to him taking nitroglycerin prior to arrival patient was aware and alert oriented throughout the time she department no additional episodes advise any further follow-up with his primary care doctor in 2 to 3 days in which advised that he did use nitroglycerin tablets to sit down and take them while at rest which to hopefully reduce recurrence of such episodes patient was advised to return the interim if any of his symptoms persist or worsen Lab Data : 10/16/21 14:05 10/16/21 14:05 Radiology Impressions Chest X-Ray 10/16/21 14:42 Impression: Atherosclerosis. Laboratory Results WBC 5.7 10^3/uL (4.0-10.0) 10/16/21 14:05 RBC 3.43 10^6/uL (4.1-5.3) L 10/16/21 14:05 Hgb 8.3 g/dL (11.7-16.6) L 10/16/21 14:05 Hct 30.6 % (42.0-52.0) L 10/16/21 14:05 MCV 89.2 fl (80-94) 10/16/21 14:05 MCH 24.2 pg (28.0-34.0) L 10/16/21 14:05 MCHC 27.1 g/dL (30.0-36.0) L 10/16/21 14:05 RDW 20.4 % (12.1-15.1) H 10/16/21 14:05 Plt Count 217 10^3/cmm (130-400) 10/16/21 14:05 MPV 11.8 fL (7.4-10.4) H 10/16/21 14:05 Neut % (Auto) 66.3 % 10/16/21 14:05 Lymph % (Auto) 18.0 % 10/16/21 14:05 [place] % (Auto) 11.6 % 10/16/21 14:05 Eos % (Auto) 2.5 % 10/16/21 14:05 Baso % (Auto) 0.4 % 10/16/21 14:05 Neut # (Auto) 3.77 10^3/uL (1.8-7.7) 10/16/21 14:05 Lymph # (Auto) 1.0 10^3/uL (0.8-4.8) 10/16/21 14:05 [place] # (Auto) 0.7 10^3/uL (0.2-0.9) 10/16/21 14:05 Eos # (Auto) 0.1 10^3/uL (0.0-0.8) 10/16/21 14:05 Baso # (Auto) 0.0 10^3/uL (0.0-0.1) 10/16/21 14:05 Nucleated RBC % (auto) 0.7 % 10/16/21 14:05 Nucleated RBCs # 0.0 /100WBC 10/16/21 14:05 PT 13.50 SECONDS (12.1-14.9) 10/16/21 14:05 INR 1.00 (0.8-1.2) 10/16/21 14:05 APTT 30.7 SECONDS (23.9-36.7) 10/16/21 14:05 Sodium 132 mmol/L (136-145) L 10/16/21 14:05 Potassium 4.3 mmol/L (3.5-5.1) 10/16/21 14:05 Chloride 95 mmol/L (98-107) L 10/16/21 14:05 Carbon Dioxide 26 mmol/L (22-29) 10/16/21 14:05 Anion Gap 15.3 (5-19) 10/16/21 14:05 BUN 14 mg/dL (8-23) 10/16/21 14:05 Creatinine 1.3 mg/dL (0.7-1.2) H 10/16/21 14:05 GFR Calculation 54.6 mL/min (90-130) L 10/16/21 14:05 Glucose 110 mg/dL (65-115) 10/16/21 14:05 Calculated Osmolality 275 mOsm/kg (285-295) L 10/16/21 14:05 Calcium 8.3 mg/dL (8.5-10.5) L 10/16/21 14:05 Total Bilirubin 0.4 mg/dL (0.15-1.2) 10/16/21 14:05 AST 23 U/L (0-40) 10/16/21 14:05 ALT 18 U/L (0-41) 10/16/21 14:05 Alkaline Phosphatase 71 IU/L (40-130) 10/16/21 14:05 Troponin T Baseline 14 ng/L (0-15) 10/16/21 14:05 Troponin T 120 Minute 12.32 ng/L (0-15) 10/16/21 16:08 Delta Troponin T -1.68 ABS# (0-10) L 10/16/21 16:08 NT-Pro-B Natriuret Pep 303 pg/mL (0-125) H 10/16/21 14:05 Total Protein 6.3 g/dL (6.6-8.7) L 10/16/21 14:05 Albumin 4.4 g/dL (3.5-5.2) 10/16/21 14:05 Globulin 1.9 g/dL (1.3-4.6) 10/16/21 14:05 Lipase 44 U/L (13-60) 10/16/21 14:05 Discharge Plan Discharge Patient Disposition: Home Clinical Impression: Chest pain at rest, Syncope, Side effect of medication Condition: Stable Prescriptions: No Action alogliptin [Nesina] 12.5 mg tablet 12.5 mg PO DAILY 0RF metoprolol tartrate 25 mg tablet 25 mg PO BID 0RF memantine [Namenda] 10 mg tablet 10 mg PO BID Qty: 60 3RF venlafaxine 150 mg tablet extended release 24hr 150 mg PO DAILY Qty: 30 3RF pantoprazole 40 mg tablet,delayed release (DR/EC) 40 mg PO DAILY 0RF Spiriva with HandiHaler 18 mcg capsule, w/inhalation device 1 cap INHALATION DAILY 0RF Rx Instructions: puncture 1 cap using device; one dose = 2 inhalations albuterol sulfate 90 mcg/actuation HFA aerosol inhaler 2 puff INHALATION Q6H PRN (Reason: Shortness Of Breath) 0RF calcitriol 0.25 mcg capsule 0.25 mcg PO .COMPLEX 0RF Rx Instructions: 0.25 mcg PO Wed; levothyroxine 75 mcg tablet 75 mcg PO DAILY 0RF budesonide-formoterol [Symbicort] 160-4.5 mcg/actuation HFA aerosol inhaler 2 puff INHALATION BID 0RF gabapentin 100 mg capsule 100 mg PO TID 0RF nitroglycerin [Nitrostat] 0.4 mg tablet, sublingual 0.4 mg SUBLINGUAL Q5M PRN (Reason: Chest Pain) 0RF Rx Instructions: do not exceed 3 doses per episode meclizine 25 mg tablet 25 mg PO TID 0RF tamsulosin 0.4 mg capsule 0.4 mg PO BID Qty: 180 3RF mupirocin 2 % ointment 1 applic topical BID Qty: 22 1RF Rx Instructions: Apply to affected area until healed Phosphorous 250 mg tablet 1 tab PO BID Qty: 20 0RF citalopram 20 mg Tablet 20 mg PO DAILY 0RF ferrous sulfate 325 mg (65 mg iron) Tablet 325 mg PO DAILY 0RF lidocaine 5 % Adhesive Patch,Medicated 1 patch TOPICAL DAILY 0RF Rx Instructions: leave on most painful area for up to 12 hrs folic acid 1 mg Tablet 1 mg PO DAILY 0RF cholecalciferol (vitamin D3) 50 mcg (2,000 unit) Tablet 50 mcg PO DAILY 0RF Dulera 200-5 mcg/actuation Hfa Aerosol Inhaler 2 puff INHALATION Q12H 0RF divalproex 500 mg tablet extended release 24 hr 1,000 mg PO DAILY 0RF Discharge Orders: Discharge ED (Routine); Ordered 10/16/21 Ordered By: Micah Mcneal Referrals: Karine Kilgore MD [Primary Care Provider] - 1-3 days Discharge Diet: Usual diet Discharge Activity: Increase activity as tolerated Patient Instructions: Chest Pain (ED), Syncope (ED) Activity Restrictions/Additional Instructions: Follow-up with your primary care doctor in 2 to 3 days, please return the interim if any of your symptoms persist or worse please be mindful of using nitroglycerin tablets for you to sit down as this can invoke a syncope type event which the ER doctor today believes may contributed to your passing out episode earlier Coding Level of Care Code ED Chief Cardiopulmonary Technologist for [facility] Fwd Exam Comprehensive
[2021-10-16 14:51] LABS: Basophils % 0.4 %; Eosinophils # 0.1 10^3/uL (0.0-0.8); Eosinophils % 2.5 %; Hematocrit 30.6 % (42.0-52.0); Hemoglobin 8.3 g/dL (11.7-16.6); Mean Corpuscular HGB Conc 27.1 g/dL (30.0-36.0); Mean Corpuscular Hemoglobin 24.2 pg (28.0-34.0); Mean Corpuscular Volume 89.2 fl (80-94); Mean Platelet Volume 11.8 fL (7.4-10.4); Monocytes # 0.7 10^3/uL (0.2-0.9); Monocytes % 11.6 %; Neutrophils # 3.77 10^3/uL (1.8-7.7); Neutrophils % 66.3 %; Nucleated Red Blood Cells % 0.7 %; Platelet Count 217 10^3/cmm (130-400); Red Blood Count 3.43 10^6/uL (4.1-5.3); Red Cell Distribution Width 20.4 % (12.1-15.1); White Blood Count 5.7 10^3/uL (4.0-10.0)
[2021-10-16 15:04] LABS: Partial Thromboplastin Time 30.7 SECONDS (23.9-36.7)
[2021-10-16 15:12] LABS: Troponin(5th) Baseline 14 ng/L (0-15)
[2021-10-16 15:21] LABS: Alanine Aminotransferase 18 U/L (0-41); Albumin Level 4.4 g/dL (3.5-5.2); Alkaline Phosphatase 71 IU/L (40-130); Aspartate Amino Transferase 23 U/L (0-40); Blood Urea Nitrogen 14 mg/dL (8-23); Calcium 8.3 mg/dL (8.5-10.5); Carbon Dioxide 26 mmol/L (22-29); Chloride 95 mmol/L (98-107); Globulin 1.9 g/dL (1.3-4.6); Glomerular Filtration Rate 54.6 mL/min (90-130); Glucose 110 mg/dL (65-115); Lipase 44 U/L (13-60); NT Pro B Type Natriuretic Pept 303 pg/mL (0-125); Osmolality Calculated 275 mOsm/kg (285-295); Sodium 132 mmol/L (136-145); Total Bilirubin 0.4 mg/dL (0.15-1.2); Total Protein 6.3 g/dL (6.6-8.7)
[2021-10-16 15:24] LABS: Anion Gap 15.3 (5-19); Potassium 4.3 mmol/L (3.5-5.1)
[2021-10-16] MEDS: sodium chloride 0.9% 500 ML 999 ML IV (15:26)
[2021-10-16 16:38] LABS: Troponin 5 2HR 12.32 ng/L (0-15)
--- NOTE | 2021-10-16 16:42 | ECG_ITS ---
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 Measurements Intervals [place] Rate: 60 P: 56 [place]: 258 QRS: -15 QRSD: 159 T: 64 QT: 461 QTc: 462 Interpretive Statements SINUS RHYTHM WITH FIRST DEGREE AV BLOCK RIGHT BUNDLE BRANCH BLOCK [120+ ms QRS DURATION, UPRIGHT V1, 40+ ms S IN I/aVL/V4/V5/V6] Compared to ECG 10/16/2021 14:56:31 No significant changes Electronically Signed On 10-16-2021 17:19:40 CDT by Talha Singer M.D. [id number]
[2021-10-16 16:44] LABS: Troponin 5 2HR Delta -1.68 ABS# (0-10)
== END 2021-10-16 18:40 | disposition home or self-care (01) ==
PROVIDERS: Emergency Provider Emergency Medicine; PCP Family Medicine
DX: R55 Syncope and collapse (principal); T46.3X5A Adverse effect of coronary vasodilators, initial encounter; Z87.891 Personal history of nicotine dependence; Z79.51 Long term (current) use of inhaled steroids
CPT/HCPCS: 71045; 80053; 83690; 83880; 84484; 85025; 85610; 85730; 93005; 99284; J7040

== ENCOUNTER → 2021-10-24 08:26 | Outpatient (BNVA) | payer OTHER, SELFPAY | PROVIDERS: PCP Family Medicine; Visit Provider Internal Medicine Medical Oncology | DX: C61 Malignant neoplasm of prostate (principal); D50.8 Other iron deficiency anemias | CPT/HCPCS: 80053; 82728; 83550; 85025 ==

== ENCOUNTER → 2021-11-05 08:59 | Outpatient (BNVA) | payer OTHER, SELFPAY | PROVIDERS: PCP Family Medicine; Visit Provider Internal Medicine Medical Oncology | DX: C61 Malignant neoplasm of prostate (principal); D50.8 Other iron deficiency anemias | CPT/HCPCS: 82565; 82728; 83550; 85025 ==

== ENCOUNTER → 2021-11-12 10:45 | Outpatient (BNVA) | payer MEDICARE, SELFPAY | PROVIDERS: PCP Family Medicine; Visit Provider Surgery | DX: D50.8 Other iron deficiency anemias (principal); C61 Malignant neoplasm of prostate; K55.20 Angiodysplasia of colon without hemorrhage | CPT/HCPCS: 85025; 99213 ==

== ENCOUNTER 2021-11-13 11:30 | Oncology outpatient (recurring) (ONCR) | payer OTHER, SELFPAY ==
[2021-10-31] VITALS (9 sets, daily range): BP systolic 110–126; BP diastolic 59–83; PULSE 63–66; RESP 18; TEMP 36.4–36.9; O2SAT 98–100
[2021-10-31 09:18] LABS: Basophils % 0.3 %; Eosinophils # 0.1 10^3/uL (0.0-0.8); Eosinophils % 1.7 %; Hematocrit 25.3 % (42.0-52.0); Hemoglobin 6.9 g/dL (11.7-16.6); Lymphocytes # 0.8 10^3/uL (0.8-4.8); Lymphocytes % 13.9 %; Mean Corpuscular HGB Conc 27.3 g/dL (30.0-36.0); Mean Corpuscular Hemoglobin 22.3 pg (28.0-34.0); Mean Corpuscular Volume 81.6 fl (80-94); Mean Platelet Volume 11.5 fL (7.4-10.4); Monocytes # 0.7 10^3/uL (0.2-0.9); Monocytes % 10.9 %; Neutrophils # 4.28 10^3/uL (1.8-7.7); Neutrophils % 71.4 %; Nucleated Red Blood Cells # 0.1 /100WBC; Nucleated Red Blood Cells % 0.8 %; Platelet Count 226 10^3/cmm (130-400); Red Cell Distribution Width 21.5 % (12.1-15.1)
--- NOTE | 2021-10-31 11:32 | PC.NURSE ---
Pt to GI lab from Oncology for 2 units PRBC's. First unit infusing without difficulty. No reaction noted.
[2021-10-31] MEDS: sodium chloride 0.9% (100 ml) 100 ML 10 ML (13:36)
[2021-11-06] MEDS: sodium chloride 0.9% 250 ML 100 ML IV (12:25)
[2021-11-06] MEDS: ferric carboxy (IVPB) 750 MG in sodium chloride 0.9% (100 ml) 100 ML 345 MG IV (12:30)
[2021-11-06 13:26] VITALS: BP 113/66; PULSE 63; RESP 16; TEMP 36.5; O2SAT 98
[2021-11-13] MEDS: sodium chloride 0.9% 250 ML 75 ML IV (11:55)
[2021-11-13] MEDS: ferric carboxy (IVPB) 750 MG in sodium chloride 0.9% (100 ml) 100 ML 345 MG IV (12:08)
[2021-11-13 12:50] VITALS: BP 168/61; PULSE 63; RESP 18; TEMP 36.8; O2SAT 99
== END 2021-11-27 23:59 | disposition home or self-care (01) ==
PROVIDERS: PCP Family Medicine; Visit Provider Nurse Practitioner Family
DX: D50.8 Other iron deficiency anemias (principal)
CPT/HCPCS: 36430; 85025; 86850; 86900; 86920; 96365; 99214; J1439; J7050; P9016

== ENCOUNTER → 2021-11-17 09:11 | Outpatient (BNVA) | payer OTHER, SELFPAY | PROVIDERS: PCP Family Medicine; Visit Provider Surgery | DX: K92.1 Melena (principal); D50.8 Other iron deficiency anemias | CPT/HCPCS: 91110; 99213 ==

== ENCOUNTER 2021-11-19 09:43 | Emergency (ER) | payer OTHER, SELFPAY ==
[2021-11-19 10:18] VITALS: BP 116/62; PULSE 69; RESP 20; O2SAT 96; BMI 34.7
--- NOTE | 2021-11-19 10:30 | ED_ITS ---
HPI - Male Genitourinary General: Chief complaint: GI Bleed Stated complaint: Blood in urine Time Seen by Provider: 11/19/21 09:59 Source: patient Mode of arrival: ambulatory Limitations: no limitations History of Present Illness: 71-year-old male presents emergency room with complaint of hematuria and difficulty emptying his bladder. He has had that for the last 2 days now. In the past he has had rectal bleeding and they are in the process of working that up he currently has a capsuleendoscopy ongoing is not yet passed the capsule. Last several days he has been able to have a small weak urine stream describes it as a little bit of dribbling but is not able to completely empty his bladder. He denies any severe pain at this time. Patient has a history of prostate CA. This morning he passed several blood clots while attempting to urinate and was advised to proceed to the emergency room. Onset (ago): day(s) (2) Duration: constant Relieving factors: none Exacerbating factors: none Associated symptoms: Reports hematuria and urinary retention; Deny discharge, dysuria, fevers/chills, nausea, rash, swelling, urinary incontinence, mass or vomiting Review of Systems Const: Denies: fever(s), chills, body aches, change in appetite, fatigue or malaise ENMT: Denies: throat pain, ear or mastoid pain, nasal discharge or nasal congestion Card: Denies: chest pain, edema, dyspnea on exertion or orthopnea Resp: Denies: dyspnea, productive cough or non-productive cough GI: Denies: nausea or vomiting : Reports: hematuria; Denies: dysuria or urinary incontinence Skin/Breast: Denies: rash or pruritus [facility] ED PFSH: Medical History Alzheimer disease Ascending aortic aneurysm BPH loc w urin obs/LUTS Carotid stenosis, bilateral Chronic gastrointestinal bleeding Chronic kidney disease COPD (chronic obstructive pulmonary disease) Descending aortic aneurysm Diverticulosis Dyslipidemia History of colon polyps History of stroke Ischemic heart disease CANDY (obstructive sleep apnea) Other iron deficiency anemias Prostate cancer Pulmonary nodules Surgical History H/O aortic aneurysm repair (2011) History of aortic valve repair (2011) History of colonoscopy S/P CABG (coronary artery bypass graft) S/P rotator cuff repair Family History Father , AGE 72 CAD (coronary artery disease) Diabetes Mother , AGE 65 CAD (coronary artery disease) Diabetes Other Cancer Hypertension Social History Smoking and tobacco status: former smoker Alcohol intake: never Marital status: Current occupational status: retired History of recent travel: No Physical Exam Const: GENERAL APPEARANCE: cooperative and comfortable ORIENTATION/CONSCIOUSNESS: Yes awake, Yes oriented to person, Yes oriented to place and Yes oriented to time HENMT: COMMON NORMALS: normocephalic, atraumatic and hearing grossly normal bilaterally HEAD & SCALP: normocephalic and atraumatic Neck/C-Spine: COMMON NORMALS: no JVD Resp: COMMON NORMALS: normal respiratory effort, No retractions, No use of accessory muscles and clear to auscultation bilaterally AUSCULTATION: clear to auscultation bilaterally Cardio: COMMON NORMALS: no JVD, regular rate, regular rhythm and No murmurs present (Cardio) RATE: regular rate RHYTHM: regular rhythm GI: COMMON NORMALS: Soft to palpation and No hepatosplenomegaly present AUSCULTATION: Yes normoactive bowel sounds PALPATION: Yes Soft to palpation, No Tenderness to palpation present (GI), No Guarding due to palpation present (GI) and Yes No hepatosplenomegaly present Extremity: COMMON NORMALS: normal to inspection, capillary refill normal, no clubbing, cyanosis or edema, no calf tenderness and no pedal edema Neuro: SENSORIUM/ORIENTATION: Yes oriented to person, Yes oriented to place and Yes oriented to time Skin: COMMON NORMALS: no rashes or lesions noted GENERAL SKIN EXAM: no rashes or lesions noted Course Vital Signs: Vital signs: Vital Signs Pulse Rate 69 11/19/21 10:18 Respiratory Rate 20 H 11/19/21 10:18 Blood Pressure 116/62 11/19/21 10:18 Pulse Oximetry 96 11/19/21 10:18 MDM - Male Medical Decision Making Patient is having a cystitis. I am concerned about the amount of blood in his urine in the complaint. He has about passing clots he has a history of BPH and pretty sure if he leaves here without a Flowers he will be back with urinary retention I encouraged him to allow us to place a Flowers with a leg bag to prevent that he agreed to do so we will start him on oral antibiotics set him up to follow-up with Dr. Varner. Medical Records I reviewed the patient's medical records. Lab Data I reviewed the patient's lab results. : 11/19/21 11:10 11/19/21 11:10 Laboratory Results WBC 7.7 10^3/uL (4.0-10.0) 11/19/21 11:10 RBC 3.60 10^6/uL (4.1-5.3) L 11/19/21 11:10 Hgb 9.6 g/dL (11.7-16.6) L 11/19/21 11:10 Hct 31.9 % (42.0-52.0) L 11/19/21 11:10 MCV 88.6 fl (80-94) 11/19/21 11:10 MCH 26.7 pg (28.0-34.0) L 11/19/21 11:10 MCHC 30.1 g/dL (30.0-36.0) 11/19/21 11:10 RDW 26.5 % (12.1-15.1) H 11/19/21 11:10 Plt Count 128 10^3/cmm (130-400) L 11/19/21 11:10 MPV 11.5 fL (7.4-10.4) H 11/19/21 11:10 Neut % (Auto) 75.4 % 11/19/21 11:10 Lymph % (Auto) 12.0 % 11/19/21 11:10 [place] % (Auto) 11.4 % 11/19/21 11:10 Eos % (Auto) 0.4 % 11/19/21 11:10 Baso % (Auto) 0.3 % 11/19/21 11:10 Neut # (Auto) 5.80 10^3/uL (1.8-7.7) 11/19/21 11:10 Lymph # (Auto) 0.9 10^3/uL (0.8-4.8) 11/19/21 11:10 [place] # (Auto) 0.9 10^3/uL (0.2-0.9) 11/19/21 11:10 Eos # (Auto) 0.0 10^3/uL (0.0-0.8) 11/19/21 11:10 Baso # (Auto) 0.0 10^3/uL (0.0-0.1) 11/19/21 11:10 Nucleated RBC % (auto) 0 % 11/19/21 11:10 Nucleated RBCs # 0.0 /100WBC 11/19/21 11:10 Sodium 127 mmol/L (136-145) L 11/19/21 11:10 Potassium 4.1 mmol/L (3.5-5.1) 11/19/21 11:10 Chloride 97 mmol/L (98-107) L 11/19/21 11:10 Carbon Dioxide 23 mmol/L (22-29) 11/19/21 11:10 Anion Gap 11.1 (5-19) 11/19/21 11:10 BUN 14 mg/dL (8-23) 11/19/21 11:10 Creatinine 1.3 mg/dL (0.7-1.2) H 11/19/21 11:10 GFR Calculation 54.6 mL/min (90-130) L 11/19/21 11:10 Glucose 102 mg/dL (65-115) 11/19/21 11:10 Calculated Osmolality 265 mOsm/kg (285-295) L 11/19/21 11:10 Calcium 8.7 mg/dL (8.5-10.5) 11/19/21 11:10 Total Bilirubin 0.6 mg/dL (0.15-1.2) 11/19/21 11:10 AST 26 U/L (0-40) 11/19/21 11:10 ALT 12 U/L (0-41) 11/19/21 11:10 Alkaline Phosphatase 58 IU/L (40-130) 11/19/21 11:10 Total Protein 6.6 g/dL (6.6-8.7) 11/19/21 11:10 Albumin 3.8 g/dL (3.5-5.2) 11/19/21 11:10 Globulin 2.8 g/dL (1.3-4.6) 11/19/21 11:10 Urine Color Yellow (Yellow) 11/19/21 12:00 Urine Appearance Sl cloudy (CLEAR) A 11/19/21 12:00 Urine pH 5 (5-7) 11/19/21 12:00 Ur Specific [place] 1.020 (1.005-1.030) 11/19/21 12:00 Urine Protein 2+ (Negative) H 11/19/21 12:00 Urine Glucose (UA) 4+ (Normal) H 11/19/21 12:00 Urine Ketones 1+ (Negative) H 11/19/21 12:00 Urine Blood 3+ (Negative) H 11/19/21 12:00 Urine Nitrate Negative (Negative) 11/19/21 12:00 Urine Bilirubin 1+ (Negative) H 11/19/21 12:00 Urine Urobilinogen 1 mg/dL (Negative) H 11/19/21 12:00 Ur Leukocyte Esterase 2+ (Negative) H 11/19/21 12:00 Urine RBC Too numerous to cnt /hpf (0-2) H 11/19/21 12:00 Urine WBC Too numerous to cnt /hpf (0-5) H 11/19/21 12:00 Ur Squamous Epith Cells 0-4 /hpf (0-5) H 11/19/21 12:00 Amorphous Sediment Not Reportable 11/19/21 12:00 Urine Bacteria 2+ /hpf (NONE) H 11/19/21 12:00 Discharge Plan Discharge Patient Disposition: Home Clinical Impression: Cystitis, Hematuria Condition: Stable Prescriptions: New ciprofloxacin HCl 500 mg tablet 500 mg PO BID Qty: 14 0RF No Action alogliptin [Nesina] 12.5 mg tablet 12.5 mg PO DAILY 0RF metoprolol tartrate 25 mg tablet 25 mg PO BID 0RF memantine [Namenda] 10 mg tablet 10 mg PO BID Qty: 60 3RF venlafaxine 150 mg tablet extended release 24hr 150 mg PO DAILY Qty: 30 3RF pantoprazole 40 mg tablet,delayed release (DR/EC) 40 mg PO DAILY 0RF Spiriva with HandiHaler 18 mcg capsule, w/inhalation device 1 cap INHALATION DAILY 0RF Rx Instructions: puncture 1 cap using device; one dose = 2 inhalations albuterol sulfate 90 mcg/actuation HFA aerosol inhaler 2 puff INHALATION Q6H PRN (Reason: Shortness Of Breath) 0RF calcitriol 0.25 mcg capsule 0.25 mcg PO .COMPLEX 0RF Rx Instructions: 0.25 mcg PO Wed; levothyroxine 75 mcg tablet 75 mcg PO DAILY 0RF budesonide-formoterol [Symbicort] 160-4.5 mcg/actuation HFA aerosol inhaler 2 puff INHALATION BID 0RF gabapentin 100 mg capsule 100 mg PO TID 0RF nitroglycerin [Nitrostat] 0.4 mg tablet, sublingual 0.4 mg SUBLINGUAL Q5M PRN (Reason: Chest Pain) 0RF Rx Instructions: do not exceed 3 doses per episode meclizine 25 mg tablet 25 mg PO TID 0RF mupirocin 2 % ointment 1 applic topical BID Qty: 22 1RF Rx Instructions: Apply to affected area until healed tamsulosin 0.4 mg capsule 0.4 mg PO BID Qty: 180 3RF Phosphorous 250 mg tablet 1 tab PO BID Qty: 20 0RF lidocaine 5 % Adhesive Patch,Medicated 1 patch TOPICAL DAILY 0RF Rx Instructions: leave on most painful area for up to 12 hrs folic acid 1 mg Tablet 1 mg PO DAILY 0RF cholecalciferol (vitamin D3) 50 mcg (2,000 unit) Tablet 50 mcg PO DAILY 0RF Dulera 200-5 mcg/actuation Hfa Aerosol Inhaler 2 puff INHALATION Q12H 0RF divalproex 500 mg tablet extended release 24 hr 1,000 mg PO DAILY 0RF Discharge Orders: Discharge ED (Routine); Ordered 11/19/21 Ordered By: Kan Willis Referrals: Karine Kilgore MD [Primary Care Provider] - Discharge Diet: Usual diet Discharge Activity: Increase activity as tolerated Patient Instructions: Opioid Safety Activity Restrictions/Additional Instructions: Follow-up with Dr. Varner within the next week. Coding Level of Care Code ED Line O Scribe Operator for Chg Fwd Exam Comprehensive
[2021-11-19 11:19] LABS: Basophils % 0.3 %; Eosinophils % 0.4 %; Hematocrit 31.9 % (42.0-52.0); Hemoglobin 9.6 g/dL (11.7-16.6); Lymphocytes # 0.9 10^3/uL (0.8-4.8); Mean Corpuscular HGB Conc 30.1 g/dL (30.0-36.0); Mean Corpuscular Hemoglobin 26.7 pg (28.0-34.0); Mean Corpuscular Volume 88.6 fl (80-94); Mean Platelet Volume 11.5 fL (7.4-10.4); Monocytes # 0.9 10^3/uL (0.2-0.9); Monocytes % 11.4 %; Neutrophils % 75.4 %; Nucleated Red Blood Cells % 0 %; Platelet Count 128 10^3/cmm (130-400); Red Cell Distribution Width 26.5 % (12.1-15.1); White Blood Count 7.7 10^3/uL (4.0-10.0)
[2021-11-19 11:49] LABS: Alanine Aminotransferase 12 U/L (0-41); Albumin Level 3.8 g/dL (3.5-5.2); Alkaline Phosphatase 58 IU/L (40-130); Anion Gap 11.1 (5-19); Aspartate Amino Transferase 26 U/L (0-40); Blood Urea Nitrogen 14 mg/dL (8-23); Calcium 8.7 mg/dL (8.5-10.5); Carbon Dioxide 23 mmol/L (22-29); Chloride 97 mmol/L (98-107); Globulin 2.8 g/dL (1.3-4.6); Glomerular Filtration Rate 54.6 mL/min (90-130); Glucose 102 mg/dL (65-115); Osmolality Calculated 265 mOsm/kg (285-295); Potassium 4.1 mmol/L (3.5-5.1); Sodium 127 mmol/L (136-145); Total Bilirubin 0.6 mg/dL (0.15-1.2); Total Protein 6.6 g/dL (6.6-8.7)
[2021-11-19 12:31] LABS: Urine Color Yellow (Yellow)
[2021-11-19 12:32] LABS: Add Urine Microscopic? YES; Bilirubin Urine 1+ (Negative); Blood Urine 3+ (Negative); Glucose Urine UA 4+ (Normal); Ketones Urine 1+ (Negative); Leukocyte Esterase Urine 2+ (Negative); Nitrate Urine Negative (Negative); Protein Urine 2+ (Negative); Urobilinogen Urine 1 mg/dL (Negative); pH Urine 5 (5-7)
[2021-11-19 12:33] LABS: Add Urine Culture? Yes; Bacteria Urine 2+ /hpf; RBC Urine TOO NUMEROUS TO CNT /hpf (0-2); Squamous Epithelial Cell Urine 0-4 /hpf (0-5); WBC Urine TOO NUMEROUS TO CNT /hpf (0-5)
[2021-11-19] MEDS: cefTRIAXone 1,000 mg SDV 1000 MG IM (12:52)
--- NOTE | 2021-11-19 16:40 | PC.SOCIAL ---
Addendum entered by Deja Sharma 12/12/21 15:45: Patient had a follow up appointment scheduled for 11.25.21 with urology - patient did attend appointment. Original Note: Urology Follow-Up Message sent to urology clinic for follow-up appointment request. Information faxed to [place]. Urology clinic to call patient with appointment time.
--- NOTE | 2021-11-20 09:48 | PC.SOCIAL ---
[facility] Consult/[facility] Consult Spoke with Gaby at [facility] who reports that she put in consult for urology; should not be good to f/u. She states that if they have any questions they can call her at [phone] ext. [phone].
== END 2021-11-19 13:36 | disposition home or self-care (01) ==
PROVIDERS: Emergency Provider Family Medicine; PCP Family Medicine
DX: N30.91 Cystitis, unspecified with hematuria (principal); G30.9 Alzheimer's disease, unspecified; F02.80 Dementia in other diseases classified elsewhere, unspecified severity, without behavioral disturbance, psychotic disturbance, mood disturbance, and anxiety; J44.9 Chronic obstructive pulmonary disease, unspecified; E78.5 Hyperlipidemia, unspecified; Z86.73 Personal history of transient ischemic attack (TIA), and cerebral infarction without residual deficits; Z85.46 Personal history of malignant neoplasm of prostate; Z95.1 Presence of aortocoronary bypass graft; Z87.891 Personal history of nicotine dependence
CPT/HCPCS: 51702; 51798; 80053; 81001; 85025; 87077; 87086; 87186; 96372; 99284; J0696

== ENCOUNTER → 2021-11-24 09:11 | Outpatient (BNVA) | payer OTHER, SELFPAY | PROVIDERS: PCP Family Medicine; Visit Provider Urology | DX: C61 Malignant neoplasm of prostate (principal) | CPT/HCPCS: 84153 ==

== ENCOUNTER → 2021-11-25 13:45 | Outpatient (BNVA) | payer OTHER, SELFPAY | PROVIDERS: PCP Family Medicine; Visit Provider Urology | DX: N30.90 Cystitis, unspecified without hematuria (principal); N40.1 Benign prostatic hyperplasia with lower urinary tract symptoms; R31.0 Gross hematuria; C61 Malignant neoplasm of prostate | CPT/HCPCS: 52000; 99213 ==

== ENCOUNTER 2021-11-26 14:06 | Outpatient (CLI) | payer OTHER, SELFPAY ==
--- NOTE | 2021-11-26 14:17 | XR_ITS ---
WS: [id number] XR KUB [id number] REASON FOR EXAM: Capsule Endo has not passed FINDINGS: Presumed Endo capsule overlies the cecal region in the right lower quadrant. No other significant abdominal finding. XR/XR KUB [id number] IMPRESSION: Capsule location as above.
== END 2021-11-26 14:07 | disposition home or self-care (01) ==
LOC: RAD 14:09
PROVIDERS: PCP Family Medicine; Visit Provider Surgery
DX: T18.8XXA Foreign body in other parts of alimentary tract, initial encounter (principal); X58.XXXA Exposure to other specified factors, initial encounter
CPT/HCPCS: 74018

== ENCOUNTER 2021-12-18 14:00 | Oncology outpatient (recurring) (ONCR) | payer OTHER, SELFPAY ==
[2021-12-11 12:54] LABS: Basophils % 0.4 %; Eosinophils # 0.1 10^3/uL (0.0-0.8); Eosinophils % 2.5 %; Hematocrit 31.4 % (42.0-52.0); Hemoglobin 8.6 g/dL (11.7-16.6); Lymphocytes % 17.3 %; Mean Corpuscular HGB Conc 27.4 g/dL (30.0-36.0); Mean Corpuscular Hemoglobin 24.4 pg (28.0-34.0); Mean Platelet Volume 11.4 fL (7.4-10.4); Monocytes # 0.6 10^3/uL (0.2-0.9); Monocytes % 11.3 %; Neutrophils # 3.81 10^3/uL (1.8-7.7); Neutrophils % 67.3 %; Nucleated Red Blood Cells % 0.4 %; Platelet Count 208 10^3/cmm (130-400); Red Blood Count 3.53 10^6/uL (4.1-5.3); Red Cell Distribution Width 20.4 % (12.1-15.1); White Blood Count 5.7 10^3/uL (4.0-10.0)
[2021-12-11 13:12] LABS: Alanine Aminotransferase 11 U/L (0-41); Albumin Level 4.4 g/dL (3.5-5.2); Alkaline Phosphatase 68 IU/L (40-130); Anion Gap 12.7 (5-19); Aspartate Amino Transferase 23 U/L (0-40); Blood Urea Nitrogen 15 mg/dL (8-23); Calcium 9.1 mg/dL (8.5-10.5); Carbon Dioxide 29 mmol/L (22-29); Chloride 99 mmol/L (98-107); Ferritin 30 ng/mL (30-400); Globulin 2.4 g/dL (1.3-4.6); Glomerular Filtration Rate 54.6 mL/min (90-130); Glucose 115 mg/dL (65-115); Iron 22 ug/dL (59-158); Osmolality Calculated 284 mOsm/kg (285-295); Percent Saturation 6.1 % (20-50); Potassium 4.7 mmol/L (3.5-5.1); Sodium 136 mmol/L (136-145); Total Bilirubin 0.5 mg/dL (0.15-1.2); Total Iron Binding Capacity 358 mcg/dl; Total Protein 6.8 g/dL (6.6-8.7); Unsaturated Iron Binding 336 ug/dL (112-347)
[2021-12-11] MEDS: sodium chloride 0.9% 250 ML 75 ML IV (14:50)
[2021-12-11] MEDS: ferric carboxy (IVPB) 750 MG in sodium chloride 0.9% (100 ml) 100 ML 345 MG IV (14:54)
[2021-12-11 14:56] VITALS: BP 113/67; PULSE 60; RESP 20; TEMP 36.1; O2SAT 96
[2021-12-11 15:40] VITALS: BP 107/66; PULSE 61; RESP 18; TEMP 36.4; O2SAT 98
[2021-12-11 16:00] VITALS: BP 107/66; PULSE 61; RESP 18; TEMP 36.4; O2SAT 98
[2021-12-11 16:46] LABS: Add Urine Microscopic? NO; Charge for UA Resulting for Rev
[2021-12-11 17:19] LABS: Bilirubin Urine Neg (Negative); Blood Urine Neg (Negative); Glucose Urine UA Norm (Normal); Ketones Urine 1+ (Negative); Leukocyte Esterase Urine Negative (Negative); Nitrate Urine Negative (Negative); Protein Urine Neg (Negative); Urine Appearance Clear (CLEAR); Urine Color Yellow (Yellow); Urobilinogen Urine Norm (Negative); pH Urine 6 (5-7)
--- NOTE | 2021-12-12 10:03 | PC.NURSE ---
Patient called and spoke to his . This nurse let her know that per Dr. Larkin his UA looked ok. The acknowledged understanding and had no other questions or concerns at this time.
[2021-12-18] MEDS: ferric carboxy (IVPB) 750 MG in sodium chloride 0.9% (100 ml) 100 ML 345 MG IV (14:01)
[2021-12-18] MEDS: sodium chloride 0.9% 250 ML 100 ML IV (14:01)
[2021-12-18 14:40] VITALS: BP 115/70; PULSE 67; TEMP 36.4; O2SAT 95
== END 2021-12-28 23:59 | disposition home or self-care (01) ==
PROVIDERS: Internal Medicine Medical Oncology; PCP Family Medicine; Visit Provider Nurse Practitioner Family
DX: D50.8 Other iron deficiency anemias (principal); Z79.899 Other long term (current) drug therapy
CPT/HCPCS: 36415; 80053; 81003; 82728; 83540; 83550; 85025; 96365; 99214; J1439; J7050

== ENCOUNTER 2022-01-27 14:30 | Oncology outpatient (recurring) (ONCR) | payer OTHER, SELFPAY ==
[2022-01-20 12:52] LABS: Basophils % 0.4 %; Eosinophils # 0.1 10^3/uL (0.0-0.8); Eosinophils % 2.2 %; Hematocrit 30.5 % (42.0-52.0); Hemoglobin 8.6 g/dL (11.7-16.6); Lymphocytes # 1.1 10^3/uL (0.8-4.8); Lymphocytes % 20.2 %; Mean Corpuscular HGB Conc 28.2 g/dL (30.0-36.0); Mean Corpuscular Hemoglobin 25.9 pg (28.0-34.0); Mean Corpuscular Volume 91.9 fl (80-94); Mean Platelet Volume 11.2 fL (7.4-10.4); Monocytes # 0.6 10^3/uL (0.2-0.9); Monocytes % 11.2 %; Neutrophils # 3.47 10^3/uL (1.8-7.7); Neutrophils % 64.9 %; Nucleated Red Blood Cells % 0.4 %; Platelet Count 188 10^3/cmm (130-400); Red Blood Count 3.32 10^6/uL (4.1-5.3); White Blood Count 5.4 10^3/uL (4.0-10.0)
[2022-01-20 13:16] LABS: Ferritin 21 ng/mL (30-400); Iron 15 ug/dL (59-158); Percent Saturation 4.1 % (20-50); Total Iron Binding Capacity 360 mcg/dl; Unsaturated Iron Binding 345 ug/dL (112-347)
[2022-01-20] MEDS: ferric carboxy (IVPB) 750 MG in sodium chloride 0.9% (100 ml) 100 ML 345 MG IV (14:30)
[2022-01-27] MEDS: ferric carboxy (IVPB) 750 MG in sodium chloride 0.9% (100 ml) 100 ML 345 MG IV (14:30)
[2022-01-27 14:55] VITALS: BP 104/72; PULSE 72; RESP 18; TEMP 36.6; O2SAT 94
== END 2022-01-28 23:59 | disposition home or self-care (01) ==
PROVIDERS: Internal Medicine Medical Oncology; PCP Family Medicine; Visit Provider Nurse Practitioner Family
DX: R35.0 Frequency of micturition (principal); R39.15 Urgency of urination; D50.8 Other iron deficiency anemias; Z79.899 Other long term (current) drug therapy; D50.0 Iron deficiency anemia secondary to blood loss (chronic)
CPT/HCPCS: 82728; 83540; 83550; 85025; 96365; 99214; J1439

== ENCOUNTER 2022-03-10 13:00 | Oncology outpatient (recurring) (ONCR) | payer OTHER, SELFPAY ==
[2022-03-03 12:48] LABS: Basophils % 0.5 %; Eosinophils # 0.1 10^3/uL (0.0-0.8); Eosinophils % 2.4 %; Hematocrit 31.6 % (42.0-52.0); Hemoglobin 8.8 g/dL (11.7-16.6); Lymphocytes # 1.1 10^3/uL (0.8-4.8); Lymphocytes % 19.3 %; Mean Corpuscular HGB Conc 27.8 g/dL (30.0-36.0); Mean Corpuscular Hemoglobin 24.8 pg (28.0-34.0); Mean Platelet Volume 11.6 fL (7.4-10.4); Monocytes # 0.6 10^3/uL (0.2-0.9); Neutrophils # 3.77 10^3/uL (1.8-7.7); Neutrophils % 65.8 %; Nucleated Red Blood Cells % 0 %; Platelet Count 216 10^3/cmm (130-400); Red Blood Count 3.55 10^6/uL (4.1-5.3); Red Cell Distribution Width 22.5 % (12.1-15.1); White Blood Count 5.7 10^3/uL (4.0-10.0)
[2022-03-03 15:12] LABS: Ferritin 20 ng/mL (30-400); Iron 19 ug/dL (59-158); Percent Saturation 4.9 % (20-50); Total Iron Binding Capacity 386 mcg/dl; Unsaturated Iron Binding 367 ug/dL (112-347)
[2022-03-03] MEDS: ferric carboxy (IVPB) 750 MG in sodium chloride 0.9% (100 ml) 100 ML 345 MG IV (16:12)
[2022-03-03 16:21] VITALS: BP 114/68; PULSE 64; RESP 18; TEMP 36.6; O2SAT 95
[2022-03-10] MEDS: sodium chloride 0.9% 250 ML 75 ML IV (13:42)
[2022-03-10] MEDS: ferric carboxy (IVPB) 750 MG in sodium chloride 0.9% (100 ml) 100 ML 345 MG IV (13:45)
[2022-03-10 14:27] VITALS: BP 107/62; PULSE 71; RESP 18; TEMP 36.1; O2SAT 95
== END 2022-03-30 23:59 | disposition home or self-care (01) ==
PROVIDERS: PCP Family Medicine; Visit Provider Internal Medicine Medical Oncology
DX: D50.8 Other iron deficiency anemias (principal); Z79.899 Other long term (current) drug therapy
CPT/HCPCS: 36415; 82728; 83540; 83550; 85025; 86850; 86900; 96365; 99214; J1439; J7050

== ENCOUNTER → 2022-04-20 12:40 | Outpatient (BNVA) | payer OTHER, SELFPAY | PROVIDERS: PCP Family Medicine; Visit Provider Internal Medicine Medical Oncology | DX: D50.9 Iron deficiency anemia, unspecified (principal) | CPT/HCPCS: 99214 ==

== ENCOUNTER 2022-04-22 12:25 | Oncology outpatient (recurring) (ONCR) | payer OTHER, SELFPAY ==
[2022-04-20 13:47] LABS: Basophils % 0.4 %; Eosinophils # 0.1 10^3/uL (0.0-0.8); Eosinophils % 2.1 %; Hemoglobin 7.6 g/dL (11.7-16.6); Lymphocytes % 17.3 %; Mean Corpuscular HGB Conc 27.1 g/dL (30.0-36.0); Mean Corpuscular Hemoglobin 23.8 pg (28.0-34.0); Mean Corpuscular Volume 87.5 fl (80-94); Mean Platelet Volume 11.2 fL (7.4-10.4); Monocytes # 0.8 10^3/uL (0.2-0.9); Monocytes % 13.3 %; Neutrophils # 3.68 10^3/uL (1.8-7.7); Neutrophils % 65.5 %; Nucleated Red Blood Cells % 0.5 %; Platelet Count 213 10^3/cmm (130-400); Red Cell Distribution Width 23.1 % (12.1-15.1); White Blood Count 5.6 10^3/uL (4.0-10.0)
[2022-04-20 14:12] LABS: Ferritin 12 ng/mL (30-400); Iron 18 ug/dL (59-158); Percent Saturation 4.8 % (20-50); Total Iron Binding Capacity 370 mcg/dl; Unsaturated Iron Binding 352 ug/dL (112-347)
[2022-04-21] VITALS (10 sets, daily range): BP systolic 95–124; BP diastolic 54–78; PULSE 70–77; RESP 18; TEMP 36.1–37; O2SAT 98
[2022-04-21] MEDS: diphenhydrAMINE 25 mg Capsule PO (11:55)
[2022-04-21] MEDS: sodium chloride 0.9% 250 mL Bag IV (11:55)
[2022-04-21] MEDS: acetaminophen 325 mg Tablet 650 MG PO (12:19)
[2022-04-22 13:26] VITALS: BP 118/69; PULSE 71; RESP 15; O2SAT 93
== END 2022-04-29 23:59 | disposition home or self-care (01) ==
PROVIDERS: PCP Family Medicine; Visit Provider Internal Medicine Medical Oncology
DX: D50.0 Iron deficiency anemia secondary to blood loss (chronic) (principal); D64.9 Anemia, unspecified; D50.8 Other iron deficiency anemias; Z79.899 Other long term (current) drug therapy
CPT/HCPCS: 36415; 36430; 82728; 83540; 83550; 85025; 86850; 86900; 86920; 99214; J7050; P9040

== ENCOUNTER 2022-04-30 12:36 | Oncology outpatient (recurring) (ONCR) | payer OTHER, SELFPAY ==
[2022-04-30 13:23] VITALS: BP 138/65; PULSE 65; RESP 16; TEMP 36.6; O2SAT 96
[2022-04-30] MEDS: sodium chloride 0.9% 250 ML 75 ML IV (13:40)
[2022-04-30] MEDS: ferric carboxy (IVPB) 750 MG in sodium chloride 0.9% (100 ml) 100 ML 345 MG IV (13:41)
[2022-04-30 14:19] VITALS: BP 123/63; PULSE 59; RESP 18; TEMP 36.6; O2SAT 98
== END 2022-05-30 23:59 | disposition home or self-care (01) ==
PROVIDERS: PCP Family Medicine; Visit Provider Internal Medicine Medical Oncology
DX: D50.0 Iron deficiency anemia secondary to blood loss (chronic) (principal); Z79.899 Other long term (current) drug therapy
CPT/HCPCS: 96365; J1439; J7050

== ENCOUNTER → 2022-06-10 12:44 | Outpatient (BNVA) | payer OTHER, SELFPAY | PROVIDERS: PCP Family Medicine; Visit Provider Internal Medicine Medical Oncology | DX: D50.0 Iron deficiency anemia secondary to blood loss (chronic) (principal) | CPT/HCPCS: 99214 ==

== ENCOUNTER 2022-06-12 13:22 | Outpatient (CLI) | payer OTHER, SELFPAY ==
[2022-06-12 20:11] LABS: Occult Blood Stool Negative (Negative)
== END 2022-06-12 13:23 | disposition home or self-care (01) ==
LOC: LAB 13:25
PROVIDERS: PCP Family Medicine; Visit Provider Internal Medicine Medical Oncology
DX: D50.0 Iron deficiency anemia secondary to blood loss (chronic) (principal)
CPT/HCPCS: 82270

== ENCOUNTER 2022-06-17 13:30 | Oncology outpatient (recurring) (ONCR) | payer OTHER, SELFPAY ==
[2022-06-10] MEDS: ferric carboxy (IVPB) 750 MG in sodium chloride 0.9% (100 ml) 100 ML 345 MG IV (16:15)
[2022-06-11] MEDS: sodium chloride 0.9% 250 mL Bag IV (09:01)
[2022-06-11] MEDS: acetaminophen 325 mg Tablet 650 MG PO (09:02)
[2022-06-11] MEDS: diphenhydrAMINE 25 mg Capsule PO (09:02)
[2022-06-17 13:40] VITALS: BP 136/78; PULSE 74; RESP 17; TEMP 36.4; O2SAT 97
[2022-06-17 14:20] VITALS: BP 139/78; PULSE 74; RESP 19; TEMP 36.4; O2SAT 99
[2022-06-17] MEDS: ferric carboxy (IVPB) 750 MG in sodium chloride 0.9% (100 ml) 100 ML 345 MG IV (14:26)
== END 2022-06-30 23:59 | disposition home or self-care (01) ==
PROVIDERS: PCP Family Medicine; Visit Provider Internal Medicine Medical Oncology
DX: D64.9 Anemia, unspecified (principal); D50.0 Iron deficiency anemia secondary to blood loss (chronic); Z79.899 Other long term (current) drug therapy
CPT/HCPCS: 36415; 82728; 83540; 83550; 85025; 86850; 86900; 86920; 96365; 99215; J1439; J7050; P9016

== ENCOUNTER → 2022-07-21 09:25 | Outpatient (BNVA) | payer MEDICARE, OTHER, SELFPAY | PROVIDERS: PCP Family Medicine; Visit Provider Nurse Practitioner | DX: N18.31 Chronic kidney disease, stage 3a (principal); E87.1 Hypo-osmolality and hyponatremia; N25.81 Secondary hyperparathyroidism of renal origin; E61.1 Iron deficiency; K92.1 Melena | CPT/HCPCS: 80048; 81003; 82310; 82575; 82728; 83550; 83970; 84100; 84156; 84550; 85018 ==

== ENCOUNTER 2022-07-23 09:05 | Oncology outpatient (recurring) (ONCR) | payer OTHER, SELFPAY ==
[2022-07-02 09:51] LABS: Basophils % 0.4 %; Eosinophils # 0.1 10^3/uL (0.0-0.8); Eosinophils % 1.6 %; Hematocrit 34.7 % (42.0-52.0); Lymphocytes # 0.8 10^3/uL (0.8-4.8); Mean Corpuscular HGB Conc 28.8 g/dL (30.0-36.0); Mean Corpuscular Volume 97.2 fl (80-94); Monocytes # 0.6 10^3/uL (0.2-0.9); Monocytes % 11.4 %; Neutrophils % 70.7 %; Nucleated Red Blood Cells % 0 %; Platelet Count 163 10^3/cmm (130-400); Red Blood Count 3.57 10^6/uL (4.1-5.3); Red Cell Distribution Width 24.4 % (12.1-15.1); White Blood Count 5.5 10^3/uL (4.0-10.0)
[2022-07-09 09:17] LABS: Basophils % 0.2 %; Eosinophils # 0.1 10^3/uL (0.0-0.8); Eosinophils % 2.6 %; Hematocrit 33.2 % (42.0-52.0); Hemoglobin 9.4 g/dL (11.7-16.6); Lymphocytes # 0.7 10^3/uL (0.8-4.8); Lymphocytes % 15.5 %; Mean Corpuscular HGB Conc 28.3 g/dL (30.0-36.0); Mean Corpuscular Hemoglobin 26.4 pg (28.0-34.0); Mean Corpuscular Volume 93.3 fl (80-94); Mean Platelet Volume 11.3 fL (7.4-10.4); Monocytes # 0.5 10^3/uL (0.2-0.9); Monocytes % 11.2 %; Neutrophils # 3.16 10^3/uL (1.8-7.7); Neutrophils % 69.2 %; Nucleated Red Blood Cells % 0.4 %; Platelet Count 182 10^3/cmm (130-400); Red Blood Count 3.56 10^6/uL (4.1-5.3); Red Cell Distribution Width 21.7 % (12.1-15.1); White Blood Count 4.6 10^3/uL (4.0-10.0)
[2022-07-09 09:34] LABS: Iron 24 ug/dL (59-158); Percent Saturation 6.6 % (20-50); Total Iron Binding Capacity 361 mcg/dl; Unsaturated Iron Binding 337 ug/dL (112-347)
[2022-07-09 10:00] VITALS: BP 111/65; PULSE 65; RESP 18; TEMP 36.8; O2SAT 98
[2022-07-09 10:51] LABS: Ferritin 43 ng/mL (30-400)
[2022-07-16 08:32] LABS: Basophils % 0.4 %; Eosinophils # 0.1 10^3/uL (0.0-0.8); Eosinophils % 1.3 %; Hematocrit 29.5 % (42.0-52.0); Hemoglobin 8.2 g/dL (11.7-16.6); Lymphocytes # 0.8 10^3/uL (0.8-4.8); Lymphocytes % 15.5 %; Mean Corpuscular HGB Conc 27.8 g/dL (30.0-36.0); Mean Corpuscular Hemoglobin 24.8 pg (28.0-34.0); Mean Corpuscular Volume 89.1 fl (80-94); Mean Platelet Volume 10.9 fL (7.4-10.4); Monocytes # 0.6 10^3/uL (0.2-0.9); Monocytes % 11.5 %; Nucleated Red Blood Cells % 0.4 %; Platelet Count 176 10^3/cmm (130-400); Red Blood Count 3.31 10^6/uL (4.1-5.3); Red Cell Distribution Width 21.9 % (12.1-15.1); White Blood Count 5.3 10^3/uL (4.0-10.0)
[2022-07-16] MEDS: ferric carboxy (IVPB) 750 MG in sodium chloride 0.9% (100 ml) 100 ML 345 MG IV (08:46)
[2022-07-23 10:05] LABS: Basophils % 0.2 %; Eosinophils # 0.1 10^3/uL (0.0-0.8); Hematocrit 29.9 % (42.0-52.0); Hemoglobin 8.2 g/dL (11.7-16.6); Lymphocytes # 0.8 10^3/uL (0.8-4.8); Mean Corpuscular HGB Conc 27.4 g/dL (30.0-36.0); Mean Corpuscular Hemoglobin 26.2 pg (28.0-34.0); Mean Corpuscular Volume 95.5 fl (80-94); Mean Platelet Volume 11.4 fL (7.4-10.4); Monocytes # 0.5 10^3/uL (0.2-0.9); Neutrophils # 3.17 10^3/uL (1.8-7.7); Neutrophils % 69.1 %; Nucleated Red Blood Cells # 0.1 /100WBC; Nucleated Red Blood Cells % 1.5 %; Platelet Count 155 10^3/cmm (130-400); Red Blood Count 3.13 10^6/uL (4.1-5.3); Red Cell Distribution Width 26.7 % (12.1-15.1); White Blood Count 4.6 10^3/uL (4.0-10.0)
[2022-07-23] MEDS: ferric carboxy (IVPB) 750 MG in sodium chloride 0.9% (100 ml) 100 ML 345 MG IV (10:08)
[2022-07-23 10:10] VITALS: BP 122/78; PULSE 72; RESP 18; TEMP 36.6; O2SAT 98
== END 2022-07-28 23:59 | disposition home or self-care (01) ==
PROVIDERS: Internal Medicine Hematology & Oncology; PCP Family Medicine; Visit Provider Internal Medicine Medical Oncology
DX: D50.0 Iron deficiency anemia secondary to blood loss (chronic) (principal); Z79.899 Other long term (current) drug therapy
CPT/HCPCS: 36415; 82728; 83540; 83550; 85025; 86850; 86900; 96365; 96374; J1439

== ENCOUNTER 2022-08-26 10:59 | Emergency (ER) | payer OTHER, SELFPAY ==
[2022-08-26] VITALS (13 sets, daily range): BP systolic 110–115; BP diastolic 60–64; PULSE 63–75; RESP 15–23; TEMP 36.4; O2SAT 95–100; BMI 33.5
--- NOTE | 2022-08-26 11:10 | ECG_ITS ---
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 Measurements Intervals [place] Rate: 62 P: 23 PA: 253 QRS: -19 QRSD: 161 T: 75 QT: 451 QTc: 461 Interpretive Statements SINUS RHYTHM WITH FIRST DEGREE AV BLOCK RIGHT BUNDLE BRANCH BLOCK [120+ ms QRS DURATION, UPRIGHT V1, 40+ ms S IN I/aVL/V4/V5/V6] Compared to ECG 10/16/2021 17:17:23 No significant changes Electronically Signed On 08-26-2022 23:52:59 CDT by Erika Horne M.D. [id number]
--- NOTE | 2022-08-26 11:13 | PC.NURSE ---
pt brought over from infusion center after a rapid response was called. was informed pt was about to receive a blood transfusion due to anemia when he had a syncopal episode in the restroom. pt arrived to ER alert and oriented x person, place, and time. pt denies any pain or injuries. denies chest pain, dyspnea, dizziness, lightheadedness, nausea, or headaches. pt denies any complaints. pt resting in bed, skin pale. lung sounds clear bilat. visitor at bedside. call light placed within reach
--- NOTE | 2022-08-26 11:16 | ED_ITS ---
HPI - Syncope General: Chief Complaint: Syncope Stated Complaint: SYNCOPE Time Seen by Provider: 08/26/22 11:05 Source: patient Mode of arrival: wheelchair History of Present Illness: 72-year-old male presents emergency room after a near syncopal episode at [facility]. He is chronically anemic from AVMs in his GI tract. He was there to get a transfusion he had gotten up and walked about 30 feet to the bathroom and got to the door got lightheaded and dizzy and nearly passed out his helped him down to the floor other staff members assisted him he cannot recall everything that happened. He is not having any chest pain. There is some question about his cardiac history according to old notes of note from Dr. Bliss suspect he had an ascending aortic aneurysm repaired coronary artery bypass graft at one point there is a question if he had a valve replacement but it did not appear to Dr. Fored to have been the case. His makes mention that he is being monitored for some aneurysms there is mention Dr. Forde's [facility] but they had not changed patient and his are not aware of any changes recently is not having abdominal or chest pain today. Dr. Martin he was concerned he may be having sick sinus syndrome or having coronary artery disease because he has had other episodes of near syncope. MD complaint: almost passed out and collapsed Witnessed: Yes - by Bystander Context: at rest Associated symptoms: Reports lightheadedness and nausea; Deny abdominal pain, chest pain, fever(s), headache(s), short of breath, vertigo or weakness Treatments prior to arrival: none Review of Systems Const: Denies: fever(s), chills, fatigue or malaise ENMT: Denies: throat pain, ear or mastoid pain, nasal discharge or nasal congestion Card: Reports: lightheadedness; Denies: chest pain, palpitations, irregular heart rhythm or edema Resp: Denies: dyspnea, productive cough or non-productive cough GI: Reports: nausea; Denies: abdominal pain : Denies: flank pain, dysuria, urinary frequency or urinary urgency Musc: Denies: neck pain or back pain Skin/Breast: Denies: rash or pruritus Neuro: Denies: headache(s) or vertigo PFSH ED PFSH: Medical History Alzheimer disease Ascending aortic aneurysm BPH loc w urin obs/LUTS Carotid stenosis, bilateral Chronic gastrointestinal bleeding Chronic kidney disease COPD (chronic obstructive pulmonary disease) Descending aortic aneurysm Diverticulosis Dyslipidemia History of colon polyps History of stroke Ischemic heart disease CANDY (obstructive sleep apnea) Other iron deficiency anemias Prostate cancer Pulmonary nodules Surgical History H/O aortic aneurysm repair (2011) History of aortic valve repair (2011) History of colonoscopy S/P CABG (coronary artery bypass graft) S/P rotator cuff repair Family History Father , AGE 72 CAD (coronary artery disease) Diabetes Mother , AGE 65 CAD (coronary artery disease) Diabetes Other Cancer Hypertension Social History Smoking and tobacco status: former smoker Alcohol intake: never Marital status: Current occupational status: retired Physical Exam Const: GENERAL APPEARANCE: cooperative and comfortable ORIENTATION/CONSCIOUSNESS: Yes awake, Yes oriented to person, Yes oriented to place and Yes oriented to time HENMT: COMMON NORMALS: normocephalic, atraumatic and hearing grossly normal bilaterally HEAD & SCALP: normocephalic and atraumatic Resp: COMMON NORMALS: normal respiratory effort, No retractions, No use of accessory muscles and clear to auscultation bilaterally AUSCULTATION: clear to auscultation bilaterally Cardio: COMMON NORMALS: regular rhythm and No murmurs present (Cardio) RATE: bradycardic RHYTHM: regular rhythm GI: COMMON NORMALS: Soft to palpation and No hepatosplenomegaly present AUSCULTATION: Yes normoactive bowel sounds PALPATION: Yes Soft to palpation, No Tenderness to palpation present (GI), No Guarding due to palpation present (GI) and Yes No hepatosplenomegaly present Extremity: COMMON NORMALS: normal to inspection, capillary refill normal, no clubbing, cyanosis or edema, no calf tenderness and no pedal edema Neuro: SENSORIUM/ORIENTATION: Yes oriented to person, Yes oriented to place and Yes oriented to time Skin: COMMON NORMALS: no rashes or lesions noted GENERAL SKIN EXAM: no ra shes or lesions noted Course Vital Signs: Vital signs: Vital Signs Temperature 97.6 F 08/26/22 11:01 Pulse Rate 73 08/26/22 15:35 Respiratory Rate 18 08/26/22 15:35 Blood Pressure 115/60 08/26/22 15:35 Pulse Oximetry 99 08/26/22 15:35 Oxygen Delivery Me thod 08/26/22 11:01 Oxygen Flow Rate 2 08/26/22 11:01 MDM - Syncope Medical Decision Making Patient seen and evaluated after near syncopal episode. He has a remote history of coronary disease his vitals remained stable throughout the time he was here this happened shortly after getting up I suspect he had a orthostatic episode. He had an episode of chest pain yesterday his cardiac enzymes and EKG are unremarkable today he has a upcoming appointment with cardiology in about 2 weeks we will set him up for a 48-hour Holter monitor to evaluate for any arrhythmias further evaluation per cardiology.. He may benefit from stress testing but if it was done and need to be done at a time when his hemoglobin was adequate. Medical Records I reviewed the patient's medical records. Lab Data I reviewed the patient's lab results. 08/26/22 11:50 08/26/22 11:50 Radiology Impressions Chest X-Ray 08/26/22 12:04 IMPRESSION: 1. Mild cardiac enlargement. No acute process noted. Laboratory Results WBC 4.5 10^3/uL (4.0-10.0) 08/26/22 11:50 RBC 2.90 10^6/uL (4.1-5.3) L 08/26/22 11:50 Hgb 7.0 g/dL (11.7-16.6) L 08/26/22 11:50 Hct 25.7 % (42.0-52.0) L 08/26/22 11:50 MCV 88.6 fl (80-94) 08/26/22 11:50 MCH 24.1 pg (28.0-34.0) L 08/26/22 11:50 MCHC 27.2 g/dL (30.0-36.0) L 08/26/22 11:50 RDW 22.3 % (12.1-15.1) H 08/26/22 11:50 Plt Count 166 10^3/cmm (130-400) 08/26/22 11:50 MPV 11.1 fL (7.4-10.4) H 08/26/22 11:50 Neut % (Auto) 67.8 % 08/26/22 11:50 Lymph % (Auto) 17.9 % 08/26/22 11:50 [place] % (Auto) 10.8 % 08/26/22 11:50 Eos % (Auto) 2.0 % 08/26/22 11:50 Baso % (Auto) 0.2 % 08/26/22 11:50 Neut # (Auto) 3.07 10^3/uL (1.8-7.7) 08/26/22 11:50 Lymph # (Auto) 0.8 10^3/uL (0.8-4.8) 08/26/22 11:50 [place] # (Auto) 0.5 10^3/uL (0.2-0.9) 08/26/22 11:50 Eos # (Auto) 0.1 10^3/uL (0.0-0.8) 08/26/22 11:50 Baso # (Auto) 0.0 10^3/uL (0.0-0.1) 08/26/22 11:50 Nucleated RBC % (auto) 0.7 % 08/26/22 11:50 Nucleated RBCs # 0.0 /100WBC 08/26/22 11:50 Sodium 135 mmol/L (136-145) L 08/26/22 11:50 Potassium 4.2 mmol/L (3.5-5.1) 08/26/22 11:50 Chloride 100 mmol/L (98-107) 08/26/22 11:50 Carbon Dioxide 26 mmol/L (22-29) 08/26/22 11:50 Anion Gap 13.2 (5-19) 08/26/22 11:50 BUN 16 mg/dL (8-23) 08/26/22 11:50 Creatinine 1.1 mg/dL (0.7-1.2) 08/26/22 11:50 GFR Calculation Not Reportable 08/26/22 11:50 Glucose 146 mg/dL (65-115) H 08/26/22 11:50 Calculated Osmolality 284 mOsm/kg (285-295) L 08/26/22 11:50 Calcium 8.6 mg/dL (8.5-10.5) 08/26/22 11:50 Total Bilirubin 0.3 mg/dL (0.15-1.2) 08/26/22 11:50 AST 13 U/L (0-40) 08/26/22 11:50 ALT 9 U/L (0-41) 08/26/22 11:50 Alkaline Phosphatase 68 U/L (40-130) 08/26/22 11:50 Troponin T Baseline 11 ng/L (0-15) 08/26/22 11:50 Troponin T 120 Minute 11.18 ng/L (0-15) 08/26/22 14:15 Delta Troponin T 0.18 ABS# (0-10) 08/26/22 14:15 Total Protein 6.1 g/dL (6.6-8.7) L 08/26/22 11:50 Albumin 3.9 g/dL (3.5-5.2) 08/26/22 11:50 Globulin 2.2 g/dL (1.3-4.6) 08/26/22 11:50 Urine Color Yellow (Yellow) 08/26/22 14:06 Urine Appearance Clear (CLEAR) 08/26/22 14:06 Urine pH 5 (5-7) 08/26/22 14:06 Ur Specific [place] 1.020 (1.005-1.030) 08/26/22 14:06 Urine Protein Neg (Negative) 08/26/22 14:06 Urine Glucose (UA) Norm (Normal) 08/26/22 14:06 Urine Ketones Negative (Negative) 08/26/22 14:06 Urine Blood Neg (Negative) 08/26/22 14:06 Urine Nitrate Negative (Negative) 08/26/22 14:06 Urine Bilirubin Neg (Negative) 08/26/22 14:06 Urine Urobilinogen Neg mg/dL (Negative) 08/26/22 14:06 Ur Leukocyte Esterase Negative (Negative) 08/26/22 14:06 Discharge Plan Discharge Patient Disposition: Home Clinical Impression: Near syncope, Anemia, Hx of coronary artery disease Condition: Stable Prescriptions: No Action alogliptin [Nesina] 12.5 mg tablet 12.5 mg PO DAILY metoprolol tartrate 25 mg tablet 25 mg PO BID pantoprazole 40 mg tablet,delayed release (DR/EC) 40 mg PO DAILY Spiriva with HandiHaler 18 mcg capsule, w/inhalation device 1 cap INHALATION DAILY Rx Instructions: puncture 1 cap using device; one dose = 2 inhalations albuterol sulfate 90 mcg/actuation HFA aerosol inhaler 2 puff INHALATION Q6H PRN (Reason: Shortness Of Breath) calcitriol 0.25 mcg capsule 0.25 mcg PO .COMPLEX Rx Instructions: 0.25 mcg PO Wed; levothyroxine 75 mcg tablet 75 mcg PO DAILY budesonide-formoterol [Symbicort] 160-4.5 mcg/actuation HFA aerosol inhaler 2 puff INHALATION BID gabapentin 100 mg capsule 100 mg PO TID nitroglycerin [Nitrostat] 0.4 mg tablet, sublingual 0.4 mg SUBLINGUAL Q5M PRN (Reason: Chest Pain) Rx Instructions: do not exceed 3 doses per episode meclizine 25 mg tablet 25 mg PO TID mupirocin 2 % ointment 1 applic topical BID Qty: 22 1RF Rx Instructions: Apply to affected area until healed divalproex 500 mg tablet extended release 24 hr 1,000 mg PO DAILY Qty: 180 4RF Rx Instructions: 1,000 mg orally daily memantine [Namenda] 10 mg tablet 10 mg PO BID Qty: 60 3RF venlafaxine 150 mg tablet extended release 24hr 150 mg PO DAILY Qty: 30 3RF levofloxacin 500 mg tablet 500 mg PO DAILY 5 Days Qty: 5 0RF tamsulosin 0.4 mg capsule 0.4 mg PO BID Qty: 180 3RF Phosphorous 250 mg tablet 1 tab PO BID Qty: 20 0RF lidocaine 5 % Adhesive Patch,Medicated 1 patch TOPICAL DAILY Rx Instructions: leave on most painful area for up to 12 hrs folic acid 1 mg Tablet 1 mg PO DAILY cholecalciferol (vitamin D3) 50 mcg (2,000 unit) Tablet 50 mcg PO DAILY Dulera 200-5 mcg/actuation Hfa Aerosol Inhaler 2 puff INHALATION Q12H Discharge Orders: Discharge ED (Routine); Ordered 08/26/22 Ordered By: Kan Willis Referrals: Karine Kilgore MD [Primary Care Provider] - Patient Instructions: Opioid Safety, Pain Management Activity Restrictions/Additional Instructions: You are seen today after a near syncopal episode while at the cancer center. Your cardiac enzymes and EKGs do not show any acute changes. Given your history of coronary disease recommend that you have a 48-hour Holter monitor to evaluate for any rhythm disturbances. Also refer you to see the equal opportunity representative for further evaluation including possible stress testing. Will be important to do the stress testing at a time when your hemoglobin is at an adequate level. You should follow-up tomorrow at the cancer center to have your blood transfused. If you have worsening changes symptoms return to the emergency room Coding Level of Care Code ED Direct Service Professional for Chiquis Gale
--- NOTE | 2022-08-26 12:04 | XR_ITS ---
WS: [id number] Exam: XR chest 1V portable [id number] Date/Time of Exam: 08/26/2022 12:07 PM Reason For Exam: dyspnea/cough Comparison 10/16/2021. The lungs are fully expanded and clear. Mild cardiac enlargement unchanged. Signs of previous median sternotomy. The mediastinum is normal in contour for technique. No pleural effusions. Bony structures are intact. XR/XR chest 1V portable [id number] IMPRESSION: 1. Mild cardiac enlargement. No acute process noted.
[2022-08-26 12:07] LABS: Basophils % 0.2 %; Eosinophils # 0.1 10^3/uL (0.0-0.8); Hematocrit 25.7 % (42.0-52.0); Lymphocytes # 0.8 10^3/uL (0.8-4.8); Lymphocytes % 17.9 %; Mean Corpuscular HGB Conc 27.2 g/dL (30.0-36.0); Mean Corpuscular Hemoglobin 24.1 pg (28.0-34.0); Mean Corpuscular Volume 88.6 fl (80-94); Mean Platelet Volume 11.1 fL (7.4-10.4); Monocytes # 0.5 10^3/uL (0.2-0.9); Monocytes % 10.8 %; Neutrophils # 3.07 10^3/uL (1.8-7.7); Neutrophils % 67.8 %; Nucleated Red Blood Cells % 0.7 %; Platelet Count 166 10^3/cmm (130-400); Red Cell Distribution Width 22.3 % (12.1-15.1); White Blood Count 4.5 10^3/uL (4.0-10.0)
[2022-08-26 12:37] LABS: Alanine Aminotransferase 9 U/L (0-41); Albumin Level 3.9 g/dL (3.5-5.2); Alkaline Phosphatase 68 U/L (40-130); Anion Gap 13.2 (5-19); Aspartate Amino Transferase 13 U/L (0-40); Blood Urea Nitrogen 16 mg/dL (8-23); Calcium 8.6 mg/dL (8.5-10.5); Carbon Dioxide 26 mmol/L (22-29); Chloride 100 mmol/L (98-107); Globulin 2.2 g/dL (1.3-4.6); Glucose 146 mg/dL (65-115); Osmolality Calculated 284 mOsm/kg (285-295); Potassium 4.2 mmol/L (3.5-5.1); Sodium 135 mmol/L (136-145); Total Bilirubin 0.3 mg/dL (0.15-1.2); Total Protein 6.1 g/dL (6.6-8.7)
[2022-08-26 12:43] LABS: Troponin(5th) Baseline 11 ng/L (0-15)
[2022-08-26 14:31] LABS: Add Urine Microscopic? NO; Charge for UA Resulting for Rev
[2022-08-26 14:36] LABS: Bilirubin Urine Neg (Negative); Blood Urine Neg (Negative); Glucose Urine UA Norm (Normal); Ketones Urine Negative (Negative); Leukocyte Esterase Urine Negative (Negative); Nitrate Urine Negative (Negative); Protein Urine Neg (Negative); Urine Appearance Clear (CLEAR); Urine Color Yellow (Yellow); Urobilinogen Urine Neg (Negative); pH Urine 5 (5-7)
[2022-08-26 14:43] LABS: Troponin 5 2HR 11.18 ng/L (0-15)
--- NOTE | 2022-08-26 14:45 | ECG_ITS ---
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 Measurements Intervals [place] Rate: 72 P: 24 [place]: 248 QRS: -29 QRSD: 164 T: 74 QT: 432 QTc: 475 Interpretive Statements SINUS RHYTHM WITH FIRST DEGREE AV BLOCK BORDERLINE LEFT AXIS DEVIATION [QRS AXIS < -20] RIGHT BUNDLE BRANCH BLOCK [120+ ms QRS DURATION, UPRIGHT V1, 40+ ms S IN I/aVL/V4/V5/V6] Compared to ECG 08/26/2022 11:20:09 No significant changes Electronically Signed On 08-26-2022 23:59:37 CDT by Erika Horne M.D. [id number]
[2022-08-26 14:58] LABS: Troponin 5 2HR Delta 0.18 ABS# (0-10)
--- NOTE | 2022-08-27 11:32 | DCPLANNER ---
Addendum entered by Deja Sharma 09/10/22 08:00: Patient had a follow up appointment scheduled with heart care - patient did attend appointment. Addendum entered by Deja Sharma 09/02/22 08:28: Patient has a follow up appointment scheduled for Friday, September 09, 2022 at 4:[address] Singer at [facility]. Original Note: marketing production manager had message to schedule an outpatient monitor for patient with heart care. Patient has [employer] insurance, this can not be ordered from the ER. marketing production manager sent patients information to the front office staff at [facility]. Patients information will be reviewed, clinic will call patient with appointment information.
== END 2022-08-26 15:39 | disposition home or self-care (01) ==
PROVIDERS: Emergency Provider Family Medicine; PCP Family Medicine
DX: R55 Syncope and collapse (principal); D64.9 Anemia, unspecified; I25.10 Atherosclerotic heart disease of native coronary artery without angina pectoris; Z87.891 Personal history of nicotine dependence; N18.9 Chronic kidney disease, unspecified; J44.9 Chronic obstructive pulmonary disease, unspecified; E78.5 Hyperlipidemia, unspecified; Z86.73 Personal history of transient ischemic attack (TIA), and cerebral infarction without residual deficits; Z85.46 Personal history of malignant neoplasm of prostate; Z95.1 Presence of aortocoronary bypass graft
CPT/HCPCS: 36415; 36416; 71045; 80053; 81003; 82962; 84484; 85025; 86850; 86900; 86920; 93005; 99285; J1940; J7050

== ENCOUNTER 2022-08-27 08:00 | Oncology outpatient (recurring) (ONCR) | payer OTHER, SELFPAY ==
[2022-08-04 08:47] LABS: Basophils % 0.5 %; Eosinophils # 0.1 10^3/uL (0.0-0.8); Eosinophils % 2.6 %; Hematocrit 33.2 % (42.0-52.0); Hemoglobin 9.1 g/dL (11.7-16.6); Lymphocytes # 0.8 10^3/uL (0.8-4.8); Lymphocytes % 19.3 %; Mean Corpuscular HGB Conc 27.4 g/dL (30.0-36.0); Mean Corpuscular Hemoglobin 28.1 pg (28.0-34.0); Mean Corpuscular Volume 102.5 fl (80-94); Mean Platelet Volume 11.7 fL (7.4-10.4); Monocytes # 0.5 10^3/uL (0.2-0.9); Monocytes % 11.5 %; Neutrophils # 2.72 10^3/uL (1.8-7.7); Neutrophils % 64.9 %; Nucleated Red Blood Cells % 0 %; Platelet Count 162 10^3/cmm (130-400); Red Blood Count 3.24 10^6/uL (4.1-5.3); Red Cell Distribution Width 24.8 % (12.1-15.1); White Blood Count 4.2 10^3/uL (4.0-10.0)
[2022-08-04 09:07] LABS: Iron 26 ug/dL (59-158); Percent Saturation 7.4 % (20-50); Total Iron Binding Capacity 347 mcg/dl; Unsaturated Iron Binding 321 ug/dL (112-347)
[2022-08-11] VITALS (7 sets, daily range): BP systolic 109–120; BP diastolic 64–78; PULSE 59–66; RESP 18–98; TEMP 35.9–36.6; O2SAT 93–99
[2022-08-11 08:46] LABS: Basophils % 0.5 %; Eosinophils # 0.1 10^3/uL (0.0-0.8); Eosinophils % 2.3 %; Hematocrit 29.7 % (42.0-52.0); Lymphocytes # 0.8 10^3/uL (0.8-4.8); Lymphocytes % 19.9 %; Mean Corpuscular HGB Conc 26.9 g/dL (30.0-36.0); Mean Corpuscular Hemoglobin 26.1 pg (28.0-34.0); Mean Corpuscular Volume 96.7 fl (80-94); Mean Platelet Volume 11.7 fL (7.4-10.4); Monocytes # 0.5 10^3/uL (0.2-0.9); Monocytes % 13.5 %; Neutrophils # 2.42 10^3/uL (1.8-7.7); Neutrophils % 62.8 %; Nucleated Red Blood Cells % 0.5 %; Platelet Count 170 10^3/cmm (130-400); Red Blood Count 3.07 10^6/uL (4.1-5.3); Red Cell Distribution Width 22.6 % (12.1-15.1); White Blood Count 3.9 10^3/uL (4.0-10.0)
[2022-08-11] MEDS: sodium chloride 0.9% 250 ML IV (10:06)
[2022-08-11] MEDS: diphenhydrAMINE 25 mg Capsule PO (10:06)
[2022-08-11] MEDS: acetaminophen 325 mg Tablet PO (10:07)
[2022-08-26 08:25] LABS: Basophils % 0.4 %; Eosinophils # 0.1 10^3/uL (0.0-0.8); Eosinophils % 2.3 %; Hematocrit 27.1 % (42.0-52.0); Hemoglobin 7.4 g/dL (11.7-16.6); Lymphocytes # 0.9 10^3/uL (0.8-4.8); Lymphocytes % 19.5 %; Mean Corpuscular HGB Conc 27.3 g/dL (30.0-36.0); Mean Corpuscular Hemoglobin 24.2 pg (28.0-34.0); Mean Corpuscular Volume 88.6 fl (80-94); Mean Platelet Volume 10.7 fL (7.4-10.4); Monocytes # 0.5 10^3/uL (0.2-0.9); Monocytes % 9.6 %; Neutrophils # 3.14 10^3/uL (1.8-7.7); Neutrophils % 66.7 %; Nucleated Red Blood Cells % 0.4 %; Platelet Count 167 10^3/cmm (130-400); Red Blood Count 3.06 10^6/uL (4.1-5.3); Red Cell Distribution Width 22.3 % (12.1-15.1); White Blood Count 4.7 10^3/uL (4.0-10.0)
[2022-08-26] MEDS: sodium chloride 0.9% 250 mL Bag IV (09:47)
[2022-08-26] MEDS: diphenhydrAMINE 25 mg Capsule PO (09:47)
[2022-08-26] MEDS: acetaminophen 325 mg Tablet 650 MG PO (09:47)
[2022-08-26] MEDS: FUROsemide 10 mg/mL SDV 2mL 20 MG IVP (09:48)
[2022-08-26 10:01] VITALS: BP 101/61; PULSE 65; RESP 18; TEMP 36.6; O2SAT 96
[2022-08-26 11:06] LABS: Glucose Point of Care 153 mg/dL (70-110)
[2022-08-27] VITALS (10 sets, daily range): BP systolic 99–117; BP diastolic 55–63; PULSE 60–63; RESP 18; TEMP 36.3–36.8; O2SAT 96–98
[2022-08-27] MEDS: diphenhydrAMINE 25 mg Capsule PO (09:21)
[2022-08-27] MEDS: acetaminophen 325 mg Tablet 650 MG PO (09:21)
[2022-08-27] MEDS: sodium chloride 0.9% 250 mL Bag IV (09:22)
== END 2022-08-28 23:59 | disposition home or self-care (01) ==
PROVIDERS: Internal Medicine Hematology & Oncology; PCP Family Medicine; Visit Provider Internal Medicine Medical Oncology
DX: D50.0 Iron deficiency anemia secondary to blood loss (chronic) (principal); Z79.899 Other long term (current) drug therapy; R55 Syncope and collapse
CPT/HCPCS: 36415; 36416; 36430; 82962; 83540; 83550; 85025; 86850; 86900; 86920; 93225; 99213; J1940; J7050; P9016

== ENCOUNTER → 2022-09-09 14:47 | Outpatient (BNVA) | payer OTHER, SELFPAY | PROVIDERS: PCP Family Medicine; Visit Provider Internal Medicine | DX: I25.10 Atherosclerotic heart disease of native coronary artery without angina pectoris (principal); R00.2 Palpitations; R07.9 Chest pain, unspecified; G31.83 Neurocognitive disorder with Lewy bodies; F02.80 Dementia in other diseases classified elsewhere, unspecified severity, without behavioral disturbance, psychotic disturbance, mood disturbance, and anxiety; I25.9 Chronic ischemic heart disease, unspecified; J44.9 Chronic obstructive pulmonary disease, unspecified; E78.5 Hyperlipidemia, unspecified; Z95.1 Presence of aortocoronary bypass graft; G47.33 Obstructive sleep apnea (adult) (pediatric); I65.23 Occlusion and stenosis of bilateral carotid arteries; Z87.891 Personal history of nicotine dependence; I71.21 Aneurysm of the ascending aorta, without rupture; I71.9 Aortic aneurysm of unspecified site, without rupture | CPT/HCPCS: 99214 ==

== ENCOUNTER 2022-09-17 09:30 | Oncology outpatient (recurring) (ONCR) | payer OTHER, SELFPAY ==
[2022-09-10] VITALS (8 sets, daily range): BP systolic 104–120; BP diastolic 64–76; PULSE 60–65; RESP 18; TEMP 36.3–36.6; O2SAT 95–96
[2022-09-10 08:56] LABS: Basophils % 0.2 %; Eosinophils # 0.1 10^3/uL (0.0-0.8); Eosinophils % 1.7 %; Hematocrit 28.2 % (42.0-52.0); Hemoglobin 7.7 g/dL (11.7-16.6); Lymphocytes # 0.8 10^3/uL (0.8-4.8); Lymphocytes % 14.7 %; Mean Corpuscular HGB Conc 27.3 g/dL (30.0-36.0); Mean Corpuscular Hemoglobin 22.5 pg (28.0-34.0); Mean Corpuscular Volume 82.5 fl (80-94); Mean Platelet Volume 11.2 fL (7.4-10.4); Monocytes # 0.6 10^3/uL (0.2-0.9); Monocytes % 10.5 %; Neutrophils % 71.6 %; Nucleated Red Blood Cells % 0.6 %; Platelet Count 230 10^3/cmm (130-400); Red Blood Count 3.42 10^6/uL (4.1-5.3); Red Cell Distribution Width 20.7 % (12.1-15.1); White Blood Count 5.3 10^3/uL (4.0-10.0)
[2022-09-10] MEDS: sodium chloride 0.9% 250 mL Bag IV (10:41)
[2022-09-10] MEDS: diphenhydrAMINE 25 mg Capsule PO (10:41)
[2022-09-10] MEDS: acetaminophen 325 mg Tablet 650 MG PO (10:41)
[2022-09-10 10:57] LABS: Ferritin 24 ng/mL (30-400); Iron 9 ug/dL (59-158); Percent Saturation 2.8 % (20-50); Total Iron Binding Capacity 313 mcg/dl; Unsaturated Iron Binding 304 ug/dL (112-347)
[2022-09-10] MEDS: ferric carboxy (IVPB) 750 MG in sodium chloride 0.9% (100 ml) 100 ML 345 MG IV (15:07)
[2022-09-17 09:11] VITALS: BP 121/75; PULSE 65; TEMP 36.6; O2SAT 95
[2022-09-17] MEDS: ferric carboxy (IVPB) 750 MG in sodium chloride 0.9% (100 ml) 100 ML 345 MG IV (09:37)
[2022-09-17 10:28] VITALS: BP 113/72; PULSE 89; TEMP 36.2; O2SAT 94
== END 2022-09-27 23:59 | disposition home or self-care (01) ==
PROVIDERS: PCP Family Medicine; Visit Provider Internal Medicine Medical Oncology
DX: D50.0 Iron deficiency anemia secondary to blood loss (chronic) (principal)
CPT/HCPCS: 36430; 82728; 83540; 83550; 85025; 86850; 86900; 86920; 96365; 96374; J1439; J7050; P9016

== ENCOUNTER 2022-10-05 13:31 | Outpatient (CLI) | payer OTHER, SELFPAY ==
--- NOTE | 2022-10-05 14:15 | USCV_ITS ---
Bebo Goetz Age: 72 Gender: M : 1950 Exam Date: 10/05/2022 14:17 Ordering Phys: Talha Singer M.D ([email or web address]) Technologist: Nicola Bernard Exam Location: [facility] [place] Indication: chest pain, sob BP: 106 / 50 HR: 58 Rhythm: Sinus Technical Quality: Adequate MEASUREMENTS (Male / Female) Normal Values 2D ECHO LVOT Diameter 2.0 cm LV Ejection Fraction MOD 2C 50.5 % LV Ejection Fraction 2C AL 50.9 % LA Diameter 3.8 cm LA Width 3.9 cm LA Height 5.2 cm RA Width 4.3 cm RA Height 4.5 cm Aorta at Sinotubular Diameter 2.8 cm IVC Diameter 2.0 cm M-MODE Aortic Annulus Diameter 3.5 cm LA Ao Ratio MM 1.1 MV E Point Septal Separation 0.8 cm DOPPLER AV Peak Velocity 115.7 cm/s LVOT Peak Velocity 72.0 cm/s AV Area Cont Eq vti 2.2 cm squared AV Area Cont Eq pk 2.0 cm squared MV Peak Velocity 115.0 cm/s MV Area PHT 4.6 cm squared Mitral E to A Ratio 0.7 MV E' Velocity 46.0 cm/s Mitral E to MV E' Ratio 10.3 Mitral E to LV E' Lateral Ratio 11.0 Mitral E to LV E' Septal Ratio 9.7 TR Peak Velocity 444.8 cm/s TR Peak Gradient 79.1 mmHg TR Mean Velocity 333.5 cm/s TR Mean Gradient 52.2 mmHg TR Velocity Time Integral 155.8 cm Right Atrial Pressure 3.0 mmHg Pulmonary Artery Systolic Pressu 82.1 mmHg PV Peak Velocity 108.7 cm/s RV Acceleration Time 0.1 s RV Ejection Time 0.3 s RV AcT/ET 0.4 FINDINGS Left Ventricle Left ventricle is normal in size. LV systolic function is normal with EF 50 to 55%. No regional wall motion abnormalities are seen. Grade 1 diastolic dysfunction Right Ventricle Normal in size and function Right Atrium Grossly normal Left Atrium Grossly normal Mitral Valve Structurally normal mitral valve. Aortic Valve Grossly normal. No significant stenosis or regurgitation. Tricuspid Valve Mild tricuspid regurgitation. Insufficient TR jet to calculate RVSP Pulmonic Valve Not well visualized. Mild pulmonic regurgitation. Pericardium Normal Aorta Grossly normal IVC Not well visualized CONCLUSIONS LV systolic function is normal with EF of 50 to 55% Grade 1 diastolic dysfunction Mild tricuspid regurgitation. Mild pulmonic regurgitation Compared to prior echocardiogram from 2020, no significant changes are seen Talha Singer MD (Electronically Signed) Final Date: 17 Oct 2022 12:20 S
== END 2022-10-05 13:32 | disposition home or self-care (01) ==
LOC: RAD 13:33
PROVIDERS: PCP Family Medicine; Visit Provider Internal Medicine
DX: R06.02 Shortness of breath (principal); R07.9 Chest pain, unspecified; I50.30 Unspecified diastolic (congestive) heart failure; I07.1 Rheumatic tricuspid insufficiency; I37.1 Nonrheumatic pulmonary valve insufficiency
CPT/HCPCS: 93306

== ENCOUNTER → 2022-10-06 13:47 | Outpatient (BNVA) | payer OTHER, SELFPAY | PROVIDERS: PCP Family Medicine; Visit Provider Dermatology | DX: L21.8 Other seborrheic dermatitis (principal); L82.1 Other seborrheic keratosis; B07.8 Other viral warts; L98.8 Other specified disorders of the skin and subcutaneous tissue; L82.0 Inflamed seborrheic keratosis; L72.0 Epidermal cyst | CPT/HCPCS: 17110; 99214 ==

== ENCOUNTER → 2022-10-21 12:41 | Outpatient (BNVA) | payer OTHER, SELFPAY | PROVIDERS: PCP Family Medicine; Visit Provider Internal Medicine Medical Oncology | DX: Z53.9 Procedure and treatment not carried out, unspecified reason (principal) | CPT/HCPCS: 99214 ==

== ENCOUNTER 2022-10-22 09:00 | Oncology outpatient (recurring) (ONCR) | payer OTHER, SELFPAY ==
[2022-10-21 13:27] LABS: Basophils % 0.3 %; Eosinophils # 0.1 10^3/uL (0.0-0.8); Eosinophils % 2.4 %; Hematocrit 29.4 % (42.0-52.0); Hemoglobin 8.1 g/dL (11.7-16.6); Lymphocytes # 1.1 10^3/uL (0.8-4.8); Lymphocytes % 18.1 %; Mean Corpuscular HGB Conc 27.6 g/dL (30.0-36.0); Mean Corpuscular Hemoglobin 24.5 pg (28.0-34.0); Mean Corpuscular Volume 88.8 fl (80-94); Mean Platelet Volume 10.1 fL (7.4-10.4); Monocytes # 0.8 10^3/uL (0.2-0.9); Monocytes % 13.4 %; Neutrophils # 3.79 10^3/uL (1.8-7.7); Neutrophils % 64.1 %; Nucleated Red Blood Cells % 0.3 %; Platelet Count 224 10^3/cmm (130-400); Red Blood Count 3.31 10^6/uL (4.1-5.3); Red Cell Distribution Width 20.9 % (12.1-15.1); White Blood Count 5.9 10^3/uL (4.0-10.0)
[2022-10-21 13:51] LABS: Alanine Aminotransferase 12 U/L (0-41); Albumin Level 4.1 g/dL (3.5-5.2); Alkaline Phosphatase 66 U/L (40-130); Anion Gap 12.4 (5-19); Aspartate Amino Transferase 16 U/L (0-40); Blood Urea Nitrogen 14 mg/dL (8-23); Calcium 8.5 mg/dL (8.5-10.5); Carbon Dioxide 27 mmol/L (22-29); Chloride 100 mmol/L (98-107); Ferritin 25 ng/mL (30-400); Globulin 2.4 g/dL (1.3-4.6); Glucose 137 mg/dL (65-115); Iron 18 ug/dL (59-158); Osmolality Calculated 283 mOsm/kg (285-295); Percent Saturation 5.4 % (20-50); Potassium 4.4 mmol/L (3.5-5.1); Sodium 135 mmol/L (136-145); Total Bilirubin 0.4 mg/dL (0.15-1.2); Total Iron Binding Capacity 333 mcg/dl; Total Protein 6.5 g/dL (6.6-8.7); Unsaturated Iron Binding 315 ug/dL (112-347)
[2022-10-22] VITALS (11 sets, daily range): BP systolic 104–120; BP diastolic 58–78; PULSE 59–64; RESP 16–20; TEMP 35.8–36.4; O2SAT 92–95
[2022-10-22] MEDS: sodium chloride 0.9% 250 mL Bag IV (09:35)
[2022-10-22] MEDS: diphenhydrAMINE 25 mg Capsule PO (09:35)
[2022-10-22] MEDS: acetaminophen 325 mg Tablet 650 MG PO (09:35)
[2022-10-22 12:06] LABS: Acetaminophen < 5.0 ug/mL (10-30)
[2022-10-22] MEDS: ferric carboxy (IVPB) 750 MG in sodium chloride 0.9% (100 ml) 100 ML 345 MG IV (15:32)
[2022-10-23 06:55] VITALS: BP 116/71; PULSE 61; RESP 16; TEMP 35.8; O2SAT 95
[2022-10-23 07:05] VITALS: BP 128/80; PULSE 55; RESP 16; TEMP 35.8; O2SAT 95
== END 2022-10-28 23:59 | disposition home or self-care (01) ==
PROVIDERS: PCP Family Medicine; Visit Provider Internal Medicine Medical Oncology
DX: D50.0 Iron deficiency anemia secondary to blood loss (chronic) (principal); Z79.899 Other long term (current) drug therapy; Z87.891 Personal history of nicotine dependence
CPT/HCPCS: 36415; 36430; 80053; 80307; 82728; 83540; 83550; 85025; 86850; 86900; 86920; 96365; 96375; 99214; J1439; J7050; P9016

== ENCOUNTER 2022-10-27 09:49 | Emergency (ER) | payer OTHER, SELFPAY ==
[2022-10-27 09:51] VITALS: BP 113/71; PULSE 72; RESP 13; TEMP 36.9; O2SAT 94
--- NOTE | 2022-10-27 09:54 | XR_ITS ---
WS: [id number] Exam: XR chest 1V portable [id number] Date/Time of Exam: 10/27/2022 9:56 AM Reason For Exam: chest pain Comparison 08/26/2022. The lungs are fully expanded and clear. Mild cardiac enlargement unchanged. No pleural effusions. Avery cified granulomas noted bilaterally. The mediastinum is normal in contour. Signs of median sternotomy . Monitoring leads superimpose the chest. XR/XR chest 1V portable [id number] IMPRESSION: 1. Mild cardiac enlargement. No acute process noted.
--- NOTE | 2022-10-27 09:55 | ECG_ITS ---
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 Measurements Intervals [place] Rate: 65 P: 52 [place]: 246 QRS: -31 QRSD: 157 T: 37 QT: 429 QTc: 446 Interpretive Statements SINUS RHYTHM WITH FIRST DEGREE AV BLOCK LEFT AXIS DEVIATION [QRS AXIS < -30] RIGHT BUNDLE BRANCH BLOCK [120+ ms QRS DURATION, UPRIGHT V1, 40+ ms S IN I/aVL/V4/V5/V6] INTERPRETATION BASED ON A DEFAULT AGE OF 40 YEARS Compared to ECG 08/26/2022 14:45:41 No significant changes Electronically Signed On 10-27-2022 18:58:50 CDT by Margaret Mead M.D. [id number] f
--- NOTE | 2022-10-27 10:10 | W.ED.CHESTPA ---
HPI - Chest Pain General: Chief Complaint: Chest Pain Stated Complaint: CHEST PRESSURE Time Seen by Provider: 10/27/22 09:53 History of Present Illness: Patient arrived to the ER by EMS after his took him to the [facility] clinic for routine appointment and he began having chest pressure radiating to his right side. Patient denies nausea vomiting diaphoresis. Patient is on home O2 of 2 L per nasal cannula does have a history of four-vessel CABG. Patient is pain-free at the time of arrival. MD complaint: chest pain and chest heaviness Pertinent past history: coronary artery disease and CABG Onset (ago): hour(s) (Approximately 1 hour) Timing of current episode: constant and now resolved Prior episodes: Yes Onset: during rest Pain location: right chest Pain radiation: right shoulder Severity: moderate Quality: tightness and heaviness Relieving factors: nothing Exacerbating factors: other (Deep breathing/coughing) Associated symptoms: Reports no associated symptoms Review of Systems General: Reports: 10 or more systems reviewed and unremarkable except in HPI and below PFSH ED PFSH: Medical History Alzheimer disease Ascending aortic aneurysm BPH loc w urin obs/LUTS Carotid stenosis, bilateral Chronic gastrointestinal bleeding Chronic kidney disease COPD (chronic obstructive pulmonary disease) Descending aortic aneurysm Diverticulosis Dyslipidemia History of colon polyps History of stroke Ischemic heart disease CANDY (obstructive sleep apnea) Other iron deficiency anemias Prostate cancer Pulmonary nodules Surgical History H/O aortic aneurysm repair (2011) History of aortic valve repair (2011) History of colonoscopy S/P CABG (coronary artery bypass graft) S/P rotator cuff repair Family History Father , AGE 72 CAD (coronary artery disease) Diabetes Mother , AGE 65 CAD (coronary artery disease) Diabetes Other Cancer Hypertension Social History Smoking and tobacco status: former smoker Alcohol intake: never Substance/Drug Use: never Marital status: Current occupational status: retired Physical Exam Const: COMMON NORMALS: no acute distress, average body habitus, patient oriented x3, no limitations, healthy appearing, alert and well nourished HENMT: COMMON NORMALS: normocephalic, atraumatic, hearing grossly normal bilaterally, external ears normal and moist oral mucous membranes HEAD & SCALP: normocephalic and atraumatic EXTERNAL EAR: Yes external ears normal Neck/C-Spine: COMMON NORMALS: full ROM, no lymphadenopathy, supple, no meningeal signs, no JVD and Thyroid normal THYROID: Thyroid normal Lymph: LYMPHATIC: no lymphadenopathy noted Chest: COMMONS NORMALS: normal inspection of the chest CHEST: Yes localized rib tenderness with anteroposterior compression Resp: EFFORT & INSPECTION: Yes able to speak in complete sentences and Yes symmetric chest movement AUSCULTATION: wheezes Cardio: COMMON NORMALS: no JVD, regular rate, regular rhythm, S1 normal heart sound present, S2 normal heart sound present, No gallops present (Cardio), No clicks present (Cardio), No murmurs present (Cardio) and No rub (Cardio) RATE: regular rate RHYTHM: regular rhythm HEART SOUNDS: S1 normal heart sound present and S2 normal heart sound present GI: COMMON NORMALS: Normal to inspection, nondistended, normoactive bowel sounds present, Soft to palpation, non-tender, No hepatosplenomegaly present and no masses PALPATION: Yes Soft to palpation and Yes No hepatosplenomegaly present : COMMON NORMALS: Yes no CVA tenderness BLADDER/KIDNEY EXAM: Yes no CVA tenderness Back/Pelvis: COMMON NORMALS: no CVA tenderness Extremity: NARRATIVE EXTREMITY EXAM: 1+ pitting edema bilateral lower extremities Neuro: COMMON NORMALS: patient oriented x3 SENSORIUM/ORIENTATION: Yes alert MENINGEAL SIGNS: Yes no meningeal signs Course Vital Signs: Vital signs: Vital Signs Temperature 98.4 F 10/27/22 09:51 Pulse Rate 66 10/27/22 11:28 Respiratory Rate 18 10/27/22 11:28 Blood Pressure 112/68 10/27/22 12:43 Pulse Oximetry 94 10/27/22 12:43 Oxygen Delivery Me thod Nasal Cannula 10/27/22 12:43 Oxygen Flow Rate 2 10/27/22 12:43 MDM - Chest Pain Medical Decision Making Patient presents to the ER from the [place] by EMS with complaints of chest pressure. By the time the patient arrived in the ER patient was pain-free. Patient does wear 2 L of oxygen for COPD and has had recent coughing fits. Cardiac work-up was performed which included lab work serial EKGs, serial troponins, chest x-ray, all of which was benign. This is thought to be more chest wall pain from coughing fits than true cardiac pain. Differential Diagnosis Unlikely acute massive pulmonary embolism, acute respiratory failure, acute myocardial infarction, cardiac arrest or sudden cardiac Medical Records I reviewed the patient's medical records. Lab Data I reviewed the patient's lab results. 10/27/22 10:09 10/27/22 10:09 Radiology Impressions Chest X-Ray 10/27/22 09:54 IMPRESSION: 1. Mild cardiac enlargement. No acute process noted. Laboratory Results WBC 5.1 10^3/uL (4.0-10.0) 10/27/22 10:09 RBC 4.09 10^6/uL (4.1-5.3) L 10/27/22 10:09 Hgb 10.8 g/dL (11.7-16.6) L 10/27/22 10:09 Hct 38.3 % (42.0-52.0) L 10/27/22 10:09 MCV 93.6 fl (80-94) 10/27/22 10:09 MCH 26.4 pg (28.0-34.0) L 10/27/22 10:09 MCHC 28.2 g/dL (30.0-36.0) L 10/27/22 10:09 RDW 24.3 % (12.1-15.1) H 10/27/22 10:09 Plt Count 194 10^3/cmm (130-400) 10/27/22 10:09 MPV 10.8 fL (7.4-10.4) H 10/27/22 10:09 Neut % (Auto) 67.1 % 10/27/22 10:09 Lymph % (Auto) 16.0 % 10/27/22 10:09 Starr % (Auto) 11.9 % 10/27/22 10:09 Eos % (Auto) 3.0 % 10/27/22 10:09 Baso % (Auto) 0.2 % 10/27/22 10:09 Neut # (Auto) 3.39 10^3/uL (1.8-7.7) 10/27/22 10:09 Lymph # (Auto) 0.8 10^3/uL (0.8-4.8) 10/27/22 10:09 Starr # (Auto) 0.6 10^3/uL (0.2-0.9) 10/27/22 10:09 Eos # (Auto) 0.2 10^3/uL (0.0-0.8) 10/27/22 10:09 Baso # (Auto) 0.0 10^3/uL (0.0-0.1) 10/27/22 10:09 Nucleated RBC % (auto) 0.6 % 10/27/22 10:09 Nucleated RBCs # 0.0 /100WBC 10/27/22 10:09 Sodium 134 mmol/L (136-145) L 10/27/22 10:09 Potassium 4.2 mmol/L (3.5-5.1) 10/27/22 10:09 Chloride 99 mmol/L (98-107) 10/27/22 10:09 Carbon Dioxide 26 mmol/L (22-29) 10/27/22 10:09 Anion Gap 13.2 (5-19) 10/27/22 10:09 BUN 9 mg/dL (8-23) 10/27/22 10:09 Creatinine 1.1 mg/dL (0.7-1.2) 10/27/22 10:09 GFR Calculation Not Reportable 10/27/22 10:09 Glucose 124 mg/dL (65-115) H 10/27/22 10:09 Calculated Osmolality 278 mOsm/kg (285-295) L 10/27/22 10:09 Calcium 8.6 mg/dL (8.5-10.5) 10/27/22 10:09 Total Bilirubin 0.5 mg/dL (0.15-1.2) 10/27/22 10:09 AST 23 U/L (0-40) 10/27/22 10:09 ALT 17 U/L (0-41) 10/27/22 10:09 Alkaline Phosphatase 71 U/L (40-130) 10/27/22 10:09 Troponin T Baseline 24 ng/L (0-15) H 10/27/22 10:09 Troponin T 120 Minute 22.02 ng/L (0-15) H 10/27/22 12:20 Delta Troponin T -1.98 ABS# (0-10) L 10/27/22 12:20 NT-Pro-B Natriuret Pep 226 pg/mL (0-125) H 10/27/22 10:09 Total Protein 6.7 g/dL (6.6-8.7) 10/27/22 10:09 Albumin 4.1 g/dL (3.5-5.2) 10/27/22 10:09 Globulin 2.6 g/dL (1.3-4.6) 10/27/22 10:09 Urine Color Yellow (Yellow) 10/27/22 11:15 Urine Appearance Clear (CLEAR) 10/27/22 11:15 Urine pH 6 (5-7) 10/27/22 11:15 Ur Specific [place] 1.020 (1.005-1.030) 10/27/22 11:15 Urine Protein Neg (Negative) 10/27/22 11:15 Urine Glucose (UA) Norm (Normal) 10/27/22 11:15 Urine Ketones Negative (Negative) 10/27/22 11:15 Urine Blood Neg (Negative) 10/27/22 11:15 Urine Nitrate Negative (Negative) 10/27/22 11:15 Urine Bilirubin Neg (Negative) 10/27/22 11:15 Urine Urobilinogen 1 mg/dL (Negative) H 10/27/22 11:15 Ur Leukocyte Esterase Negative (Negative) 10/27/22 11:15 EKG Data EKG 1: I personally reviewed and interpreted this EKG as follows: EKG interpretation date: 10/27/22 EKG interpretation time: 09:55 Prior EKG tracings: not available for review Interpretation: EKG showed normal sinus rhythm with first-degree AV block, ventricular rate of 65 bpm, TX interval 246, QTc of 440, left axis deviation, right bundle branch block EKG 2: I personally reviewed and interpreted this EKG as follows: EKG interpretation date: 10/27/22 EKG interpretation time: 12:17 Prior EKG tracings: available for review Interpretation: EKG showed normal sinus rhythm with first-degree AV block, ventricular rate 64 bpm, TX interval 249, QRS duration 160, QTc of 452, left axis deviation, right bundle branch block Discharge Plan Discharge Patient Disposition: Home Clinical Impression: Atypical chest pain Condition: Stable Prescriptions: No Action alogliptin [Nesina] 12.5 mg tablet 12.5 mg PO DAILY metoprolol tartrate 25 mg tablet 25 mg PO BID pantoprazole 40 mg tablet,delayed release (DR/EC) 40 mg PO DAILY Spiriva with HandiHaler 18 mcg capsule, w/inhalation device 1 cap INHALATION DAILY Rx Instructions: puncture 1 cap using device; one dose = 2 inhalations albuterol sulfate 90 mcg/actuation HFA aerosol inhaler 2 puff INHALATION Q6H PRN (Reason: Shortness Of Breath) calcitriol 0.25 mcg capsule 0.25 mcg PO .COMPLEX Rx Instructions: 0.25 mcg PO Wed; levothyroxine 75 mcg tablet 75 mcg PO DAILY budesonide-formoterol [Symbicort] 160-4.5 mcg/actuation HFA aerosol inhaler 2 puff INHALATION BID gabapentin 100 mg capsule 100 mg PO TID nitroglycerin [Nitrostat] 0.4 mg tablet, sublingual 0.4 mg SUBLINGUAL Q5M PRN (Reason: Chest Pain) Rx Instructions: do not exceed 3 doses per episode meclizine 25 mg tablet 25 mg PO TID mupirocin 2 % ointment 1 applic topical BID Qty: 22 1RF Rx Instructions: Apply to affected area until healed divalproex 500 mg tablet extended release 24 hr 1,000 mg PO DAILY Qty: 180 4RF Rx Instructions: 1,000 mg orally daily memantine [Namenda] 10 mg tablet 10 mg PO BID Qty: 60 3RF venlafaxine 150 mg tablet extended release 24hr 150 mg PO DAILY Qty: 30 3RF levofloxacin 500 mg tablet 500 mg PO DAILY 5 Days Qty: 5 0RF tamsulosin 0.4 mg capsule 0.4 mg PO BID Qty: 180 3RF Phosphorous 250 mg tablet 1 tab PO BID Qty: 20 0RF lidocaine 5 % Adhesive Patch,Medicated 1 patch TOPICAL DAILY Rx Instructions: leave on most painful area for up to 12 hrs folic acid 1 mg Tablet 1 mg PO DAILY cholecalciferol (vitamin D3) 50 mcg (2,000 unit) Tablet 50 mcg PO DAILY Dulera 200-5 mcg/actuation Hfa Aerosol Inhaler 2 puff INHALATION Q12H Discharge Orders: Discharge ED (Routine); Ordered 10/27/22 Ordered By: Madhu Taylor Referrals: Karine Kilgore MD [Primary Care Provider] - 1 week Patient Instructions: Chest Pain (ED) Activity Restrictions/Additional Instructions: Please follow-up with your family practice doc in 1 week as needed. Please return to the ER for worsening chest pain, change in chest pain or shortness of breath. Coding Level of Care Code ED Ict Development Manager for Chiquis Gale
[2022-10-27 10:19] LABS: Basophils % 0.2 %; Eosinophils # 0.2 10^3/uL (0.0-0.8); Hematocrit 38.3 % (42.0-52.0); Hemoglobin 10.8 g/dL (11.7-16.6); Lymphocytes # 0.8 10^3/uL (0.8-4.8); Mean Corpuscular HGB Conc 28.2 g/dL (30.0-36.0); Mean Corpuscular Hemoglobin 26.4 pg (28.0-34.0); Mean Corpuscular Volume 93.6 fl (80-94); Mean Platelet Volume 10.8 fL (7.4-10.4); Monocytes # 0.6 10^3/uL (0.2-0.9); Monocytes % 11.9 %; Neutrophils # 3.39 10^3/uL (1.8-7.7); Neutrophils % 67.1 %; Nucleated Red Blood Cells % 0.6 %; Platelet Count 194 10^3/cmm (130-400); Red Blood Count 4.09 10^6/uL (4.1-5.3); Red Cell Distribution Width 24.3 % (12.1-15.1); White Blood Count 5.1 10^3/uL (4.0-10.0)
[2022-10-27 10:36] LABS: Alanine Aminotransferase 17 U/L (0-41); Albumin Level 4.1 g/dL (3.5-5.2); Alkaline Phosphatase 71 U/L (40-130); Anion Gap 13.2 (5-19); Aspartate Amino Transferase 23 U/L (0-40); Blood Urea Nitrogen 9 mg/dL (8-23); Calcium 8.6 mg/dL (8.5-10.5); Carbon Dioxide 26 mmol/L (22-29); Chloride 99 mmol/L (98-107); Globulin 2.6 g/dL (1.3-4.6); Glucose 124 mg/dL (65-115); Osmolality Calculated 278 mOsm/kg (285-295); Potassium 4.2 mmol/L (3.5-5.1); Sodium 134 mmol/L (136-145); Total Bilirubin 0.5 mg/dL (0.15-1.2); Total Protein 6.7 g/dL (6.6-8.7)
[2022-10-27 10:38] LABS: Troponin(5th) Baseline 24 ng/L (0-15)
[2022-10-27 10:45] VITALS: BP 141/72; O2SAT 96
[2022-10-27 11:14] LABS: NT Pro B Type Natriuretic Pept 226 pg/mL (0-125)
[2022-10-27] MEDS: ipratropium-albuterol 3 mL Neb INHALATION (11:20)
[2022-10-27 11:21] VITALS: PULSE 65; RESP 16; O2SAT 98
[2022-10-27 11:28] VITALS: PULSE 66; RESP 18; O2SAT 98
[2022-10-27 11:37] LABS: Add Urine Microscopic? NO; Charge for UA Resulting for Rev
[2022-10-27 11:56] LABS: Urine Appearance Clear (CLEAR); Urine Color Yellow (Yellow); pH Urine 6 (5-7)
[2022-10-27 11:57] LABS: Bilirubin Urine Neg (Negative); Blood Urine Neg (Negative); Glucose Urine UA Norm (Normal); Ketones Urine Negative (Negative); Nitrate Urine Negative (Negative); Protein Urine Neg (Negative); Urobilinogen Urine 1 mg/dL (Negative)
[2022-10-27 11:58] LABS: Leukocyte Esterase Urine Negative (Negative)
--- NOTE | 2022-10-27 12:17 | ECG_ITS ---
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 Measurements Intervals [place] Rate: 64 P: 35 [place]: 249 QRS: -36 QRSD: 160 T: 40 QT: 443 QTc: 457 Interpretive Statements SINUS RHYTHM WITH FIRST DEGREE AV BLOCK LEFT AXIS DEVIATION [QRS AXIS < -30] RIGHT BUNDLE BRANCH BLOCK [120+ ms QRS DURATION, UPRIGHT V1, 40+ ms S IN I/aVL/V4/V5/V6] Compared to ECG 08/26/2022 14:45:41 No significant changes Electronically Signed On 10-27-2022 12:21:46 CDT by Margaret Mead M.D. [id number]
[2022-10-27 12:43] VITALS: BP 112/68; O2SAT 94
[2022-10-27 12:44] LABS: Troponin 5 2HR 22.02 ng/L (0-15)
[2022-10-27 12:47] LABS: Troponin 5 2HR Delta -1.98 ABS# (0-10)
== END 2022-10-27 13:19 | disposition home or self-care (01) ==
PROVIDERS: Emergency Provider Emergency Medicine; PCP Family Medicine
DX: R07.89 Other chest pain (principal); J44.9 Chronic obstructive pulmonary disease, unspecified; Z99.81 Dependence on supplemental oxygen
CPT/HCPCS: 36415; 71045; 80053; 81003; 83880; 84484; 85025; 93005; 94640; 99285

== ENCOUNTER → 2022-11-18 12:31 | Outpatient (BNVA) | payer OTHER, SELFPAY | PROVIDERS: PCP Family Medicine; Visit Provider Internal Medicine | DX: R00.2 Palpitations (principal); I25.10 Atherosclerotic heart disease of native coronary artery without angina pectoris; G31.83 Neurocognitive disorder with Lewy bodies; F02.80 Dementia in other diseases classified elsewhere, unspecified severity, without behavioral disturbance, psychotic disturbance, mood disturbance, and anxiety; I25.9 Chronic ischemic heart disease, unspecified; J44.9 Chronic obstructive pulmonary disease, unspecified; E78.5 Hyperlipidemia, unspecified; Z95.1 Presence of aortocoronary bypass graft; I65.23 Occlusion and stenosis of bilateral carotid arteries; G47.33 Obstructive sleep apnea (adult) (pediatric); I71.21 Aneurysm of the ascending aorta, without rupture; I71.9 Aortic aneurysm of unspecified site, without rupture; Z87.891 Personal history of nicotine dependence | CPT/HCPCS: 99214 ==

== ENCOUNTER 2022-11-24 08:17 | Outpatient (CLI) | payer OTHER, SELFPAY ==
[2022-11-24 10:04] LABS: Prostate Specific AG Urology 0.35 ng/mL (0-4)
== END 2022-11-24 08:18 | disposition home or self-care (01) ==
PROVIDERS: PCP Family Medicine; Visit Provider Urology
DX: Z12.5 Encounter for screening for malignant neoplasm of prostate (principal); N40.1 Benign prostatic hyperplasia with lower urinary tract symptoms; N39.41 Urge incontinence
CPT/HCPCS: 36415; 81003; 84153; 99213

== ENCOUNTER 2022-11-26 11:30 | Oncology outpatient (recurring) (ONCR) | payer OTHER, SELFPAY ==
[2022-10-29 12:20] VITALS: BP 111/65; PULSE 67; RESP 16; TEMP 35.9; O2SAT 95
[2022-10-29] MEDS: ferric carboxy (IVPB) 750 MG in sodium chloride 0.9% (100 ml) 100 ML 345 MG IV (13:06)
[2022-10-29 13:12] LABS: Basophils % 0.2 %; Eosinophils # 0.1 10^3/uL (0.0-0.8); Eosinophils % 2.8 %; Hematocrit 33.8 % (42.0-52.0); Hemoglobin 9.7 g/dL (11.7-16.6); Lymphocytes % 21.4 %; Mean Corpuscular HGB Conc 28.7 g/dL (30.0-36.0); Mean Corpuscular Hemoglobin 27.4 pg (28.0-34.0); Mean Corpuscular Volume 95.5 fl (80-94); Mean Platelet Volume 10.9 fL (7.4-10.4); Monocytes # 0.5 10^3/uL (0.2-0.9); Monocytes % 10.3 %; Neutrophils # 2.89 10^3/uL (1.8-7.7); Neutrophils % 63.3 %; Nucleated Red Blood Cells % 0.4 %; Platelet Count 168 10^3/cmm (130-400); Red Blood Count 3.54 10^6/uL (4.1-5.3); Red Cell Distribution Width 25.2 % (12.1-15.1); White Blood Count 4.6 10^3/uL (4.0-10.0)
[2022-10-29 14:30] VITALS: BP 108/62; PULSE 64; RESP 18; TEMP 36.2; O2SAT 94
[2022-11-12 10:52] VITALS: BP 112/64; PULSE 74; RESP 18; TEMP 36.8; O2SAT 97
[2022-11-12 11:09] LABS: Basophils % 0.2 %; Eosinophils # 0.2 10^3/uL (0.0-0.8); Eosinophils % 3.2 %; Hematocrit 35.7 % (42.0-52.0); Hemoglobin 10.3 g/dL (11.7-16.6); Lymphocytes # 0.9 10^3/uL (0.8-4.8); Lymphocytes % 18.5 %; Mean Corpuscular HGB Conc 28.9 g/dL (30.0-36.0); Mean Corpuscular Hemoglobin 28.5 pg (28.0-34.0); Mean Corpuscular Volume 98.9 fl (80-94); Mean Platelet Volume 11.8 fL (7.4-10.4); Monocytes # 0.5 10^3/uL (0.2-0.9); Monocytes % 10.7 %; Neutrophils # 3.31 10^3/uL (1.8-7.7); Neutrophils % 66.6 %; Nucleated Red Blood Cells % 0 %; Platelet Count 158 10^3/cmm (130-400); Red Blood Count 3.61 10^6/uL (4.1-5.3); Red Cell Distribution Width 21.8 % (12.1-15.1)
[2022-11-26 10:26] VITALS: BP 144/71; PULSE 75; RESP 18; TEMP 36.2; O2SAT 93
[2022-11-26 10:41] LABS: Basophils % 0.3 %; Eosinophils # 0.2 10^3/uL (0.0-0.8); Eosinophils % 2.9 %; Hematocrit 29.6 % (42.0-52.0); Hemoglobin 8.4 g/dL (11.7-16.6); Lymphocytes # 1.1 10^3/uL (0.8-4.8); Lymphocytes % 17.5 %; Mean Corpuscular HGB Conc 28.4 g/dL (30.0-36.0); Mean Corpuscular Hemoglobin 25.7 pg (28.0-34.0); Mean Corpuscular Volume 90.5 fl (80-94); Mean Platelet Volume 11.4 fL (7.4-10.4); Monocytes # 0.8 10^3/uL (0.2-0.9); Monocytes % 12.2 %; Neutrophils # 4.11 10^3/uL (1.8-7.7); Nucleated Red Blood Cells % 0.5 %; Platelet Count 189 10^3/cmm (130-400); Red Blood Count 3.27 10^6/uL (4.1-5.3); Red Cell Distribution Width 20.6 % (12.1-15.1); White Blood Count 6.2 10^3/uL (4.0-10.0)
[2022-11-26 10:59] LABS: Ferritin 24 ng/mL (30-400); Iron 22 ug/dL (59-158); Percent Saturation 6.3 % (20-50); Total Iron Binding Capacity 349 mcg/dl; Unsaturated Iron Binding 327 ug/dL (112-347)
[2022-11-26] MEDS: ferric carboxy (IVPB) 750 MG in sodium chloride 0.9% (100 ml) 100 ML 345 MG IV (14:23)
[2022-11-26 14:50] VITALS: BP 113/69; PULSE 88; RESP 18; TEMP 36.2; O2SAT 92
== END 2022-11-27 23:59 | disposition home or self-care (01) ==
PROVIDERS: PCP Family Medicine; Visit Provider Internal Medicine Medical Oncology
DX: D50.0 Iron deficiency anemia secondary to blood loss (chronic) (principal); Z79.899 Other long term (current) drug therapy; Z87.891 Personal history of nicotine dependence
CPT/HCPCS: 36415; 82728; 83540; 83550; 85025; 96365; 96366; 99214; J1439

== ENCOUNTER 2022-12-17 10:51 | Observation (INO) | payer OTHER, SELFPAY ==
[2022-12-17] VITALS (24 sets, daily range): BP systolic 80–142; BP diastolic 54–82; PULSE 59–74; RESP 13–21; TEMP 36.4–36.7; O2SAT 91–98; BMI 34.8
--- NOTE | 2022-12-17 11:14 | CT_ITS ---
WS: [id number] CT HEAD NONCONTRAST HISTORY: weakness TECHNIQUE: Contiguous axial imaging performed through the brain in 2.5 mm imaging. Bone and soft tiss ue windows. Sagittal and coronal reformats reviewed. All CT scans at [facility] use at least one of these dose optimization techniques: automated exposure control; mA and/or kV adjustment per pa tient size (includes targeted exams where dose is matched to clinical indication); or iterative recon struction. DLP: 1107.00 mGy.cm COMPARISON: 06/18/2021 No acute intracranial hemorrhage, midline shift or mass effect. Moderate parenchymal volume loss and small vessel ischemic disease. Cerebellar atrophy and ischemic c hanges. No obvious progression or change since 06/18/2021. Ventricles: Normal size with no hydrocephalus. No inferior displacement of the cerebellar tonsils. Paranasal sinuses: As visualized are clear. Mastoid air cells: Small amount of fluid LEFT mastoid air cells. RIGHT mastoid air cells are negative . Calvarium and scalp: Skull is intact with no soft tissue edema or swelling. CT/CT head wo con* [id number] IMPRESSION: 1. No acute intracranial hemorrhage or edema. 2. Moderate small vessel ischemic changes and parenchymal volume loss. Very si milar to the study of 06/18/2021. No acute interval change.
--- NOTE | 2022-12-17 11:14 | XR_ITS ---
WS: [id number] Exam: XR chest 1V portable [id number] Date/Time of Exam: 12/17/2022 11:16 AM Reason For Exam: weakness Comparison 10/27/2022. The lungs are clear and fully expanded. Heart size is top limits normal. Signs of median sternotomy. No pleural effusions. The mediastinum is normal in contour. Monitoring leads superimpose the chest. S everal scattered calcified granulomas noted bilaterally. XR/XR chest 1V portable [id number] IMPRESSION: 1. No acute cardiopulmonary finding.
[2022-12-17 11:36] LABS: Add Urine Microscopic? NO; Charge for UA Resulting for Rev
[2022-12-17 11:38] LABS: Bilirubin Urine Neg (Negative); Blood Urine Neg (Negative); Glucose Urine UA Trace (Normal); Ketones Urine Negative (Negative); Leukocyte Esterase Urine Negative (Negative); Nitrate Urine Negative (Negative); Protein Urine Neg (Negative); Urine Appearance Clear (CLEAR); Urine Color Yellow (Yellow); Urobilinogen Urine Norm (Negative); pH Urine 7 (5-7)
[2022-12-17 11:47] LABS: Amphetamines Screen Urine Negative (Negative); Barbiturates Screen Urine Negative (Negative); Benzodiazepines Screen Urine Negative (Negative); Cocaine Screen Urine Negative (Negative); Opiate Screen Urine Negative (Negative); PCP Screen Urine Negative (Negative); THC Screen Urine Negative (Negative)
[2022-12-17] MEDS: sodium chloride 0.9% 1,000 ML 999 ML IV (11:52)
[2022-12-17 12:19] LABS: Basophils % 0.2 %; Eosinophils # 0.1 10^3/uL (0.0-0.8); Eosinophils % 2.2 %; Hematocrit 30.8 % (42.0-52.0); Hemoglobin 8.5 g/dL (11.7-16.6); Lymphocytes # 0.8 10^3/uL (0.8-4.8); Lymphocytes % 17.4 %; Mean Corpuscular HGB Conc 27.6 g/dL (30.0-36.0); Mean Corpuscular Volume 90.6 fl (80-94); Mean Platelet Volume 10.7 fL (7.4-10.4); Monocytes # 0.6 10^3/uL (0.2-0.9); Monocytes % 12.9 %; Neutrophils # 3.04 10^3/uL (1.8-7.7); Neutrophils % 66.2 %; Nucleated Red Blood Cells % 0 %; Platelet Count 181 10^3/cmm (130-400); Red Cell Distribution Width 22.2 % (12.1-15.1); White Blood Count 4.6 10^3/uL (4.0-10.0)
[2022-12-17 12:42] LABS: Alanine Aminotransferase 13 U/L (0-41); Albumin Level 3.9 g/dL (3.5-5.2); Alkaline Phosphatase 60 U/L (40-130); Aspartate Amino Transferase 14 U/L (0-40); Blood Urea Nitrogen 11 mg/dL (8-23); Calcium 8.7 mg/dL (8.5-10.5); Carbon Dioxide 27 mmol/L (22-29); Chloride 99 mmol/L (98-107); Globulin 2.4 g/dL (1.3-4.6); Glucose 146 mg/dL (65-115); Magnesium 1.9 mg/dL (1.7-2.3); Osmolality Calculated 282 mOsm/kg (285-295); Sodium 135 mmol/L (136-145); Total Bilirubin 0.4 mg/dL (0.15-1.2); Total Protein 6.3 g/dL (6.6-8.7)
--- NOTE | 2022-12-17 13:02 | PC.PHAR ---
pts verified pts medications-states [facility] to [facility] list back-medications entered are what the pts state the pt takes
--- NOTE | 2022-12-17 13:08 | CT_ITS ---
WS: [id number] CT ANGIOGRAM CEREBRAL AND CAROTID ARTERIES HISTORY: weakness TECHNIQUE: CT angiogram is performed of the carotid and cerebral arteries. During arterial injection imaging is obtained from the skull vertex to the aortic arch in 1.25 mm imaging. Coronal and sagittal reformats are submitted. Additional multi planar reformats of the carotid and cerebral arteries are submitted, MIP imaging also reviewed. NASCET criteria utilized. All CT scans at [facility] e at least one of these dose optimization techniques: automated exposure control; mA and/or kV adjust ment per patient size (includes targeted exams where dose is matched to clinical indication); or iter ative reconstruction. CONTRAST: Omnipaque 350; 100 mL IV. DLP: 1134.35 mGy.cm COMPARISON: Noncontrast CT head 12/17/2022 Carotid Angiogram: Right carotid: Common carotid artery: Proximal common carotid artery is partially obscured by motion and beam harden ing artifact. Mid to distal common carotid artery is normal. Internal carotid artery: No plaque or stenosis. External carotid artery: Patent. Left carotid: Common carotid artery: Arises normally from the aorta. No significant plaque or stenosis. Internal carotid artery: No plaque or stenosis. Tortuous. External carotid artery: Patent. Right vertebral artery: Unremarkable. Left vertebral artery: Unremarkable. Arises normally from the subclavian artery. Subclavian arteries: No stenosis or significant abnormality. Upper thorax: Normal. Thyroid gland: Obscured by beam hardening artifact. Osseous structures: Moderate degenerative disc disease. CEREBRAL ANGIOGRAM: Intracranial vertebral arteries: Patent. RIGHT vertebral artery is smaller caliber. Basilar artery: No significant stenosis or occlusion. No aneurysm. Intracranial Internal carotid arteries: No significant stenosis. Small amount of calcified plaque in the cavernous sinuses. Middle cerebral arteries: Normal. Anterior cerebral arteries and ACOM: Normal. Posterior cerebral arteries and PCOM's: Normal. Dural venous sinuses are normally enhancing. Mastoid air cells: Small amount of fluid in the LEFT mastoid air cells. Paranasal sinuses: Normal. Calvarium: Normal. CT/CT angio headneck* [id number] IMPRESSION: 1. No significant cervical carotid artery stenosis. 2. Small noncalcified plaque in the intracranial internal carotid arteries to the cavernous sinuses. 3. No aneurysms or occlusions.
[2022-12-17] MEDS: iohexol 350 mg/mL 500 mL Btl (per mL) IV (13:53)
--- NOTE | 2022-12-17 14:15 | W.ED.AMS ---
HPI - Altered Mental Status General: Chief Complaint: Altered Mental Status Stated Complaint: possible TIA Time Seen by Provider: 12/17/22 11:14 History of Present Illness: 72-year-old male brought to emergency room by due to confusion and left-sided weakness. With a history of COPD, dementia, GERD, hypertension, hyperlipidemia and chronic renal failure. According to patient's patient had some confusion last night and woke up this morning with increased confusion and left-sided weakness. With history of CVA that affected his right side in the past. She was taken to the local [place] clinic and was sent to the emergency room for further evaluation. Upon present emergency room, patient appears to be a little confused but able to answer questions. GEN without any obvious left arm weakness or deficit. Review of Systems General: Reports: 10 or more systems reviewed and unremarkable except in HPI and below Const: Denies: fever(s), chills, body aches, change in appetite, change in weight, fatigue, malaise or night sweats Card: Denies: chest pain, palpitations, irregular heart rhythm, edema, swelling of feet/ankles, lightheadedness, syncope, pre-syncope, dyspnea on exertion, orthopnea, leg pain with exertion or acrocyanosis Musc: Denies: neck pain, back pain, extremity pain, extremity swelling, joint pain, joint swelling, joint redness, joint warmth, joint stiffness, limited range of motion, muscle cramps, muscle weakness, decrease in muscle mass, loss of height or deformity Neuro: Reports: weakness in extremities (left arm), confusion and Slurred speech present; Denies: headache(s), numbness in extremities, sensory changes, lack of coordination, difficulty walking, frequent falls, dizziness, vertigo, behavioral changes, difficulty communicating thoughts or seizure-like activity [facility] ED PFSH: Medical History Alzheimer disease Ascending aortic aneurysm BPH loc w urin obs/LUTS Carotid stenosis, bilateral Chronic gastrointestinal bleeding Chronic kidney disease COPD (chronic obstructive pulmonary disease) Descending aortic aneurysm Diverticulosis Dyslipidemia History of colon polyps History of stroke Ischemic heart disease CANDY (obstructive sleep apnea) Other iron deficiency anemias Prostate cancer Pulmonary nodules Surgical History H/O aortic aneurysm repair (2011) History of aortic valve repair (2011) History of colonoscopy S/P CABG (coronary artery bypass graft) S/P rotator cuff repair Family History Father , AGE 72 CAD (coronary artery disease) Diabetes Mother , AGE 65 CAD (coronary artery disease) Diabetes Other Cancer Hypertension Social History Smoking and tobacco status: former smoker Alcohol intake: never Substance/Drug Use: never Marital status: Current occupational status: retired Physical Exam Const: COMMON NORMALS: no acute distress, average body habitus, patient oriented x3, no limitations, healthy appearing, alert and well nourished EXAM LIMITATIONS: other limitations (dementia) Eye: COMMON NORMALS: Equal, round and reactive pupils present, EOMs intact bilaterally, conjunctivae normal, no scleral icterus, no papilledema, normal visual solo by confrontation and fundi normal bilaterally CONJUNCTIVA: Yes conjunctivae normal PUPIL: Yes Equal, round and reactive pupils present DIRECT OPHTHALMOSCOPY: Yes no papilledema and Yes fundi normal bilaterally Neck/C-Spine: COMMON NORMALS: negative for no JVD Cardio: COMMON NORMALS: negative for no JVD, negative for regular rate, negative for regular rhythm, negative for S1 normal heart sound present and negative for S2 normal heart sound present RATE: abnormal rate RHYTHM: abnormal rhythm HEART SOUNDS: S1 abnormal and S2 abnormal GI: COMMON NORMALS: Normal to inspection, nondistended, normoactive bowel sounds present, Soft to palpation, non-tender, No hepatosplenomegaly present, no masses and no bruits PALPATION: Yes Soft to palpation and Yes No hepatosplenomegaly present Neuro: COMMON NORMALS: patient oriented x3; negative for no focal motor deficits and negative for no sensory deficits noted SENSORIUM/ORIENTATION: Yes alert Course Vital Signs: Vital signs: Vital Signs Temperature 98.1 F 12/18/22 08:00 Pulse Rate 69 12/18/22 14:29 Respiratory Rate 16 12/18/22 11:30 Blood Pressure 137/86 12/18/22 08:00 Pulse Oximetry 97 12/18/22 11:30 Oxygen Delivery Me thod Room Air 12/18/22 11:30 Oxygen Flow Rate 2 12/18/22 11:30 MDM - Altered Mental Status Medical Decision Making Patient made comfortable emergency room. I discussed patient care with . Patient had a CT scan and extensive work-up done. Discussed patient with hospitalist for admission and further evaluation and treatment. Remained stable emergency room no acute distress. Lab Data 12/18/22 05:09 12/18/22 05:09 Radiology Impressions Chest X-Ray 12/17/22 11:14 IMPRESSION: 1. No acute cardiopulmonary finding. Head CT 12/17/22 11:14 IMPRESSION: 1. No acute intracranial hemorrhage or edema. 2. Moderate small vessel ischemic changes and parenchymal volume loss. Very similar to the study of 06/18/2021. No acute interval change. Head/Neck CTA 12/17/22 13:08 IMPRESSION: 1. No significant cervical carotid artery stenosis. 2. Small noncalcified plaque in the intracranial internal carotid arteries to the cavernous sinuses. 3. No aneurysms or occlusions. Laboratory Results WBC 4.6 10^3/uL (4.0-10.0) 12/17/22 11:55 RBC 3.40 10^6/uL (4.1-5.3) L 12/17/22 11:55 Hgb 8.5 g/dL (11.7-16.6) L 12/17/22 11:55 Hct 30.8 % (42.0-52.0) L 12/17/22 11:55 MCV 90.6 fl (80-94) 12/17/22 11:55 MCH 25.0 pg (28.0-34.0) L 12/17/22 11:55 MCHC 27.6 g/dL (30.0-36.0) L 12/17/22 11:55 RDW 22.2 % (12.1-15.1) H 12/17/22 11:55 Plt Count 181 10^3/cmm (130-400) 12/17/22 11:55 MPV 10.7 fL (7.4-10.4) H 12/17/22 11:55 Neut % (Auto) 66.2 % 12/17/22 11:55 Lymph % (Auto) 17.4 % 12/17/22 11:55 [place] % (Auto) 12.9 % 12/17/22 11:55 Eos % (Auto) 2.2 % 12/17/22 11:55 Baso % (Auto) 0.2 % 12/17/22 11:55 Neut # (Auto) 3.04 10^3/uL (1.8-7.7) 12/17/22 11:55 Lymph # (Auto) 0.8 10^3/uL (0.8-4.8) 12/17/22 11:55 [place] # (Auto) 0.6 10^3/uL (0.2-0.9) 12/17/22 11:55 Eos # (Auto) 0.1 10^3/uL (0.0-0.8) 12/17/22 11:55 Baso # (Auto) 0.0 10^3/uL (0.0-0.1) 12/17/22 11:55 Nucleated RBC % (auto) 0 % 12/17/22 11:55 Nucleated RBCs # 0.0 /100WBC 12/17/22 11:55 Sodium 135 mmol/L (136-145) L 12/17/22 11:55 Potassium 4.0 mmol/L (3.5-5.1) 12/17/22 11:55 Chloride 99 mmol/L (98-107) 12/17/22 11:55 Carbon Dioxide 27 mmol/L (22-29) 12/17/22 11:55 Anion Gap 13.0 (5-19) 12/17/22 11:55 BUN 11 mg/dL (8-23) 12/17/22 11:55 Creatinine 1.2 mg/dL (0.7-1.2) 12/17/22 11:55 GFR Calculation Not Reportable 12/17/22 11:55 Glucose 146 mg/dL (65-115) H 12/17/22 11:55 Estimat Average Glucose 103 12/17/22 11:55 Hemoglobin A1c 5.2 % (4.0-6.0) 12/17/22 11:55 Calculated Osmolality 282 mOsm/kg (285-295) L 12/17/22 11:55 Calcium 8.7 mg/dL (8.5-10.5) 12/17/22 11:55 Magnesium 1.9 mg/dL (1.7-2.3) 12/17/22 11:55 Total Bilirubin 0.4 mg/dL (0.15-1.2) 12/17/22 11:55 AST 14 U/L (0-40) 12/17/22 11:55 ALT 13 U/L (0-41) 12/17/22 11:55 Alkaline Phosphatase 60 U/L (40-130) 12/17/22 11:55 Total Protein 6.3 g/dL (6.6-8.7) L 12/17/22 11:55 Albumin 3.9 g/dL (3.5-5.2) 12/17/22 11:55 Globulin 2.4 g/dL (1.3-4.6) 12/17/22 11:55 Triglycerides 164 mg/dL (0-150) H 12/17/22 11:55 Cholesterol 132 mg/dL (0-200) 12/17/22 11:55 LDL Cholesterol, Calc 75 mg/dL (50-129) 12/17/22 11:55 HDL Cholesterol 24 mg/dL (60-100) L 12/17/22 11:55 LDL/HDL Ratio 3.13 RATIO (0.00-3.22) 12/17/22 11:55 Cholesterol/HDL Ratio 5.50 mg/dL (1.0-5.00) H 12/17/22 11:55 TSH 3.34 uIU/mL (0.27-4.20) 12/17/22 11:55 Urine Color Yellow (Yellow) 12/17/22 11:30 Urine Appearance Clear (CLEAR) 12/17/22 11:30 Urine pH 7 (5-7) 12/17/22 11:30 Ur Specific Brooten 1.010 (1.005-1.030) 12/17/22 11:30 Urine Protein Neg (Negative) 12/17/22 11:30 Urine Glucose (UA) Trace (Normal) H 12/17/22 11:30 Urine Ketones Negative (Negative) 12/17/22 11:30 Urine Blood Neg (Negative) 12/17/22 11:30 Urine Nitrate Negative (Negative) 12/17/22 11:30 Urine Bilirubin Neg (Negative) 12/17/22 11:30 Urine Urobilinogen Norm mg/dL (Negative) 12/17/22 11:30 Ur Leukocyte Esterase Negative (Negative) 12/17/22 11:30 Urine Opiates Screen Negative ng/mL (Negative) 12/17/22 11:30 Ur Barbiturates Screen Negative ng/mL (Negative) 12/17/22 11:30 Ur Phencyclidine Scrn Negative ng/mL (Negative) 12/17/22 11:30 Ur Amphetamines Screen Negative ng/mL (Negative) 12/17/22 11:30 U Benzodiazepines Scrn Negative ng/mL (Negative) 12/17/22 11:30 Urine Cocaine Screen Negative ng/mL (Negative) 12/17/22 11:30 U Marijuana (THC) Screen Negative ng/mL (Negative) 12/17/22 11:30 Discharge Plan Discharge Patient Disposition: Admitted As Inpatient Admit Provider: Anselmo Arce Clinical Impression: Brain TIA, Dementia Condition: Stable Discharge Diet: Cardiac Discharge Activity: Resume usual activity Coding Level of Care Code ED Concession Attendant for Chiquis Gale
--- NOTE | 2022-12-17 14:48 | PM.HP ---
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 Currently patient is alert to person, to place, to time he follows all commands, currently symptom-free, is at bedside, she tells me that yesterday evening patient was acting a bit confused, no strokelike symptoms but he was suddenly confused which was unusual for him. This morning patient woke up, had a roughly 8 AM or so, he started having slurring of his words, left hand and arm weakness, with paresthesias, no trouble ambulating, productive aphasia, no reported facial droop, no visual field deficits, no unsteadiness, symptoms lasted roughly 5 minutes or so and elevated, he came to the ER for evaluation, his initial head CT had no acute findings, CTA no acute findings, currently symptom-free, NIH stroke scale is 0, denies any dysuria, no hematuria, hospitalist team was called for admission Review of Systems Const: Denies: fever(s) or chills Eyes: Denies: change in vision Card: Denies: chest pain, palpitations, lightheadedness or syncope Resp: Denies: dyspnea or non-productive cough GI: Denies: abdominal pain or nausea : Denies: flank pain or difficulty urinating Musc: Reports: muscle weakness Skin/Breast: Denies: rash or pruritus Neuro: Reports: numbness in extremities, weakness in extremities, sensory changes, lack of coordination, confusion and Slurred speech present; Denies: headache(s), difficulty walking, frequent falls, dizziness or vertigo Psych: Denies: anxiety, depression, difficulty concentrating, visual hallucinations, auditory hallucinations, tactile hallucinations, suicidal ideation or homicidal ideation Endo: Denies: polyuria Hasmukh/Lymph: Denies: easy bruising Medications/Allergies Home Medications Medication Instructions Recorded Confirmed Last Taken Type albuterol sulfate 90 mcg/actuation 2 puff inhalation Q6H PRN 11/01/19 12/17/22 11/19/21 History aerosol inhaler Shortness Of Breath budesonide-formoterol HFA 160 2 puff inhalation BID 11/01/19 12/17/22 11/19/21 History mcg-4.5 mcg/actuation aerosol inhaler (Symbicort) calcitriol 0.25 mcg capsule 0.25 mcg PO .COMPLEX 11/01/19 12/17/22 12/16/22 History gabapentin 100 mg capsule 100 mg PO TID 11/01/19 12/17/22 12/17/22 History levothyroxine 75 mcg tablet 75 mcg PO QAM 11/01/19 12/17/22 12/17/22 History meclizine 25 mg tablet 25 mg PO QAM 11/01/19 12/17/22 12/17/22 History nitroglycerin 0.4 mg sublingual 0.4 mg sublingual Q5M PRN Chest 11/01/19 12/17/22 11/19/21 History tablet (Nitrostat) Pain pantoprazole 40 mg tablet,delayed 40 mg PO QAM 11/01/19 12/17/22 12/17/22 History release tiotropium bromide 18 mcg capsule 1 cap inhalation DAILY 11/01/19 12/17/22 11/19/21 History with inhalation device (Spiriva with HandiHaler) alogliptin 12.5 mg tablet (Nesina) 12.5 mg PO QAM 12/21/19 12/17/22 12/17/22 History metoprolol tartrate 25 mg tablet 25 mg PO BID 08/05/21 12/17/22 12/17/22 History sodium di- and 1 tab PO BID #20 tabs 08/30/21 12/17/22 12/17/22 Rx monophosphate-potassium phos monobasic 250 mg tablet (Phosphorous) cholecalciferol (vitamin D3) 50 50 mcg PO QAM 10/16/21 12/17/22 12/17/22 History mcg (2,000 unit) tablet folic acid 1 mg tablet 1 mg PO QAM 10/16/21 12/17/22 12/17/22 History lidocaine 5 % topical patch 1 patch topical DAILY PRN Pain 10/16/21 12/17/22 11/19/21 History mometasone-formoterol HFA 200 2 puff inhalation Q12H 10/16/21 12/17/22 11/19/21 History mcg-5 mcg/actuation aerosol inhaler (Dulera) tamsulosin 0.4 mg capsule 0.4 mg PO BID #180 caps 10/30/21 12/17/22 12/17/22 07:30 Rx memantine 10 mg tablet (Namenda) 10 mg PO BID #60 tabs 08/04/22 12/17/22 12/17/22 Rx aspirin 25 mg-dipyridamole 200 mg 1 cap PO BID 12/17/22 12/17/22 12/17/22 History capsule,ext.release 12 hr multiphase divalproex 500 mg tablet,extended 1,000 mg PO BEDTIME 12/17/22 12/17/22 12/16/22 History release 24 hr furosemide 40 mg tablet (Lasix) 40 mg PO QAM 12/17/22 12/17/22 Unknown History mupirocin 2 % topical ointment 1 applic topical BID PRN unknown 12/17/22 12/17/22 Unknown History tolterodine 4 mg capsule,extended 4 mg PO QAM 12/17/22 12/17/22 12/17/22 07:30 History release 24 hr venlafaxine 150 mg tablet,extended 150 mg PO QAM 12/17/22 12/17/22 12/17/22 07:30 History release 24 hr Allergies Allergy/AdvReac Type Severity Reaction Status Date / Time clopidogrel Allergy Unknown Verified 11/26/22 13:35 ezetimibe Allergy Unknown Verified 11/26/22 13:35 fish oil Allergy Unknown Verified 11/26/22 13:35 gemfibrozil Allergy Unknown Verified 11/26/22 13:35 mushroom Allergy Unknown Verified 11/26/22 13:35 niacin Allergy Unknown Verified 11/26/22 13:35 Lcsjinq-IOM-ZbS Reductase Allergy ALGY-Rash Verified 11/26/22 13:35 Inhibitor [Wxhlvuk-Dow-Pzm Reductase Inhibitor] Sulfa (Sulfonamide Allergy Unknown Verified 11/26/22 13:35 Antibiotics) sulfamethoxazole Allergy Unknown Verified 11/26/22 13:35 PFSH Acute PFSH: Medical History Alzheimer disease Ascending aortic aneurysm BPH loc w urin obs/LUTS Carotid stenosis, bilateral Chronic gastrointestinal bleeding Chronic kidney disease COPD (chronic obstructive pulmonary disease) Descending aortic aneurysm Diverticulosis Dyslipidemia History of colon polyps History of stroke Ischemic heart disease CANDY (obstructive sleep apnea) Other iron deficiency anemias Prostate cancer Pulmonary nodules Surgical History H/O aortic aneurysm repair (2011) History of aortic valve repair (2011) History of colonoscopy S/P CABG (coronary artery bypass graft) S/P rotator cuff repair Family History Father , AGE 72 CAD (coronary artery disease) Diabetes Mother , AGE 65 CAD (coronary artery disease) Diabetes Other Cancer Hypertension Social History Smoking and tobacco status: former smoker Alcohol intake: never Substance/Drug Use: never Marital status: Current occupational status: retired Vitals/I&O/Wt Last Vital Signs Temp 98.0 F 12/17/22 10:57 Pulse 61 12/17/22 13:30 Resp 16 12/17/22 13:30 BP 126/72 12/17/22 13:30 Pulse Ox 98 12/17/22 13:30 O2 Del Method Nasal Cannula 12/17/22 10:57 O2 Flow Rate 2 12/17/22 10:57 Weight last 48 hrs Weight 113.398 kg Physical Exam Const: COMMON NORMALS: no acute distress GENERAL APPEARANCE: cooperative, well kempt and well developed ORIENTATION/CONSCIOUSNESS: Yes awake, Yes oriented to person and Yes oriented to place; not oriented to time HENMT: COMMON NORMALS: normocephalic, Normal external nose present and oropharynx normal HEAD & SCALP: normocephalic FACE & SINUS: normal facial exam MOUTH: Normal oral and palatal mucosa present Eye: COMMON NORMALS: Equal, round and reactive pupils present, EOMs intact bilaterally, conjunctivae normal and no scleral icterus CONJUNCTIVA: Yes conjunctivae normal Neck/C-Spine: COMMON NORMALS: full ROM, no lymphadenopathy, no JVD and No carotid bruits Lymph: LYMPHATIC: no lymphadenopathy noted Chest: COMMONS NORMALS: normal inspection of the chest Resp: COMMON NORMALS: normal respiratory effort, No retractions, No use of accessory muscles and clear to auscultation bilaterally AUSCULTATION: clear to auscultation bilaterally Cardio: COMMON NORMALS: regular rate, regular rhythm, S1 normal heart sound present, S2 normal heart sound present, No murmurs present (Cardio) and Peripheral pulses 2+ throughout RATE: regular rate RHYTHM: regular rhythm HEART SOUNDS: S1 normal heart sound present and S2 normal heart sound present PERIPHERAL PULSES: Peripheral pulses 2+ throughout GI: COMMON NORMALS: Normal to inspection, nondistended, normoactive bowel sounds present, Soft to palpation and non-tender : BLADDER/KIDNEY EXAM: Yes no CVA tenderness Extremity: COMMON NORMALS: normal to inspection, full ROM, no calf tenderness and no pedal edema Neuro: COMMON NORMALS: CN's II-XII intact bilaterally, moves all extremities, no focal motor deficits and no sensory deficits noted Psych: COMMON NORMALS: mental status grossly normal, Normal thought process present, cooperative and speech normal APPEARANCE: Yes well kempt SPEECH: Yes normal speech Skin: COMMON NORMALS: turgor normal and no jaundice GENERAL SKIN EXAM: turgor normal Data 12/17/22 11:55 12/17/22 11:55 A&P Assessment and plan (1) Generalized epilepsy: (2) Lewy body dementia: (3) S/P CABG (coronary artery bypass graft): (4) CANDY (obstructive sleep apnea): (5) Dyslipidemia: (6) COPD (chronic obstructive pulmonary disease): (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 -Continue IV fluids. -He has a Plavix allergy, chronic anemia, history of AV malformations, hold off on Plavix. -Continue aspirin. -Telemetry monitoring. -Neurochecks, and a stroke scale. -DNR/DNI. -Lovenox for DVT prophylaxis History of Lewy body dementia. Hypothyroidism, check TSH. PT OT, speech therapy eval he Attestations Medical Necessity Statement*: Patient requires hospitalization, outpatient with observation, for TIA Diagnoses Generalized epilepsy G40.309 Lewy body dementia G31.83; F02.80 S/P CABG (coronary artery bypass graft) Z95.1 CANDY (obstructive sleep apnea) G47.33 Dyslipidemia E78.5 COPD (chronic obstructive pulmonary disease) J44.9 AV malformation of gastrointestinal tract K55.20 Iron deficiency anemia secondary to blood loss (chronic) D50.0 Brain TIA G45.9
[2022-12-17 15:33] LABS: Estmated Average Glucose 103; Hemoglobin A1C 5.2 % (4.0-6.0)
[2022-12-17] MEDS: tamsulosin 0.4 mg Capsule PO (17:47)
[2022-12-17] MEDS: gabapentin 100 mg Capsule PO ×2 (17:47→20:33)
[2022-12-17] MEDS: metoprolol tartrate 25 mg Tablet PO (17:47)
[2022-12-17] MEDS: aspirin 81 mg EC Tablet PO (17:47)
[2022-12-17] MEDS: sodium chloride 0.9% 1,000 ML 75 ML IV (17:48)
[2022-12-17] MEDS: enoxaparin 40 mg/0.4 mL Syringe SUBCUT (17:49)
[2022-12-17 18:19] LABS: Cholesterol 132 mg/dL (0-200); HDL Cholesterol 24 mg/dL (60-100); LDL Cholesterol Calculated 75 mg/dL (50-129); LDL HDL Ratio 3.13 RATIO (0.00-3.22); Thyroid Stimulating Hormone 3.34 uIU/mL (0.27-4.20); Triglycerides 164 mg/dL (0-150)
[2022-12-17] MEDS: memantine 5 mg tablet 10 MG PO (19:44)
[2022-12-17] MEDS: phosphorus 250 mg Tablet PO (19:44)
[2022-12-17] MEDS: divalproex ER 500 mg Tablet (24H) 1000 MG PO (20:33)
[2022-12-17] MEDS: budesonide 0.5 mg/2 mL Neb INHALATION (21:08)
[2022-12-17] MEDS: albuterol 2.5 mg/3 mL Neb INHALATION (21:09)
[2022-12-18] VITALS (10 sets, daily range): BP systolic 137–145; BP diastolic 79–86; PULSE 57–75; RESP 16–18; TEMP 36.6–36.7; O2SAT 94–98
[2022-12-18 05:46] LABS: Basophils % 0.2 %; Eosinophils # 0.1 10^3/uL (0.0-0.8); Eosinophils % 2.4 %; Hematocrit 29.7 % (42.0-52.0); Lymphocytes # 0.9 10^3/uL (0.8-4.8); Mean Corpuscular HGB Conc 26.9 g/dL (30.0-36.0); Mean Corpuscular Hemoglobin 24.2 pg (28.0-34.0); Mean Platelet Volume 11.5 fL (7.4-10.4); Monocytes # 0.5 10^3/uL (0.2-0.9); Neutrophils # 2.56 10^3/uL (1.8-7.7); Neutrophils % 62.7 %; Nucleated Red Blood Cells % 0 %; Platelet Count 172 10^3/cmm (130-400); Red Cell Distribution Width 22.1 % (12.1-15.1); White Blood Count 4.1 10^3/uL (4.0-10.0)
[2022-12-18] MEDS: folic acid 1 mg Tablet PO (06:01)
[2022-12-18] MEDS: pantoprazole DR 40 mg Tablet PO (06:01)
[2022-12-18] MEDS: venlafaxine ER (24HR) 150 mg Capsule PO (06:01)
[2022-12-18] MEDS: levothyroxine 75 mcg Tablet PO (06:01)
[2022-12-18] MEDS: TOLTERODINE 4 MG 4 EACH PO (06:02)
[2022-12-18] MEDS: FUROsemide 40 mg Tablet PO (06:02)
[2022-12-18 06:09] LABS: Anion Gap 11.6 (5-19); Blood Urea Nitrogen 12 mg/dL (8-23); Calcium 8.7 mg/dL (8.5-10.5); Carbon Dioxide 29 mmol/L (22-29); Chloride 100 mmol/L (98-107); Glucose 126 mg/dL (65-115); Osmolality Calculated 283 mOsm/kg (285-295); Potassium 4.6 mmol/L (3.5-5.1); Sodium 136 mmol/L (136-145)
[2022-12-18 06:53] LABS: Glucose Point of Care 128 mg/dL (70-110)
[2022-12-18] MEDS: phosphorus 250 mg Tablet PO (08:06)
[2022-12-18] MEDS: tamsulosin 0.4 mg Capsule PO (08:06)
[2022-12-18] MEDS: memantine 5 mg tablet 10 MG PO (08:07)
[2022-12-18] MEDS: metoprolol tartrate 25 mg Tablet PO (08:07)
[2022-12-18] MEDS: gabapentin 100 mg Capsule PO (08:07)
[2022-12-18] MEDS: aspirin 81 mg EC Tablet PO (08:07)
[2022-12-18] MEDS: sodium chloride 0.9% 1,000 ML 75 ML IV (08:08)
[2022-12-18] MEDS: budesonide 0.5 mg/2 mL Neb INHALATION (08:49)
[2022-12-18] MEDS: albuterol 2.5 mg/3 mL Neb INHALATION ×2 (08:49→11:30)
[2022-12-18] MEDS: calcitriol 0.25 mcg Capsule PO (09:58)
[2022-12-18 10:56] LABS: Glucose Point of Care 158 mg/dL (70-110)
--- NOTE | 2022-12-18 12:11 | P.DS_ITS ---
Discharge Providers Date of Admission: 12/17/22 14:40 Date of Discharge: December 18, 2022 Attending Provider at Admission: Anselmo Arce MD Attending Provider at Discharge: Anselmo Arce MD Primary Care Provider: Karine Kilgore MD Diagnoses at Discharge Discharge Diagnosis (1) Generalized epilepsy: Status: Acute (2) Lewy body dementia: Status: Acute (3) S/P CABG (coronary artery bypass graft): Status: Acute (4) CANDY (obstructive sleep apnea): Status: Acute (5) Dyslipidemia: Status: Acute (6) COPD (chronic obstructive pulmonary disease): Status: Acute (7) AV malformation of gastrointestinal tract: Status: Acute (8) Iron deficiency anemia secondary to blood loss (chronic): Status: Acute (9) Brain TIA: Status: Acute Reason for Visit Reason for Visit: possible TIA Hospital Course Hospital Course Bebo Goetz is a 72 year old male with a past medical history of Lewy body dementia, 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 Currently patient is alert to person, to place, to time he follows all commands, currently symptom-free, is at bedside, she tells me that yesterday evening patient was acting a bit confused, no strokelike symptoms but he was suddenly confused which was unusual for him.? This morning patient woke up, had a roughly 8 AM or so, he started having slurring of his words, left hand and arm weakness, with paresthesias, no trouble ambulating, productive aphasia, no reported facial droop, no visual field deficits, no unsteadiness, symptoms lasted roughly 5 minutes or so and elevated, he came to the ER for evaluation, his initial head CT had no acute findings, CTA no acute findings, currently symptom-free, NIH stroke scale is 0, denies any dysuria, no hematuria, hospitalist team was called for admission Patient was admitted to [facility] for a TIA, with reported left- sided weakness, paresthesias, slurring of his words, on admission he was symptom-free, NIH stroke scale 0, initial head CT 1.? No acute intracranial hemorrhage or edema. 2.? Moderate small vessel ischemic changes and parenchymal volume loss. Very similar to the study of 06/18/2021. No acute interval change. CTA 1.? No significant cervical carotid artery stenosis. 2.? Small noncalcified plaque in the intracranial internal carotid arteries to the cavernous sinuses. 3.? No aneurysms or occlusions. -Patient was monitored as inpatient, received IV fluids, neurochecks, remained symptom-free managed with aspirin, his statin allergy, Plavix allergy, overall he relatively remained asymptomatic -Work with PT OT patient will be discharged home, if he has any recurrent stroke like symptoms please call, 911, see neurology in 2 week Physical Exam Const: COMMON NORMALS: no acute distress and patient oriented x3 Resp: COMMON NORMALS: normal respiratory effort, No retractions, No use of accessory muscles and clear to auscultation bilaterally AUSCULTATION: clear to auscultation bilaterally Cardio: COMMON NORMALS: regular rate, regular rhythm, S1 normal heart sound present and S2 normal heart sound present RATE: regular rate RHYTHM: regular rhythm HEART SOUNDS: S1 normal heart sound present and S2 normal heart sound present GI: COMMON NORMALS: Normal to inspection, nondistended, normoactive bowel sounds present and non-tender Extremity: COMMON NORMALS: no pedal edema Neuro: COMMON NORMALS: patient oriented x3 Psych: COMMON NORMALS: mental status grossly normal Discharge Data Studies Completed and Pending Completed Studies During Hospitalization Category Date Time Status CT head wo con* [id number] Stat Cat Scan 12/17/22 11:14 Completed CTA head neck [CT angio headneck* [id number]] Stat Cat Scan 12/17/22 13:08 Completed XR chest 1V portable [id number] Stat Exams 12/17/22 11:14 Completed Pending at discharge Category Date Time Status Basic Metabolic Panel AM LABS Lab 12/19/22 04:00 Ordered Basic Metabolic Panel AM LABS Lab 12/20/22 04:00 Ordered Complete Blood Count w/Auto AM LABS Lab 12/19/22 04:00 Ordered Complete Blood Count w/Auto AM LABS Lab 12/20/22 04:00 Ordered Radiology Impressions Chest X-Ray 12/17/22 11:14 IMPRESSION: 1. No acute cardiopulmonary finding. Head CT 12/17/22 11:14 IMPRESSION: 1. No acute intracranial hemorrhage or edema. 2. Moderate small vessel ischemic changes and parenchymal volume loss. Very similar to the study of 06/18/2021. No acute interval change. Head/Neck CTA 12/17/22 13:08 IMPRESSION: 1. No significant cervical carotid artery stenosis. 2. Small noncalcified plaque in the intracranial internal carotid arteries to the cavernous sinuses. 3. No aneurysms or occlusions. Laboratory Results WBC 4.1 10^3/uL (4.0-10.0) 12/18/22 05:09 RBC 3.30 10^6/uL (4.1-5.3) L 12/18/22 05:09 Hgb 8.0 g/dL (11.7-16.6) L 12/18/22 05:09 Hct 29.7 % (42.0-52.0) L 12/18/22 05:09 MCV 90.0 fl (80-94) 12/18/22 05:09 MCH 24.2 pg (28.0-34.0) L 12/18/22 05:09 MCHC 26.9 g/dL (30.0-36.0) L 12/18/22 05:09 RDW 22.1 % (12.1-15.1) H 12/18/22 05:09 Plt Count 172 10^3/cmm (130-400) 12/18/22 05:09 MPV 11.5 fL (7.4-10.4) H 12/18/22 05:09 Neut % (Auto) 62.7 % 12/18/22 05:09 Lymph % (Auto) 22.0 % 12/18/22 05:09 [place] % (Auto) 12.0 % 12/18/22 05:09 Eos % (Auto) 2.4 % 12/18/22 05:09 Baso % (Auto) 0.2 % 12/18/22 05:09 Neut # (Auto) 2.56 10^3/uL (1.8-7.7) 12/18/22 05:09 Lymph # (Auto) 0.9 10^3/uL (0.8-4.8) 12/18/22 05:09 [place] # (Auto) 0.5 10^3/uL (0.2-0.9) 12/18/22 05:09 Eos # (Auto) 0.1 10^3/uL (0.0-0.8) 12/18/22 05:09 Baso # (Auto) 0.0 10^3/uL (0.0-0.1) 12/18/22 05:09 Nucleated RBC % (auto) 0 % 12/18/22 05:09 Nucleated RBCs # 0.0 /100WBC 12/18/22 05:09 Sodium 136 mmol/L (136-145) 12/18/22 05:09 Potassium 4.6 mmol/L (3.5-5.1) 12/18/22 05:09 Chloride 100 mmol/L (98-107) 12/18/22 05:09 Carbon Dioxide 29 mmol/L (22-29) 12/18/22 05:09 Anion Gap 11.6 (5-19) 12/18/22 05:09 BUN 12 mg/dL (8-23) 12/18/22 05:09 Creatinine 1.1 mg/dL (0.7-1.2) 12/18/22 05:09 GFR Calculation Not Reportable 12/18/22 05:09 Glucose 126 mg/dL (65-115) H 12/18/22 05:09 POC Glucose 158 mg/dL (70-110) H 12/18/22 10:34 Estimat Average Glucose 103 12/17/22 11:55 Hemoglobin A1c 5.2 % (4.0-6.0) 12/17/22 11:55 Calculated Osmolality 283 mOsm/kg (285-295) L 12/18/22 05:09 Calcium 8.7 mg/dL (8.5-10.5) 12/18/22 05:09 Magnesium 1.9 mg/dL (1.7-2.3) 12/17/22 11:55 Total Bilirubin 0.4 mg/dL (0.15-1.2) 12/17/22 11:55 AST 14 U/L (0-40) 12/17/22 11:55 ALT 13 U/L (0-41) 12/17/22 11:55 Alkaline Phosphatase 60 U/L (40-130) 12/17/22 11:55 Total Protein 6.3 g/dL (6.6-8.7) L 12/17/22 11:55 Albumin 3.9 g/dL (3.5-5.2) 12/17/22 11:55 Globulin 2.4 g/dL (1.3-4.6) 12/17/22 11:55 Triglycerides 164 mg/dL (0-150) H 12/17/22 11:55 Cholesterol 132 mg/dL (0-200) 12/17/22 11:55 LDL Cholesterol, Calc 75 mg/dL (50-129) 12/17/22 11:55 HDL Cholesterol 24 mg/dL (60-100) L 12/17/22 11:55 LDL/HDL Ratio 3.13 RATIO (0.00-3.22) 12/17/22 11:55 Cholesterol/HDL Ratio 5.50 mg/dL (1.0-5.00) H 12/17/22 11:55 TSH 3.34 uIU/mL (0.27-4.20) 12/17/22 11:55 Urine Color Yellow (Yellow) 12/17/22 11:30 Urine Appearance Clear (CLEAR) 12/17/22 11:30 Urine pH 7 (5-7) 12/17/22 11:30 Ur Specific [place] 1.010 (1.005-1.030) 12/17/22 11:30 Urine Protein Neg (Negative) 12/17/22 11:30 Urine Glucose (UA) Trace (Normal) H 12/17/22 11:30 Urine Ketones Negative (Negative) 12/17/22 11:30 Urine Blood Neg (Negative) 12/17/22 11:30 Urine Nitrate Negative (Negative) 12/17/22 11:30 Urine Bilirubin Neg (Negative) 12/17/22 11:30 Urine Urobilinogen Norm mg/dL (Negative) 12/17/22 11:30 Ur Leukocyte Esterase Negative (Negative) 12/17/22 11:30 Urine Opiates Screen Negative ng/mL (Negative) 12/17/22 11:30 Ur Barbiturates Screen Negative ng/mL (Negative) 12/17/22 11:30 Ur Phencyclidine Scrn Negative ng/mL (Negative) 12/17/22 11:30 Ur Amphetamines Screen Negative ng/mL (Negative) 12/17/22 11:30 U Benzodiazepines Scrn Negative ng/mL (Negative) 12/17/22 11:30 Urine Cocaine Screen Negative ng/mL (Negative) 12/17/22 11:30 U Marijuana (THC) Screen Negative ng/mL (Negative) 12/17/22 11:30 Vitals Last Vital Signs Temp 98.1 F 12/18/22 08:00 Pulse 69 12/18/22 11:37 Resp 16 12/18/22 11:30 BP 137/86 12/18/22 08:00 Pulse Ox 97 12/18/22 11:30 O2 Del Method Room Air 12/18/22 11:30 O2 Flow Rate 2 12/18/22 11:30 Discharge Plan Discharge Patient Disposition: Home Condition: Stable Prescriptions: New aspirin 81 mg Tablet,Delayed Release (Dr/Ec) 81 mg PO DAILY 30 Days Qty: 30 0RF Continued alogliptin [Nesina] 12.5 mg tablet 12.5 mg PO QAM metoprolol tartrate 25 mg tablet 25 mg PO BID pantoprazole 40 mg tablet,delayed release (DR/EC) 40 mg PO QAM Spiriva with HandiHaler 18 mcg capsule, w/inhalation device 1 cap INHALATION DAILY Rx Instructions: puncture 1 cap using device; one dose = 2 inhalations albuterol sulfate 90 mcg/actuation HFA aerosol inhaler 2 puff INHALATION Q6H PRN (Reason: Shortness Of Breath) calcitriol 0.25 mcg capsule 0.25 mcg PO .COMPLEX Rx Instructions: 0.25 MCG PO ON Wed levothyroxine 75 mcg tablet 75 mcg PO QAM budesonide-formoterol [Symbicort] 160-4.5 mcg/actuation HFA aerosol inhaler 2 puff INHALATION BID gabapentin 100 mg capsule 100 mg PO TID nitroglycerin [Nitrostat] 0.4 mg tablet, sublingual 0.4 mg SUBLINGUAL Q5M PRN (Reason: Chest Pain) Rx Instructions: do not exceed 3 doses per episode meclizine 25 mg tablet 25 mg PO QAM memantine [Namenda] 10 mg tablet 10 mg PO BID Qty: 60 3RF tamsulosin 0.4 mg capsule 0.4 mg PO BID Qty: 180 3RF Phosphorous 250 mg tablet 1 tab PO BID Qty: 20 0RF lidocaine 5 % Adhesive Patch,Medicated 1 patch TOPICAL DAILY PRN (Reason: Pain) Rx Instructions: leave on most painful area for up to 12 hrs then off for 12 hours folic acid 1 mg Tablet 1 mg PO QAM cholecalciferol (vitamin D3) 50 mcg (2,000 unit) Tablet 50 mcg PO QAM Dulera 200-5 mcg/actuation Hfa Aerosol Inhaler 2 puff INHALATION Q12H Lasix 40 mg tablet 40 mg PO QAM tolterodine 4 mg capsule,extended release 24hr 4 mg PO QAM divalproex 500 mg tablet extended release 24 hr 1,000 mg PO BEDTIME mupirocin 2 % ointment 1 applic topical BID PRN (Reason: unknown) Rx Instructions: Apply to affected area until healed venlafaxine 150 mg tablet extended release 24hr 150 mg PO QAM Discontinued aspirin-dipyridamole 25-200 mg Capsule, Er Multiphase 12 Hr 1 cap PO BID Discharge Orders: Discharge Order (Routine); Ordered 12/18/22 Ordered By: Anselmo Arce Referrals: Elizabeth Elliott MD [Physician] - 2 weeks Karine Kilgore MD [Primary Care Provider] - Discharge Diet: Cardiac Discharge Activity: Resume usual activity Patient Instructions: Hyponatremia (ED), Benzodiazepine Use Disorder (ED), Dementia (ED), Non-diabetic Hypoglycemia (ED), Hypoglycemia in a Person with Diabetes (ED), Concussion (ED), Alcohol Intoxication (ED), Subarachnoid Hemorrhage (GEN), Altered Mental Status (ED), Opioid Safety, TIA Activity Restrictions/Additional Instructions: - If you have any recurrent strokelike symptoms please go to the emergency room or call 911 -Please see neurology in 2 weeks Discharge Attestations Time Spent in Discharge Care*: greater than 30 min Quality Metrics Clinical Quality Measures [ No reported AMI, CVA or VTE this stay] Coding Level of Care Code 54313 Total time (in minutes) for Discharge: 45 Diagnoses Generalized epilepsy G40.309 Lewy body dementia G31.83; F02.80 S/P CABG (coronary artery bypass graft) Z95.1 CANDY (obstructive sleep apnea) G47.33 Dyslipidemia E78.5 COPD (chronic obstructive pulmonary disease) J44.9 AV malformation of gastrointestinal tract K55.20 Iron deficiency anemia secondary to blood loss (chronic) D50.0 Brain TIA G45.9
== END 2022-12-18 13:30 | disposition home or self-care (01) ==
LOC: ER 16:14 → MEDSURG 19:19
PROVIDERS: Admitting Provider Family Medicine; Emergency Provider Family Medicine; PCP Family Medicine; Visit Provider Family Medicine
DX: G45.9 Transient cerebral ischemic attack, unspecified (principal); G31.83 Neurocognitive disorder with Lewy bodies; F02.80 Dementia in other diseases classified elsewhere, unspecified severity, without behavioral disturbance, psychotic disturbance, mood disturbance, and anxiety; Z86.73 Personal history of transient ischemic attack (TIA), and cerebral infarction without residual deficits; I25.10 Atherosclerotic heart disease of native coronary artery without angina pectoris; J44.9 Chronic obstructive pulmonary disease, unspecified; E78.5 Hyperlipidemia, unspecified; Z95.1 Presence of aortocoronary bypass graft; G47.33 Obstructive sleep apnea (adult) (pediatric); K21.9 Gastro-esophageal reflux disease without esophagitis; I10 Essential (primary) hypertension; Z87.891 Personal history of nicotine dependence
CPT/HCPCS: 36415; 36416; 70450; 70496; 70498; 71045; 80048; 80053; 80061; 80306; 81003; 82962; 83036; 83735; 84443; 85025; 92523; 92610; 94640; 94664; 96360; 96372; 97161; 97165; 97530; 99285; G0378; J1650; J7030; J7613; J7626; Q9967

== ENCOUNTER 2022-12-24 12:30 | Oncology outpatient (recurring) (ONCR) | payer OTHER, SELFPAY ==
[2022-12-10 14:12] VITALS: BP 177/69; PULSE 81; RESP 18; TEMP 36.8; O2SAT 90
[2022-12-10 14:38] LABS: Basophils % 0.2 %; Eosinophils # 0.1 10^3/uL (0.0-0.8); Eosinophils % 2.6 %; Hematocrit 32.4 % (42.0-52.0); Lymphocytes % 21.1 %; Mean Corpuscular HGB Conc 27.8 g/dL (30.0-36.0); Mean Corpuscular Hemoglobin 26.1 pg (28.0-34.0); Mean Corpuscular Volume 93.9 fl (80-94); Mean Platelet Volume 11.6 fL (7.4-10.4); Monocytes # 0.5 10^3/uL (0.2-0.9); Monocytes % 11.9 %; Neutrophils # 2.86 10^3/uL (1.8-7.7); Neutrophils % 63.1 %; Nucleated Red Blood Cells % 0 %; Platelet Count 181 10^3/cmm (130-400); Red Blood Count 3.45 10^6/uL (4.1-5.3); Red Cell Distribution Width 22.7 % (12.1-15.1); White Blood Count 4.5 10^3/uL (4.0-10.0)
[2022-12-24 12:04] VITALS: BP 89/53; PULSE 73; RESP 18; TEMP 36.8; O2SAT 94
[2022-12-24 12:33] LABS: Basophils % 0.3 %; Eosinophils # 0.2 10^3/uL (0.0-0.8); Eosinophils % 2.6 %; Hematocrit 31.1 % (42.0-52.0); Hemoglobin 8.4 g/dL (11.7-16.6); Lymphocytes % 17.5 %; Mean Corpuscular Hemoglobin 23.5 pg (28.0-34.0); Mean Corpuscular Volume 86.9 fl (80-94); Mean Platelet Volume 11.9 fL (7.4-10.4); Monocytes # 0.7 10^3/uL (0.2-0.9); Monocytes % 12.1 %; Neutrophils # 3.82 10^3/uL (1.8-7.7); Neutrophils % 66.1 %; Nucleated Red Blood Cells % 0.5 %; Platelet Count 211 10^3/cmm (130-400); Red Blood Count 3.58 10^6/uL (4.1-5.3); Red Cell Distribution Width 22.2 % (12.1-15.1); White Blood Count 5.8 10^3/uL (4.0-10.0)
[2022-12-24 12:57] LABS: Alanine Aminotransferase 17 U/L (0-41); Albumin Level 4.3 g/dL (3.5-5.2); Alkaline Phosphatase 68 U/L (40-130); Anion Gap 12.4 (5-19); Aspartate Amino Transferase 21 U/L (0-40); Blood Urea Nitrogen 13 mg/dL (8-23); Calcium 8.9 mg/dL (8.5-10.5); Carbon Dioxide 27 mmol/L (22-29); Chloride 98 mmol/L (98-107); Ferritin 22 ng/mL (30-400); Globulin 2.4 g/dL (1.3-4.6); Glucose 138 mg/dL (65-115); Iron 24 ug/dL (59-158); Osmolality Calculated 278 mOsm/kg (285-295); Potassium 4.4 mmol/L (3.5-5.1); Sodium 133 mmol/L (136-145); Total Bilirubin 0.4 mg/dL (0.15-1.2); Total Iron Binding Capacity 400 mcg/dl; Total Protein 6.7 g/dL (6.6-8.7); Unsaturated Iron Binding 376 ug/dL (112-347)
[2022-12-24 16:42] VITALS: BP 120/74; PULSE 74; RESP 18; TEMP 36.6; O2SAT 98
== END 2022-12-28 23:59 | disposition home or self-care (01) ==
PROVIDERS: Internal Medicine Medical Oncology; PCP Family Medicine; Visit Provider Internal Medicine Medical Oncology
DX: D50.0 Iron deficiency anemia secondary to blood loss (chronic) (principal); K55.20 Angiodysplasia of colon without hemorrhage; Z79.899 Other long term (current) drug therapy
CPT/HCPCS: 36415; 80053; 82728; 83540; 83550; 85025; 99213

== ENCOUNTER 2023-01-07 10:00 | Oncology outpatient (recurring) (ONCR) | payer OTHER, SELFPAY ==
[2022-12-31 10:31] VITALS: BP 110/68; PULSE 68; RESP 18; TEMP 36.3; O2SAT 96
[2022-12-31] MEDS: ferric carboxy (IVPB) 750 MG in sodium chloride 0.9% (100 ml) 100 ML 345 MG IV (10:54)
[2022-12-31 11:30] VITALS: BP 112/74; PULSE 78; RESP 18; TEMP 36.1; O2SAT 98
[2023-01-07] MEDS: ferric carboxy (IVPB) 750 MG in sodium chloride 0.9% (100 ml) 100 ML 345 MG IV (09:42)
[2023-01-07 10:10] VITALS: BP 124/70; PULSE 77; RESP 18; TEMP 36.2; O2SAT 94
== END 2023-01-28 23:59 | disposition home or self-care (01) ==
PROVIDERS: PCP Family Medicine; Visit Provider Internal Medicine Medical Oncology
DX: D50.0 Iron deficiency anemia secondary to blood loss (chronic) (principal); Z53.9 Procedure and treatment not carried out, unspecified reason
CPT/HCPCS: 96365; J1439; J1642

== ENCOUNTER → 2023-01-26 09:01 | Outpatient (BNVA) | payer MEDICARE, SELFPAY | PROVIDERS: PCP Family Medicine; Visit Provider Nurse Practitioner Gerontology | DX: N18.31 Chronic kidney disease, stage 3a (principal); N18.6 End stage renal disease; N25.81 Secondary hyperparathyroidism of renal origin; Z99.2 Dependence on renal dialysis; D50.0 Iron deficiency anemia secondary to blood loss (chronic) | CPT/HCPCS: 80048; 81000; 82040; 82306; 82310; 82570; 82728; 83550; 83735; 83970; 84100; 84156; 84550; 85018 ==

== ENCOUNTER → 2023-01-27 10:04 | Outpatient (BNVA) | payer OTHER, SELFPAY | PROVIDERS: PCP Family Medicine; Visit Provider Specialist | DX: G31.83 Neurocognitive disorder with Lewy bodies (principal); F02.80 Dementia in other diseases classified elsewhere, unspecified severity, without behavioral disturbance, psychotic disturbance, mood disturbance, and anxiety; G40.309 Generalized idiopathic epilepsy and epileptic syndromes, not intractable, without status epilepticus; G90.9 Disorder of the autonomic nervous system, unspecified | CPT/HCPCS: 99215 ==

== ENCOUNTER 2023-02-18 14:00 | Oncology outpatient (recurring) (ONCR) | payer OTHER, MEDICARE, SELFPAY ==
[2023-02-11] VITALS (7 sets, daily range): BP systolic 102–137; BP diastolic 57–67; PULSE 60–76; RESP 16–18; TEMP 35.7–36.6; O2SAT 90–98
[2023-02-11 12:24] LABS: Basophils % 0.2 %; Eosinophils # 0.1 10^3/uL (0.0-0.8); Eosinophils % 2.4 %; Hematocrit 27.5 % (37-53); Lymphocytes % 19.5 %; Mean Corpuscular HGB Conc 27.3 g/dL (30-55); Mean Corpuscular Hemoglobin 23.3 pg (27-33); Mean Corpuscular Volume 85.4 fl (82-101); Mean Platelet Volume 10.7 fL (7.4-10.4); Monocytes # 0.6 10^3/uL (0.2-0.9); Monocytes % 11.2 %; Neutrophils # 3.47 10^3/uL (1.8-7.7); Nucleated Red Blood Cells % 0.7 %; Platelet Count 177 10^3/cmm (157-399); Red Blood Count 3.22 10^6/uL (3.85-5.65); Red Cell Distribution Width 23.2 % (12.1-15.1); White Blood Count 5.34 10^3/uL (3.29-11.43)
[2023-02-11] MEDS: ferric carboxy (IVPB) 750 MG in sodium chloride 0.9% (100 ml) 100 ML 345 MG IV (13:53)
[2023-02-11] MEDS: acetaminophen 325 mg Tablet 650 MG PO (14:52)
[2023-02-11] MEDS: diphenhydrAMINE 25 mg Capsule PO (14:54)
[2023-02-11] MEDS: sodium chloride 0.9% 250 ML 50 ML IV (14:55)
[2023-02-12 08:30] VITALS: BP 117/66; PULSE 61; RESP 18; TEMP 36.4; O2SAT 94
[2023-02-12] MEDS: acetaminophen 325 mg Tablet 650 MG PO (08:58)
[2023-02-12] MEDS: diphenhydrAMINE 25 mg Capsule PO (08:58)
[2023-02-12 09:05] VITALS: BP 114/63; PULSE 62; RESP 18; TEMP 36.2; O2SAT 96
[2023-02-12 09:20] VITALS: BP 113/64; PULSE 60; RESP 18; TEMP 36.3; O2SAT 94
[2023-02-12 09:35] VITALS: BP 121/69; PULSE 59; RESP 18; TEMP 36.3; O2SAT 97
[2023-02-12 10:35] VITALS: BP 120/72; PULSE 60; RESP 17; TEMP 36.2; O2SAT 95
[2023-02-12 10:51] VITALS: BP 128/76; PULSE 59; RESP 17; TEMP 36.2; O2SAT 96
[2023-02-18] MEDS: ferric carboxy (IVPB) 750 MG in sodium chloride 0.9% (100 ml) 100 ML 345 MG IV (13:33)
[2023-02-18 13:40] VITALS: BP 126/70; PULSE 64; RESP 16; TEMP 36.2; O2SAT 96
[2023-02-18 14:05] VITALS: BP 131/70; PULSE 70; RESP 18; TEMP 36.3; O2SAT 94
== END 2023-02-27 23:59 | disposition home or self-care (01) ==
PROVIDERS: Internal Medicine Medical Oncology; PCP Family Medicine; Visit Provider Internal Medicine Medical Oncology
DX: D50.0 Iron deficiency anemia secondary to blood loss (chronic) (principal)
CPT/HCPCS: 36430; 85025; 86850; 86900; 86920; 96365; 99214; J1439; J1642; J7050; P9016; P9040

== ENCOUNTER 2023-03-19 09:00 | Oncology outpatient (recurring) (ONCR) | payer OTHER, MEDICARE, SELFPAY ==
[2023-03-11 13:41] VITALS: BP 127/73; PULSE 63; RESP 18; TEMP 36.3; O2SAT 96
[2023-03-11 13:50] LABS: Basophils % 0.4 %; Eosinophils # 0.1 10^3/uL (0.0-0.8); Eosinophils % 2.5 %; Hematocrit 36.3 % (37-53); Lymphocytes # 1.1 10^3/uL (0.8-4.8); Lymphocytes % 19.7 %; Mean Corpuscular HGB Conc 28.9 g/dL (30-55); Mean Corpuscular Hemoglobin 27.3 pg (27-33); Mean Corpuscular Volume 94.3 fl (82-101); Mean Platelet Volume 11.2 fL (7.4-10.4); Monocytes # 0.7 10^3/uL (0.2-0.9); Monocytes % 11.8 %; Neutrophils # 3.62 10^3/uL (1.8-7.7); Neutrophils % 64.9 %; Nucleated Red Blood Cells % 0 %; Platelet Count 178 10^3/cmm (157-399); Red Blood Count 3.85 10^6/uL (3.85-5.65); Red Cell Distribution Width 21.3 % (12.1-15.1); White Blood Count 5.58 10^3/uL (3.29-11.43)
[2023-03-11 14:05] LABS: Alanine Aminotransferase 19 U/L (0-41); Albumin Level 4.1 g/dL (3.5-5.2); Alkaline Phosphatase 76 U/L (40-130); Anion Gap 11.4 (5-19); Aspartate Amino Transferase 24 U/L (0-40); Blood Urea Nitrogen 10 mg/dL (8-23); Calcium 8.9 mg/dL (8.5-10.5); Carbon Dioxide 29 mmol/L (22-29); Chloride 98 mmol/L (98-107); Ferritin 70 ng/mL (30-400); Globulin 2.5 g/dL (1.3-4.6); Glucose 127 mg/dL (65-115); Iron 23 ug/dL (59-158); Osmolality Calculated 279 mOsm/kg (285-295); Potassium 4.4 mmol/L (3.5-5.1); Sodium 134 mmol/L (136-145); Total Bilirubin 0.3 mg/dL (0.15-1.2); Total Iron Binding Capacity 326 mcg/dl; Total Protein 6.6 g/dL (6.6-8.7); Unsaturated Iron Binding 303 ug/dL (112-347)
[2023-03-11] MEDS: ferric carboxy (IVPB) 750 MG in sodium chloride 0.9% (100 ml) 100 ML 345 MG IV (16:03)
[2023-03-19 09:28] VITALS: BP 118/68; PULSE 60; RESP 16; TEMP 36.3; O2SAT 95
[2023-03-19] MEDS: ferric carboxy (IVPB) 750 MG in sodium chloride 0.9% (100 ml) 100 ML 345 MG IV (09:38)
[2023-03-19 10:09] VITALS: BP 131/81; PULSE 55; RESP 16; TEMP 36.2; O2SAT 95
== END 2023-03-30 23:59 | disposition home or self-care (01) ==
PROVIDERS: Nurse Practitioner Family; PCP Family Medicine; Visit Provider Internal Medicine Medical Oncology
DX: D50.9 Iron deficiency anemia, unspecified
CPT/HCPCS: 36591; 80053; 82728; 83540; 83550; 85025; 96365; 99214; J1439; J1642

== ENCOUNTER 2023-04-27 12:58 | Oncology outpatient (recurring) (ONCR) | payer OTHER, MEDICARE, SELFPAY ==
[2023-04-27 13:00] VITALS: BP 117/68; PULSE 68; RESP 16; TEMP 36.5; O2SAT 96
[2023-04-27 13:16] LABS: Basophils % 0.3 %; Eosinophils # 0.1 10^3/uL (0.0-0.8); Hematocrit 32.5 % (37-53); Lymphocytes # 1.1 10^3/uL (0.8-4.8); Mean Corpuscular Hemoglobin 25.6 pg (27-33); Mean Corpuscular Volume 91.3 fl (82-101); Mean Platelet Volume 11.2 fL (7.4-10.4); Monocytes # 0.8 10^3/uL (0.2-0.9); Monocytes % 12.5 %; Nucleated Red Blood Cells % 0.3 %; Platelet Count 216 10^3/cmm (157-399); Red Blood Count 3.56 10^6/uL (3.85-5.65); Red Cell Distribution Width 21.1 % (12.1-15.1); White Blood Count 6.06 10^3/uL (3.29-11.43)
[2023-04-27 13:34] LABS: Alanine Aminotransferase 18 U/L (0-41); Alkaline Phosphatase 72 U/L (40-130); Anion Gap 12.3 (5-19); Aspartate Amino Transferase 26 U/L (0-40); Blood Urea Nitrogen 13 mg/dL (8-23); Calcium 9.3 mg/dL (8.5-10.5); Carbon Dioxide 26 mmol/L (22-29); Chloride 99 mmol/L (98-107); Ferritin 23 ng/mL (30-400); Globulin 2.5 g/dL (1.3-4.6); Glucose 159 mg/dL (65-115); Iron 17 ug/dL (59-158); Osmolality Calculated 279 mOsm/kg (285-295); Potassium 4.3 mmol/L (3.5-5.1); Sodium 133 mmol/L (136-145); Total Bilirubin 0.4 mg/dL (0.15-1.2); Total Iron Binding Capacity 339 mcg/dl; Total Protein 6.5 g/dL (6.6-8.7); Unsaturated Iron Binding 322 ug/dL (112-347)
[2023-04-27] MEDS: ferric carboxy (IVPB) 750 MG in sodium chloride 0.9% (100 ml) 100 ML 345 MG IV (14:58)
[2023-04-27 15:35] VITALS: BP 125/69; PULSE 65; RESP 18; TEMP 36.6; O2SAT 99
== END 2023-04-29 23:59 | disposition home or self-care (01) ==
PROVIDERS: PCP Family Medicine; Visit Provider Internal Medicine Medical Oncology
DX: D50.9 Iron deficiency anemia, unspecified (principal); C61 Malignant neoplasm of prostate; D50.0 Iron deficiency anemia secondary to blood loss (chronic); D64.9 Anemia, unspecified; Z79.899 Other long term (current) drug therapy; D50.8 Other iron deficiency anemias
CPT/HCPCS: 80053; 82728; 83540; 83550; 85025; 86850; 86900; 96365; 99214; J1439; J1642

== ENCOUNTER 2023-05-04 13:30 | Oncology outpatient (recurring) (ONCR) | payer OTHER, SELFPAY ==
[2023-05-04] MEDS: ferric carboxy (IVPB) 750 MG in sodium chloride 0.9% (100 ml) 100 ML 345 MG IV (14:00)
[2023-05-04 14:05] VITALS: BP 139/78; PULSE 57; RESP 18; TEMP 36.6; O2SAT 97
[2023-05-04 14:30] VITALS: BP 122/78; PULSE 60; RESP 18; TEMP 36.3; O2SAT 96
== END 2023-05-30 23:59 | disposition home or self-care (01) ==
LOC: ONCMED 13:30
PROVIDERS: PCP Family Medicine; Visit Provider Internal Medicine Medical Oncology
DX: D50.0 Iron deficiency anemia secondary to blood loss (chronic)
CPT/HCPCS: 96365; J1439; J1642

== ENCOUNTER 2023-06-30 15:00 | Oncology outpatient (recurring) (ONCR) | payer OTHER, SELFPAY ==
[2023-06-01 15:00] LABS: Basophils % 0.4 %; Eosinophils # 0.1 10^3/uL (0.0-0.8); Eosinophils % 2.6 %; Hematocrit 34.3 % (37-53); Lymphocytes # 1.1 10^3/uL (0.8-4.8); Lymphocytes % 22.7 %; Mean Corpuscular HGB Conc 28.9 g/dL (30-55); Mean Corpuscular Hemoglobin 27.6 pg (27-33); Mean Corpuscular Volume 95.5 fl (82-101); Mean Platelet Volume 12.1 fL (7.4-10.4); Monocytes # 0.6 10^3/uL (0.2-0.9); Monocytes % 11.3 %; Neutrophils # 3.11 10^3/uL (1.8-7.7); Neutrophils % 61.8 %; Nucleated Red Blood Cells % 0 %; Platelet Count 185 10^3/cmm (157-399); Red Blood Count 3.59 10^6/uL (3.85-5.65); Red Cell Distribution Width 19.8 % (12.1-15.1); White Blood Count 5.03 10^3/uL (3.29-11.43)
[2023-06-01 15:47] LABS: Alanine Aminotransferase 24 U/L (0-41); Alkaline Phosphatase 77 U/L (40-130); Anion Gap 10.5 (5-19); Aspartate Amino Transferase 25 U/L (0-40); Blood Urea Nitrogen 9 mg/dL (8-23); Calcium 8.9 mg/dL (8.5-10.5); Carbon Dioxide 28 mmol/L (22-29); Chloride 100 mmol/L (98-107); Ferritin 44 ng/mL (30-400); Globulin 2.6 g/dL (1.3-4.6); Glucose 160 mg/dL (65-115); Iron 18 ug/dL (59-158); Osmolality Calculated 280 mOsm/kg (285-295); Percent Saturation 5.4 % (20-50); Potassium 4.5 mmol/L (3.5-5.1); Sodium 134 mmol/L (136-145); Total Bilirubin 0.4 mg/dL (0.15-1.2); Total Iron Binding Capacity 331 mcg/dl; Total Protein 6.6 g/dL (6.6-8.7); Unsaturated Iron Binding 313 ug/dL (112-347)
[2023-06-30 15:08] LABS: Basophils % 0.4 %; Eosinophils # 0.1 10^3/uL (0.0-0.8); Eosinophils % 1.9 %; Hematocrit 27.8 % (37-53); Lymphocytes # 1.1 10^3/uL (0.8-4.8); Lymphocytes % 21.1 %; Mean Corpuscular Hemoglobin 22.1 pg (27-33); Mean Corpuscular Volume 81.8 fl (82-101); Mean Platelet Volume 10.9 fL (7.4-10.4); Monocytes # 0.5 10^3/uL (0.2-0.9); Monocytes % 9.4 %; Neutrophils # 3.46 10^3/uL (1.8-7.7); Neutrophils % 66.2 %; Nucleated Red Blood Cells % 0.8 %; Platelet Count 190 10^3/cmm (157-399); Red Cell Distribution Width 21.9 % (12.1-15.1); White Blood Count 5.22 10^3/uL (3.29-11.43)
[2023-06-30 15:24] LABS: Ferritin 16 ng/mL (30-400); Iron 16 ug/dL (59-158); Percent Saturation 4.3 % (20-50); Total Iron Binding Capacity 370 mcg/dl; Unsaturated Iron Binding 354 ug/dL (112-347)
== END 2023-06-30 23:59 | disposition home or self-care (01) ==
PROVIDERS: PCP Family Medicine; Visit Provider Internal Medicine Medical Oncology
DX: D50.9 Iron deficiency anemia, unspecified; Z53.9 Procedure and treatment not carried out, unspecified reason
CPT/HCPCS: 36591; 80053; 82728; 83540; 83550; 85025; J1642

== ENCOUNTER 2023-07-07 11:11 | Outpatient (CLI) | payer OTHER, SELFPAY ==
--- NOTE | 2023-07-07 11:17 | MR_ITS ---
WS: [id number] MRI BRAIN WITH AND WITHOUT CONTRAST HISTORY: DEMENTIA HX,WORSENING MEMORY, HX OF HEADACHES COMPARISON: 10/08/2021 TECHNIQUE: Multiplanar imaging performed through the brain with MultiHance 20 ml's IV. No acute infarcts are seen. Jerez-white matter differentiation is well preserved. Moderate to severe d iffuse volume loss. Volume loss is symmetric without a significant progression since 2021. No prior hemorrhage. Reidentified is the remote RIGHT cerebellar wedge-shaped infarct. Additional sma ll bilateral lacunar infarcts in the cerebellum. Very minimal small vessel ischemic changes above the tentorium. Ventricles and extra-axial spaces are prominent on the basis of atrophy. Clivus and pituitary gland are normal. Postcontrast images are negative for masses or vascular malformations. Dural venous sinuses are normal. Paranasal sinuses: Mild mucoperiosteal thickening in the paranasal sinuses but no air-fluid levels. Mastoid air cells: Left-sided mastoid air cell effusion. Calvarium and scalp: Normal. IMPRESSION: 1. No acute infarct. 2. No acute hemorrhage. 3. Moderate to severe volume loss without significant progression since 2021. 4. Remote RIGHT cerebellar infarct and small lacunar infarcts in the cerebellum. 5. No enhancing masses or vascular malformations.
[2023-07-07] MEDS: gadobenate dimeglumine 20 mL vial IV (12:23)
== END 2023-07-07 11:12 | disposition home or self-care (01) ==
LOC: RAD 11:12
PROVIDERS: PCP Family Medicine; Visit Provider Family Medicine
DX: F03.90 Unspecified dementia, unspecified severity, without behavioral disturbance, psychotic disturbance, mood disturbance, and anxiety (principal); R51.9 Headache, unspecified; G93.9 Disorder of brain, unspecified; Z86.73 Personal history of transient ischemic attack (TIA), and cerebral infarction without residual deficits
CPT/HCPCS: 70553; A9577

== ENCOUNTER 2023-07-12 14:00 | Oncology outpatient (recurring) (ONCR) | payer OTHER, SELFPAY ==
[2023-07-01] VITALS (9 sets, daily range): BP systolic 122–164; BP diastolic 67–86; PULSE 65–77; RESP 16–18; TEMP 36.6–37.1; O2SAT 93–96
[2023-07-01] MEDS: acetaminophen 325 mg Tablet 650 MG PO (13:51)
[2023-07-01] MEDS: sodium chloride 0.9% 250 mL Bag IV (13:51)
[2023-07-01] MEDS: diphenhydrAMINE 25 mg Capsule PO (13:51)
[2023-07-05 13:25] VITALS: BP 142/72; PULSE 69; RESP 18; TEMP 35.9; O2SAT 94
[2023-07-05] MEDS: sodium chloride 0.9% 250 ML 75 ML IV (13:50)
[2023-07-05] MEDS: ferric carboxy (IVPB) 750 MG in sodium chloride 0.9% (100 ml) 100 ML 345 MG IV (13:50)
[2023-07-05 14:15] VITALS: BP 134/75; PULSE 65; RESP 18; TEMP 36.4; O2SAT 93
[2023-07-12] MEDS: sodium chloride 0.9% (100 ml) 100 ML 50 ML (13:16)
[2023-07-12] MEDS: ferric carboxy (IVPB) 750 MG in sodium chloride 0.9% (100 ml) 100 ML 345 MG IV (13:25)
[2023-07-12 14:10] VITALS: BP 136/82; PULSE 66; RESP 17; TEMP 36.4; O2SAT 95
== END 2023-07-29 23:59 | disposition home or self-care (01) ==
PROVIDERS: PCP Family Medicine; Visit Provider Internal Medicine Medical Oncology
DX: D50.0 Iron deficiency anemia secondary to blood loss (chronic); Z53.9 Procedure and treatment not carried out, unspecified reason
CPT/HCPCS: 36430; 86850; 86900; 86920; 96365; J1439; J1642; J7050; P9016

== ENCOUNTER 2023-07-20 11:13 | Emergency (ER) | payer OTHER, SELFPAY ==
[2023-07-20 11:59] VITALS: BP 167/66; PULSE 74; RESP 16; TEMP 36.7; O2SAT 94; BMI 36.9
[2023-07-20 12:16] LABS: Basophils % 0.4 %; Eosinophils # 0.1 10^3/uL (0.0-0.8); Eosinophils % 1.7 %; Lymphocytes % 18.6 %; Mean Corpuscular HGB Conc 28.9 g/dL (30-55); Mean Corpuscular Hemoglobin 28.7 pg (27-33); Mean Corpuscular Volume 99.4 fl (82-101); Mean Platelet Volume 11.2 fL (7.4-10.4); Monocytes # 0.6 10^3/uL (0.2-0.9); Monocytes % 10.5 %; Neutrophils # 3.59 10^3/uL (1.8-7.7); Neutrophils % 67.7 %; Nucleated Red Blood Cells # 0.1 /100WBC; Nucleated Red Blood Cells % 1.1 %; Platelet Count 168 10^3/cmm (157-399); Red Blood Count 3.52 10^6/uL (3.85-5.65); Red Cell Distribution Width 30.3 % (12.1-15.1); White Blood Count 5.31 10^3/uL (3.29-11.43)
[2023-07-20 12:38] LABS: Alanine Aminotransferase 29 U/L (0-41); Albumin Level 4.1 g/dL (3.5-5.2); Alkaline Phosphatase 74 U/L (40-130); Anion Gap 12.2 (5-19); Aspartate Amino Transferase 36 U/L (0-40); Blood Urea Nitrogen 11 mg/dL (8-23); Calcium 8.5 mg/dL (8.5-10.5); Carbon Dioxide 26 mmol/L (22-29); Chloride 99 mmol/L (98-107); Globulin 2.5 g/dL (1.3-4.6); Glucose 177 mg/dL (65-115); Osmolality Calculated 280 mOsm/kg (285-295); Potassium 4.2 mmol/L (3.5-5.1); Sodium 133 mmol/L (136-145); Total Bilirubin 0.6 mg/dL (0.15-1.2); Total Protein 6.6 g/dL (6.6-8.7)
--- NOTE | 2023-07-20 13:13 | W.ED.MALEGU ---
HPI - Male Genitourinary General: Chief complaint: Urogenital-Male Stated complaint: [facility], blood in urine Time Seen by Provider: 07/20/23 12:44 Source: patient and family () Mode of arrival: ambulatory Limitations: no limitations History of Present Illness: Patient is a 73-year-old male who presents to ED today along with his for evaluation of hematuria. They began noticing blood in his urine yesterday evening. Patient does have a history of prostate cancer. He follows up with urology in [place]. He also complains of stinging with urination and some mild lower back pain. No flank pain. No fevers. Onset (ago): day(s) (yesterday) Associated symptoms: Reports dysuria and hematuria; Deny nausea or vomiting Related Data: Sexually active: No Review of Systems Const: Denies: fever(s), chills, body aches, fatigue or malaise Card: Denies: chest pain Resp: Denies: dyspnea GI: Denies: abdominal pain, nausea or vomiting : Reports: dysuria, urinary urgency and hematuria; Denies: flank pain Musc: Reports: back pain PFS ED PFSH: Medical History Iron deficiency anemia Chronic kidney disease History of stroke Chronic gastrointestinal bleeding History of colon polyps BPH loc w urin obs/LUTS Prostate cancer Diverticulosis Pulmonary nodules Descending aortic aneurysm Ascending aortic aneurysm Alzheimer disease Ischemic heart disease COPD (chronic obstructive pulmonary disease) Dyslipidemia CANDY (obstructive sleep apnea) Carotid stenosis, bilateral Surgical History History of aortic valve repair (2011) H/O aortic aneurysm repair (2011) History of colonoscopy S/P rotator cuff repair S/P CABG (coronary artery bypass graft) Family History Father , AGE 72 CAD (coronary artery disease) Diabetes Mother , AGE 65 CAD (coronary artery disease) Diabetes Other Cancer Hypertension Social History Smoking and tobacco/nicotine status: former use of tobacco/nicotine Quit status (tobacco/nicotine): has quit using Year quit tobacco: 2010 Former quit date comment: Smoked for 50 + years Alcohol intake: never Substance/Drug Use: never Marital status: Current occupational status: retired Physical Exam Const: COMMON NORMALS: no acute distress, average body habitus, patient oriented x3, no limitations (dementia), healthy appearing, alert and well nourished Resp: COMMON NORMALS: normal respiratory effort and clear to auscultation bilaterally AUSCULTATION: clear to auscultation bilaterally Cardio: COMMON NORMALS: regular rate and regular rhythm RATE: regular rate RHYTHM: regular rhythm GI: COMMON NORMALS: Normal to inspection, nondistended, normoactive bowel sounds present, Soft to palpation and non-tender PALPATION: Yes Soft to palpation : COMMON NORMALS: Yes no CVA tenderness BLADDER/KIDNEY EXAM: Yes no CVA tenderness Back/Pelvis: COMMON NORMALS: no CVA tenderness, thoracic and lumbar spine normal to inspection and no thoracic nor lumbar tenderness Neuro: COMMON NORMALS: patient oriented x3 SENSORIUM/ORIENTATION: Yes alert Course Vital Signs: Vital signs: Vital Signs Temperature 98.0 F 07/20/23 11:59 Pulse Rate 74 07/20/23 11:59 Respiratory Rate 16 07/20/23 11:59 Blood Pressure 167/66 07/20/23 11:59 Pulse Oximetry 94 07/20/23 11:59 Oxygen Delivery Me thod Room Air 07/20/23 11:59 MDM - Male Medical Decision Making Patient here for hematuria starting yesterday. He is able to urinate and has so several times since he has been here. Bladder scan shows no acute urinary retention. We did discuss about the blood that he is passing has the potential to obstruct his urethra causing urinary retention that would require a Flowers. He does not want a prophylactic Flowers placed at this time. Recommend continuing his silodosin and drinking plenty of water to dilute the urine to hopefully prevent this. understands that if he is unable to urinate then he needs to return to the ED for Flowers placement. Will place him on antibiotics as he does complain of some stinging with urination as well as lower back pain. He has had symptoms previously related to a UTI. Urine culture pending. He was instructed to contact his urology office today to schedule an appointment for cystoscopy and further evaluation. Medical Records I reviewed the patient's medical records. Lab Data I reviewed the patient's lab results. 07/20/23 12:08 07/20/23 12:08 Laboratory Results WBC 5.31 10^3/uL (3.29-11.43) 07/20/23 12:08 RBC 3.52 10^6/uL (3.85-5.65) L 07/20/23 12:08 Hgb 10.10 g/dL (11.27-16.99) L 07/20/23 12:08 Hct 35.0 % (37-53) L 07/20/23 12:08 MCV 99.4 fl (82-101) 07/20/23 12:08 MCH 28.7 pg (27-33) 07/20/23 12:08 MCHC 28.9 g/dL (30-55) L 07/20/23 12:08 RDW 30.3 % (12.1-15.1) H 07/20/23 12:08 Plt Count 168 10^3/cmm (157-399) 07/20/23 12:08 MPV 11.2 fL (7.4-10.4) H 07/20/23 12:08 Neut % (Auto) 67.7 % 07/20/23 12:08 Lymph % (Auto) 18.6 % 07/20/23 12:08 [place] % (Auto) 10.5 % 07/20/23 12:08 Eos % (Auto) 1.7 % 07/20/23 12:08 Baso % (Auto) 0.4 % 07/20/23 12:08 Neut # (Auto) 3.59 10^3/uL (1.8-7.7) 07/20/23 12:08 Lymph # (Auto) 1.0 10^3/uL (0.8-4.8) 07/20/23 12:08 [place] # (Auto) 0.6 10^3/uL (0.2-0.9) 07/20/23 12:08 Eos # (Auto) 0.1 10^3/uL (0.0-0.8) 07/20/23 12:08 Baso # (Auto) 0.0 10^3/uL (0.0-0.1) 07/20/23 12:08 Nucleated RBC % (auto) 1.1 % 07/20/23 12:08 Nucleated RBCs # 0.1 /100WBC 07/20/23 12:08 Sodium 133 mmol/L (136-145) L 07/20/23 12:08 Potassium 4.2 mmol/L (3.5-5.1) 07/20/23 12:08 Chloride 99 mmol/L (98-107) 07/20/23 12:08 Carbon Dioxide 26 mmol/L (22-29) 07/20/23 12:08 Anion Gap 12.2 (5-19) 07/20/23 12:08 BUN 11 mg/dL (8-23) 07/20/23 12:08 Creatinine 1.1 mg/dL (0.7-1.2) 07/20/23 12:08 GFR Calculation Not Reportable 07/20/23 12:08 Glucose 177 mg/dL (65-115) H 07/20/23 12:08 Calculated Osmolality 280 mOsm/kg (285-295) L 07/20/23 12:08 Calcium 8.5 mg/dL (8.5-10.5) 07/20/23 12:08 Total Bilirubin 0.6 mg/dL (0.15-1.2) 07/20/23 12:08 AST 36 U/L (0-40) 07/20/23 12:08 ALT 29 U/L (0-41) 07/20/23 12:08 Alkaline Phosphatase 74 U/L (40-130) 07/20/23 12:08 Total Protein 6.6 g/dL (6.6-8.7) 07/20/23 12:08 Albumin 4.1 g/dL (3.5-5.2) 07/20/23 12:08 Globulin 2.5 g/dL (1.3-4.6) 07/20/23 12:08 Urine Color Dark yellow (Yellow) 07/20/23 13:09 Urine Appearance Cloudy (CLEAR) A 07/20/23 13:09 Urine pH 8 (5-7) H 07/20/23 13:09 Ur Specific [place] 1.010 (1.005-1.030) 07/20/23 13:09 Urine Protein 3+ (Negative) H 07/20/23 13:09 Urine Glucose (UA) 1+ (Normal) H 07/20/23 13:09 Urine Ketones 1+ (Negative) H 07/20/23 13:09 Urine Blood 3+ (Negative) H 07/20/23 13:09 Urine Nitrate Negative (Negative) 07/20/23 13:09 Urine Bilirubin Neg (Negative) 07/20/23 13:09 Prot Sulfosalicylic Acd Positive (Negative) 07/20/23 13:09 Urine Urobilinogen 1 mg/dL (Negative) H 07/20/23 13:09 Ur Leukocyte Esterase Negative (Negative) 07/20/23 13:09 Urine RBC >100 /hpf (0-2) H 07/20/23 13:09 Urine WBC 5-10 /hpf (0-5) H 07/20/23 13:09 Ur Squamous Epith Cells 0-4 /hpf (0-5) H 07/20/23 13:09 Amorphous Sediment Not Reportable 07/20/23 13:09 Urine Bacteria None /hpf (NONE) 07/20/23 13:09 Urine Mucus None /hpf 07/20/23 13:09 No radiology studies performed this visit Discharge Plan Discharge Patient Disposition: Home Clinical Impression: Hematuria Qualifiers: Hematuria type: gross Qualified Code(s): R31.0 - Gross hematuria Condition: Stable Prescriptions: New Cipro 500 mg tablet 500 mg PO Q12H Qty: 14 0RF No Action alogliptin [Nesina] 12.5 mg tablet 12.5 mg PO QAM metoprolol tartrate 25 mg tablet 25 mg PO BID pantoprazole 40 mg tablet,delayed release (DR/EC) 40 mg PO QAM Spiriva with HandiHaler 18 mcg capsule, w/inhalation device 1 cap INHALATION DAILY Rx Instructions: puncture 1 cap using device; one dose = 2 inhalations albuterol sulfate 90 mcg/actuation HFA aerosol inhaler 2 puff INHALATION Q6H PRN (Reason: Shortness Of Breath) calcitriol 0.25 mcg capsule 0.25 mcg PO .COMPLEX Rx Instructions: 0.25 MCG PO ON Wed levothyroxine 75 mcg tablet 75 mcg PO QAM budesonide-formoterol [Symbicort] 160-4.5 mcg/actuation HFA aerosol inhaler 2 puff INHALATION BID gabapentin 100 mg capsule 100 mg PO TID nitroglycerin [Nitrostat] 0.4 mg tablet, sublingual 0.4 mg SUBLINGUAL Q5M PRN (Reason: Chest Pain) Rx Instructions: do not exceed 3 doses per episode meclizine 25 mg tablet 25 mg PO QAM aspirin [Adult Aspirin Regimen] 81 mg tablet,delayed release (DR/EC) 81 mg PO DAILY divalproex 500 mg tablet extended release 24 hr 1,000 mg PO BEDTIME Qty: 180 3RF memantine [Namenda] 10 mg tablet 10 mg PO BID Qty: 180 3RF venlafaxine 150 mg tablet extended release 24hr 150 mg PO QAM Qty: 90 3RF silodosin 8 mg capsule 8 mg PO DAILY Rx Instructions: must administer with a meal/food/nighttime Phosphorous 250 mg tablet 1 tab PO BID Qty: 20 0RF lidocaine 5 % Adhesive Patch,Medicated 1 patch TOPICAL DAILY PRN (Reason: Pain) Rx Instructions: leave on most painful area for up to 12 hrs then off for 12 hours folic acid 1 mg Tablet 1 mg PO QAM cholecalciferol (vitamin D3) 50 mcg (2,000 unit) Tablet 50 mcg PO QAM Dulera 200-5 mcg/actuation Hfa Aerosol Inhaler 2 puff INHALATION Q12H Lasix 40 mg tablet 40 mg PO QAM mupirocin 2 % ointment 1 applic topical BID PRN (Reason: unknown) Rx Instructions: Apply to affected area until healed Discharge Orders: Discharge ED (Routine); Ordered 07/20/23 Ordered By: Sandy Steele Referrals: Karine Kilgore MD [Primary Care Provider] - Patient Instructions: Hematuria - Male Activity Restrictions/Additional Instructions: As we discussed you need to contact patient's urologist office today and schedule an appointment for evaluation. Patient needs to undergo cystoscopy to evaluate source of bleeding. We will place him on antibiotics while we await urine culture. As we discussed you have opted to hold off on Flowers catheter placement. There is a chance that patient will have an obstructing clot and not be able to urinate-you will need to return to the ED for Flowers placement if that happens. Drink plenty of fluids to keep the urine diluted. He needs to continue his Silodosin medication. Seek medical reevaluation for inability to urinate, severe abdominal or back pain, fevers, or any other concerns you may have. 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
[2023-07-20 13:44] LABS: Urine Appearance Cloudy (CLEAR); Urine Color Dark Yellow (Yellow)
[2023-07-20 13:45] LABS: Add Urine Microscopic? YES; Bilirubin Urine Neg (Negative); Blood Urine 3+ (Negative); Glucose Urine UA 1+ (Normal); Ketones Urine 1+ (Negative); Leukocyte Esterase Urine Negative (Negative); Nitrate Urine Negative (Negative); Protein Urine 3+ (Negative); Sulfosalicylic Acid Urine Positive (Negative); Urobilinogen Urine 1 mg/dL (Negative); pH Urine 8 (5-7)
[2023-07-20 13:49] LABS: RBC Urine >100 /hpf (0-2); Squamous Epithelial Cell Urine 0-4 /hpf (0-5)
[2023-07-20 13:50] LABS: Add Urine Culture? Yes
[2023-07-20 14:58] VITALS: BP 152/85; PULSE 70; RESP 18; O2SAT 95
== END 2023-07-20 14:59 | disposition home or self-care (01) ==
PROVIDERS: Internal Medicine; Emergency Provider Physician Assistant; PCP Family Medicine
DX: R31.0 Gross hematuria (principal); Z79.82 Long term (current) use of aspirin; Z87.891 Personal history of nicotine dependence; N18.9 Chronic kidney disease, unspecified; Z86.73 Personal history of transient ischemic attack (TIA), and cerebral infarction without residual deficits; Z85.46 Personal history of malignant neoplasm of prostate; G30.9 Alzheimer's disease, unspecified; F02.80 Dementia in other diseases classified elsewhere, unspecified severity, without behavioral disturbance, psychotic disturbance, mood disturbance, and anxiety; J44.9 Chronic obstructive pulmonary disease, unspecified; E78.5 Hyperlipidemia, unspecified; Z95.1 Presence of aortocoronary bypass graft
CPT/HCPCS: 36415; 51798; 80053; 81001; 85025; 87077; 87086; 87186; 99283

== ENCOUNTER → 2023-08-11 11:08 | Outpatient (BNVA) | payer OTHER, SELFPAY | PROVIDERS: PCP Family Medicine; Visit Provider Specialist | DX: G31.83 Neurocognitive disorder with Lewy bodies (principal); F02.C3 Dementia in other diseases classified elsewhere, severe, with mood disturbance; G40.309 Generalized idiopathic epilepsy and epileptic syndromes, not intractable, without status epilepticus; G43.711 Chronic migraine without aura, intractable, with status migrainosus | CPT/HCPCS: 99214 ==

== ENCOUNTER → 2023-08-18 13:46 | Outpatient (BNVA) | payer OTHER, SELFPAY | PROVIDERS: PCP Family Medicine; Visit Provider Internal Medicine | DX: R00.2 Palpitations (principal); I25.10 Atherosclerotic heart disease of native coronary artery without angina pectoris; G31.83 Neurocognitive disorder with Lewy bodies; F02.C3 Dementia in other diseases classified elsewhere, severe, with mood disturbance; I71.9 Aortic aneurysm of unspecified site, without rupture; I25.9 Chronic ischemic heart disease, unspecified; J44.9 Chronic obstructive pulmonary disease, unspecified; E78.5 Hyperlipidemia, unspecified; Z95.1 Presence of aortocoronary bypass graft; G47.33 Obstructive sleep apnea (adult) (pediatric); I65.23 Occlusion and stenosis of bilateral carotid arteries; Z87.891 Personal history of nicotine dependence | CPT/HCPCS: 99214 ==

== ENCOUNTER 2023-08-26 14:30 | Oncology outpatient (recurring) (ONCR) | payer OTHER, SELFPAY ==
[2023-08-19 12:36] LABS: Basophils % 0.3 %; Eosinophils # 0.1 10^3/uL (0.0-0.8); Eosinophils % 1.7 %; Hematocrit 29.9 % (37-53); Lymphocytes # 1.1 10^3/uL (0.8-4.8); Lymphocytes % 19.7 %; Mean Corpuscular HGB Conc 27.1 g/dL (30-55); Mean Corpuscular Hemoglobin 24.3 pg (27-33); Mean Corpuscular Volume 89.5 fl (82-101); Mean Platelet Volume 10.6 fL (7.4-10.4); Monocytes # 0.6 10^3/uL (0.2-0.9); Monocytes % 10.6 %; Neutrophils # 3.83 10^3/uL (1.8-7.7); Neutrophils % 66.3 %; Nucleated Red Blood Cells % 0.5 %; Platelet Count 209 10^3/cmm (157-399); Red Blood Count 3.34 10^6/uL (3.85-5.65); Red Cell Distribution Width 23.2 % (12.1-15.1); White Blood Count 5.78 10^3/uL (3.29-11.43)
[2023-08-19 12:54] LABS: Alanine Aminotransferase 19 U/L (0-41); Albumin Level 4.2 g/dL (3.5-5.2); Alkaline Phosphatase 75 U/L (40-130); Anion Gap 11.4 (5-19); Aspartate Amino Transferase 25 U/L (0-40); Blood Urea Nitrogen 11 mg/dL (8-23); Carbon Dioxide 28 mmol/L (22-29); Chloride 101 mmol/L (98-107); Ferritin 8 ng/mL (30-400); Globulin 2.2 g/dL (1.3-4.6); Glucose 224 mg/dL (65-115); Iron 22 ug/dL (59-158); Osmolality Calculated 288 mOsm/kg (285-295); Potassium 4.4 mmol/L (3.5-5.1); Sodium 136 mmol/L (136-145); Total Bilirubin 0.4 mg/dL (0.15-1.2); Total Iron Binding Capacity 362 mcg/dl; Total Protein 6.4 g/dL (6.6-8.7); Unsaturated Iron Binding 340 ug/dL (112-347)
[2023-08-19] MEDS: ferric carboxy (IVPB) 750 MG in sodium chloride 0.9% (100 ml) 100 ML 345 MG IV (15:05)
[2023-08-19 15:55] VITALS: BP 124/78; PULSE 62; RESP 18; TEMP 36.8; O2SAT 99
[2023-08-19 16:29] LABS: Prostate Specific Antigen 0.121 ng/mL (0-4)
[2023-08-20] MEDS: acetaminophen 325 mg Tablet 650 MG PO (08:08)
[2023-08-20] MEDS: diphenhydrAMINE 25 mg Capsule PO (08:08)
[2023-08-20] MEDS: sodium chloride 0.9% 250 mL Bag IV (08:09)
[2023-08-20 08:15] VITALS: BP 131/76; PULSE 67; RESP 16; O2SAT 97
[2023-08-20 08:30] VITALS: BP 131/76; PULSE 71; RESP 16; TEMP 37; O2SAT 96
[2023-08-20 08:45] VITALS: BP 146/80; PULSE 72; RESP 16; TEMP 36.9; O2SAT 96
[2023-08-20 09:00] VITALS: BP 130/71; PULSE 67; RESP 16; TEMP 36.8; O2SAT 93
[2023-08-20 10:00] VITALS: BP 130/71; PULSE 71; RESP 16; TEMP 36.9; O2SAT 96
[2023-08-20 10:20] VITALS: BP 137/76; PULSE 74; RESP 16; TEMP 36.7; O2SAT 97
[2023-08-26] MEDS: ferric carboxy (IVPB) 750 MG in sodium chloride 0.9% (100 ml) 100 ML 345 MG IV (14:24)
[2023-08-26 14:28] VITALS: BP 123/76; PULSE 62; RESP 18; O2SAT 94
[2023-08-26 15:05] VITALS: BP 118/69; PULSE 60; RESP 17; O2SAT 95
== END 2023-08-29 23:59 | disposition home or self-care (01) ==
PROVIDERS: Nurse Practitioner Family; PCP Family Medicine; Visit Provider Internal Medicine Medical Oncology
DX: Z53.9 Procedure and treatment not carried out, unspecified reason; D50.9 Iron deficiency anemia, unspecified
CPT/HCPCS: 36430; 36591; 80053; 82728; 83540; 83550; 84153; 85025; 86850; 86900; 86920; 96365; 99214; J1439; J1642; J7050; P9016

== ENCOUNTER 2023-09-24 09:30 | Oncology outpatient (recurring) (ONCR) | payer OTHER, SELFPAY ==
[2023-09-22 12:20] LABS: Basophils % 0.4 %; Eosinophils % 0.3 %; Hematocrit 35.4 % (37-53); Lymphocytes # 0.7 10^3/uL (0.8-4.8); Lymphocytes % 9.6 %; Mean Corpuscular HGB Conc 28.8 g/dL (30-55); Mean Corpuscular Hemoglobin 27.8 pg (27-33); Mean Corpuscular Volume 96.5 fl (82-101); Mean Platelet Volume 11.1 fL (7.4-10.4); Monocytes # 0.4 10^3/uL (0.2-0.9); Monocytes % 6.1 %; Neutrophils % 82.6 %; Nucleated Red Blood Cells % 0 %; Platelet Count 192 10^3/cmm (157-399); Red Blood Count 3.67 10^6/uL (3.85-5.65)
[2023-09-22 12:42] LABS: Alanine Aminotransferase 37 U/L (0-41); Albumin Level 4.1 g/dL (3.5-5.2); Alkaline Phosphatase 71 U/L (40-130); Anion Gap 12.7 (5-19); Aspartate Amino Transferase 52 U/L (0-40); Blood Urea Nitrogen 15 mg/dL (8-23); Calcium 8.4 mg/dL (8.5-10.5); Carbon Dioxide 28 mmol/L (22-29); Chloride 101 mmol/L (98-107); Ferritin 39 ng/mL (30-400); Globulin 2.3 g/dL (1.3-4.6); Glucose 279 mg/dL (65-115); Iron 22 ug/dL (59-158); Osmolality Calculated 295 mOsm/kg (285-295); Percent Saturation 6.4 % (20-50); Potassium 4.7 mmol/L (3.5-5.1); Sodium 137 mmol/L (136-145); Total Bilirubin 0.3 mg/dL (0.15-1.2); Total Iron Binding Capacity 339 mcg/dl; Total Protein 6.4 g/dL (6.6-8.7); Unsaturated Iron Binding 317 ug/dL (112-347)
[2023-09-24 09:31] VITALS: BP 124/63; PULSE 61; RESP 16; TEMP 36.2; O2SAT 91
[2023-09-24 10:00] VITALS: BP 111/69; PULSE 68; RESP 17; TEMP 36.6; O2SAT 94
[2023-09-24] MEDS: ferric carboxy (IVPB) 750 MG in sodium chloride 0.9% (100 ml) 100 ML 345 MG IV (10:04)
[2023-09-24 10:40] VITALS: BP 123/69; PULSE 67; RESP 17; TEMP 36.2; O2SAT 93
== END 2023-09-28 23:59 | disposition home or self-care (01) ==
PROVIDERS: Nurse Practitioner Family; PCP Family Medicine; Visit Provider Internal Medicine Medical Oncology
DX: Z53.9 Procedure and treatment not carried out, unspecified reason (principal); D50.0 Iron deficiency anemia secondary to blood loss (chronic); D64.9 Anemia, unspecified; D50.9 Iron deficiency anemia, unspecified
CPT/HCPCS: 80053; 82728; 83540; 83550; 85025; 96365; 99214; J1439

== ENCOUNTER → 2023-09-30 14:11 | Outpatient (BNVA) | payer OTHER, SELFPAY | PROVIDERS: PCP Family Medicine; Visit Provider Internal Medicine | DX: R00.2 Palpitations (principal); I25.10 Atherosclerotic heart disease of native coronary artery without angina pectoris; G31.83 Neurocognitive disorder with Lewy bodies; F02.C3 Dementia in other diseases classified elsewhere, severe, with mood disturbance; I71.9 Aortic aneurysm of unspecified site, without rupture; I25.9 Chronic ischemic heart disease, unspecified; J44.9 Chronic obstructive pulmonary disease, unspecified; E78.5 Hyperlipidemia, unspecified; Z95.1 Presence of aortocoronary bypass graft; G47.33 Obstructive sleep apnea (adult) (pediatric); I65.23 Occlusion and stenosis of bilateral carotid arteries; Z87.891 Personal history of nicotine dependence | CPT/HCPCS: 99214 ==

== ENCOUNTER → 2023-10-07 13:14 | Outpatient (BNVA) | payer OTHER, SELFPAY | PROVIDERS: PCP Family Medicine; Visit Provider Nurse Practitioner Family | DX: L21.8 Other seborrheic dermatitis (principal); L82.1 Other seborrheic keratosis; L98.8 Other specified disorders of the skin and subcutaneous tissue; L72.0 Epidermal cyst; L57.0 Actinic keratosis | CPT/HCPCS: 11200; 17000; 99214 ==

== ENCOUNTER 2023-10-13 09:44 | Outpatient (CLI) | payer OTHER, SELFPAY ==
--- NOTE | 2023-10-13 11:15 | USCV_ITS ---
Bishnu Bebo Age: 73 Gender: M : 1950 Exam Date: 10/13/2023 09:58 Ordering Phys: Talha Singer M.D ([email or web address]) Technologist: CT Exam Location: [facility] – [place] Indication: Sob BP: 130 / 89 HR: 58 Rhythm: Sinus Technical Quality: Adequate MEASUREMENTS (Male / Female) Normal Values 2D ECHO LVOT Diameter 2.5 cm LV Ejection Fraction MOD 2C 59.8 % LV Ejection Fraction 2C AL 59.6 % LA Diameter 3.8 cm RA Systolic Volume 4C AL 51.9 ml RA Systolic Volume 4C MOD 49.7 ml LA Sys Volume AL 53.9 cm cubed LA Sys Volume Index AL 22.9 cm cubed/m squared Aorta at Sinotubular Diameter 3.5 cm M-MODE LA Ao Ratio MM 1.4 AV Cusp Separation MM 1.5 cm DOPPLER AV Peak Velocity 114.0 cm/s LVOT Peak Velocity 108.0 cm/s AV Area Cont Eq vti 5.1 cm squared AV Area Cont Eq pk 4.8 cm squared MV Peak Velocity 98.0 cm/s MV Area PHT 3.3 cm squared Mitral E to A Ratio 0.8 TV Peak Velocity 87.0 cm/s TR Peak Velocity 89.0 cm/s TR Peak Gradient 3.2 mmHg TV Peak E Velocity 63.0 cm/s Right Atrial Pressure 3.0 mmHg Pulmonary Artery Systolic Pressu 6.2 mmHg PV Peak Velocity 127.0 cm/s FINDINGS Left Ventricle Left ventricle is normal size. LV systolic function is normal with EF of 50-55%. No regional wall motion abnormalities are seen. Grade 1 diastolic dysfunction Right Ventricle Normal in size and function Right Atrium Normal in size Left Atrium Normal in size Mitral Valve Structurally normal mitral valve. Trace mitral regurgitation. Aortic Valve Structurally normal aortic valve. No significant stenosis or regurgitation seen. Tricuspid Valve Insufficient TR jet to evaluate RVSP Pulmonic Valve Not well-visualized. Pericardium Normal Aorta Ascending aorta is mildly dilated with diameter of 3.64 cm. IVC Not well visualized CONCLUSIONS LV systolic function is normal with EF 55 to 60%. Grade 1 diastolic dysfunction. Trace mitral regurgitation Ascending aorta is mildly dilated with diameter of 3.64 cm. Compared to prior echocardiogram from 2022, ascending aorta shows mild dilation. Talha Singer MD (Electronically Signed) Final Date: 23 Oct 2023 22:04 S
== END 2023-10-13 09:45 | disposition home or self-care (01) ==
LOC: RAD 09:44
PROVIDERS: PCP Family Medicine; Visit Provider Internal Medicine
DX: R06.02 Shortness of breath (principal); I50.30 Unspecified diastolic (congestive) heart failure
CPT/HCPCS: 93306

== ENCOUNTER 2023-10-27 12:15 | Oncology outpatient (recurring) (ONCR) | payer OTHER, SELFPAY ==
[2023-10-01 09:30] VITALS: BP 113/66; PULSE 61; RESP 17; O2SAT 94
[2023-10-01] MEDS: ferric carboxy (IVPB) 750 MG in sodium chloride 0.9% (100 ml) 100 ML 345 MG IV (09:30)
[2023-10-01 10:27] VITALS: BP 104/64; PULSE 63; RESP 18; TEMP 36.1; O2SAT 94
[2023-10-27 11:59] VITALS: BP 129/67; PULSE 59; RESP 18; TEMP 36.4; O2SAT 95
[2023-10-27 12:34] LABS: Basophils % 0.2 %; Eosinophils # 0.1 10^3/uL (0.0-0.8); Eosinophils % 2.2 %; Hematocrit 30.9 % (37-53); Lymphocytes # 0.9 10^3/uL (0.8-4.8); Lymphocytes % 20.7 %; Mean Corpuscular HGB Conc 28.5 g/dL (30-55); Mean Corpuscular Hemoglobin 27.6 pg (27-33); Mean Corpuscular Volume 96.9 fl (82-101); Mean Platelet Volume 11.7 fL (7.4-10.4); Monocytes # 0.5 10^3/uL (0.2-0.9); Monocytes % 11.6 %; Neutrophils # 2.91 10^3/uL (1.8-7.7); Nucleated Red Blood Cells % 0 %; Platelet Count 191 10^3/cmm (157-399); Red Blood Count 3.19 10^6/uL (3.85-5.65); Red Cell Distribution Width 21.2 % (12.1-15.1); White Blood Count 4.55 10^3/uL (3.29-11.43)
[2023-10-27 12:52] LABS: Alanine Aminotransferase 19 U/L (0-41); Albumin Level 3.8 g/dL (3.5-5.2); Alkaline Phosphatase 72 U/L (40-130); Anion Gap 10.6 (5-19); Aspartate Amino Transferase 18 U/L (0-40); Blood Urea Nitrogen 13 mg/dL (8-23); Calcium 8.5 mg/dL (8.5-10.5); Carbon Dioxide 28 mmol/L (22-29); Chloride 100 mmol/L (98-107); Creatinine Clr Calc Pharmacy 84.6524; Ferritin 38 ng/mL (30-400); Globulin 2.5 g/dL (1.3-4.6); Glucose 212 mg/dL (65-115); Iron 23 ug/dL (59-158); Osmolality Calculated 284 mOsm/kg (285-295); Potassium 4.6 mmol/L (3.5-5.1); Sodium 134 mmol/L (136-145); Total Bilirubin 0.3 mg/dL (0.15-1.2); Total Iron Binding Capacity 287 mcg/dl; Total Protein 6.3 g/dL (6.6-8.7); Unsaturated Iron Binding 264 ug/dL (112-347)
[2023-10-27] MEDS: ferric carboxy (IVPB) 750 MG in sodium chloride 0.9% (100 ml) 100 ML 345 MG IV (14:21)
[2023-10-27 15:00] VITALS: BP 125/71; PULSE 63; RESP 18; TEMP 36.8; O2SAT 97
== END 2023-10-29 23:59 | disposition home or self-care (01) ==
PROVIDERS: Nurse Practitioner Family; PCP Family Medicine; Visit Provider Internal Medicine Medical Oncology
DX: Z53.9 Procedure and treatment not carried out, unspecified reason (principal); D50.0 Iron deficiency anemia secondary to blood loss (chronic); Z79.899 Other long term (current) drug therapy; C61 Malignant neoplasm of prostate; D50.8 Other iron deficiency anemias
CPT/HCPCS: 80053; 82728; 83540; 83550; 85025; 96365; 99214; J1439

== ENCOUNTER 2023-11-19 13:30 | Oncology outpatient (recurring) (ONCR) | payer OTHER, SELFPAY ==
[2023-11-03] MEDS: ferric carboxy (IVPB) 750 MG in sodium chloride 0.9% (100 ml) 100 ML 345 MG IV (15:30)
[2023-11-03 15:31] VITALS: BP 127/71; PULSE 70; RESP 17; TEMP 36; O2SAT 93
[2023-11-03 16:10] VITALS: BP 129/73; PULSE 64; RESP 18; TEMP 36.3; O2SAT 94
== END 2023-11-28 23:59 | disposition home or self-care (01) ==
LOC: RAD 11-20 → ONCMED 12-09 11:14
PROVIDERS: PCP Family Medicine; Visit Provider Internal Medicine Medical Oncology
DX: Z53.9 Procedure and treatment not carried out, unspecified reason (principal)
CPT/HCPCS: 96365; J1439